=== PATIENT | male | born 1930 | race Caucasian/White ===

== ENCOUNTER 2018-08-28 09:17 | Inpatient (IN) | payer MEDICARE, OTHER ==
[~2018-08-28] VITALS: Ht 182.9 cm; Wt 90.7 kg
[~2018-08-28 09:17] MED LIST: HYDR-3164 PO
--- NOTE | 2018-08-28 09:40 | PHYS DOC ---
Past Medical History Past Medical History: CAD, Depression, Hypertension Past Surgical History: Other Additional Past Surgical Histo: CABG Alcohol Use: None Drug Use: None Adult General Chief Complaint Chief Complaint: MECHANICAL FALL HPI HPI Patient is a 87 year old male who presents with was found sitting on the toilet in his correction today with a bump on his left forehead and a 4 cm laceration. Patient has dementia and Alzheimer's and states that he doesn't remember falling or hurting himself and he denies any pain. [facility] states that he his status is normal for him. Review of Systems Review of Systems Constitutional: Denies fever or chills [] Eyes: Denies change in visual acuity, redness, or eye pain [] HENT: Denies nasal congestion or sore throat [] Respiratory: Denies cough or shortness of breath [] Cardiovascular: No additional information not addressed in HPI [] GI: Denies abdominal pain, nausea, vomiting, bloody stools or diarrhea [] : Denies dysuria or hematuria [] Musculoskeletal: Denies back pain or joint pain [] Integument: Left above brow 4 cm laceration. Left brow bruising and swelling. Denies rash or skin lesions [] Neurologic: Denies headache, focal weakness or sensory changes [] Endocrine: Denies polyuria or polydipsia [] All other systems were reviewed and found to be within normal limits, except as documented in this note. Current Medications Current Medications Current Medications Medications (Trade) Dose Ordered Sig/Lorri Start Time Stop Time Status Last Admin Dose Admin Diphtheria/ Tetanus/Acell Pertussis (Boostrix) 0.5 ml ONCE ONCE 08/28/18 09:45 08/28/18 09:46 DC 08/28/18 10:43 0.5 ML Lidocaine/Sodium Bicarbonate (Buffered Lidocaine 1%) 6 ml 1X ONCE 08/28/18 09:45 08/28/18 09:46 DC 08/28/18 10:41 6 ML Allergies Allergies Allergies Coded Allergies Type Severity Reaction Last Updated Verified Bmrpvux-Ehv-Xto Reductase Inhibitor Adverse Reaction Intermediate myalgias Yes Physical Exam Physical Exam Constitutional: Well developed, well nourished, no acute distress, non-toxic appearance. [] HENT: Normocephalic, atraumatic, bilateral external ears normal, oropharynx moist, no oral exudates, nose normal. [] Eyes: PERRLA, EOMI, conjunctiva normal, no discharge. [] Neck: Normal range of motion, no tenderness, supple, no stridor. [] Cardiovascular:Heart rate regular rhythm, no murmur [] Lungs & Thorax: Bilateral breath sounds clear to auscultation [] Abdomen: Bowel sounds normal, soft, no tenderness, no masses, no pulsatile masses. [] Skin: Left above the eyebrow 4 cm laceration. Bruising and swelling to left eyebrow. 1 cm Warm, dry, to under left eye. superficial scratch to under left eye. no erythema, no rash. [] Back: No tenderness, no CVA tenderness. [] Extremities: No tenderness, no cyanosis, no clubbing, ROM intact, no edema. [] Neurologic: Alert and oriented X 1, normal motor function, normal sensory function, no focal deficits noted. [] Psychologic: Affect normal, judgement normal, mood normal. [] Current Patient Data Vital Signs Vital Signs Date Time Temp Pulse Resp B/P (MAP) Pulse Ox O2 Delivery O2 Flow Rate FiO2 08/28/18 10:42 60 95 08/28/18 09:17 97.8 19 148/71 (96) Room Air 97.8 Lab Values Laboratory Tests Test 08/28/18 10:16 White Blood Count 4.9 x10^3/uL (4.0-11.0) Red Blood Count 3.82 x10^6/uL (4.30-5.70) L Hemoglobin 12.3 g/dL (13.0-17.5) L Hematocrit 35.5 % (39.0-53.0) L Mean Corpuscular Volume 93 fL (79-100) Mean Corpuscular Hemoglobin 32 pg (25-35) Mean Corpuscular Hemoglobin Concent 35 g/dL (31-37) Red Cell Distribution Width 14.6 % (11.5-14.5) H Platelet Count 127 x10^3/uL (140-400) L Neutrophils (%) (Auto) 65 % (31-73) Lymphocytes (%) (Auto) 21 % (24-48) L Monocytes (%) (Auto) 11 % (0-9) H Eosinophils (%) (Auto) 3 % (0-3) Basophils (%) (Auto) 0 % (0-3) Neutrophils # (Auto) 3.2 x10^3uL (1.8-7.7) Lymphocytes # (Auto) 1.0 x10^3/uL (1.0-4.8) Monocytes # (Auto) 0.6 x10^3/uL (0.0-1.1) Eosinophils # (Auto) 0.1 x10^3/uL (0.0-0.7) Basophils # (Auto) 0.0 x10^3/uL (0.0-0.2) Sodium Level 140 mmol/L (136-145) Potassium Level 4.2 mmol/L (3.5-5.1) Chloride Level 104 mmol/L (98-107) Carbon Dioxide Level 24 mmol/L (21-32) Anion Gap 12 (6-14) Blood Urea Nitrogen 24 mg/dL (8-26) Creatinine 1.3 mg/dL (0.7-1.3) Estimated GFR (Cockcroft-Gault) 52.1 Glucose Level 105 mg/dL (70-99) H Calcium Level 9.3 mg/dL (8.5-10.1) Creatine Kinase 177 U/L (39-308) Creatine Kinase MB (Mass) 2.7 ng/mL (0.0-3.6) Creatine Kinase MB Relative Index 1.5 % (0-4) Troponin I Quantitative 0.482 ng/mL (0.000-0.055) Laboratory Tests 08/28/18 10:16 Laboratory Tests 08/28/18 10:16 EKG EKG NO STEMI, SINUS RHYTHM Interpretation Time: [address] CALLOWAY Radiology/Procedures Radiology/Procedures CT HEAD, FACE, CERVICAL SPINE Impressions: [facility] [address] [place] [address] IMAGING REPORT Signed PATIENT: TAYLOR EVANS ACCOUNT: [id number] : 1930 LOCATION: ER AGE: 87 SEX: M EXAM STATUS: REG ER ORD. PHYSICIAN: DAE BEDOYA APRN REASON: fall, facial laceration, hit head PROCEDURE: CT CERVICAL SPINE WO CONTRAST PQRS Compliance Statement: One or more of the following individualized dose reduction techniques were utilized for this examination: 1. Automated exposure control 2. Adjustment of the mA and/or kV according to patient size 3. Use of iterative reconstruction technique CT HEAD, MAXILLOFACIAL, AND CERVICAL SPINE WITHOUT CONTRAST History: FALL, LACERATION TO FOREHEAD Comparison: None. Procedure: Axial images are obtained of the head from the skull base through the vertex without IV contrast. Noncontrast helical CT of the cervical spine was performed. Axial, sagittal, and coronal reconstructions were obtained. Helical CT imaging of the facial bones is performed without IV contrast. Findings: The ventricles and sulci are prominent, consistent with age-related cerebral atrophy. There is periventricular white matter hypoattenuation. This is a nonspecific finding but is commonly due to chronic small vessel ischemic disease in a patient of this age. No mass-effect, midline shift, hemorrhage or obvious acute infarction is identified. Basilar cisterns are patent. Bone windows demonstrate no significant calvarial abnormality. There is left frontal scalp hematoma and laceration. No acute facial bone fracture. Mucosal thickening inferiorly in the bilateral maxillary sinuses. No air-fluid level in paranasal sinuses.. Mastoid air cells are well aerated. Patient is edentulous. There is no evidence of acute fracture or acute malalignment of the cervical spine. Evaluation is limited due to motion artifact. Hypertrophic facet joints. Mild grade 1 anterolisthesis of C4 on C5. Severe disc space narrowing at C5/C6 and C6/C7. There are median sternotomy wires. Craniovertebral junction is normal. Visualized soft tissues of the neck demonstrate no significant abnormalities. The visualized lung apices are clear. IMPRESSION: 1. No acute intracranial abnormality. 2. No acute fracture of the cervical spine. 3. No acute facial bone fracture. 4. Left frontal scalp hematoma and laceration. Electronically signed by: Sergei Henao MD (08/28/2018 10:33 AM) [facility] DICTATED and SIGNED BY: SERGEI HENAO MD DATE: 08/28/18 [facility] Course & Med Decision Making Course & Med Decision Making Patient is a 87 year old male who presents with was found sitting on the toilet in his correction today with a bump on his left forehead and a 4 cm laceration. Patient has dementia and Alzheimer's and states that he doesn't remember falling or hurting himself and he denies any pain. [facility] states that he his status is normal for him. Patient has bruising to his left eyebrow and a dollar coin size bump with a Erin meter laceration above his left eyebrow. Patient has no bruising, deformities, tenderness with palpation to any part of his body. He denies any bony spinal pain or neck pain. Use all extremities and his neck with good range of motion. Patient is placed in a cervical spine collar. When correction was called the nurse that is taking care of him today could not give any information because she is not by a computer so it is unknown if he has had a tetanus shot. Patient receive a Boostrix in the ED. Alert and oriented to himself. Patient does have a small 1 cm scratch under his left eye that is closed and superficial. Bleeding is controlled. Laceration repair and Sutures placed by Dr Calloway. Sutures to be removed in 10 days. Patient troponin is elevated at 0.482 but EKG is negative for STEMI. Procedure note: Laceration over right forehead. 3-4 cm. Area is cleaned with NS and iodine. Wound is irrigated with NS. Local anesthesia is provided with 2 mls total buffered 1% lidocaine. A single running suture was placed with total of 8 throws using 5-0 nylon. following this, the wound edges were well- approximated but the wound continued to seep blood from the cephalad aspect. So a single vertical mattress suture was placed around the area of bleeding and hemostasis was immediately achieved. No complications during the procedure. Dragon Disclaimer Dragon Disclaimer This electronic medical record was generated, in whole or in part, using a voice recognition dictation system. Departure Departure Impression: Primary Impression: Laceration Additional Impressions: Contusion of head Elevated troponin Disposition: ADMITTED INPATIENT Admitting Physician: Other Condition: STABLE Referrals: RAISSA CHUNG MD (PCP) Problem Qualifiers Additional Impressions: Contusion of head Encounter type: initial encounter Contusion of head detail: other part of head Qualified Codes: S00.83XA - Contusion of other part of head, initial encounter DAE BEDOYA APRN Aug 28, 2018 09:40 LUCY CALLOWAY DO Aug 28, 2018 18:38
[2018-08-28] MEDS ORDERED: DIPHTH,PERTUSS(ACELL),TET TOX 0.5 ML DISP.SYRIN. VAX IM ONE (09:45)
[2018-08-28] MEDS ORDERED: LIDOCAINE WITH 8.4% SOD BICARB 3 ML DISP.SYRIN. INJ ONE (09:45)
--- NOTE | 2018-08-28 10:37 | RAD ---
PQRS Compliance Statement: One or more of the following individualized dose reduction techniques were utilized for this examination: 1. Automated exposure control 2. Adjustment of the mA and/or kV according to patient size 3. Use of iterative reconstruction technique CT HEAD, MAXILLOFACIAL, AND CERVICAL SPINE WITHOUT CONTRAST History: FALL, LACERATION TO FOREHEAD Comparison: None. Procedure: Axial images are obtained of the head from the skull base through the vertex without IV contrast. Noncontrast helical CT of the cervical spine was performed. Axial, sagittal, and coronal reconstructions were obtained. Helical CT imaging of the facial bones is performed without IV contrast. Findings: The ventricles and sulci are prominent, consistent with age-related cerebral atrophy. There is periventricular white matter hypoattenuation. This is a nonspecific finding but is commonly due to chronic small vessel ischemic disease in a patient of this age. No mass-effect, midline shift, hemorrhage or obvious acute infarction is identified. Basilar cisterns are patent. Bone windows demonstrate no significant calvarial abnormality. There is left frontal scalp hematoma and laceration. No acute facial bone fracture. Mucosal thickening inferiorly in the bilateral maxillary sinuses. No air-fluid level in paranasal sinuses.. Mastoid air cells are well aerated. Patient is edentulous. There is no evidence of acute fracture or acute malalignment of the cervical spine. Evaluation is limited due to motion artifact. Hypertrophic facet joints. Mild grade 1 anterolisthesis of C4 on C5. Severe disc space narrowing at C5/C6 and C6/C7. There are median sternotomy wires. Craniovertebral junction is normal. Visualized soft tissues of the neck demonstrate no significant abnormalities. The visualized lung apices are clear. IMPRESSION: 1. No acute intracranial abnormality. 2. No acute fracture of the cervical spine. 3. No acute facial bone fracture. 4. Left frontal scalp hematoma and laceration. Electronically signed by: Sergei Henao MD (08/28/2018 10:33 AM) [facility] [place]
[2018-08-28] MEDS ORDERED: ONDANSETRON PF 4 MG/2 ML VIAL. IV PRN (11:15)
[2018-08-28] MEDS ORDERED: fentaNYL PF VIAL 100 MCG/2 ML VIAL IV PRN (11:15)
[2018-08-28] MEDS ORDERED: ASPIRIN 325 MG TABLET PO ONE (11:15)
[2018-08-28] MEDS ORDERED: NITROGLYCERIN SUBLINGUAL 0.4 MG BOTTLE OF 25. SL PRN (11:15)
[2018-08-28] MEDS ORDERED: ACETAMINOPHEN 325 MG TABLET. PO PRN (11:15)
[2018-08-28 12:30] VITALS: BP 144/81
[2018-08-28 12:35] LABS: CALCIUM 9.3 mg/dL (8.5-10.1); CREATININE 1.3 mg/dL (0.7-1.3); GFR 52.1; POTASSIUM 4.2 mmol/L (3.5-5.1)
[2018-08-28 12:36] LABS: BASO % 0 % (0-3); EOS # 0.1 x10^3/uL (0.0-0.7); EOS % 3 % (0-3); HEMATOCRIT 35.5 % (39.0-53.0); HEMOGLOBIN 12.3 g/dL (13.0-17.5); LYMPH % 21 % (24-48); MEAN CORPUSCULAR HEMOGLOBIN 32 pg (25-35); MEAN CORPUSCULAR HGB CONC 35 g/dL (31-37); MEAN CORPUSCULAR VOLUME 93 fL (79-100); MONO # 0.6 x10^3/uL (0.0-1.1); MONO % 11 % (0-9); NEUT # 3.2 x10^3uL (1.8-7.7); NEUT % 65 % (31-73); PLATELET COUNT 127 x10^3/uL (140-400); RED BLOOD COUNT 3.82 x10^6/uL (4.30-5.70); RED CELL DISTRIBUTION WIDTH 14.6 % (11.5-14.5); WHITE BLOOD COUNT 4.9 x10^3/uL (4.0-11.0)
[2018-08-28] MEDS ORDERED: EZET10TA18 PO (15:23)
[2018-08-28] MEDS ORDERED: LOSA100T14 PO (15:23)
[2018-08-28] MEDS ORDERED: LEVO75TA5 PO (15:23)
[2018-08-28] MEDS ORDERED: ACET325T9 PO (15:23)
[2018-08-28] MEDS ORDERED: ASPI-612 PO (15:23)
[2018-08-28] MEDS ORDERED: COLE3.753 PO (15:23)
[2018-08-28] MEDS ORDERED: RISP0.5T3 PO (15:23)
[2018-08-28] MEDS ORDERED: FLUV50TA2 PO (15:23)
[2018-08-28] MEDS ORDERED: MELO7.5T29 PO (15:23)
[2018-08-28] MEDS ORDERED: RIVA1PAT23 TP (15:23)
[2018-08-28] MEDS ORDERED: MIRT30TA3 PO (15:23)
[2018-08-28] MEDS ORDERED: NIAC500T PO (15:23)
[2018-08-28] MEDS ORDERED: CHOL100013 PO (15:23)
[2018-08-28] MEDS ORDERED: TAMS0.4C2 PO (15:23)
[2018-08-28] MEDS ORDERED: CYAN10005 PO (15:23)
[2018-08-28] MEDS ORDERED: DIVA500T2 PO (15:23)
[2018-08-28] MEDS ORDERED: AMLO5TAB7 PO (15:23)
--- NOTE | 2018-08-28 15:27 | PDOC ---
Provider Note Provider Note CARDIOLOGY CONSULTATION Reason for consult: Elevated troponin HPI: 87 y.o male presenting with a fall. No chest pain. He has dementia. Unclear why troponin was checked. No dyspnea, orthopnea, PND or LE edema. He had a fall while going to the bathroom. Pmhx: 1. CAD s/p CABG 2. HTN 3. Dyslipidemia Socx: lives at [facility] at [facility]SH: Amlodipine, losartan, niacin and zetia. ALL: Statin Exam: VSS L forehead laceration Normal heart tones with 3/6 systolic aortic murmur, normal S1/s2 clear lungs no edema soft abd no focal neurologic deficits. Labs Trop minimally elevated unable to view EKG but per report no acute findings of heart block etc. Impression: 1. Fall with head laceration -etiology unclear. No clear cardiac issues noted. ( EKG, exam wnl) 2. Elevated troponin - ? stress mediated. Plan: 1. I had a long discussion with family about goals of care. 2. They wish conservative mgmt. Patient has no chest pain or symptoms. Will obtain echo, if EF normal, then supportive care. Otherwise, will reassess need for further evaluation. 3. Restart home meds. Supportive care. JODI HERNANDEZ MD Aug 28, 2018 15:27
[2018-08-28] MEDS ORDERED: HYDROcodone/APAP 5/325MG 1 TAB TABLET PO PRN (15:30)
[2018-08-28] MEDS: ACETAMINOPHEN 325 MG TABLET. PO SCH ×2 (16:00→20:36)
[2018-08-28] MEDS ORDERED: amLODIPine BESYLATE 5 MG TABLET PO SCH (16:00)
[2018-08-28] MEDS: DIVALPROEX DELAYED RELEASE 500 MG TABLET.DR. PO SCH (16:23)
--- NOTE | 2018-08-28 17:03 | EKG ---
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
[2018-08-28 19:29] VITALS: BP 155/74
[2018-08-28] MEDS ORDERED: MIRTAZAPINE 15 MG TABLET ONE (21:00)
[2018-08-28] MEDS ORDERED: NIACIN ER 500 MG TABLET.ER PO SCH (21:00)
[2018-08-28] MEDS ORDERED: MIRTAZAPINE 15 MG TABLET PO SCH (21:00)
[2018-08-28] MEDS ORDERED: risperiDONE 0.25 MG TABLET. PO SCH (21:00)
[2018-08-28 23:35] VITALS: BP 155/71
[2018-08-29] MEDS ORDERED: LEVOTHYROXINE 75 MCG TABLET PO SCH (07:30)
[2018-08-29 08:00] VITALS: BP 114/64
[2018-08-29] MEDS ORDERED: ASPIRIN ENTERIC COATED 81 MG TABLET.DR. PO SCH (08:00)
[2018-08-29] MEDS ORDERED: COLESEVELAM HCL 625 MG TABLET PO SCH (08:00)
--- NOTE | 2018-08-29 08:26 | RAD ---
EXAM: CHEST 1 VIEW History: Myocardial infarction COMPARISON: None available. TECHNIQUE: Single portable radiograph of the chest FINDINGS: The cardiac silhouette is unremarkable. The lungs are clear bilaterally. The costophrenic sulci are clear and well demarcated. IMPRESSION: No radiographic evidence of an acute cardiopulmonary process. Electronically signed by: Doc Kitchen MD (08/29/2018 8:22 AM) [facility]
[2018-08-29] MEDS ORDERED: MELOXICAM 7.5 MG TABLET PO SCH (09:00)
[2018-08-29] MEDS ORDERED: TAMSULOSIN 0.4 MG CAP.ER.24H. PO SCH (09:00)
[2018-08-29] MEDS ORDERED: amLODIPine BESYLATE 5 MG TABLET PO SCH (09:00)
[2018-08-29] MEDS ORDERED: EZETIMIBE 10 MG TABLET. PO SCH (09:00)
[2018-08-29] MEDS ORDERED: CYANOCOBALAMIN (VITAMIN B-12) 1,000 MCG TABLET. PO SCH (09:00)
[2018-08-29] MEDS ORDERED: RIVASTIGMINE 9.5MG PATCH. TD SCH (09:00)
[2018-08-29] MEDS ORDERED: LOSARTAN POTASSIUM 50 MG TABLET. PO SCH (09:00)
[2018-08-29] MEDS ORDERED: CHOLECALCIFEROL (VITAMIN D3) 1,000 UNIT TABLET PO SCH (09:00)
[2018-08-29] MEDS: ACETAMINOPHEN 325 MG TABLET. PO SCH (09:16)
[2018-08-29] MEDS: DIVALPROEX DELAYED RELEASE 500 MG TABLET.DR. PO SCH (09:17)
[2018-08-29 09:19] VITALS: BP 113/64
--- NOTE | 2018-08-29 11:00 | DISCH ---
DISCHARGE WITH HOME HEALTH DISCHARGE INFORMATION: Final Diagnosis: Problems Medical Problems: (1) Contusion of head Status: Acute (2) Elevated troponin Status: Acute (3) Laceration Status: Acute Condition on Discharge: Stable CODE STATUS: Code Status: Full HOME HEALTH: Face to Face: I certify this patient is under my care and that I, or a nurse practitioner or physician's college sports assistant working with me, had a face to face encounter that meets the physician face to face encounter requirements with this patient on []. Medical Complications: Dementia Physical Therapy For: Evalulation/Treatment Home Health Aide For: Self-care POST DISCHARGE ORDERS: Activity Instructions for Disc: Activity as tolerated Weight Bearing Status after Di: As tolerated Bathing Instructions: Shower-keep dressing dry DIET AFTER DISCHARGE: Regular Wound/Incision Care: No wound care needed Other wound/incision instructi: remove sutures in 7-10 days TREATMENT/EQUIPMENT ORDERS: Adaptive Equipment Issued: None CERTIFICATION STATEMENT: Certification Statement: Certification Statement: Based on the above finding, I certify that this patient is confined to the home and needs intermittent nursing home care, physical therapy and/or speech therapy, or continues to need occupational therapy.~ This patient is under my care, and I have initiated the establishment of the plan of care.~ This patient will be followed by myself or a community physician who will periodically review the plan of care. Home Meds Active Scripts Hydrocodone/Apap 5-325 (NORCO 5-325 TABLET) 1 Each Tablet, 1 TAB PO PRN Q6HRS PRN for PAIN, #10 TAB Prov:ANGEL FELTON MD 06/27/16 Reported Medications Ezetimibe (ZETIA) 10 Mg Tablet, 1 TAB PO DAILY for HYPERLIPIDEMIA, #30 TAB 5 Refills 08/28/18 Cholecalciferol (Vitamin D3) (VITAMIN D) 1,000 Unit Capsule, 2 CAP PO DAILY for VIT D INSUFFICIENCY, #30 CAP 3 Refills 08/28/18 Tamsulosin Hcl (TAMSULOSIN HCL) 0.4 Mg Cap.er.24h, 1 CAP PO DAILY for BPH, #30 CAP 5 Refills 08/28/18 Risperidone (RISPERIDONE) 0.5 Mg Tablet, 1.5 TAB PO QHS for AGITATION, #30 TAB 2 Refills 08/28/18 Niacin (NIASPAN) 500 Mg Tab.er.24h, 1 TAB PO QHS for HYPERLIPIDEMIA, #30 TAB 5 Refills 12/1/18 Mirtazapine (MIRTAZAPINE) 30 Mg Tablet, 1 TAB PO QHS for INSOMNIA, #30 TAB 1 Refill 08/28/18 Meloxicam (MELOXICAM) 7.5 Mg Tablet, 1 TAB PO DAILY for ARTHRITIS, #30 TAB 2 Refills 08/28/18 Losartan Potassium (LOSARTAN POTASSIUM) 100 Mg Tablet, 100 MG PO DAILY for HTN, TAB 08/28/18 Levothyroxine Sodium (LEVOTHYROXINE SODIUM) 75 Mcg Tablet, 75 MCG PO DAILYAC for THYROID SUPPLEMENT, #30 TAB 0 Refills 08/28/18 Fluvoxamine Maleate (FLUVOXAMINE MALEATE) 50 Mg Tablet, 1 TAB PO QHS for OCD, # 30 TAB 1 Refill 08/28/18 Rivastigmine (EXELON 9.5mg/24hr) 1 Each Patch.td24, 1 PATCH TP DAILY for DEMENTIA, #30 PATCH 2 Refills 08/28/18 Divalproex Sodium (DEPAKOTE) 500 Mg Tablet.dr, 1 TAB PO BID for DEMENTIA, #60 TAB 1 Refill 08/28/18 Cyanocobalamin (Vitamin B-12) (VITAMIN B-12) 1,000 Mcg Tablet, 1 TAB PO DAILY for LOW B12, #30 TAB 2 Refills 08/28/18 Colesevelam Hcl (WELCHOL) 3.75 Gm Powd.pack, 1 PACKET PO DAILY for HYPERLIPIDEMIA, #90 PACKET 1 Refill 08/28/18 Aspirin (ASPIRIN EC) 81 Mg Tablet., 81 MG PO DAILY08 for PPX, TAB.SR 08/28/18 Amlodipine Besylate (AMLODIPINE BESYLATE) 5 Mg Tablet, 5 MG PO DAILY for HTN, TAB 08/28/18 Acetaminophen (TYLENOL) 325 Mg Tablet, 1-2 TAB PO QID for PAIN/TEMP, #60 TAB 2 Refills 08/28/18 SONIA LÓPEZ III, DO Aug 29, 2018 11:00
--- NOTE | 2018-08-29 12:36 | CARD ---
MR#: [id number] Date of Study: 08/29/2018 Ordering Physician: JODI HERNANDEZ, Referring Physician: IRINA CHINCHILLA Tech: Roshni Herring RDCS APPROVED REPORT EXAM: LIMITED Two-dimensional echocardiogram. Other Information Quality : AverageHR: 56bpm Rhythm : Bradycardia INDICATION ELEVATED TROPONIN 2D DIMENSIONS IVSd1.0 (0.7-1.1cm)LVDd4.8 (3.9-5.9cm) PWd1.0 (0.7-1.1cm)LVDs3.5 (2.5-4.0cm) FS (%) 25.7 %SV53.5 ml LVEF(%)50.5 (>50%) Critical Notification Critical Value: No <Conclusion> Limited echo for LV function only EF 55% Septal motion suggestive of conduction defect, otherwise no significant disease. Valves not assessed on this limited study. Signed by : Jodi Hernandez, Electronically Approved : 08/29/2018 12:35:02
--- NOTE | 2018-08-29 13:37 | SSS ---
ADMIT DATE: 08/29/2018 CHIEF COMPLAINT: Fall and found down with a facial laceration. HISTORY OF PRESENT ILLNESS: The patient is a pleasant 87-year-old male who was found in his bathroom. He lives at a facility. He apparently had fallen or passed out. He had a laceration to the left forehead and a black eye. They called the ambulance and he was brought to the ER. The patient does have Alzheimer disease; he is not sure what happened. While in the ER, they sutured his left forehead and admitted him to the ICU. He is now being examined in room 104 where he is stable. We did consult Cardiology. They have signed off. We are probably going to get him home this afternoon. PAST MEDICAL HISTORY: Dementia, CAD, depression, hypertension, hyperlipidemia, CABG. ALLERGIES: STATINS. FAMILY HISTORY: Coronary artery disease. SOCIAL HISTORY: He lives at a facility. He does not drink, smoke or take drugs. 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 MEDICATIONS: He is on 18 of them including Exelon, Flomax, Zetia, Niaspan, amlodipine, losartan, aspirin, meloxicam, hydrocodone, Tylenol, Depakote, fluoxetine, mirtazapine, risperidone, Synthroid, vitamin B12, vitamin D. REVIEW OF SYSTEMS: GENERAL: No history of weight change, weakness or fevers. SKIN: He complains of pain around the laceration on his forehead. EYES: No blurred, double or loss of vision. NOSE AND THROAT: No history of nosebleeds, hoarseness or sore throat. HEART: No history of palpitations, chest pain or shortness of breath on exertion. LUNGS: Denies cough, hemoptysis, wheezing or shortness of breath. GASTROINTESTINAL: Denies changes in appetite, nausea, vomiting, diarrhea or constipation. GENITOURINARY: No history of frequency, urgency, hesitancy or nocturia. NEUROLOGIC: He complains of some weakness. PSYCHIATRIC: No history of panic, anxiety or depression. ENDOCRINE: No history of heat or cold intolerance, polyuria or polydipsia. EXTREMITIES: Denies muscle weakness, joint pain, pain on walking or stiffness. PHYSICAL EXAMINATION: VITAL SIGNS: Temperature is afebrile, pulse 98, respirations 18, blood pressure 144/90. GENERAL: He is alert, cooperative. His son is present. HEART: Distant S1, S2. LUNGS: Clear to auscultation. ABDOMEN: Soft, positive bowel sounds. EXTREMITIES: Trace edema. SKIN: No rashes. ENDOCRINE: No thyromegaly. LYMPHATICS: No cervical nodes. HEENT: He does have bruising around the left eye. There is also a large laceration on the left forehead. DIAGNOSTIC DATA: Chest x-ray is negative. CT of the head showed no acute fractures or intracranial abnormalities. He does have a left frontal scalp hematoma. ASSESSMENT AND PLAN: Fall with left facial trauma with status post suturing of the laceration and a black eye. Clinically, the patient seems to be back to his baseline. We will get him back on his home meds and discharge back to his facility. DISPOSITION: Home. ACTIVITY: As tolerated. DIET: Low sodium. MEDICATIONS: Please see the MRAD. TOTAL TIME: 31 minutes. ZAHRAL Brian LÓPEZ DO DR: STACIE/dioni JOB#: [id number] / [id number]
== END 2018-08-29 11:41 | disposition home or self-care (01) | DRG 605 ==
LOC: ER 09:17 → 1 WEST ICU 11:06
PROVIDERS: ADMIT Hospitalist; ATTEND Hospitalist
PROC: 0HQ1XZZ Repair Face Skin, External Approach (ICD-10-PCS; principal; 2018-08-28)
DX: S01.01XA Laceration without foreign body of scalp, initial encounter (principal); S01.81XA Laceration without foreign body of other part of head, initial encounter; S01.112A Laceration without foreign body of left eyelid and periocular area, initial encounter; E78.5 Hyperlipidemia, unspecified; F02.80 Dementia in other diseases classified elsewhere, unspecified severity, without behavioral disturbance, psychotic disturbance, mood disturbance, and anxiety; G30.9 Alzheimer's disease, unspecified; I10 Essential (primary) hypertension; I25.10 Atherosclerotic heart disease of native coronary artery without angina pectoris; Z82.49 Family history of ischemic heart disease and other diseases of the circulatory system; W18.39XA Other fall on same level, initial encounter; Z95.1 Presence of aortocoronary bypass graft; F32.9 Major depressive disorder, single episode, unspecified; Y93.89 Activity, other specified; Y92.89 Other specified places as the place of occurrence of the external cause; Y99.8 Other external cause status; Z79.899 Other long term (current) drug therapy; Z88.8 Allergy status to other drugs, medicaments and biological substances
CPT/HCPCS: 12013; 36415; 70450; 70486; 71045; 72125; 80048; 82553; 84484; 85025; 87641; 90471; 90715; 93005; 93308; 99285-25

== ENCOUNTER 2019-07-16 07:41 | Inpatient (IN) | payer MEDICARE, OTHER ==
[~2019-07-16] VITALS: Ht 175.3 cm; Wt 108.2 kg
[2019-07-16] VITALS (9 sets, daily range): BP systolic 84–157; BP diastolic 45–85
[~2019-07-16 07:41] MED LIST changes: +ACET325T9 PO; +AMLO5TAB10 PO; +AMOX1TAB11 PO; +ASPI-612 PO; +CHOL100013 PO; +COLE3.753 PO; +COLE625T12 PO; +CYAN-25 PO; +DIVA250T PO; +DIVA500T2 PO; +DIVA500T4 PO; +EZET10TA20 PO; +FLUV50TA2 PO; +LACT1CAP19 PO; +LEVO75TA5 PO; +LINE600T12 PO; +LOSA100T14 PO; +MAG355OR11 PO; +MAGN2400 PO; +MELO7.5T29 PO; +MIRT30TA3 PO; +NIAC500T PO; +NITR0.4T22 SL; +RISP0.5T3 PO; +RIVA1PAT22 TP; +RIVA1PAT23 TP; +TAMS0.4C2 PO; +VITA100020 PO
[2019-07-16] MEDS ORDERED: cefTRIAXone IV Push 2 GM VIAL. IVP ONE (08:00)
[2019-07-16] MEDS ORDERED: IPRATRPIUM/ALBUTEROL 0.5/2.5MG 3 ML NEBU. NEB ONE (08:00)
[2019-07-16] MEDS ORDERED: ACETAMINOPHEN 500 MG TABLET PO ONE (08:00)
[2019-07-16] MEDS ORDERED: DOXYCYCLINE HYCLATE 100 MG in IV DEXTROSE 5% 100ML 100 ML IV ONE (08:00)
--- NOTE | 2019-07-16 08:07 | PHYS DOC ---
Past Medical History Past Medical History: Anxiety, CAD, Dementia, Depression, High Cholesterol, Hypertension, Hypothyroid, UTI, Other Additional Past Medical Histor: ALZHEIMER'S Past Surgical History: Coronary Bypass Surgery Additional Past Surgical Histo: CABG Alcohol Use: None Drug Use: None Adult General Chief Complaint Chief Complaint: SHORTNESS OF BREATH HPI HPI Patient is a 88 year old male brought in by embolus from the local [facility] care assisted living after a fall found to have fever tachypnea hypoxia history limited by dementia no trauma identified Review of Systems Review of Systems Limited by dementia Current Medications Current Medications Current Medications Medications (Trade) Dose Ordered Sig/Lorri Start Time Stop Time Status Last Admin Dose Admin Acetaminophen (Tylenol) 1,000 mg 1X ONCE 07/16/19 08:00 07/16/19 08:01 DC 07/16/19 08:09 1,000 MG Albuterol Sulfate (Ventolin Neb Soln) 2.5 mg 1X ONCE 07/16/19 09:45 07/16/19 09:46 DC 07/16/19 09:56 2.5 MG Albuterol/ Ipratropium (Duoneb) 3 ml 1X ONCE 07/16/19 08:00 07/16/19 08:01 DC 07/16/19 08:04 3 ML Ceftriaxone Sodium (Rocephin) 2 gm 1X ONCE 07/16/19 08:00 07/16/19 08:01 DC 07/16/19 08:31 2 GM Doxycycline Hyclate 100 mg/ Dextrose 100 ml @ 50 mls/hr 1X ONCE 07/16/19 08:00 07/16/19 09:59 DC 07/16/19 08:32 50 MLS/HR Ketamine HCl (Ketamine) 20 mg 1X ONCE 07/16/19 09:45 07/16/19 09:46 DC 07/16/19 09:46 20 MG Lorazepam (Ativan Inj) 1 mg 1X ONCE 07/16/19 09:30 07/16/19 09:31 DC Oseltamivir Phosphate (Tamiflu) 75 mg 1X STAT 07/16/19 09:26 07/16/19 09:28 DC Sodium Chloride 1,000 ml @ 2,100 mls/hr Q29M 07/16/19 07:53 07/16/19 08:53 DC 07/16/19 08:21 2,100 MLS/HR Allergies Allergies Allergies Coded Allergies Type Severity Reaction Last Updated Verified bee venom protein (honey bee) Allergy Intermediate 07/16/19 Yes Penicillins Allergy Unknown 07/16/19 Yes Physical Exam Physical Exam Constitutional: Well developed, moderately ill-appearing HENT: Normocephalic, atraumatic, bilateral external ears normal, oropharynx moist, no oral exudates, nose normal. [] Eyes: PERRLA, EOMI, conjunctiva normal, no discharge. [] Neck: Normal range of motion, no tenderness, supple, no stridor. [] Cardiovascular: Tachycardia difficult to assess for murmurs Lungs & Thorax: Some wheezing noted rhonchi throughout decreased breath sounds Abdomen: Bowel sounds normal, soft, no tenderness, no masses, no pulsatile masses. [] Skin: Warm, dry, no erythema, no rash. [] Back: No tenderness, no CVA tenderness. [] Extremities: No tenderness, no cyanosis, no clubbing, ROM intact, 3 edema b/l Neurologic: Alert and oriented X 1 (baseline per report, normal motor function, normal sensory function, no focal deficits noted. [] Psychologic: Affect normal, judgement normal, mood normal. [] Current Patient Data Vital Signs Vital Signs Date Time Temp Pulse Resp B/P (MAP) Pulse Ox O2 Delivery O2 Flow Rate FiO2 07/16/19 09:58 95 BiPAP/CPAP 07/16/19 09:30 122 127/68 (87) 07/16/19 09:00 4.0 07/16/19 08:30 32 07/16/19 07:42 102.4 102.4 Lab Values Laboratory Tests Test 07/16/19 07:54 07/16/19 08:05 Influenza Type A Antigen Negative (NEGATIVE) Influenza Type B Antigen Positive (NEGATIVE) White Blood Count 4.6 x10^3/uL (4.0-11.0) Red Blood Count 3.56 x10^6/uL (4.30-5.70) L Hemoglobin 11.9 g/dL (13.0-17.5) L Hematocrit 35.1 % (39.0-53.0) L Mean Corpuscular Volume 99 fL (79-100) Mean Corpuscular Hemoglobin 33 pg (25-35) Mean Corpuscular Hemoglobin Concent 34 g/dL (31-37) Red Cell Distribution Width 14.1 % (11.5-14.5) Platelet Count 144 x10^3/uL (140-400) Neutrophils (%) (Auto) 84 % (31-73) H Lymphocytes (%) (Auto) 6 % (24-48) L Monocytes (%) (Auto) 10 % (0-9) H Eosinophils (%) (Auto) 0 % (0-3) Basophils (%) (Auto) 0 % (0-3) Neutrophils # (Auto) 3.9 x10^3/uL (1.8-7.7) Lymphocytes # (Auto) 0.3 x10^3/uL (1.0-4.8) L Monocytes # (Auto) 0.5 x10^3/uL (0.0-1.1) Eosinophils # (Auto) 0.0 x10^3/uL (0.0-0.7) Basophils # (Auto) 0.0 x10^3/uL (0.0-0.2) Segmented Neutrophils % 47 % (35-66) Band Neutrophils % 33 % (0-9) H Lymphocytes % 6 % (24-48) L Monocytes % 14 % (0-10) H Platelet Estimate Adequate (ADEQUATE) Prothrombin Time 13.9 SEC (11.7-14.0) Prothrombin Time INR 1.1 (0.8-1.1) Sodium Level 143 mmol/L (136-145) Potassium Level 4.3 mmol/L (3.5-5.1) Chloride Level 106 mmol/L (98-107) Carbon Dioxide Level 26 mmol/L (21-32) Anion Gap 11 (6-14) Blood Urea Nitrogen 49 mg/dL (8-26) H Creatinine 1.7 mg/dL (0.7-1.3) H Estimated GFR (Cockcroft-Gault) 38.1 BUN/Creatinine Ratio 29 (6-20) H Glucose Level 127 mg/dL (70-99) H Lactic Acid Level 2.3 mmol/L (0.4-2.0) H Calcium Level 9.5 mg/dL (8.5-10.1) Total Bilirubin 0.7 mg/dL (0.2-1.0) Aspartate Amino Transferase (AST) 25 U/L (15-37) Alanine Aminotransferase (ALT) 17 U/L (16-63) Alkaline Phosphatase 39 U/L (46-116) L Troponin I Quantitative 1.483 ng/mL (0.000-0.055) OZ-Poh-A-Type Natriuretic Peptide 4448 pg/mL (0-449) H Total Protein 8.3 g/dL (6.4-8.2) H Albumin 3.4 g/dL (3.4-5.0) Albumin/Globulin Ratio 0.7 (1.0-1.7) L Procalcitonin 0.18 ng/mL (0.00-0.10) H Laboratory Tests 07/16/19 08:05 Laboratory Tests 07/16/19 08:05 EKG EKG []No blood poor baseline probably sinus rhythm rate of 100 QTc 421 Radiology/Procedures Radiology/Procedures [] Impressions: Exam performed: One view chest HISTORY: Shortness of breath DATE OF SERVICE: 10/16/2018. COMPARISON: Single view chest from 10/29/2018. Single AP upright portable view chest findings: Heart size is enlarged. Pulmonary vascularity is mildly congested. There is a parenchymal opacity in the right lower lobe likely infiltrates. No gross pleural effusion or pneumothorax seen. Bones are normal. IMPRESSION: Parenchymal opacity right lower lobe likely infiltrates. Electronically signed by: Kylie Carmona MD (07/16/2019 9:46 AM) [facility] DICTATED and SIGNED BY: KYLIE CARMONA MD DATE: 07/16/19 0946 Course & Med Decision Making Course & Med Decision Making Critical care time was 35 minutes exclusive of procedures. 88-year-old male history of multiple medical problems advanced dementia presenting with fall at the longterm generalized weakness shortness of breath febrile to 102 requiring 5 L of nasal cannula all concerning for pneumonia. Critical care time related to assessment of oxygenation and respiratory evaluation patient had tenuous oxygenation in the emergency room. Patient is evidence of influenza Tamiflu was ordered also a right lower lobe pneumonia we give antibiotics for that patient has evidence of myocardial strain I suspect that is from sepsis and influenza no obvious acute changes on EKG but was a poor baseline overall the patient is critically ill. DID ORDER aspirin at time of icu transport Pertinent Labs and Imaging studies reviewed. (See chart for details) []9:30 AM patient had acute hypoxia we placed the patient on BiPAP we did give him Ativan and then some ketamine and that helped a lot I checked blood gas pH 7.38 PCO2 of 32 PO2 of 86% oN BiPAP settings. I spoke with the patient's daughter Yevgeniy over the telephone who told me that she does not think the patient should be put on a ventilator but she will check with her son. Son arrived to the emergency room right as we are transferring the patient to the ICU. Son was asking me how long the patient would be on a ventilator if he had needed it I said I wasn't sure he also told me that the dad told him he would not want to be on the ventilator for a prolonged period of time after watching what happened to his . Given the stable blood gas at this point, think he is okay for BiPAP and monitoring. Dr. HUBER come to see the patient and the emergency room as well. I talked about the case with Dr. Lucio Méndez Disclaimer Dev Disclaimer This electronic medical record was generated, in whole or in part, using a voice recognition dictation system. Departure Departure Impression: Primary Impression: Pneumonia Additional Impressions: Elevated troponin Influenza Disposition: ADMITTED INPATIENT Admitting Physician: BLAIRE Condition: GUARDED Referrals: ALFA PRADHAN MD (PCP) Problem Qualifiers ELVIS ALEJANDRA MD Jul 16, 2019 08:07
[2019-07-16] MEDS: IV NORMAL SALINE 1000ML BAG 1,000 ML IV SCH ×7 (08:09→19:00)
[2019-07-16 08:31] LABS: BASO % 0 % (0-3); EOS % 0 % (0-3); HEMATOCRIT 35.1 % (39.0-53.0); HEMOGLOBIN 11.9 g/dL (13.0-17.5); LYMPH # 0.3 x10^3/uL (1.0-4.8); LYMPH % 6 % (24-48); MEAN CORPUSCULAR HEMOGLOBIN 33 pg (25-35); MEAN CORPUSCULAR HGB CONC 34 g/dL (31-37); MEAN CORPUSCULAR VOLUME 99 fL (79-100); MONO # 0.5 x10^3/uL (0.0-1.1); MONO % 10 % (0-9); NEUT # 3.9 x10^3/uL (1.8-7.7); NEUT % 84 % (31-73); PLATELET COUNT 144 x10^3/uL (140-400); RED BLOOD COUNT 3.56 x10^6/uL (4.30-5.70); RED CELL DISTRIBUTION WIDTH 14.1 % (11.5-14.5); WHITE BLOOD COUNT 4.6 x10^3/uL (4.0-11.0)
[2019-07-16 08:38] LABS: PROTHROMBIN TIME PATIENT 13.9 SEC (11.7-14.0)
[2019-07-16 09:00] LABS: CALCIUM 9.5 mg/dL (8.5-10.1); CREATININE 1.7 mg/dL (0.7-1.3); GFR 38.1; POTASSIUM 4.3 mmol/L (3.5-5.1)
--- NOTE | 2019-07-16 09:05 | RAD ---
Exam performed portable view chest HISTORY: Chest pain DATE OF SERVICE: 07/16/2019. COMPARISON: One view chest from 10/29/2018. Single AP upright portable view chest findings: Mild cardiomegaly. Central vascular congestion and bilateral interstitial opacities are seen. There has been previous median sternotomy. Normal trace bilateral pleural effusions. IMPRESSION: Cardiomegaly with low-grade CHF Electronically signed by: Kylie Carmona MD (07/16/2019 9:03 AM) [facility]
[2019-07-16 09:14] LABS: ALBUMIN 3.4 g/dL (3.4-5.0); ALBUMIN/GLOBULIN RATIO 0.7 (1.0-1.7); TOTAL BILIRUBIN 0.7 mg/dL (0.2-1.0); TOTAL PROTEIN 8.3 g/dL (6.4-8.2)
[2019-07-16 09:20] LABS: INFLUENZA A PATIENT NEGATIVE (NEGATIVE)
[2019-07-16 09:23] LABS: INFLUENZA B PATIENT POSITIVE (NEGATIVE)
[2019-07-16] MEDS ORDERED: OSELTAMIVIR 75 MG CAPSULE PO STA (09:26)
[2019-07-16 09:28] LABS: % BANDS 33 % (0-9); % LYMPHS 6 % (24-48); % MONOS 14 % (0-10); % SEGS 47 % (35-66); PLT ESTIMATE ADEQUATE (ADEQUATE)
[2019-07-16] MEDS ORDERED: KETAMINE HCL IN NACL, ISO-OSM 50 MG/5 ML SYRINGE ONE (09:35)
[2019-07-16] MEDS ORDERED: ALBUTEROL SULFATE 2.5 MG/3 ML NEBU. NEB ONE (09:45)
[2019-07-16] MEDS ORDERED: KETAMINE HCL 500 MG/10 ML VIAL. IV ONE (09:45)
[2019-07-16] MEDS ORDERED: KETAMINE HCL IN NACL, ISO-OSM 50 MG/5 ML SYRINGE IV ONE ×3 (09:45→11:00)
--- NOTE | 2019-07-16 09:49 | RAD ---
Exam performed: One view chest HISTORY: Shortness of breath DATE OF SERVICE: 10/16/2018. COMPARISON: Single view chest from 10/29/2018. Single AP upright portable view chest findings: Heart size is enlarged. Pulmonary vascularity is mildly congested. There is a parenchymal opacity in the right lower lobe likely infiltrates. No gross pleural effusion or pneumothorax seen. Bones are normal. IMPRESSION: Parenchymal opacity right lower lobe likely infiltrates. Electronically signed by: Kylie Carmona MD (07/16/2019 9:46 AM) [facility]
[2019-07-16] MEDS ORDERED: MORPHINE SULFATE 2 MG/ML VIAL. IV PRN ×2 (10:15→18:30)
--- NOTE | 2019-07-16 10:29 | EKG ---
[facility] [address] [place] [address] Test Date: 2019-07-16 Test Time: 08:01:17 Pat Name: TAYLOR EVANS Department: Room: 112 1 Gender: M Trauma Counsellor: : 1930 Requested By: ELVIS ALEJANDRA Order Number: [id number] Reading MD: Jeff Auguste MD Measurements Intervals Haugen Rate: 100 P: -86 DC: 202 QRS: 2 QRSD: 84 T: 55 QT: 324 QTc: 420 Interpretive Statements SIGNIFICANT MOTION ARTIFACT PROBABLE SR WITH 1ST DEGREE AVB NON-SPECIFIC ST/T CHANGES Electronically Signed On 07-16-2019 14:24:21 CDT by Jeff Auguste MD
[2019-07-16 10:47] LABS: BASE EXCESS ABG -5 mmol/L (-3-3); HCO3 ABG 19 mmol/L (21-28); PCO2 ABG 33 mmHg (35-46); PO2 ABG 87 mmHg (65-108); SAT O2 ABG 95 % (92-99)
[2019-07-16 10:51] LABS: FIO2 ABG 50
--- NOTE | 2019-07-16 10:55 | PDOC ---
Provider Note Provider Note [id number] acute resp fail sepsis influenza, pneumonia see orders IBRAHIMA MALCOLM MD Jul 16, 2019 10:55
[2019-07-16] MEDS ORDERED: BUDESONIDE 0.5 MG/2 ML NEBU. NEB ONE (11:00)
--- NOTE | 2019-07-16 11:07 | PDOC1 ---
History and Physical Date of Admission Date of Admission DATE: 07/16/19 TIME: 11:01 Identification/Chief Complaint Chief Complaint seen in er , 88 year old male brought in by EMS from the local memory care// assisted living after a fall found to have fever tachypnea hypoxia history limited by dementia PLACED ON BIPAP anxious in er Past Medical History Past Medical History Past Medical History Past Medical History: Anxiety, CAD, Dementia, Depression, High Cholesterol, Hypertension, Hypothyroid, UTI, Other Additional Past Medical Histor: ALZHEIMER'S Past Surgical History: Coronary Bypass Surgery Additional Past Surgical Histo: CABG Alcohol Use: None Drug Use: None fhx HTN Cardiovascular: CAD, HTN, Hyperlipidemia Pulmonary: No pertinent hx CENTRAL NERVOUS SYSTEM: Dementia GI: No pertinent hx Heme/Onc: No pertinent hx Hepatobiliary: No pertinent hx Psych: Anxiety, Depression Musculoskeletal: Osteoarthritis Rheumatologic: No pertinent hx Infectious disease: No pertinent hx Renal/: UTI Endocrine: Hypothyroidism Past Surgical History Past Surgical History: CABG Family History Family History Past Medical History Cardiovascular: CAD, HTN Pulmonary: No pertinent hx CENTRAL NERVOUS SYSTEM: Dementia GI: No pertinent hx Heme/Onc: No pertinent hx Hepatobiliary: No pertinent hx Psych: Anxiety, Depression Rheumatologic: No pertinent hx Infectious disease: No pertinent hx ENT: No pertinent hx Renal/: UTI, Benign prostatic enlarg. Endocrine: Hypothyroidism Dermatology: No pertinent hx Past Surgical History Past Surgical History: CABG Family History Family History: Hypertension, Hypothyroidism Social History Smoke: No ALCOHOL: none Drugs: None Family History: Hypertension Social History Smoke: No ALCOHOL: none Drugs: None Current Medications Current Medications Current Medications Acetaminophen (Tylenol) 1,000 mg 1X ONCE PO Last administered on 07/16/19at 08:09; Start 07/16/19 at 08:00; Stop 07/16/19 at 08:01; Status DC Ceftriaxone Sodium (Rocephin) 2 gm 1X ONCE IVP Last administered on 07/16/19at 08:31; Start 07/16/19 at 08:00; Stop 07/16/19 at 08:01; Status DC Sodium Chloride 1,000 ml @ 2,100 mls/hr Q29M IV Last administered on 07/16/19at 08:21; Start 07/16/19 at 07:53; Stop 07/16/19 at 08:53; Status DC Doxycycline Hyclate 100 mg/ Dextrose 100 ml @ 50 mls/hr 1X ONCE IV Last administered on 07/16/19at 08:32; Start 07/16/19 at 08:00; Stop 07/16/19 at 09:59; Status DC Albuterol/ Ipratropium (Duoneb) 3 ml 1X ONCE NEB Last administered on 07/16/19at 08:04; Start 07/16/19 at 08:00; Stop 07/16/19 at 08:01; Status DC Lorazepam (Ativan Inj) 1 mg 1X ONCE IV Last administered on 07/16/19at 09:28; Start 07/16/19 at 09:30; Stop 07/16/19 at 09:31; Status DC Lorazepam (Ativan Inj) 1 mg 1X ONCE IVP ; Start 07/16/19 at 09:30; Stop 1 at 09:31; Status DC Oseltamivir Phosphate (Tamiflu) 75 mg 1X STAT PO ; Start 07/16/19 at 09:26; Stop 07/16/19 at 09:28; Status DC Ketamine HCl (Ketamine) 50 mg STK-MED ONCE .ROUTE ; Start 07/16/19 at 09:35; Stop 07/16/19 at 09:35; Status DC Ketamine HCl (Ketamine) 20 mg 1X ONCE IV ; Start 07/16/19 at 09:45; Stop 07/16/19 at 09:46; Status DC Ketamine HCl (Ketamine) 20 mg 1X ONCE IV Last administered on 07/16/19at 09:46; Start 07/16/19 at 09:45; Stop 07/16/19 at 09:46; Status DC Albuterol Sulfate (Ventolin Neb Soln) 2.5 mg 1X ONCE NEB Last administered on 07/16/19at 09:56; Start 07/16/19 at 09:45; Stop 07/16/19 at 09:46; Status DC Morphine Sulfate (Morphine Sulfate) 2 mg PRN Q2HR PRN IV PAIN; Start 07/16/19 at 10:15; Stop 07/17/19 at 10:14 Albuterol/ Ipratropium (Duoneb) 3 ml RTQID NEB ; Start 07/16/19 at 12:00; Stop 07/17/19 at 11:59 Ketamine HCl (Ketamine) 20 mg 1X ONCE IV Last administered on 07/16/19at 10:20; Start 07/16/19 at 10:15; Stop 07/16/19 at 10:16; Status DC Budesonide (Pulmicort) 0.5 mg RTBID NEB ; Start 07/16/19 at 20:00 Budesonide (Pulmicort) 0.5 mg 1X ONCE NEB ; Start 07/16/19 at 11:00; Stop 07/16/19 at 11:01 Ketamine HCl (Ketamine) 20 mg 1X ONCE IV ; Start 07/16/19 at 11:00; Stop 07/16/19 at 11:01; Status UNV Active Scripts Active Culturelle (Lactobacillus Rhamnosus Gg) 1 Each Cap.sprink 1 Cap PO BID 30 Days Zyvox (Linezolid) 600 Mg Tablet 600 Mg PO BID 10 Days Amox Tr-K Clv 875-125 Mg Tab (Amoxicillin/Potassium Clav) 1 Each Tablet 1 Tab PO BIDWMEALS 10 Days Reported Vitamin E (Vitamin E Mixed) 1,000 Unit Capsule 1,000 Unit PO DAILY NITROGLYCERIN SubLingual (Nitroglycerin) 0.4 Mg Tab.subl 0.4 Mg SL PRN Q5MIN PRN Milk Of Magnesia (Magnesium Hydroxide) 2,400 Mg/10 Ml Oral.susp 2,400 Mg PO DAILY PRN Maalox Advanced Suspension (Mag Hydrox/Aluminum Hyd/Simeth) 355 Ml Oral.susp 15 Ml PO PRN AFTMEALHC PRN EXELON 4.6mg/24hr (Rivastigmine) 1 Each Patch.td24 1 Patch TP DAILY Depakote Er (Divalproex Sodium) 500 Mg Tab.er.24h 1 Tab PO BID Depakote Er (Divalproex Sodium) 250 Mg Tab.er.24h 1 Tab PO QHS Welchol (Colesevelam Hcl) 625 Mg Tablet 2,500 Mg PO BID Zetia (Ezetimibe) 10 Mg Tablet 1 Tab PO HS Vitamin D (Cholecalciferol (Vitamin D3)) 1,000 Unit Capsule 50,000 Units PO QSA Tamsulosin Hcl 0.4 Mg Cap.er.24h 1 Cap PO DAILY Risperidone 0.5 Mg Tablet 1.5 Tab PO QHS Niaspan (Niacin) 500 Mg Tab.er.24h 1 Tab PO QHS Mirtazapine 30 Mg Tablet 1 Tab PO QHS Losartan Potassium 100 Mg Tablet 100 Mg PO DAILY Levothyroxine Sodium 75 Mcg Tablet 75 Mcg PO DAILYAC Fluvoxamine Maleate 50 Mg Tablet 1 Tab PO QHS Vitamin B-12 (Cyanocobalamin (Vitamin B-12)) 1,000 Mcg Tablet 1 Tab PO DAILY Aspirin Ec (Aspirin) 81 Mg Tablet.dr 81 Mg PO DAILY08 Amlodipine Besylate 5 Mg Tablet 5 Mg PO DAILY Tylenol (Acetaminophen) 325 Mg Tablet 1-2 Tab PO QID Allergies Allergies: Coded Allergies: bee venom protein (honey bee) (Verified Allergy, Intermediate, 07/16/19) WASP Penicillins (Verified Allergy, Unknown, 07/16/19) Oamzram-Jeg-Jmj Reductase Inhibitor (Verified Adverse Reaction, Intermediate, myalgias, 07/16/19) ROS Review of System UNABLE TO COOPERATE DUE TO MEDICAL CONDITION Neurological: Yes Behavorial Changes, Yes Confusion Physical Exam Physical Exam Constitutional: Well developed, moderately ill-appearing ON BIPAP HENT: Normocephalic, atraumatic, bilateral external ears normal, oropharynx moist, no oral exudates, nose normal. [] Eyes: PERRLA, EOMI, conjunctiva normal, no discharge. [] Neck: Normal range of motion, no tenderness, supple, no stridor. [] Cardiovascular: Tachycardia difficult to assess for murmurs Lungs & Thorax: Some wheezing noted rhonchi throughout decreased breath sounds Abdomen: Bowel sounds normal, soft, no tenderness, no masses, no pulsatile masses. [] Skin: Warm, dry, no erythema, no rash. [] Back: No tenderness, no CVA tenderness. [] Extremities: No tenderness, no cyanosis, no clubbing, ROM intact, 3 edema b/l General: moderate distress Heart: RRR Breasts: Not examined Abdomen: Soft, No tenderness Rectal Exam: not examined PELVIC: Examination not indicated Extremities: No cyanosis Vitals Vitals Vital Signs Date Time Temp Pulse Resp B/P (MAP) Pulse Ox O2 Delivery O2 Flow Rate FiO2 07/16/19 09:58 95 BiPAP/CPAP 07/16/19 09:30 122 127/68 (87) 07/16/19 09:00 4.0 07/16/19 08:30 32 07/16/19 07:42 102.4 102.4 Labs Labs Laboratory Tests Test 07/16/19 07:54 07/16/19 08:05 07/16/19 10:30 Influenza Type A Antigen Negative (NEGATIVE) Influenza Type B Antigen Positive (NEGATIVE) White Blood Count 4.6 x10^3/uL (4.0-11.0) Red Blood Count 3.56 x10^6/uL (4.30-5.70) Hemoglobin 11.9 g/dL (13.0-17.5) Hematocrit 35.1 % (39.0-53.0) Mean Corpuscular Volume 99 fL (79-100) Mean Corpuscular Hemoglobin 33 pg (25-35) Mean Corpuscular Hemoglobin Concent 34 g/dL (31-37) Red Cell Distribution Width 14.1 % (11.5-14.5) Platelet Count 144 x10^3/uL (140-400) Neutrophils (%) (Auto) 84 % (31-73) Lymphocytes (%) (Auto) 6 % (24-48) Monocytes (%) (Auto) 10 % (0-9) Eosinophils (%) (Auto) 0 % (0-3) Basophils (%) (Auto) 0 % (0-3) Neutrophils # (Auto) 3.9 x10^3/uL (1.8-7.7) Lymphocytes # (Auto) 0.3 x10^3/uL (1.0-4.8) Monocytes # (Auto) 0.5 x10^3/uL (0.0-1.1) Eosinophils # (Auto) 0.0 x10^3/uL (0.0-0.7) Basophils # (Auto) 0.0 x10^3/uL (0.0-0.2) Segmented Neutrophils % 47 % (35-66) Band Neutrophils % 33 % (0-9) Lymphocytes % 6 % (24-48) Monocytes % 14 % (0-10) Platelet Estimate Adequate (ADEQUATE) Prothrombin Time 13.9 SEC (11.7-14.0) Prothromb Time International Ratio 1.1 (0.8-1.1) Sodium Level 143 mmol/L (136-145) Potassium Level 4.3 mmol/L (3.5-5.1) Chloride Level 106 mmol/L (98-107) Carbon Dioxide Level 26 mmol/L (21-32) Anion Gap 11 (6-14) Blood Urea Nitrogen 49 mg/dL (8-26) Creatinine 1.7 mg/dL (0.7-1.3) Estimated GFR (Cockcroft-Gault) 38.1 BUN/Creatinine Ratio 29 (6-20) Glucose Level 127 mg/dL (70-99) Lactic Acid Level 2.3 mmol/L (0.4-2.0) Calcium Level 9.5 mg/dL (8.5-10.1) Total Bilirubin 0.7 mg/dL (0.2-1.0) Aspartate Amino Transf (AST/SGOT) 25 U/L (15-37) Alanine Aminotransferase (ALT/SGPT) 17 U/L (16-63) Alkaline Phosphatase 39 U/L (46-116) Troponin I Quantitative 1.483 ng/mL (0.000-0.055) DE-Ezo-F-Type Natriuretic Peptide 4448 pg/mL (0-449) Total Protein 8.3 g/dL (6.4-8.2) Albumin 3.4 g/dL (3.4-5.0) Albumin/Globulin Ratio 0.7 (1.0-1.7) Procalcitonin 0.18 ng/mL (0.00-0.10) O2 Saturation 95 % (92-99) Arterial Blood pH 7.38 (7.35-7.45) Arterial Blood pCO2 at Patient Temp 33 mmHg (35-46) Arterial Blood pO2 at Patient Temp 87 mmHg (65-108) Arterial Blood HCO3 19 mmol/L (21-28) Arterial Blood Base Excess -5 mmol/L (-3-3) FiO2 50 Laboratory Tests Test 07/16/19 07:54 07/16/19 08:05 07/16/19 10:30 Influenza Type A Antigen Negative (NEGATIVE) Influenza Type B Antigen Positive (NEGATIVE) White Blood Count 4.6 x10^3/uL (4.0-11.0) Red Blood Count 3.56 x10^6/uL (4.30-5.70) Hemoglobin 11.9 g/dL (13.0-17.5) Hematocrit 35.1 % (39.0-53.0) Mean Corpuscular Volume 99 fL (79-100) Mean Corpuscular Hemoglobin 33 pg (25-35) Mean Corpuscular Hemoglobin Concent 34 g/dL (31-37) Red Cell Distribution Width 14.1 % (11.5-14.5) Platelet Count 144 x10^3/uL (140-400) Neutrophils (%) (Auto) 84 % (31-73) Lymphocytes (%) (Auto) 6 % (24-48) Monocytes (%) (Auto) 10 % (0-9) Eosinophils (%) (Auto) 0 % (0-3) Basophils (%) (Auto) 0 % (0-3) Neutrophils # (Auto) 3.9 x10^3/uL (1.8-7.7) Lymphocytes # (Auto) 0.3 x10^3/uL (1.0-4.8) Monocytes # (Auto) 0.5 x10^3/uL (0.0-1.1) Eosinophils # (Auto) 0.0 x10^3/uL (0.0-0.7) Basophils # (Auto) 0.0 x10^3/uL (0.0-0.2) Segmented Neutrophils % 47 % (35-66) Band Neutrophils % 33 % (0-9) Lymphocytes % 6 % (24-48) Monocytes % 14 % (0-10) Platelet Estimate Adequate (ADEQUATE) Prothrombin Time 13.9 SEC (11.7-14.0) Prothromb Time International Ratio 1.1 (0.8-1.1) Sodium Level 143 mmol/L (136-145) Potassium Level 4.3 mmol/L (3.5-5.1) Chloride Level 106 mmol/L (98-107) Carbon Dioxide Level 26 mmol/L (21-32) Anion Gap 11 (6-14) Blood Urea Nitrogen 49 mg/dL (8-26) Creatinine 1.7 mg/dL (0.7-1.3) Estimated GFR (Cockcroft-Gault) 38.1 BUN/Creatinine Ratio 29 (6-20) Glucose Level 127 mg/dL (70-99) Lactic Acid Level 2.3 mmol/L (0.4-2.0) Calcium Level 9.5 mg/dL (8.5-10.1) Total Bilirubin 0.7 mg/dL (0.2-1.0) Aspartate Amino Transf (AST/SGOT) 25 U/L (15-37) Alanine Aminotransferase (ALT/SGPT) 17 U/L (16-63) Alkaline Phosphatase 39 U/L (46-116) Troponin I Quantitative 1.483 ng/mL (0.000-0.055) UE-Vcv-M-Type Natriuretic Peptide 4448 pg/mL (0-449) Total Protein 8.3 g/dL (6.4-8.2) Albumin 3.4 g/dL (3.4-5.0) Albumin/Globulin Ratio 0.7 (1.0-1.7) Procalcitonin 0.18 ng/mL (0.00-0.10) O2 Saturation 95 % (92-99) Arterial Blood pH 7.38 (7.35-7.45) Arterial Blood pCO2 at Patient Temp 33 mmHg (35-46) Arterial Blood pO2 at Patient Temp 87 mmHg (65-108) Arterial Blood HCO3 19 mmol/L (21-28) Arterial Blood Base Excess -5 mmol/L (-3-3) FiO2 50 Images Images APPROVED REPORT EXAM: LIMITED Two-dimensional echocardiogram. Other Information Quality : Average HR: 56bpm Rhythm : Bradycardia INDICATION ELEVATED TROPONIN 2D DIMENSIONS IVSd 1.0 (0.7-1.1cm) LVDd 4.8 (3.9-5.9cm) PWd 1.0 (0.7-1.1cm) LVDs 3.5 (2.5-4.0cm) FS (%) 25.7 % SV 53.5 ml LVEF(%) 50.5 (>50%) Critical Notification Critical Value: No <Conclusion> Limited echo for LV function only EF 55% Septal motion suggestive of conduction defect, otherwise no significant disease. Valves not assessed on this limited study. Signed by : Jodi Hernandez, Electronically Approved : 08/29/2018 12:35:02 DICTATED and SIGNED BY: JODI HERNANDEZ MD DATE: 08/29/18 1235 Exam performed: One view chest HISTORY: Shortness of breath DATE OF SERVICE: 10/16/2018. COMPARISON: Single view chest from 10/29/2018. Single AP upright portable view chest findings: Heart size is enlarged. Pulmonary vascularity is mildly congested. There is a parenchymal opacity in the right lower lobe likely infiltrates. No gross pleural effusion or pneumothorax seen. Bones are normal. IMPRESSION: Parenchymal opacity right lower lobe likely infiltrates. Electronically signed by: Kylie Carmona MD (07/16/2019 9:46 AM) [facility] VTE Prophylaxis Ordered VTE Prophylaxis Devices: No VTE Pharmacological Prophylaxi: No Assessment/Plan Assessment/Plan IMPRESSION: ACUTE hypoxic resp failure Parenchymal opacity right lower lobe likely infiltrates. Influenza B pneumonitis advanced dementia HTN - cont meds HLD - cont meds Hypothyroidism - cont levothyroxine Depression - with anxiety - ON mood stabilizers, depakote level CAD s/p CABG - ELEVATED TROPONIN I PLAN ADMIT ICU BIPAP SUPPORT PULM CONSULT TAMIFLU BID FULL CODE FOR NOW, family consulting others for guidance iv antibiotics DVT PROPHYLAXIS Cardiology consult ID consult [id number] MIN CC TIME LULY GUERIN MD Jul 16, 2019 11:07
--- NOTE | 2019-07-16 11:18 | CONS ---
DATE OF CONSULTATION: 07/16/2019 I was asked to see this 88-year-old gentleman for acute respiratory failure. HISTORY OF PRESENT ILLNESS: The patient is currently on BiPAP. He was given some ketamine due to agitation, so he is not able to give any information. He appears tachypneic. He was brought to Emergency Room via masks from [facility] after a fall. Also was found to have fever and tachypnea and hypoxemia. He was placed on BiPAP. He is currently on BiPAP. PAST MEDICAL HISTORY: Anxiety, coronary artery disease, dementia, hypercholesterolemia, hypertension, hypothyroidism, coronary artery disease, status post CABG. ALLERGIES: PENICILLIN, STATINS, BEE VENOM. SOCIAL HISTORY: Unable to obtain secondary to the patient being lethargic. FAMILY HISTORY: Unable to obtain secondary to the patient being lethargic and on BiPAP. REVIEW OF SYSTEMS: As mentioned as above. I have discussed the patient with ER physician. Other systems are otherwise negative. PHYSICAL EXAMINATION: GENERAL: This is an obese gentleman. VITAL SIGNS: His O2 saturation on BiPAP 95%, respiratory rate 33, blood pressure 127/68, heart rate 122, temperature 102.4. He appears tachypneic. HEENT: Normocephalic, atraumatic. Pupils equal, round, reactive to light. He has BiPAP mask on. NECK: There is no lymphadenopathy or thyromegaly. CARDIOVASCULAR: Tachycardic. CHEST: Inspection, he appears tachypneic. LUNGS: There are end-expiratory wheezing, bibasilar crackles, dullness at the bases. ABDOMEN: Soft and obese. Bowel sounds are good. There is no mass. EXTREMITIES: There is edema. LYMPHATICS: There is no lymphadenopathy. NEUROLOGIC: Lethargic. SKIN: Chronic changes. LABORATORY DATA: I reviewed the following lab data: Chest x-ray shows right lung infiltrate. WBC 4.6, hemoglobin 11.9, platelets 144, his nasal swab is positive for influenza B. Sodium 143, potassium 4.3, chloride 106, CO2 of 26, glucose 127, BUN 49, creatinine 1.7. BNP 44 48. Troponin 1.48. Procalcitonin 0.18. Lactic acid 2.3. IMPRESSION: 1. Acute respiratory failure secondary to influenza, pneumonia, acute exacerbation of congestive heart failure, acute bronchospasm versus others. 2. Abnormal chest x-ray. 3. Acute bronchospasm. 4. Pneumonia, influenza. 5. Acute kidney injury. 6. Elevated troponin. 7. Elevated procalcitonin. 8. Sepsis with lactate elevation. RECOMMENDATIONS: 1. Titrate FiO2 to keep O2 saturation 92%. 2. ABG. We will review and change BiPAP setting per ABG. 3. The patient is DNR. His daughter confirmed that but his son is coming to the hospital. 4. Bronchodilator. 5. Inhaled corticosteroid. 6. I do recommend ID consultation. 7. Agree with Tamiflu that is given to the patient. 8. The patient was given Rocephin and doxycycline in the Emergency Room. I do recommend ID consultation. 9. Monitor respiratory status very closely in ICU. 10. Continue BiPAP. 11. Lower extremity venous Doppler. 12. The findings and recommendations were discussed with ER physician. Thank you very much for allowing me to participate in care of this very nice gentleman. IBRAHIMA MALCOLM M.D. : JUDY/dioni JOB#: [id number] / [id number]
[2019-07-16] MEDS ORDERED: ASPIRIN RECTAL 300 MG SUPP. PR STA (11:27)
[2019-07-16] MEDS ORDERED: 0.9 % SODIUM CHLORIDE 10 ML DISP.SYRIN. IV PRN (11:30)
[2019-07-16] MEDS ORDERED: ONDANSETRON PF 4 MG/2 ML VIAL. IV PRN (11:30)
[2019-07-16] MEDS ORDERED: BISACODYL 10 MG SUPP.RECT. PR PRN (11:30)
[2019-07-16] MEDS: IPRATRPIUM/ALBUTEROL 0.5/2.5MG 3 ML NEBU. NEB SCH ×3 (12:20→19:55)
[2019-07-16] MEDS: MEROPENEM 500 MG in IV NORMAL SALINE 50ML 50 ML IV SCH ×2 (12:20→21:52)
--- NOTE | 2019-07-16 13:29 | NUR ---
Patient admitted to room 112 at 1130. Report received from Kelli URIOSTEGUI. Patient on BiPap 50% FiO2. Patient's son and [id number] at bedside. Son answered admission requirements. Skin intact, 2PIV's present upon arrival to ICU. Francois catheter inserted, 500 ml straw colored urine collected immediately. Call light at bedside, bed alarm on. Patient 1:1 status due to restlessness, anxiety. He is pulling on wires, BiPap. Mitts applied. Patient is DNR status.
[2019-07-16] MEDS ORDERED: NORMAL SALINE IV SCH (14:00)
[2019-07-16] MEDS ORDERED: MEROPENEM IV SCH (14:00)
--- NOTE | 2019-07-16 14:05 | PDOC2 ---
CONSULT Date of Consult Date of Consult DATE: 07/16/19 TIME: 13:49 History of Present Illness Reason for Visit: 88-year-old CM history of multiple medical problems advanced dementia presenting with fall at the assisted generalized weakness shortness of breath febrile to 102 requiring 5 L of nasal cannula all concerning for pneumonia. He had acute hypoxia and is on BiPAP Dx with influenza -Tamiflu was ordered also a right lower lobe pneumonia Suresh placed on arrival to ICU with UOP of 500 ml . Currently on Bipap , Unable to Obtain hx from the patient. Past Medical History Cardiovascular: CAD, HTN, Hyperlipidemia Pulmonary: No pertinent hx CENTRAL NERVOUS SYSTEM: Dementia GI: No pertinent hx Heme/Onc: No pertinent hx Hepatobiliary: No pertinent hx Psych: Anxiety, Depression Musculoskeletal: Osteoarthritis Rheumatologic: No pertinent hx Infectious disease: No pertinent hx Renal/: UTI Endocrine: Hypothyroidism Past Surgical History Past Surgical History: CABG Family History Family History: Hypertension Social History No ALCOHOL: none Drugs: None Lives: [facility] Current Problem List Problem List Problems Medical Problems: (1) Elevated troponin Status: Acute (2) Influenza Status: Acute Current Medications Current Medications Current Medications Acetaminophen (Tylenol) 1,000 mg 1X ONCE PO Last administered on 07/16/19at 08:09; Start 07/16/19 at 08:00; Stop 07/16/19 at 08:01; Status DC Ceftriaxone Sodium (Rocephin) 2 gm 1X ONCE IVP Last administered on 07/16/19at 08:31; Start 07/16/19 at 08:00; Stop 07/16/19 at 08:01; Status DC Sodium Chloride 1,000 ml @ 2,100 mls/hr Q29M IV Last administered on 07/16/19at 08:21; Start 07/16/19 at 07:53; Stop 07/16/19 at 08:53; Status DC Doxycycline Hyclate 100 mg/ Dextrose 100 ml @ 50 mls/hr 1X ONCE IV Last administered on 07/16/19at 08:32; Start 07/16/19 at 08:00; Stop 07/16/19 at 09:59; Status DC Albuterol/ Ipratropium (Duoneb) 3 ml 1X ONCE NEB Last administered on 07/16/19 at 08:04; Start 07/16/19 at 08:00; Stop 07/16/19 at 08:01; Status DC Lorazepam (Ativan Inj) 1 mg 1X ONCE IV Last administered on 07/16/19at 09:28; Start 07/16/19 at 09:30; Stop 07/16/19 at 09:31; Status DC Lorazepam (Ativan Inj) 1 mg 1X ONCE IVP ; Start 07/16/19 at 09:30; Stop 07/16/19 at 09:31; Status DC Oseltamivir Phosphate (Tamiflu) 75 mg 1X STAT PO ; Start 07/16/19 at 09:26; Stop 07/16/19 at 09:28; Status DC Ketamine HCl (Ketamine) 50 mg STK-MED ONCE .ROUTE ; Start 07/16/19 at 09:35; Stop 07/16/19 at 09:35; Status DC Ketamine HCl (Ketamine) 20 mg 1X ONCE IV ; Start 07/16/19 at 09:45; Stop 07/16/19 at 09:46; Status DC Ketamine HCl (Ketamine) 20 mg 1X ONCE IV Last administered on 07/16/19at 09:46; Start 07/16/19 at 09:45; Stop 07/16/19 at 09:46; Status DC Albuterol Sulfate (Ventolin Neb Soln) 2.5 mg 1X ONCE NEB Last administered on 07/16/19at 09:56; Start 07/16/19 at 09:45; Stop 07/16/19 at 09:46; Status DC Morphine Sulfate (Morphine Sulfate) 2 mg PRN Q2HR PRN IV PAIN; Start 07/16/19 at 10:15; Stop 07/17/19 at 10:14 Albuterol/ Ipratropium (Duoneb) 3 ml RTQID NEB Last administered on 07/16/19at 12:20; Start 07/16/19 at 12:00; Stop 07/17/19 at 11:59 Ketamine HCl (Ketamine) 20 mg 1X ONCE IV Last administered on 07/16/19at 10:20; Start 07/16/19 at 10:15; Stop 07/16/19 at 10:16; Status DC Budesonide (Pulmicort) 0.5 mg RTBID NEB ; Start 07/16/19 at 20:00 Budesonide (Pulmicort) 0.5 mg 1X ONCE NEB Last administered on 07/16/19at 12:19; Start 07/16/19 at 11:00; Stop 07/16/19 at 11:01; Status DC Ketamine HCl (Ketamine) 20 mg 1X ONCE IV ; Start 07/16/19 at 11:00; Stop 07/16/19 at 11:02; Status DC Lorazepam (Ativan Inj) 0.5 mg PRN Q6HRS PRN IV ANXIETY / AGITATION Last administered on 07/16/19at 13:42; Start 07/16/19 at 11:30 Ondansetron HCl (Zofran) 4 mg PRN Q6HRS PRN IV NAUSEA/VOMITING; Start 07/16/19 at 11:30 Famotidine (Pepcid Vial) 20 mg QHS IVP ; Start 07/16/19 at 21:00 Heparin Sodium (Porcine) (Heparin Sodium) 5,000 unit Q12HR SQ ; Start 07/16/19 at 21:00 Sodium Chloride (Normal Saline Flush) 3 ml QSHIFT PRN IV AFTER MEDS AND BLOOD DRAWS; Start 07/16/19 at 11:30 Bisacodyl (Dulcolax Supp) 10 mg PRN DAILY PRN [place] CONSTIPATION; Start 07/16/19 at 11:30 Sodium Chloride 1,000 ml @ 2,130 mls/hr Q29M IV ; Start 07/16/19 at 11:24; Stop 07/16/19 at 12:24; Status DC Meropenem 0.5 gm/ Sodium Chloride 100 ml @ 200 mls/hr Q8HRS IV ; Start 07/16/19 at 14:00; Status UNV Norepinephrine Bitartrate 250 ml @ 17.006 mls/ hr CONT PRN IV PER PROTOCOL; Start 07/16/19 at 11:30 Aspirin (Aspirin Rectal Supp) 300 mg 1X STAT [place] Last administered on 07/16/19at 12:20; Start 07/16/19 at 11:27; Stop 07/16/19 at 11:30; Status DC Meropenem 500 mg/ Sodium Chloride 50 ml @ 100 mls/hr Q8HRS IV Last administered on 07/16/19at 12:20; Start 07/16/19 at 12:00 Active Scripts Active Culturelle (Lactobacillus Rhamnosus Gg) 1 Each Cap.sprink 1 Cap PO BID 30 Days Zyvox (Linezolid) 600 Mg Tablet 600 Mg PO BID 10 Days Amox Tr-K Clv 875-125 Mg Tab (Amoxicillin/Potassium Clav) 1 Each Tablet 1 Tab PO BIDWMEALS 10 Days Reported Vitamin E (Vitamin E Mixed) 1,000 Unit Capsule 1,000 Unit PO DAILY NITROGLYCERIN SubLingual (Nitroglycerin) 0.4 Mg Tab.subl 0.4 Mg SL PRN Q5MIN PRN Milk Of Magnesia (Magnesium Hydroxide) 2,400 Mg/10 Ml Oral.susp 2,400 Mg PO DAILY PRN Maalox Advanced Suspension (Mag Hydrox/Aluminum Hyd/Simeth) 355 Ml Oral.susp 15 Ml PO PRN AFTMEALHC PRN EXELON 4.6mg/24hr (Rivastigmine) 1 Each Patch.td24 1 Patch TP DAILY Depakote Er (Divalproex Sodium) 500 Mg Tab.er.24h 1 Tab PO BID Depakote Er (Divalproex Sodium) 250 Mg Tab.er.24h 1 Tab PO QHS Welchol (Colesevelam Hcl) 625 Mg Tablet 2,500 Mg PO BID Zetia (Ezetimibe) 10 Mg Tablet 1 Tab PO HS Vitamin D (Cholecalciferol (Vitamin D3)) 1,000 Unit Capsule 50,000 Units PO QSA Tamsulosin Hcl 0.4 Mg Cap.er.24h 1 Cap PO DAILY Risperidone 0.5 Mg Tablet 1.5 Tab PO QHS Niaspan (Niacin) 500 Mg Tab.er.24h 1 Tab PO QHS Mirtazapine 30 Mg Tablet 1 Tab PO QHS Losartan Potassium 100 Mg Tablet 100 Mg PO DAILY Levothyroxine Sodium 75 Mcg Tablet 75 Mcg PO DAILYAC Fluvoxamine Maleate 50 Mg Tablet 1 Tab PO QHS Vitamin B-12 (Cyanocobalamin (Vitamin B-12)) 1,000 Mcg Tablet 1 Tab PO DAILY Aspirin Ec (Aspirin) 81 Mg Tablet.dr 81 Mg PO DAILY08 Amlodipine Besylate 5 Mg Tablet 5 Mg PO DAILY Tylenol (Acetaminophen) 325 Mg Tablet 1-2 Tab PO QID Allergies Allergies: Coded Allergies: bee venom protein (honey bee) (Verified Allergy, Intermediate, 07/16/19) WASP Penicillins (Verified Allergy, Unknown, 07/16/19) Irxafrs-Zde-Gvb Reductase Inhibitor (Verified Adverse Reaction, Intermediate, myalgias, 07/16/19) ROS Review of System Unable to Obtain Physical Exam Physical Exam GENERAL: Mils distress, On Bipap HEENT: He has BiPAP mask on. NECK: supple CARDIOVASCULAR: Tachycardic. LUNGS: end-expiratory wheezing, bibasilar crackles ABDOMEN: Soft and obese. EXTREMITIES edema + NEUROLOGIC: Lethargic, Hx of dementia SKIN: No rash Chronic changes Gu Suresh + . Vital Signs Vital Signs Date Time Temp Pulse Resp B/P (MAP) Pulse Ox O2 Delivery O2 Flow Rate FiO2 07/16/19 13:25 Bi-pap 07/16/19 12:20 95 07/16/19 09:30 122 127/68 (87) 07/16/19 09:00 4.0 07/16/19 08:30 32 07/16/19 07:42 102.4 102.4 Assessment & Plan ZAHRAA - Pre-renal /Urinary retention/Sepsis UOP of 500 ml when suresh placed E-Lytes and acid base stable Recd IVF per Sepsis protocol, supportive care, Hold IVF , Monitor Will get Renal US if no improvement in renal function or inadequate UOP Acute respiratory failure secondary to influenza, pneumonia, Acute exacerbation of congestive heart failure, influenza- Influenza B positive Pneumonia - On CxR Sepsis with lactate elevation. Irvin RN at bedside Labs Labs Laboratory Tests Test 07/16/19 07:54 07/16/19 08:05 07/16/19 10:30 07/16/19 11:34 Influenza Type A Antigen Negative (NEGATIVE) Influenza Type B Antigen Positive (NEGATIVE) White Blood Count 4.6 x10^3/uL (4.0-11.0) Red Blood Count 3.56 x10^6/uL (4.30-5.70) Hemoglobin 11.9 g/dL (13.0-17.5) Hematocrit 35.1 % (39.0-53.0) Mean Corpuscular Volume 99 fL (79-100) Mean Corpuscular Hemoglobin 33 pg (25-35) Mean Corpuscular Hemoglobin Concent 34 g/dL (31-37) Red Cell Distribution Width 14.1 % (11.5-14.5) Platelet Count 144 x10^3/uL (140-400) Neutrophils (%) (Auto) 84 % (31-73) Lymphocytes (%) (Auto) 6 % (24-48) Monocytes (%) (Auto) 10 % (0-9) Eosinophils (%) (Auto) 0 % (0-3) Basophils (%) (Auto) 0 % (0-3) Neutrophils # (Auto) 3.9 x10^3/uL (1.8-7.7) Lymphocytes # (Auto) 0.3 x10^3/uL (1.0-4.8) Monocytes # (Auto) 0.5 x10^3/uL (0.0-1.1) Eosinophils # (Auto) 0.0 x10^3/uL (0.0-0.7) Basophils # (Auto) 0.0 x10^3/uL (0.0-0.2) Segmented Neutrophils % 47 % (35-66) Band Neutrophils % 33 % (0-9) Lymphocytes % 6 % (24-48) Monocytes % 14 % (0-10) Platelet Estimate Adequate (ADEQUATE) Prothrombin Time 13.9 SEC (11.7-14.0) Prothromb Time International Ratio 1.1 (0.8-1.1) Sodium Level 143 mmol/L (136-145) Potassium Level 4.3 mmol/L (3.5-5.1) Chloride Level 106 mmol/L (98-107) Carbon Dioxide Level 26 mmol/L (21-32) Anion Gap 11 (6-14) Blood Urea Nitrogen 49 mg/dL (8-26) Creatinine 1.7 mg/dL (0.7-1.3) Estimated GFR (Cockcroft-Gault) 38.1 BUN/Creatinine Ratio 29 (6-20) Glucose Level 127 mg/dL (70-99) Lactic Acid Level 2.3 mmol/L (0.4-2.0) Calcium Level 9.5 mg/dL (8.5-10.1) Total Bilirubin 0.7 mg/dL (0.2-1.0) Aspartate Amino Transf (AST/SGOT) 25 U/L (15-37) Alanine Aminotransferase (ALT/SGPT) 17 U/L (16-63) Alkaline Phosphatase 39 U/L (46-116) Troponin I Quantitative 1.483 ng/mL (0.000-0.055) LL-Jyd-B-Type Natriuretic Peptide 4448 pg/mL (0-449) Total Protein 8.3 g/dL (6.4-8.2) Albumin 3.4 g/dL (3.4-5.0) Albumin/Globulin Ratio 0.7 (1.0-1.7) Procalcitonin 0.18 ng/mL (0.00-0.10) Thyroid Stimulating Hormone (TSH) 1.652 uIU/mL (0.358-3.74) O2 Saturation 95 % (92-99) Arterial Blood pH 7.38 (7.35-7.45) Arterial Blood pCO2 at Patient Temp 33 mmHg (35-46) Arterial Blood pO2 at Patient Temp 87 mmHg (65-108) Arterial Blood HCO3 19 mmol/L (21-28) Arterial Blood Base Excess -5 mmol/L (-3-3) FiO2 50 Fibrinogen 654 mg/dL (200-440) Test 07/16/19 12:10 Lactic Acid Level 2.5 mmol/L (0.4-2.0) Troponin I Quantitative 3.506 ng/mL (0.000-0.055) Laboratory Tests Test 07/16/19 07:54 07/16/19 08:05 07/16/19 10:30 07/16/19 11:34 Influenza Type A Antigen Negative (NEGATIVE) Influenza Type B Antigen Positive (NEGATIVE) White Blood Count 4.6 x10^3/uL (4.0-11.0) Red Blood Count 3.56 x10^6/uL (4.30-5.70) Hemoglobin 11.9 g/dL (13.0-17.5) Hematocrit 35.1 % (39.0-53.0) Mean Corpuscular Volume 99 fL (79-100) Mean Corpuscular Hemoglobin 33 pg (25-35) Mean Corpuscular Hemoglobin Concent 34 g/dL (31-37) Red Cell Distribution Width 14.1 % (11.5-14.5) Platelet Count 144 x10^3/uL (140-400) Neutrophils (%) (Auto) 84 % (31-73) Lymphocytes (%) (Auto) 6 % (24-48) Monocytes (%) (Auto) 10 % (0-9) Eosinophils (%) (Auto) 0 % (0-3) Basophils (%) (Auto) 0 % (0-3) Neutrophils # (Auto) 3.9 x10^3/uL (1.8-7.7) Lymphocytes # (Auto) 0.3 x10^3/uL (1.0-4.8) Monocytes # (Auto) 0.5 x10^3/uL (0.0-1.1) Eosinophils # (Auto) 0.0 x10^3/uL (0.0-0.7) Basophils # (Auto) 0.0 x10^3/uL (0.0-0.2) Segmented Neutrophils % 47 % (35-66) Band Neutrophils % 33 % (0-9) Lymphocytes % 6 % (24-48) Monocytes % 14 % (0-10) Platelet Estimate Adequate (ADEQUATE) Prothrombin Time 13.9 SEC (11.7-14.0) Prothromb Time International Ratio 1.1 (0.8-1.1) Sodium Level 143 mmol/L (136-145) Potassium Level 4.3 mmol/L (3.5-5.1) Chloride Level 106 mmol/L (98-107) Carbon Dioxide Level 26 mmol/L (21-32) Anion Gap 11 (6-14) Blood Urea Nitrogen 49 mg/dL (8-26) Creatinine 1.7 mg/dL (0.7-1.3) Estimated GFR (Cockcroft-Gault) 38.1 BUN/Creatinine Ratio 29 (6-20) Glucose Level 127 mg/dL (70-99) Lactic Acid Level 2.3 mmol/L (0.4-2.0) Calcium Level 9.5 mg/dL (8.5-10.1) Total Bilirubin 0.7 mg/dL (0.2-1.0) Aspartate Amino Transf (AST/SGOT) 25 U/L (15-37) Alanine Aminotransferase (ALT/SGPT) 17 U/L (16-63) Alkaline Phosphatase 39 U/L (46-116) Troponin I Quantitative 1.483 ng/mL (0.000-0.055) AI-Njt-N-Type Natriuretic Peptide 4448 pg/mL (0-449) Total Protein 8.3 g/dL (6.4-8.2) Albumin 3.4 g/dL (3.4-5.0) Albumin/Globulin Ratio 0.7 (1.0-1.7) Procalcitonin 0.18 ng/mL (0.00-0.10) Thyroid Stimulating Hormone (TSH) 1.652 uIU/mL (0.358-3.74) O2 Saturation 95 % (92-99) Arterial Blood pH 7.38 (7.35-7.45) Arterial Blood pCO2 at Patient Temp 33 mmHg (35-46) Arterial Blood pO2 at Patient Temp 87 mmHg (65-108) Arterial Blood HCO3 19 mmol/L (21-28) Arterial Blood Base Excess -5 mmol/L (-3-3) FiO2 50 Fibrinogen 654 mg/dL (200-440) Test 07/16/19 12:10 Lactic Acid Level 2.5 mmol/L (0.4-2.0) Troponin I Quantitative 3.506 ng/mL (0.000-0.055) Review All relevant outside records, renal labs, imaging studies, telemetry/EKG's were reviewed. Images Images Parenchymal opacity right lower lobe likely infiltrates. JARVIS MCCORMICK MD Jul 16, 2019 14:05
--- NOTE | 2019-07-16 16:20 | CONS ---
DATE OF CONSULTATION: 07/16/2019 REASON FOR CONSULTATION: Elevated troponin. HISTORY OF PRESENT ILLNESS: The patient is an 88-year-old man with past medical history including coronary artery disease, status post CABG, hypertension, and dyslipidemia, who presented to the hospital in the setting of acute respiratory failure and was found to have pneumonia with a positive flu scan. Cardiology has been asked to evaluate him for a positive troponin. He actually had an elevated troponin in 08/2018, at which time a long discussion with the family about goals of care were performed and ultimately, the family had elected to continue conservative management only. Currently, the patient is somnolent and in severe respiratory distress on a BiPAP as he is DNR/DNI. The patient is unable to communicate. Based on chart review, he is being treated for pneumonia and also was seen for acute kidney injury and treated with IV fluids. PAST MEDICAL HISTORY: As noted above. SOCIAL HISTORY: He lives at assisted living facility. CURRENT CARDIOVASCULAR MEDICATIONS: None. REVIEW OF SYSTEMS: Unable to be obtained. ALLERGIES: PENICILLINS, STATINS. PHYSICAL EXAMINATION: VITAL SIGNS: Febrile to 102.4, tachycardia to 130, blood pressure 157/80, 91% on 4 L on BiPAP therapy. GENERAL: He is agitated and difficult to arouse. HEAD AND NECK: Notable for accessory muscle use. LUNGS: Sounds are notable for significant rhonchi bilaterally. CARDIAC: Regular rhythm with tachycardia. ABDOMEN: Soft abdomen. EXTREMITIES: Trace lower extremity edema. DIAGNOSTIC STUDIES: Hemoglobin 11.9, platelets 144. Creatinine elevated at 1.7 from baseline of 1.3. BNP elevated at 4500. Cardiac biomarkers elevated at 3.5. Chest x-ray demonstrates a parenchymal opacity in the right lower lobe. Serology is positive for flu scan type B. EKG demonstrates sinus tachycardia without any significant ischemic changes. Echocardiogram from 09/16/2018 revealed normal LV function. IMPRESSION: 1. Acute respiratory failure secondary to the flu and pneumonia. 2. Non-ST elevation myocardial infarction, likely type 2. 3. Dementia and multiple other comorbidities. RECOMMENDATIONS: 1. At this present time, given the patient's significant respiratory distress and inability to take any oral drugs, we would continue favoring conservative management. 2. If he is able to take oral drugs, we will start aspirin and low dose beta harvey once his acute sepsis resolves. 3. We will discuss with the family again regarding further ischemic evaluation after routine echocardiogram was obtained to help determine prognosis and plans for any further evaluation. Thank you for this consultation. JODI HERNANDEZ MD DR: ROLY/dioni JOB#: [id number] / [id number]
[2019-07-16] MEDS ORDERED: PROPOFOL 100 ML IV ONE (17:02)
[2019-07-16] MEDS ORDERED: SUCCINYLCHOLINE 200 MG/10 ML VIAL. ONE (17:03)
--- NOTE | 2019-07-16 17:28 | PDOC ---
Provider Note Provider Note Pt being ventilated per mask/ambu by resp therapy on my arrival. Diprivan 40mg and sux 80mg ivp, 8.0 oett with direct view of cords, bbs & positive co2 . taped at 23 @ lip. Chest xray pending. o2 sat95% JEFF HUI CRNA Jul 16, 2019 17:28
[2019-07-16] MEDS: MIDAZOLAM 100mg/100ml NS BAG 100 ML IV PRN ×2 (17:56→18:06)
--- NOTE | 2019-07-16 18:11 | NUR ---
Patient intubated by Dr. Mcclain at 1715, 8.0 Tube, 24 at the lip. Settings: AC 16, 500, 5, 100%. Patient's son at the bedside, stated he wants patient to be Full Code at this time. Verified that he wants chest compressions and intubation if needed. He was at the bedside when the patient was intubated. Dr. Demarco notified, Dr. Valdes notified.
[2019-07-16] MEDS ORDERED: ACETAMINOPHEN 650 MG/20.3 ML SOLUTION. PEG PRN (18:15)
[2019-07-16 18:22] LABS: BASE EXCESS ABG -4 mmol/L (-3-3); HCO3 ABG 21 mmol/L (21-28); PCO2 ABG 37 mmHg (35-46); PO2 ABG 70 mmHg (65-108); SAT O2 ABG 92 % (92-99)
[2019-07-16 18:24] LABS: FIO2 ABG 100
[2019-07-16] MEDS ORDERED: MORPHINE SULFATE 4 MG/ML VIAL. IV PRN (18:30)
[2019-07-16] MEDS ORDERED: NALOXONE 0.4 MG/ML VIAL. IV PRN (18:30)
[2019-07-16] MEDS ORDERED: fentaNYL PF VIAL 100 MCG/2 ML VIAL IV PRN ×2 (18:30)
[2019-07-16] MEDS ORDERED: MIDAZOLAM 100mg/100ml NS BAG 100 ML IV PRN (18:30)
--- NOTE | 2019-07-16 18:47 | RAD ---
CHEST AP ONLY 07/16/2019 5:16 PM INDICATION: Intubation COMPARISON: 07/16/2019 TECHNIQUE: Portable frontal view of the chest is provided. FINDINGS: The cardiomediastinal silhouette is similar in appearance. Endotracheal tube is identified with the distal tip terminating 1.5 cm above the level of charbel. This may be retracted 1 to 2 cm. Increase in small bilateral pleural effusions, right greater than left. Adjacent compressive atelectasis versus infiltrates are noted. Increased pulmonary vascular congestion. No definite pneumothorax. Median sternotomy changes are present. IMPRESSION: Worsened aeration of the lungs compared to prior examination, as described in detail above. Endotracheal tube terminates 1.5 cm above the level of the charbel. This may be retracted 1 to 2 cm. FOR INTERNAL CODING PURPOSES Critical result: Findings discussed with Jennifer at 07/16/2019 6:44 PM. RESULT CODE: (C) Electronically signed by: Sara Santiago MD (07/16/2019 6:44 PM) [id number]
[2019-07-16] MEDS: BUDESONIDE 0.5 MG/2 ML NEBU. NEB SCH (20:00)
[2019-07-16] MEDS: NOREPINEPHRIN 8MG/250ML PREMIX 250 ML IV PRN (20:30)
--- NOTE | 2019-07-16 20:30 | RAD ---
Exam performed: X-ray abdomen KUB. Clinical Indication: Feeding tube placement Date of Service: 07/16/2019 Comparison: Chest x-ray from earlier today FINDINGS: Supine radiograph of the abdomen and pelvis reveals interval placement of a feeding tube, the tip terminates in the stomach. Mild gaseous prominence of the small bowel loops in the central abdomen. There is gaseous distention of the ascending colon. Definite pathologic calcification or organomegaly is not identified. The visualized osseous structures appear unremarkable. Impression: 1. Feeding tube terminates in the stomach. 2. Mild gaseous prominence of the small and large bowel loops likely ileus pattern or obstruction. Correlate clinically Electronically signed by: Kylie Carmona MD (07/16/2019 8:27 PM) [facility]
[2019-07-16] MEDS: CHLORHEXIDINE 0.12% 15 ML MOUTHWASH. MM SCH (20:52)
[2019-07-16] MEDS: HEPARIN for SUB-Q USE 5,000 UNIT/ML VIAL. SQ SCH (20:53)
[2019-07-16] MEDS: FAMOTIDINE 20 MG/2 ML VIAL IVP SCH (20:53)
[2019-07-17] VITALS (27 sets, daily range): BP systolic 91–123; BP diastolic 51–75
--- NOTE | 2019-07-17 01:58 | RAD ---
Ultrasound venous Doppler INDICATION:Bilateral lower extremity edema. TECHNIQUE: Grayscale, color Doppler and spectral waveform ultrasound images of the bilateral lower extremities deep veins obtained. COMPARISON: None FINDINGS: The interrogated deep veins are compressible and demonstrate evidence of blood flow with normal respiratory variation and response to augmentation. IMPRESSION: No sonographic evidence of acute DVT of the bilateral lower extremity deep veins. Electronically signed by: Ede Moore DO (07/17/2019 1:55 AM) [id number]
[2019-07-17 04:44] LABS: BASO % 0 % (0-3); EOS % 0 % (0-3); HEMATOCRIT 32.8 % (39.0-53.0); LYMPH # 0.7 x10^3/uL (1.0-4.8); LYMPH % 9 % (24-48); MEAN CORPUSCULAR HEMOGLOBIN 33 pg (25-35); MEAN CORPUSCULAR HGB CONC 33 g/dL (31-37); MEAN CORPUSCULAR VOLUME 99 fL (79-100); MONO # 0.8 x10^3/uL (0.0-1.1); MONO % 10 % (0-9); NEUT # 6.4 x10^3/uL (1.8-7.7); NEUT % 81 % (31-73); PLATELET COUNT 176 x10^3/uL (140-400); RED BLOOD COUNT 3.31 x10^6/uL (4.30-5.70); RED CELL DISTRIBUTION WIDTH 14.1 % (11.5-14.5); WHITE BLOOD COUNT 7.9 x10^3/uL (4.0-11.0)
[2019-07-17 05:02] LABS: ALBUMIN 2.6 g/dL (3.4-5.0); ALBUMIN/GLOBULIN RATIO 0.6 (1.0-1.7); CALCIUM 8.4 mg/dL (8.5-10.1); CREATININE 1.6 mg/dL (0.7-1.3); GFR 40.9; POTASSIUM 4.2 mmol/L (3.5-5.1); TOTAL BILIRUBIN 0.5 mg/dL (0.2-1.0); TOTAL PROTEIN 7.1 g/dL (6.4-8.2)
[2019-07-17] MEDS: MEROPENEM 500 MG in IV NORMAL SALINE 50ML 50 ML IV SCH ×3 (06:05→21:37)
--- NOTE | 2019-07-17 06:11 | PDOC ---
PULMONARY PROGRESS NOTES Subjective intubated 07/16 per son request, on vent, fio2 100%, sat 100%, on fentanyl, versed, large ett secretion Vitals Vital Signs Date Time Temp Pulse Resp B/P (MAP) Pulse Ox O2 Delivery O2 Flow Rate FiO2 07/17/19 05:00 65 18 106/51 (69) 100 Ventilator 07/17/19 04:00 4.0 07/17/19 04:00 100.1 100.1 Comments ros as mentioned as above discussed w rn other sys otherwise neg sedated on vent HEENT: Other (nc at perrl nose clear orally intubated neck no lad no thyromegaly) Lungs: Crackles Cardiovascular: S1, S2 Abdomen: Soft, Non-tender, Other (no mass) Extremities: Other (+edems) Skin: Warm Labs Laboratory Tests Test 07/16/19 07:54 07/16/19 08:05 07/16/19 10:30 07/16/19 11:34 Influenza Type A Antigen Negative (NEGATIVE) Influenza Type B Antigen Positive (NEGATIVE) White Blood Count 4.6 x10^3/uL (4.0-11.0) Red Blood Count 3.56 x10^6/uL (4.30-5.70) Hemoglobin 11.9 g/dL (13.0-17.5) Hematocrit 35.1 % (39.0-53.0) Mean Corpuscular Volume 99 fL (79-100) Mean Corpuscular Hemoglobin 33 pg (25-35) Mean Corpuscular Hemoglobin Concent 34 g/dL (31-37) Red Cell Distribution Width 14.1 % (11.5-14.5) Platelet Count 144 x10^3/uL (140-400) Neutrophils (%) (Auto) 84 % (31-73) Lymphocytes (%) (Auto) 6 % (24-48) Monocytes (%) (Auto) 10 % (0-9) Eosinophils (%) (Auto) 0 % (0-3) Basophils (%) (Auto) 0 % (0-3) Neutrophils # (Auto) 3.9 x10^3/uL (1.8-7.7) Lymphocytes # (Auto) 0.3 x10^3/uL (1.0-4.8) Monocytes # (Auto) 0.5 x10^3/uL (0.0-1.1) Eosinophils # (Auto) 0.0 x10^3/uL (0.0-0.7) Basophils # (Auto) 0.0 x10^3/uL (0.0-0.2) Segmented Neutrophils % 47 % (35-66) Band Neutrophils % 33 % (0-9) Lymphocytes % 6 % (24-48) Monocytes % 14 % (0-10) Platelet Estimate Adequate (ADEQUATE) Prothrombin Time 13.9 SEC (11.7-14.0) Prothromb Time International Ratio 1.1 (0.8-1.1) Sodium Level 143 mmol/L (136-145) Potassium Level 4.3 mmol/L (3.5-5.1) Chloride Level 106 mmol/L (98-107) Carbon Dioxide Level 26 mmol/L (21-32) Anion Gap 11 (6-14) Blood Urea Nitrogen 49 mg/dL (8-26) Creatinine 1.7 mg/dL (0.7-1.3) Estimated GFR (Cockcroft-Gault) 38.1 BUN/Creatinine Ratio 29 (6-20) Glucose Level 127 mg/dL (70-99) Lactic Acid Level 2.3 mmol/L (0.4-2.0) Calcium Level 9.5 mg/dL (8.5-10.1) Total Bilirubin 0.7 mg/dL (0.2-1.0) Aspartate Amino Transf (AST/SGOT) 25 U/L (15-37) Alanine Aminotransferase (ALT/SGPT) 17 U/L (16-63) Alkaline Phosphatase 39 U/L (46-116) Troponin I Quantitative 1.483 ng/mL (0.000-0.055) PM-Lzt-P-Type Natriuretic Peptide 4448 pg/mL (0-449) Total Protein 8.3 g/dL (6.4-8.2) Albumin 3.4 g/dL (3.4-5.0) Albumin/Globulin Ratio 0.7 (1.0-1.7) Procalcitonin 0.18 ng/mL (0.00-0.10) Thyroid Stimulating Hormone (TSH) 1.652 uIU/mL (0.358-3.74) O2 Saturation 95 % (92-99) Arterial Blood pH 7.38 (7.35-7.45) Arterial Blood pCO2 at Patient Temp 33 mmHg (35-46) Arterial Blood pO2 at Patient Temp 87 mmHg (65-108) Arterial Blood HCO3 19 mmol/L (21-28) Arterial Blood Base Excess -5 mmol/L (-3-3) FiO2 50 Fibrinogen 654 mg/dL (200-440) Test 07/16/19 12:10 07/16/19 18:10 07/17/19 04:00 Lactic Acid Level 2.5 mmol/L (0.4-2.0) Troponin I Quantitative 3.506 ng/mL (0.000-0.055) O2 Saturation 92 % (92-99) Arterial Blood pH 7.37 (7.35-7.45) Arterial Blood pCO2 at Patient Temp 37 mmHg (35-46) Arterial Blood pO2 at Patient Temp 70 mmHg (65-108) Arterial Blood HCO3 21 mmol/L (21-28) Arterial Blood Base Excess -4 mmol/L (-3-3) FiO2 100 White Blood Count 7.9 x10^3/uL (4.0-11.0) Red Blood Count 3.31 x10^6/uL (4.30-5.70) Hemoglobin 11.0 g/dL (13.0-17.5) Hematocrit 32.8 % (39.0-53.0) Mean Corpuscular Volume 99 fL (79-100) Mean Corpuscular Hemoglobin 33 pg (25-35) Mean Corpuscular Hemoglobin Concent 33 g/dL (31-37) Red Cell Distribution Width 14.1 % (11.5-14.5) Platelet Count 176 x10^3/uL (140-400) Neutrophils (%) (Auto) 81 % (31-73) Lymphocytes (%) (Auto) 9 % (24-48) Monocytes (%) (Auto) 10 % (0-9) Eosinophils (%) (Auto) 0 % (0-3) Basophils (%) (Auto) 0 % (0-3) Neutrophils # (Auto) 6.4 x10^3/uL (1.8-7.7) Lymphocytes # (Auto) 0.7 x10^3/uL (1.0-4.8) Monocytes # (Auto) 0.8 x10^3/uL (0.0-1.1) Eosinophils # (Auto) 0.0 x10^3/uL (0.0-0.7) Basophils # (Auto) 0.0 x10^3/uL (0.0-0.2) Sodium Level 142 mmol/L (136-145) Potassium Level 4.2 mmol/L (3.5-5.1) Chloride Level 109 mmol/L (98-107) Carbon Dioxide Level 25 mmol/L (21-32) Anion Gap 8 (6-14) Blood Urea Nitrogen 49 mg/dL (8-26) Creatinine 1.6 mg/dL (0.7-1.3) Estimated GFR (Cockcroft-Gault) 40.9 BUN/Creatinine Ratio 31 (6-20) Glucose Level 150 mg/dL (70-99) Calcium Level 8.4 mg/dL (8.5-10.1) Total Bilirubin 0.5 mg/dL (0.2-1.0) Aspartate Amino Transf (AST/SGOT) 53 U/L (15-37) Alanine Aminotransferase (ALT/SGPT) 24 U/L (16-63) Alkaline Phosphatase 34 U/L (46-116) Total Protein 7.1 g/dL (6.4-8.2) Albumin 2.6 g/dL (3.4-5.0) Albumin/Globulin Ratio 0.6 (1.0-1.7) Laboratory Tests Test 07/16/19 07:54 07/16/19 08:05 07/16/19 10:30 07/16/19 11:34 Influenza Type A Antigen Negative (NEGATIVE) Influenza Type B Antigen Positive (NEGATIVE) White Blood Count 4.6 x10^3/uL (4.0-11.0) Red Blood Count 3.56 x10^6/uL (4.30-5.70) Hemoglobin 11.9 g/dL (13.0-17.5) Hematocrit 35.1 % (39.0-53.0) Mean Corpuscular Volume 99 fL (79-100) Mean Corpuscular Hemoglobin 33 pg (25-35) Mean Corpuscular Hemoglobin Concent 34 g/dL (31-37) Red Cell Distribution Width 14.1 % (11.5-14.5) Platelet Count 144 x10^3/uL (140-400) Neutrophils (%) (Auto) 84 % (31-73) Lymphocytes (%) (Auto) 6 % (24-48) Monocytes (%) (Auto) 10 % (0-9) Eosinophils (%) (Auto) 0 % (0-3) Basophils (%) (Auto) 0 % (0-3) Neutrophils # (Auto) 3.9 x10^3/uL (1.8-7.7) Lymphocytes # (Auto) 0.3 x10^3/uL (1.0-4.8) Monocytes # (Auto) 0.5 x10^3/uL (0.0-1.1) Eosinophils # (Auto) 0.0 x10^3/uL (0.0-0.7) Basophils # (Auto) 0.0 x10^3/uL (0.0-0.2) Segmented Neutrophils % 47 % (35-66) Band Neutrophils % 33 % (0-9) Lymphocytes % 6 % (24-48) Monocytes % 14 % (0-10) Platelet Estimate Adequate (ADEQUATE) Prothrombin Time 13.9 SEC (11.7-14.0) Prothromb Time International Ratio 1.1 (0.8-1.1) Sodium Level 143 mmol/L (136-145) Potassium Level 4.3 mmol/L (3.5-5.1) Chloride Level 106 mmol/L (98-107) Carbon Dioxide Level 26 mmol/L (21-32) Anion Gap 11 (6-14) Blood Urea Nitrogen 49 mg/dL (8-26) Creatinine 1.7 mg/dL (0.7-1.3) Estimated GFR (Cockcroft-Gault) 38.1 BUN/Creatinine Ratio 29 (6-20) Glucose Level 127 mg/dL (70-99) Lactic Acid Level 2.3 mmol/L (0.4-2.0) Calcium Level 9.5 mg/dL (8.5-10.1) Total Bilirubin 0.7 mg/dL (0.2-1.0) Aspartate Amino Transf (AST/SGOT) 25 U/L (15-37) Alanine Aminotransferase (ALT/SGPT) 17 U/L (16-63) Alkaline Phosphatase 39 U/L (46-116) Troponin I Quantitative 1.483 ng/mL (0.000-0.055) FU-Mhl-Z-Type Natriuretic Peptide 4448 pg/mL (0-449) Total Protein 8.3 g/dL (6.4-8.2) Albumin 3.4 g/dL (3.4-5.0) Albumin/Globulin Ratio 0.7 (1.0-1.7) Procalcitonin 0.18 ng/mL (0.00-0.10) Thyroid Stimulating Hormone (TSH) 1.652 uIU/mL (0.358-3.74) O2 Saturation 95 % (92-99) Arterial Blood pH 7.38 (7.35-7.45) Arterial Blood pCO2 at Patient Temp 33 mmHg (35-46) Arterial Blood pO2 at Patient Temp 87 mmHg (65-108) Arterial Blood HCO3 19 mmol/L (21-28) Arterial Blood Base Excess -5 mmol/L (-3-3) FiO2 50 Fibrinogen 654 mg/dL (200-440) Test 07/16/19 12:10 07/16/19 18:10 07/17/19 04:00 Lactic Acid Level 2.5 mmol/L (0.4-2.0) Troponin I Quantitative 3.506 ng/mL (0.000-0.055) O2 Saturation 92 % (92-99) Arterial Blood pH 7.37 (7.35-7.45) Arterial Blood pCO2 at Patient Temp 37 mmHg (35-46) Arterial Blood pO2 at Patient Temp 70 mmHg (65-108) Arterial Blood HCO3 21 mmol/L (21-28) Arterial Blood Base Excess -4 mmol/L (-3-3) FiO2 100 White Blood Count 7.9 x10^3/uL (4.0-11.0) Red Blood Count 3.31 x10^6/uL (4.30-5.70) Hemoglobin 11.0 g/dL (13.0-17.5) Hematocrit 32.8 % (39.0-53.0) Mean Corpuscular Volume 99 fL (79-100) Mean Corpuscular Hemoglobin 33 pg (25-35) Mean Corpuscular Hemoglobin Concent 33 g/dL (31-37) Red Cell Distribution Width 14.1 % (11.5-14.5) Platelet Count 176 x10^3/uL (140-400) Neutrophils (%) (Auto) 81 % (31-73) Lymphocytes (%) (Auto) 9 % (24-48) Monocytes (%) (Auto) 10 % (0-9) Eosinophils (%) (Auto) 0 % (0-3) Basophils (%) (Auto) 0 % (0-3) Neutrophils # (Auto) 6.4 x10^3/uL (1.8-7.7) Lymphocytes # (Auto) 0.7 x10^3/uL (1.0-4.8) Monocytes # (Auto) 0.8 x10^3/uL (0.0-1.1) Eosinophils # (Auto) 0.0 x10^3/uL (0.0-0.7) Basophils # (Auto) 0.0 x10^3/uL (0.0-0.2) Sodium Level 142 mmol/L (136-145) Potassium Level 4.2 mmol/L (3.5-5.1) Chloride Level 109 mmol/L (98-107) Carbon Dioxide Level 25 mmol/L (21-32) Anion Gap 8 (6-14) Blood Urea Nitrogen 49 mg/dL (8-26) Creatinine 1.6 mg/dL (0.7-1.3) Estimated GFR (Cockcroft-Gault) 40.9 BUN/Creatinine Ratio 31 (6-20) Glucose Level 150 mg/dL (70-99) Calcium Level 8.4 mg/dL (8.5-10.1) Total Bilirubin 0.5 mg/dL (0.2-1.0) Aspartate Amino Transf (AST/SGOT) 53 U/L (15-37) Alanine Aminotransferase (ALT/SGPT) 24 U/L (16-63) Alkaline Phosphatase 34 U/L (46-116) Total Protein 7.1 g/dL (6.4-8.2) Albumin 2.6 g/dL (3.4-5.0) Albumin/Globulin Ratio 0.6 (1.0-1.7) Medications Active Scripts Medications Dose Route/Sig Max Daily Dose Days Date Category Culturelle (Lactobacillus Rhamnosus Gg) 1 Each Cap.sprink 1 Cap PO BID 30 10/29/18 Rx Zyvox (Linezolid) 600 Mg Tablet 600 Mg PO BID 10 10/29/18 Rx Amox Tr-K Clv 875-125 Mg Tab (Amoxicillin/Potassium Clav) 1 Each Tablet 1 Tab PO BIDWMEALS 10 10/29/18 Rx Vitamin E (Vitamin E Mixed) 1,000 Unit Capsule 1,000 Unit PO DAILY 10/26/18 Reported NITROGLYCERIN SubLingual (Nitroglycerin) 0.4 Mg Tab.subl 0.4 Mg SL PRN Q5MIN PRN 10/26/18 Reported Milk Of Magnesia (Magnesium Hydroxide) 2,400 Mg/10 Ml Oral.susp 2,400 Mg PO DAILY PRN 10/26/18 Reported Maalox Advanced Suspension (Mag Hydrox/Aluminum Hyd/Simeth) 355 Ml Oral.susp 15 Ml PO PRN AFTMEALHC PRN 10/26/18 Reported EXELON 4.6mg/24hr (Rivastigmine) 1 Each Patch.td24 1 Patch TP DAILY 10/26/18 Reported Depakote Er (Divalproex Sodium) 500 Mg Tab.er.24h 1 Tab PO BID 10/26/18 Reported Depakote Er (Divalproex Sodium) 250 Mg Tab.er.24h 1 Tab PO QHS 10/26/18 Reported Welchol (Colesevelam Hcl) 625 Mg Tablet 2,500 Mg PO BID 10/26/18 Reported Zetia (Ezetimibe) 10 Mg Tablet 1 Tab PO HS 08/28/18 Reported Vitamin D (Cholecalciferol (Vitamin D3)) 1,000 Unit Capsule 50,000 Units PO QSA 08/28/18 Reported Tamsulosin Hcl 0.4 Mg Cap.er.24h 1 Cap PO DAILY 08/28/18 Reported Risperidone 0.5 Mg Tablet 1.5 Tab PO QHS 08/28/18 Reported Niaspan (Niacin) 500 Mg Tab.er.24h 1 Tab PO QHS 08/28/18 Reported Mirtazapine 30 Mg Tablet 1 Tab PO QHS 08/28/18 Reported Losartan Potassium 100 Mg Tablet 100 Mg PO DAILY 08/28/18 Reported Levothyroxine Sodium 75 Mcg Tablet 75 Mcg PO DAILYAC 08/28/18 Reported Fluvoxamine Maleate 50 Mg Tablet 1 Tab PO QHS 08/28/18 Reported Vitamin B-12 (Cyanocobalamin (Vitamin B-12)) 1,000 Mcg Tablet 1 Tab PO DAILY 08/28/18 Reported Aspirin Ec (Aspirin) 81 Mg Tablet.dr 81 Mg PO DAILY08 08/28/18 Reported Amlodipine Besylate 5 Mg Tablet 5 Mg PO DAILY 08/28/18 Reported Tylenol (Acetaminophen) 325 Mg Tablet 1-2 Tab PO QID 08/28/18 Reported Comments cxr reviewed, r mid lung infilt small effusion ett ok Impression . IMPRESSION: 1. Acute respiratory failure secondary to influenza, pneumonia, acute diastolic congestive heart failure, acute bronchospasm. 2. Abnormal chest x-ray. 3. Acute bronchospasm. 4. Pneumonia, influenza. 5. Acute kidney injury. 6. Elevated troponin, NSTEMI, type 2. 7. Elevated procalcitonin. 8. Sepsis with lactate elevation. 9. ZAHRAA Plan . RECOMMENDATIONS: 1. cont vent support, setting reviewed,Titrate FiO2 to keep O2 saturation 94%. 2. ABG. will increase peep to 7. 3. cont levo to keep map>65 4. Bronchodilator. 5. Inhaled corticosteroid. 6. fu cxs 7. Agree with Tamiflu that is given to the patient. 8. The patient was given Rocephin and doxycycline in the Emergency Room. I do recommend ID consultation. 9. echo per cardiology 10. Lower extremity venous Doppler. neg discussed w IBRAHIMA Boston MD Jul 17, 2019 06:11
--- NOTE | 2019-07-17 06:21 | RAD ---
Indication:Intubated. TECHNIQUE:Portable AP chest X-ray COMPARISON: 07/16/2019 FINDINGS: stable position of ET tube. Interval placement of NG tube with its tip in the stomach. Heart is moderately enlarged in size. CABG changes noted. Patchy opacity in the right midlung zone. Blunting of the left costophrenic angle. Interstitial opacities bilaterally. No pneumothorax. Visualized bony thorax within normal limits. IMPRESSION: Right midlung zone pneumonia or atelectasis. Small left pleural effusion. Interstitial pulmonary edema. Electronically signed by: Ede Moore DO (07/17/2019 6:18 AM) [id number]
--- NOTE | 2019-07-17 08:54 | PDOC ---
Provider Note Provider Note Pt seen and examined ID consult dictated [id number] Thank you YI HERNANDEZ MD Jul 17, 2019 08:54
[2019-07-17] MEDS: OSELTAMIVIR 30 MG CAPSULE PO SCH ×2 (08:58→21:37)
[2019-07-17] MEDS: CHLORHEXIDINE 0.12% 15 ML MOUTHWASH. MM SCH ×2 (08:58→21:36)
[2019-07-17] MEDS: HEPARIN for SUB-Q USE 5,000 UNIT/ML VIAL. SQ SCH ×2 (09:01→21:41)
--- NOTE | 2019-07-17 09:16 | PDOC ---
CARDIOLOGY PROGRESS NOTE SUBJECTIVE: Overnight he was intubated at request of family Spoke to family extensively this morning about pros/cons of aggressive interventions for the heart. Son unruly still wants conservative mgmt. OBJECTIVE: Vital Signs/I&O: Vital Signs Date Time Temp Pulse Resp B/P (MAP) Pulse Ox O2 Delivery O2 Flow Rate FiO2 07/17/19 06:00 65 16 104/55 (71) 100 Ventilator 07/17/19 04:00 4.0 07/17/19 04:00 100.1 100.1 I & O 07/16/19 07/16/19 07/17/19 15:02 23:02 07:02 Intake Total 330 ml 2050 ml 599 ml Output Total 600 ml 410 ml 505 ml Balance -270 ml 1640 ml 94 ml Objective: sedated Bilateral rhonchi Normal heart tones. Trace edema soft abdomen CURRENT MEDICATIONS: Meds reviewed. DIAGNOSTIC TESTING: Labs reviewed ASSESSMENT: 1. Resp failure due to flu/pna 2. Acute on chronic mild diastolic HF 3. CAD s/p CABG - stable 4. NSTEMI - likely type 2 PLAN: 1. Repeat troponin/ekg 2. Continue asa 81mg daily No need for b-harvey at this time. Supportive care. JODI HERNANDEZ MD Jul 17, 2019 09:16
[2019-07-17] MEDS: IPRATRPIUM/ALBUTEROL 0.5/2.5MG 3 ML NEBU. NEB SCH (09:18)
[2019-07-17] MEDS: BUDESONIDE 0.5 MG/2 ML NEBU. NEB SCH ×2 (09:18→20:00)
--- NOTE | 2019-07-17 09:29 | CONS ---
DATE OF CONSULTATION: 07/17/2019 REFERRING PHYSICIAN: Leonardo Valdes M.D. REASON FOR CONSULTATION: Antibiotic management for pneumonia and flu. HISTORY OF PRESENT ILLNESS: An 88-year-old male, currently intubated in ICU. History obtained from the chart and medical staff. The patient was brought in from local [facility] care unit assisted living after a fall, fever, tachypnea, and hypoxia. The patient was on BiPAP. The patient was started on meropenem and doxycycline. White count was 4.6, hemoglobin of 11.9. Influenza B-type antigen positive. Chest x-ray showed cardiomegaly with low-grade CHF. Troponin was elevated. The patient had ZAHRAA. He required BiPAP and transferred to ICU. His fever was high at 102. Suddenly, his respiratory status worsened, so he was emergently intubated. He was given a dose of Tamiflu and was started on Zosyn. ID consult has been requested for antibiotic management this morning. He is still having low-grade fever, ventilated. He is sedated on fentanyl, Versed, and continues to have ETT secretions. PAST MEDICAL HISTORY: Anxiety, coronary artery disease, dementia, depression, hyperlipidemia, hypertension, hypothyroidism, and Alzheimer's. PAST SURGICAL HISTORY: Coronary artery bypass graft. SOCIAL HISTORY: No alcohol use, currently at assisted care living. CURRENT MEDICATION: IV Zosyn, status post one dose of Tamiflu. PHYSICAL EXAMINATION: VITAL SIGNS: Temperature 100.1, T-max 102.4, pulse 65, respirations 16, blood pressure 104/55, and oxygen saturation 100% on room air. GENERAL: Intubated, sedated. HEENT: Normocephalic, atraumatic. ETT in place, OG tube in place. NECK: Supple. LUNGS: Decreased breath sounds with some rhonchi. ABDOMEN: Soft and obese. Bowel sounds present. EXTREMITIES: Trace edema. LABORATORY DATA: WBC 7.9, hemoglobin 11.0, hematocrit 32.8, platelets 176,000. Sodium 142, potassium 4.2, chloride 109, bicarbonate 25, BUN 49, creatinine 1.6, glucose 150, lactate 2.5. Troponin 3.5, albumin 2.6. Influenza screen: Influenza B positive. IMAGING: Chest x-ray, right mid lung zone pneumonia or atelectasis. Small left pleural effusion, interstitial pulmonary infiltrate. KUB: Feeding tube terminates in the stomach, mild gaseous prominence of the small and large bowel loops, likely ileus or obstruction. Lower extremity ultrasound negative for DVT. IMPRESSION: 1. Acute respiratory failure secondary to flu and pneumonia. 2. Fever. 3. Influenza B screen positive. 4. Non-ST elevation myocardial infarction. 5. Acute kidney injury. 6. Lactic acidosis. 7. Dementia. 8. History of anxiety and depression. RECOMMENDATIONS: 1. Continue meropenem. 2. Restart Tamiflu renal dosing, pharmacy to assist. 3. Follow up labs and cultures. 4. Continue supportive care. 5. We will add empiric Zyvox. 6. Continue supportive care. 7. Discussed with RN. Thank you for consulting Infectious Disease to participate in this patient's care. If you have any questions, do not hesitate to contact us. YI HERNANDEZ MD DR: RIZWAN/nts JOB#: [id number] / [id number]
[2019-07-17 09:34] LABS: BASE EXCESS ABG -1 mmol/L (-3-3); HCO3 ABG 24 mmol/L (21-28); PCO2 ABG 43 mmHg (35-46); PO2 ABG 67 mmHg (65-108); SAT O2 ABG 91 % (92-99)
[2019-07-17] MEDS ORDERED: CLOPIDOGREL BISULFATE 75 MG TABLET PO ONE (09:45)
--- NOTE | 2019-07-17 11:47 | PDOC ---
SUBJECTIVE ROS Overnight intubated OBJECTIVE Vital Signs Vital Signs Date Time Temp Pulse Resp B/P (MAP) Pulse Ox O2 Delivery O2 Flow Rate FiO2 07/17/19 09:15 100 Ventilator 07/17/19 06:00 65 16 104/55 (71) 07/17/19 04:00 4.0 07/17/19 04:00 100.1 100.1 I & 0 Intake and Output 07/17/19 07:00 Intake Total 2979 ml Output Total 1515 ml Balance 1464 ml Intake IV Total 2799 ml Other 180 ml Output Urine Total 1315 ml Gastric Drainage Total 200 ml PHYSICAL EXAM Physical Exam GENERAL: Intubated HEENT: Intubated NECK: supple CARDIOVASCULAR: rrr LUNGS: CTA ABDOMEN: Soft and obese. EXTREMITIES edema + NEUROLOGIC: Lethargic, Hx of dementia SKIN: No rash Chronic changes Gu Suresh + . DIAGNOSIS/ASSESSMENT Assessment & Plan ZAHRAA - Pre-renal /Urinary retention/Sepsis UOP of 500 ml when suresh placed , Good UOP Renal function stable, E-Lytes and acid base stable supportive care, HMonitor Acute respiratory failure secondary to influenza, pneumonia, Acute exacerbation of congestive heart failure, influenza- Influenza B positive Pneumonia - On CxR Sepsis with lactate elevation. NSTEMI -Troponin elevated, cardiology following Irvin RN at bedside COMMENT/RELEVANT DATA Meds Current Medications Medications (Trade) Dose Ordered Sig/Lorri Start Time Stop Time Status Last Admin Dose Admin Acetaminophen (Tylenol) 650 mg PRN Q4HRS PRN 07/16/19 18:15 07/16/19 20:52 650 MG Albuterol Sulfate (Ventolin Neb Soln) 2.5 mg 1X ONCE 07/16/19 09:45 07/16/19 09:46 DC 07/16/19 09:56 2.5 MG Albuterol/ Ipratropium (Duoneb) 3 ml RTQID 07/16/19 12:00 07/17/19 11:59 07/17/19 09:18 3 ML Aspirin (Aspirin Rectal Supp) 300 mg 1X STAT 07/16/19 11:27 07/16/19 11:30 DC 07/16/19 12:20 300 MG Atorvastatin Calcium (Lipitor) 20 mg QHS 07/17/19 21:00 Bisacodyl (Dulcolax Supp) 10 mg PRN DAILY PRN 07/16/19 11:30 Budesonide (Pulmicort) 0.5 mg 1X ONCE 07/16/19 11:00 07/16/19 11:01 DC 07/16/19 12:19 0.5 MG Ceftriaxone Sodium (Rocephin) 2 gm 1X ONCE 07/16/19 08:00 07/16/19 08:01 DC 07/16/19 08:31 2 GM Chlorhexidine Gluconate (Peridex) 15 ml BID 07/16/19 21:00 07/16/19 20:52 15 ML Clopidogrel Bisulfate (Plavix) 75 mg [id number] 07/18/19 08:00 Doxycycline Hyclate 100 mg/ Dextrose 100 ml @ 50 mls/hr 1X ONCE 07/16/19 08:00 07/16/19 09:59 DC 07/16/19 08:32 50 MLS/HR Famotidine (Pepcid Vial) 20 mg QHS 07/16/19 21:00 07/16/19 20:53 20 MG Fentanyl Citrate 30 ml @ 0 mls/hr CONT PRN PRN 07/16/19 18:30 07/16/19 18:23 DC Fentanyl Citrate (Fentanyl 2ml Vial) 50 mcg PRN Q1HR PRN 07/16/19 18:30 Heparin Sodium (Porcine) (Heparin Sodium) 5,000 unit Q12HR 07/16/19 21:00 07/17/19 09:01 5,000 UNIT Ketamine HCl (Ketamine) 20 mg 1X ONCE 07/16/19 11:00 07/16/19 11:02 DC Linezolid/Dextrose 300 ml @ 300 mls/hr Q12HR 07/17/19 09:30 07/17/19 09:17 300 MLS/HR Lorazepam (Ativan Inj) 0.25 mg PRN Q3HRS PRN 07/16/19 16:15 Meropenem 0.5 gm/ Sodium Chloride 100 ml @ 200 mls/hr Q8HRS 07/16/19 14:00 UNV Meropenem 500 mg/ Sodium Chloride 50 ml @ 100 mls/hr Q8HRS 07/16/19 12:00 07/17/19 06:05 100 MLS/HR Midazolam HCl 100 ml @ 5 mls/hr CONT PRN 07/16/19 18:30 07/16/19 18:23 DC Morphine Sulfate (Morphine Sulfate) 4 mg PRN Q1HR PRN 07/16/19 18:30 Naloxone HCl (Narcan) 0.4 mg PRN Q2MIN PRN 07/16/19 18:30 Norepinephrine Bitartrate 250 ml @ 17.006 mls/ hr CONT PRN 07/16/19 11:30 07/16/19 20:30 7.5 MLS/HR Ondansetron HCl (Zofran) 4 mg PRN Q6HRS PRN 07/16/19 11:30 Oseltamivir Phosphate (Tamiflu) 30 mg BID 07/17/19 09:30 07/22/19 09:29 07/17/19 08:58 30 MG Propofol 100 ml @ As Directed STK-MED ONCE 07/16/19 17:02 07/16/19 17:03 DC Sodium Chloride 1,000 ml @ 25 mls/hr Q24H 07/16/19 18:18 07/16/19 19:00 25 MLS/HR Sodium Chloride (Normal Saline Flush) 3 ml QSHIFT PRN 07/16/19 11:30 Succinylcholine Chloride (Anectine) 200 mg STK-MED ONCE 07/16/19 17:03 07/16/19 17:03 DC Lab Laboratory Tests Test 07/16/19 12:10 07/16/19 18:10 07/17/19 04:00 Lactic Acid Level 2.5 mmol/L (0.4-2.0) Troponin I Quantitative 3.506 ng/mL (0.000-0.055) 9.809 ng/mL (0.000-0.055) O2 Saturation 92 % (92-99) Arterial Blood pH 7.37 (7.35-7.45) Arterial Blood pCO2 at Patient Temp 37 mmHg (35-46) Arterial Blood pO2 at Patient Temp 70 mmHg (65-108) Arterial Blood HCO3 21 mmol/L (21-28) Arterial Blood Base Excess -4 mmol/L (-3-3) FiO2 100 White Blood Count 7.9 x10^3/uL (4.0-11.0) Red Blood Count 3.31 x10^6/uL (4.30-5.70) Hemoglobin 11.0 g/dL (13.0-17.5) Hematocrit 32.8 % (39.0-53.0) Mean Corpuscular Volume 99 fL (79-100) Mean Corpuscular Hemoglobin 33 pg (25-35) Mean Corpuscular Hemoglobin Concent 33 g/dL (31-37) Red Cell Distribution Width 14.1 % (11.5-14.5) Platelet Count 176 x10^3/uL (140-400) Neutrophils (%) (Auto) 81 % (31-73) Lymphocytes (%) (Auto) 9 % (24-48) Monocytes (%) (Auto) 10 % (0-9) Eosinophils (%) (Auto) 0 % (0-3) Basophils (%) (Auto) 0 % (0-3) Neutrophils # (Auto) 6.4 x10^3/uL (1.8-7.7) Lymphocytes # (Auto) 0.7 x10^3/uL (1.0-4.8) Monocytes # (Auto) 0.8 x10^3/uL (0.0-1.1) Eosinophils # (Auto) 0.0 x10^3/uL (0.0-0.7) Basophils # (Auto) 0.0 x10^3/uL (0.0-0.2) Sodium Level 142 mmol/L (136-145) Potassium Level 4.2 mmol/L (3.5-5.1) Chloride Level 109 mmol/L (98-107) Carbon Dioxide Level 25 mmol/L (21-32) Anion Gap 8 (6-14) Blood Urea Nitrogen 49 mg/dL (8-26) Creatinine 1.6 mg/dL (0.7-1.3) Estimated GFR (Cockcroft-Gault) 40.9 BUN/Creatinine Ratio 31 (6-20) Glucose Level 150 mg/dL (70-99) Calcium Level 8.4 mg/dL (8.5-10.1) Total Bilirubin 0.5 mg/dL (0.2-1.0) Aspartate Amino Transf (AST/SGOT) 53 U/L (15-37) Alanine Aminotransferase (ALT/SGPT) 24 U/L (16-63) Alkaline Phosphatase 34 U/L (46-116) Total Protein 7.1 g/dL (6.4-8.2) Albumin 2.6 g/dL (3.4-5.0) Albumin/Globulin Ratio 0.6 (1.0-1.7) Results All relevant outside records, renal labs, imaging studies, telemetry/EKG's were reviewed. JARVIS MCCORMICK MD Jul 17, 2019 11:47
[2019-07-17 12:05] LABS: FIO2 ABG 70
--- NOTE | 2019-07-17 12:31 | PDOC ---
PROGRESS NOTES Chief Complaint Chief Complaint severe sepsis acute hypoxic resp failure, on vent, had been DNR, family revoked yesterday, pneumonia, Influenza B pneumonitis advanced dementia NSTEMI, med management, HTN - cont meds HLD - cont meds Hypothyroidism Depression - with anxiety - ON mood stabilizers, History of Present Illness History of Present Illness admitted, changed to full code yesterday, may need to back off over time cont full support for now, on vent, CV and pulm and ID following, iv antibiotics DVT PROPHYLAXIS Vitals Vitals Vital Signs Date Time Temp Pulse Resp B/P (MAP) Pulse Ox O2 Delivery O2 Flow Rate FiO2 07/17/19 09:15 100 Ventilator 07/17/19 06:00 65 16 104/55 (71) 07/17/19 04:00 4.0 07/17/19 04:00 100.1 100.1 Physical Exam Physical Exam vent and sedated, reflexed in tact, General: No acute distress, mild distress Lungs: Crackles Abdomen: Soft, No tenderness Extremities: No cyanosis, Other (2+ Pedal edema) Skin: No breakdown Labs LABS Laboratory Tests Test 07/16/19 18:10 07/17/19 04:00 07/17/19 09:15 O2 Saturation 92 % (92-99) 91 % (92-99) Arterial Blood pH 7.37 (7.35-7.45) 7.37 (7.35-7.45) Arterial Blood pCO2 at Patient Temp 37 mmHg (35-46) 43 mmHg (35-46) Arterial Blood pO2 at Patient Temp 70 mmHg (65-108) 67 mmHg (65-108) Arterial Blood HCO3 21 mmol/L (21-28) 24 mmol/L (21-28) Arterial Blood Base Excess -4 mmol/L (-3-3) -1 mmol/L (-3-3) FiO2 100 70 White Blood Count 7.9 x10^3/uL (4.0-11.0) Red Blood Count 3.31 x10^6/uL (4.30-5.70) Hemoglobin 11.0 g/dL (13.0-17.5) Hematocrit 32.8 % (39.0-53.0) Mean Corpuscular Volume 99 fL (79-100) Mean Corpuscular Hemoglobin 33 pg (25-35) Mean Corpuscular Hemoglobin Concent 33 g/dL (31-37) Red Cell Distribution Width 14.1 % (11.5-14.5) Platelet Count 176 x10^3/uL (140-400) Neutrophils (%) (Auto) 81 % (31-73) Lymphocytes (%) (Auto) 9 % (24-48) Monocytes (%) (Auto) 10 % (0-9) Eosinophils (%) (Auto) 0 % (0-3) Basophils (%) (Auto) 0 % (0-3) Neutrophils # (Auto) 6.4 x10^3/uL (1.8-7.7) Lymphocytes # (Auto) 0.7 x10^3/uL (1.0-4.8) Monocytes # (Auto) 0.8 x10^3/uL (0.0-1.1) Eosinophils # (Auto) 0.0 x10^3/uL (0.0-0.7) Basophils # (Auto) 0.0 x10^3/uL (0.0-0.2) Sodium Level 142 mmol/L (136-145) Potassium Level 4.2 mmol/L (3.5-5.1) Chloride Level 109 mmol/L (98-107) Carbon Dioxide Level 25 mmol/L (21-32) Anion Gap 8 (6-14) Blood Urea Nitrogen 49 mg/dL (8-26) Creatinine 1.6 mg/dL (0.7-1.3) Estimated GFR (Cockcroft-Gault) 40.9 BUN/Creatinine Ratio 31 (6-20) Glucose Level 150 mg/dL (70-99) Calcium Level 8.4 mg/dL (8.5-10.1) Total Bilirubin 0.5 mg/dL (0.2-1.0) Aspartate Amino Transf (AST/SGOT) 53 U/L (15-37) Alanine Aminotransferase (ALT/SGPT) 24 U/L (16-63) Alkaline Phosphatase 34 U/L (46-116) Troponin I Quantitative 9.809 ng/mL (0.000-0.055) Total Protein 7.1 g/dL (6.4-8.2) Albumin 2.6 g/dL (3.4-5.0) Albumin/Globulin Ratio 0.6 (1.0-1.7) Review of Systems Review of Systems unabel Assessment and Plan Assessmemt and Plan Problems Medical Problems: (1) Elevated troponin Status: Acute (2) Influenza Status: Acute Comment Review of Relevant I have reviewed the following items en (where applicable) has been applied. Labs Laboratory Tests Test 07/16/19 07:54 07/16/19 08:05 07/16/19 10:30 07/16/19 11:34 Influenza Type A Antigen Negative (NEGATIVE) Influenza Type B Antigen Positive (NEGATIVE) White Blood Count 4.6 x10^3/uL (4.0-11.0) Red Blood Count 3.56 x10^6/uL (4.30-5.70) Hemoglobin 11.9 g/dL (13.0-17.5) Hematocrit 35.1 % (39.0-53.0) Mean Corpuscular Volume 99 fL (79-100) Mean Corpuscular Hemoglobin 33 pg (25-35) Mean Corpuscular Hemoglobin Concent 34 g/dL (31-37) Red Cell Distribution Width 14.1 % (11.5-14.5) Platelet Count 144 x10^3/uL (140-400) Neutrophils (%) (Auto) 84 % (31-73) Lymphocytes (%) (Auto) 6 % (24-48) Monocytes (%) (Auto) 10 % (0-9) Eosinophils (%) (Auto) 0 % (0-3) Basophils (%) (Auto) 0 % (0-3) Neutrophils # (Auto) 3.9 x10^3/uL (1.8-7.7) Lymphocytes # (Auto) 0.3 x10^3/uL (1.0-4.8) Monocytes # (Auto) 0.5 x10^3/uL (0.0-1.1) Eosinophils # (Auto) 0.0 x10^3/uL (0.0-0.7) Basophils # (Auto) 0.0 x10^3/uL (0.0-0.2) Segmented Neutrophils % 47 % (35-66) Band Neutrophils % 33 % (0-9) Lymphocytes % 6 % (24-48) Monocytes % 14 % (0-10) Platelet Estimate Adequate (ADEQUATE) Prothrombin Time 13.9 SEC (11.7-14.0) Prothromb Time International Ratio 1.1 (0.8-1.1) Sodium Level 143 mmol/L (136-145) Potassium Level 4.3 mmol/L (3.5-5.1) Chloride Level 106 mmol/L (98-107) Carbon Dioxide Level 26 mmol/L (21-32) Anion Gap 11 (6-14) Blood Urea Nitrogen 49 mg/dL (8-26) Creatinine 1.7 mg/dL (0.7-1.3) Estimated GFR (Cockcroft-Gault) 38.1 BUN/Creatinine Ratio 29 (6-20) Glucose Level 127 mg/dL (70-99) Lactic Acid Level 2.3 mmol/L (0.4-2.0) Calcium Level 9.5 mg/dL (8.5-10.1) Total Bilirubin 0.7 mg/dL (0.2-1.0) Aspartate Amino Transf (AST/SGOT) 25 U/L (15-37) Alanine Aminotransferase (ALT/SGPT) 17 U/L (16-63) Alkaline Phosphatase 39 U/L (46-116) Troponin I Quantitative 1.483 ng/mL (0.000-0.055) YR-Dua-F-Type Natriuretic Peptide 4448 pg/mL (0-449) Total Protein 8.3 g/dL (6.4-8.2) Albumin 3.4 g/dL (3.4-5.0) Albumin/Globulin Ratio 0.7 (1.0-1.7) Procalcitonin 0.18 ng/mL (0.00-0.10) Thyroid Stimulating Hormone (TSH) 1.652 uIU/mL (0.358-3.74) O2 Saturation 95 % (92-99) Arterial Blood pH 7.38 (7.35-7.45) Arterial Blood pCO2 at Patient Temp 33 mmHg (35-46) Arterial Blood pO2 at Patient Temp 87 mmHg (65-108) Arterial Blood HCO3 19 mmol/L (21-28) Arterial Blood Base Excess -5 mmol/L (-3-3) FiO2 50 Fibrinogen 654 mg/dL (200-440) Test 07/16/19 12:10 07/16/19 18:10 07/17/19 04:00 07/17/19 09:15 Lactic Acid Level 2.5 mmol/L (0.4-2.0) Troponin I Quantitative 3.506 ng/mL (0.000-0.055) 9.809 ng/mL (0.000-0.055) O2 Saturation 92 % (92-99) 91 % (92-99) Arterial Blood pH 7.37 (7.35-7.45) 7.37 (7.35-7.45) Arterial Blood pCO2 at Patient Temp 37 mmHg (35-46) 43 mmHg (35-46) Arterial Blood pO2 at Patient Temp 70 mmHg (65-108) 67 mmHg (65-108) Arterial Blood HCO3 21 mmol/L (21-28) 24 mmol/L (21-28) Arterial Blood Base Excess -4 mmol/L (-3-3) -1 mmol/L (-3-3) FiO2 100 70 White Blood Count 7.9 x10^3/uL (4.0-11.0) Red Blood Count 3.31 x10^6/uL (4.30-5.70) Hemoglobin 11.0 g/dL (13.0-17.5) Hematocrit 32.8 % (39.0-53.0) Mean Corpuscular Volume 99 fL (79-100) Mean Corpuscular Hemoglobin 33 pg (25-35) Mean Corpuscular Hemoglobin Concent 33 g/dL (31-37) Red Cell Distribution Width 14.1 % (11.5-14.5) Platelet Count 176 x10^3/uL (140-400) Neutrophils (%) (Auto) 81 % (31-73) Lymphocytes (%) (Auto) 9 % (24-48) Monocytes (%) (Auto) 10 % (0-9) Eosinophils (%) (Auto) 0 % (0-3) Basophils (%) (Auto) 0 % (0-3) Neutrophils # (Auto) 6.4 x10^3/uL (1.8-7.7) Lymphocytes # (Auto) 0.7 x10^3/uL (1.0-4.8) Monocytes # (Auto) 0.8 x10^3/uL (0.0-1.1) Eosinophils # (Auto) 0.0 x10^3/uL (0.0-0.7) Basophils # (Auto) 0.0 x10^3/uL (0.0-0.2) Sodium Level 142 mmol/L (136-145) Potassium Level 4.2 mmol/L (3.5-5.1) Chloride Level 109 mmol/L (98-107) Carbon Dioxide Level 25 mmol/L (21-32) Anion Gap 8 (6-14) Blood Urea Nitrogen 49 mg/dL (8-26) Creatinine 1.6 mg/dL (0.7-1.3) Estimated GFR (Cockcroft-Gault) 40.9 BUN/Creatinine Ratio 31 (6-20) Glucose Level 150 mg/dL (70-99) Calcium Level 8.4 mg/dL (8.5-10.1) Total Bilirubin 0.5 mg/dL (0.2-1.0) Aspartate Amino Transf (AST/SGOT) 53 U/L (15-37) Alanine Aminotransferase (ALT/SGPT) 24 U/L (16-63) Alkaline Phosphatase 34 U/L (46-116) Total Protein 7.1 g/dL (6.4-8.2) Albumin 2.6 g/dL (3.4-5.0) Albumin/Globulin Ratio 0.6 (1.0-1.7) Laboratory Tests Test 07/16/19 18:10 07/17/19 04:00 07/17/19 09:15 O2 Saturation 92 % (92-99) 91 % (92-99) Arterial Blood pH 7.37 (7.35-7.45) 7.37 (7.35-7.45) Arterial Blood pCO2 at Patient Temp 37 mmHg (35-46) 43 mmHg (35-46) Arterial Blood pO2 at Patient Temp 70 mmHg (65-108) 67 mmHg (65-108) Arterial Blood HCO3 21 mmol/L (21-28) 24 mmol/L (21-28) Arterial Blood Base Excess -4 mmol/L (-3-3) -1 mmol/L (-3-3) FiO2 100 70 White Blood Count 7.9 x10^3/uL (4.0-11.0) Red Blood Count 3.31 x10^6/uL (4.30-5.70) Hemoglobin 11.0 g/dL (13.0-17.5) Hematocrit 32.8 % (39.0-53.0) Mean Corpuscular Volume 99 fL (79-100) Mean Corpuscular Hemoglobin 33 pg (25-35) Mean Corpuscular Hemoglobin Concent 33 g/dL (31-37) Red Cell Distribution Width 14.1 % (11.5-14.5) Platelet Count 176 x10^3/uL (140-400) Neutrophils (%) (Auto) 81 % (31-73) Lymphocytes (%) (Auto) 9 % (24-48) Monocytes (%) (Auto) 10 % (0-9) Eosinophils (%) (Auto) 0 % (0-3) Basophils (%) (Auto) 0 % (0-3) Neutrophils # (Auto) 6.4 x10^3/uL (1.8-7.7) Lymphocytes # (Auto) 0.7 x10^3/uL (1.0-4.8) Monocytes # (Auto) 0.8 x10^3/uL (0.0-1.1) Eosinophils # (Auto) 0.0 x10^3/uL (0.0-0.7) Basophils # (Auto) 0.0 x10^3/uL (0.0-0.2) Sodium Level 142 mmol/L (136-145) Potassium Level 4.2 mmol/L (3.5-5.1) Chloride Level 109 mmol/L (98-107) Carbon Dioxide Level 25 mmol/L (21-32) Anion Gap 8 (6-14) Blood Urea Nitrogen 49 mg/dL (8-26) Creatinine 1.6 mg/dL (0.7-1.3) Estimated GFR (Cockcroft-Gault) 40.9 BUN/Creatinine Ratio 31 (6-20) Glucose Level 150 mg/dL (70-99) Calcium Level 8.4 mg/dL (8.5-10.1) Total Bilirubin 0.5 mg/dL (0.2-1.0) Aspartate Amino Transf (AST/SGOT) 53 U/L (15-37) Alanine Aminotransferase (ALT/SGPT) 24 U/L (16-63) Alkaline Phosphatase 34 U/L (46-116) Troponin I Quantitative 9.809 ng/mL (0.000-0.055) Total Protein 7.1 g/dL (6.4-8.2) Albumin 2.6 g/dL (3.4-5.0) Albumin/Globulin Ratio 0.6 (1.0-1.7) Microbiology 07/16/19 Blood Culture - Preliminary, Resulted NO GROWTH AFTER 1 DAY Medications Current Medications Acetaminophen (Tylenol) 1,000 mg 1X ONCE PO Last administered on 07/16/19at 08:09; Start 07/16/19 at 08:00; Stop 07/16/19 at 08:01; Status DC Ceftriaxone Sodium (Rocephin) 2 gm 1X ONCE IVP Last administered on 07/16/19at 08:31; Start 07/16/19 at 08:00; Stop 07/16/19 at 08:01; Status DC Sodium Chloride 1,000 ml @ 2,100 mls/hr Q29M IV Last administered on 07/16/19at 08:21; Start 07/16/19 at 07:53; Stop 07/16/19 at 08:53; Status DC Doxycycline Hyclate 100 mg/ Dextrose 100 ml @ 50 mls/hr 1X ONCE IV Last administered on 07/16/19at 08:32; Start 07/16/19 at 08:00; Stop 07/16/19 at 09:59; Status DC Albuterol/ Ipratropium (Duoneb) 3 ml 1X ONCE NEB Last administered on 07/16/19at 08:04; Start 07/16/19 at 08:00; Stop 07/16/19 at 08:01; Status DC Lorazepam (Ativan Inj) 1 mg 1X ONCE IV Last administered on 07/16/19at 09:28; Start 07/16/19 at 09:30; Stop 07/16/19 at 09:31; Status DC Lorazepam (Ativan Inj) 1 mg 1X ONCE IVP ; Start 07/16/19 at 09:30; Stop 07/16/19 at 09:31; Status DC Oseltamivir Phosphate (Tamiflu) 75 mg 1X STAT PO ; Start 07/16/19 at 09:26; Stop 07/16/19 at 09:28; Status DC Ketamine HCl (Ketamine) 50 mg STK-MED ONCE .ROUTE ; Start 07/16/19 at 09:35; Stop 07/16/19 at 09:35; Status DC Ketamine HCl (Ketamine) 20 mg 1X ONCE IV ; Start 07/16/19 at 09:45; Stop 07/16/19 at 09:46; Status DC Ketamine HCl (Ketamine) 20 mg 1X ONCE IV Last administered on 07/16/19at 09:46; Start 07/16/19 at 09:45; Stop 07/16/19 at 09:46; Status DC Albuterol Sulfate (Ventolin Neb Soln) 2.5 mg 1X ONCE NEB Last administered on 07/16/19at 09:56; Start 07/16/19 at 09:45; Stop 07/16/19 at 09:46; Status DC Morphine Sulfate (Morphine Sulfate) 2 mg PRN Q2HR PRN IV PAIN; Start 07/16/19 at 10:15; Stop 07/17/19 at 10:14; Status DC Albuterol/ Ipratropium (Duoneb) 3 ml RTQID NEB Last administered on 07/17/19at 09:18; Start 07/16/19 at 12:00; Stop 07/17/19 at 11:59; Status DC Ketamine HCl (Ketamine) 20 mg 1X ONCE IV Last administered on 07/16/19at 1 0:20; Start 07/16/19 at 10:15; Stop 07/16/19 at 10:16; Status DC Budesonide (Pulmicort) 0.5 mg RTBID NEB Last administered on 07/17/19at 09:18; Start 07/16/19 at 20:00 Budesonide (Pulmicort) 0.5 mg 1X ONCE NEB Last administered on 07/16/19at 12:19; Start 07/16/19 at 11:00; Stop 07/16/19 at 11:01; Status DC Ketamine HCl (Ketamine) 20 mg 1X ONCE IV ; Start 07/16/19 at 11:00; Stop 07/16/19 at 11:02; Status DC Lorazepam (Ativan Inj) 0.5 mg PRN Q6HRS PRN IV ANXIETY / AGITATION Last administered on 07/16/19at 13:42; Start 07/16/19 at 11:30; Stop 07/16/19 at 16:12; Status DC Ondansetron HCl (Zofran) 4 mg PRN Q6HRS PRN IV NAUSEA/VOMITING; Start 07/16/19 at 11:30 Famotidine (Pepcid Vial) 20 mg QHS IVP Last administered on 07/16/19at 20:53; Start 07/16/19 at 21:00 Heparin Sodium (Porcine) (Heparin Sodium) 5,000 unit Q12HR SQ Last administered on 07/17/19at 09:01; Start 07/16/19 at 21:00 Sodium Chloride (Normal Saline Flush) 3 ml QSHIFT PRN IV AFTER MEDS AND BLOOD DRAWS; Start 07/16/19 at 11:30 Bisacodyl (Dulcolax Supp) 10 mg PRN DAILY PRN SD CONSTIPATION; Start 07/16/19 at 11:30 Sodium Chloride 1,000 ml @ 2,130 mls/hr Q29M IV ; Start 07/16/19 at 11:24; Stop 07/16/19 at 12:24; Status DC Meropenem 0.5 gm/ Sodium Chloride 100 ml @ 200 mls/hr Q8HRS IV ; Start 07/16/19 at 14:00; Status UNV Norepinephrine Bitartrate 250 ml @ 17.006 mls/ hr CONT PRN IV PER PROTOCOL Last administered on 07/16/19at 20:30; Start 07/16/19 at 11:30 Aspirin (Aspirin Rectal Supp) 300 mg 1X STAT SD Last administered on 07/16/19at 12:20; Start 07/16/19 at 11:27; Stop 07/16/19 at 11:30; Status DC Meropenem 500 mg/ Sodium Chloride 50 ml @ 100 mls/hr Q8HRS IV Last administered on 07/17/19at 06:05; Start 07/16/19 at 12:00 Lorazepam (Ativan Inj) 0.25 mg PRN 1X PRN IVP ANXIETY / AGITATION Last administered on 07/16/19at 16:32; Start 07/16/19 at 16:15; Stop 07/17/19 at 11:28; Status DC Lorazepam (Ativan Inj) 0.25 mg PRN Q3HRS PRN IVP ANXIETY / AGITATION; Start 07/16/19 at 16:15 Propofol 100 ml @ As Directed STK-MED ONCE IV ; Start 07/16/19 at 17:02; Stop 07/16/19 at 17:03; Status DC Succinylcholine Chloride (Anectine) 200 mg STK-MED ONCE .ROUTE ; Start 07/16/19 at 17:03; Stop 07/16/19 at 17:03; Status DC Fentanyl Citrate 30 ml @ 0 mls/hr CONT PRN IV SEE PROTOCOL Last administered on 07/17/19at 04:11; Start 07/16/19 at 17:45 Midazolam HCl 100 ml @ 0 mls/hr CONT PRN IV SEE PROTOCOL Last administered on 07/16/19at 18:06; Start 07/16/19 at 17:45 Acetaminophen (Tylenol) 650 mg PRN Q4HRS PRN PEG MILD PAIN / TEMP Last administered on 07/16/19at 20:52; Start 07/16/19 at 18:15 Fentanyl Citrate (Fentanyl 2ml Vial) 25 mcg PRN Q1HR PRN IV SEE COMMENTS; Start 07/16/19 at 18:30 Fentanyl Citrate (Fentanyl 2ml Vial) 50 mcg PRN Q1HR PRN IV SEE COMMENTS; Start 07/16/19 at 18:30 Chlorhexidine Gluconate (Peridex) 15 ml BID MM Last administered on 07/16/19at 20:52; Start 07/16/19 at 21:00 Morphine Sulfate (Morphine Sulfate) 2 mg PRN Q1HR PRN IV SEE COMMENTS.; Start 07/16/19 at 18:30 Morphine Sulfate (Morphine Sulfate) 4 mg PRN Q1HR PRN IV SEE COMMENTS.; Start 07/16/19 at 18:30 Midazolam HCl 100 ml @ 5 mls/hr CONT PRN IV SEE I/O RECORD; Start 07/16/19 at 18:30; Stop 07/16/19 at 18:23; Status DC Fentanyl Citrate 30 ml @ 0 mls/hr CONT PRN PRN IV PER PROTOCOL; Start 07/16/19 at 18:30; Stop 07/16/19 at 18:23; Status DC Naloxone HCl (Narcan) 0.4 mg PRN Q2MIN PRN IV SEE INSTRUCTIONS; Start 07/16/19 at 18:30 Sodium Chloride 1,000 ml @ 25 mls/hr Q24H IV Last administered on 07/16/19at 19:00; Start 07/16/19 at 18:18 Oseltamivir Phosphate (Tamiflu) 30 mg BID PO Last administered on 07/17/19at 08:58; Start 07/17/19 at 09:30; Stop 07/22/19 at 09:29 Linezolid/Dextrose 300 ml @ 300 mls/hr Q12HR IV Last administered on 07/17/19at 09:17; Start 07/17/19 at 09:30 Atorvastatin Calcium (Lipitor) 20 mg QHS PO ; Start 07/17/19 at 21:00 Clopidogrel Bisulfate (Plavix) 300 mg 1X ONCE PO Last administered on 07/17/19at 11:12; Start 07/17/19 at 09:45; Stop 07/17/19 at 09:48; Status DC Clopidogrel Bisulfate (Plavix) 75 mg DAILYWBKFT PO ; Start 07/18/19 at 08:00 Active Scripts Active Culturelle (Lactobacillus Rhamnosus Gg) 1 Each Cap.sprink 1 Cap PO BID 30 Days Zyvox (Linezolid) 600 Mg Tablet 600 Mg PO BID 10 Days Amox Tr-K Clv 875-125 Mg Tab (Amoxicillin/Potassium Clav) 1 Each Tablet 1 Tab PO BIDWMEALS 10 Days Reported Vitamin E (Vitamin E Mixed) 1,000 Unit Capsule 1,000 Unit PO DAILY NITROGLYCERIN SubLingual (Nitroglycerin) 0.4 Mg Tab.subl 0.4 Mg SL PRN Q5MIN PRN Milk Of Magnesia (Magnesium Hydroxide) 2,400 Mg/10 Ml Oral.susp 2,400 Mg PO DAILY PRN Maalox Advanced Suspension (Mag Hydrox/Aluminum Hyd/Simeth) 355 Ml Oral.susp 15 Ml PO PRN AFTMEALHC PRN EXELON 4.6mg/24hr (Rivastigmine) 1 Each Patch.td24 1 Patch TP DAILY Depakote Er (Divalproex Sodium) 500 Mg Tab.er.24h 1 Tab PO BID Depakote Er (Divalproex Sodium) 250 Mg Tab.er.24h 1 Tab PO QHS Welchol (Colesevelam Hcl) 625 Mg Tablet 2,500 Mg PO BID Zetia (Ezetimibe) 10 Mg Tablet 1 Tab PO HS Vitamin D (Cholecalciferol (Vitamin D3)) 1,000 Unit Capsule 50,000 Units PO QSA Tamsulosin Hcl 0.4 Mg Cap.er.24h 1 Cap PO DAILY Risperidone 0.5 Mg Tablet 1.5 Tab PO QHS Niaspan (Niacin) 500 Mg Tab.er.24h 1 Tab PO QHS Mirtazapine 30 Mg Tablet 1 Tab PO QHS Losartan Potassium 100 Mg Tablet 100 Mg PO DAILY Levothyroxine Sodium 75 Mcg Tablet 75 Mcg PO DAILYAC Fluvoxamine Maleate 50 Mg Tablet 1 Tab PO QHS Vitamin B-12 (Cyanocobalamin (Vitamin B-12)) 1,000 Mcg Tablet 1 Tab PO DAILY Aspirin Ec (Aspirin) 81 Mg Tablet.dr 81 Mg PO DAILY08 Amlodipine Besylate 5 Mg Tablet 5 Mg PO DAILY Tylenol (Acetaminophen) 325 Mg Tablet 1-2 Tab PO QID Vitals/I & O Vital Sign - Last 24 Hours 07/16/19 07/16/19 07/16/19 07/16/19 13:25 13:36 14:36 15:36 Pulse 125 130 126 B/P (MAP) 131/76 (94) 157/80 (105) 138/85 (102) Pulse Ox 94 91 89 O2 Delivery Bi-pap BiPAP/CPAP O2 Flow Rate 4.0 4.0 07/16/19 07/16/19 07/16/19 07/16/19 15:50 16:00 16:28 17:00 Pulse 88 B/P (MAP) 91/52 (65) Pulse Ox 90 88 O2 Delivery BiPAP/CPAP Bi-pap Ventilator O2 Flow Rate 4.0 07/16/19 07/16/19 07/16/19 07/16/19 17:28 17:58 18:00 18:28 Pulse 87 Resp 32 Pulse Ox 95 97 97 O2 Delivery Ventilator Ventilator Ventilator Ventilator O2 Flow Rate 4.0 07/16/19 07/16/19 07/16/19 07/16/19 19:00 19:57 20:00 20:00 Temp 101.2 101.2 Pulse 86 78 Resp 16 16 B/P (MAP) 85/45 (58) 84/52 (63) Pulse Ox 96 95 99 O2 Delivery Ventilator Ventilator Ventilator Mechanical Ventilator 07/16/19 07/16/19 07/16/19 07/16/19 21:00 21:45 22:00 23:00 Pulse 80 79 78 Resp 16 16 16 B/P (MAP) 91/58 (69) 90/52 (65) 92/55 (67) Pulse Ox 99 95 100 100 O2 Delivery Ventilator Ventilator Ventilator Ventilator 07/17/19 07/17/19 07/17/19 07/17/19 00:00 00:00 00:07 01:00 Temp 100.2 100.2 Pulse 77 78 Resp 16 16 B/P (MAP) 99/54 (69) 95/54 (68) Pulse Ox 100 95 100 O2 Delivery Mechanical Ventilator Ventilator Ventilator O2 Flow Rate 4.0 07/17/19 07/17/19 07/17/19 07/17/19 02:00 02:17 03:00 04:00 Temp 100.1 100.1 Pulse 76 73 67 Resp 16 16 18 B/P (MAP) 91/56 (68) 95/55 (68) 113/54 (73) Pulse Ox 100 100 100 100 O2 Delivery Ventilator Ventilator Ventilator Ventilator 07/17/19 07/17/19 07/17/19 07/17/19 04:00 04:11 04:23 04:41 Resp 18 18 Pulse Ox 100 O2 Delivery Mechanical Ventilator Ventilator O2 Flow Rate 4.0 07/17/19 07/17/19 07/17/19 05:00 06:00 09:15 Pulse 65 65 Resp 18 16 B/P (MAP) 106/51 (69) 104/55 (71) Pulse Ox 100 100 100 O2 Delivery Ventilator Ventilator Ventilator Intake and Output 07/16/19 07/16/19 07/17/19 15:00 23:00 07:00 Intake Total 330 ml 2050 ml 599 ml Output Total 600 ml 410 ml 505 ml Balance -270 ml 1640 ml 94 ml ANGELES HICKMAN MD Jul 17, 2019 12:31
[2019-07-17] MEDS: MIDAZOLAM 100mg/100ml NS BAG 100 ML IV PRN (13:13)
[2019-07-17] MEDS: NOREPINEPHRIN 8MG/250ML PREMIX 250 ML IV PRN (13:14)
--- NOTE | 2019-07-17 13:36 | EKG ---
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
[2019-07-17] MEDS: ATORVASTATIN CALCIUM 20 MG TABLET PO SCH (21:37)
[2019-07-17] MEDS: IV NORMAL SALINE 1000ML BAG 1,000 ML IV SCH (21:38)
[2019-07-17] MEDS: FAMOTIDINE 20 MG/2 ML VIAL IVP SCH (21:38)
[2019-07-18] VITALS (25 sets, daily range): BP systolic 83–118; BP diastolic 52–75
[2019-07-18] MEDS: MEROPENEM 500 MG in IV NORMAL SALINE 50ML 50 ML IV SCH ×3 (05:04→22:11)
--- NOTE | 2019-07-18 07:40 | RAD ---
PORTABLE CHEST 1V History: Intubated. Comparison: July 17, 2019 Findings: Diffuse right lung opacities, similar compared to prior allowing for differences in technique. Left basilar consolidation, unchanged. Bilateral layering pleural effusions, unchanged. Unchanged heart size. Unchanged endotracheal tube and enteric tube. Left midlung calcified granuloma, likely related to prior granulomatous disease. Prior median sternotomy. Impression: 1. Bilateral pulmonary opacities, similar compared to prior allowing for differences in technique. 2. Small bilateral layering pleural effusions, unchanged. Electronically signed by: Soren Matias DO (07/18/2019 7:38 AM) [id number]
--- NOTE | 2019-07-18 08:18 | PDOC ---
Infectious Disease Note Subjective: Subjective intubated,not responding fio2 70% low grade fever Vital Signs: Vital Signs Vital Signs Date Time Temp Pulse Resp B/P (MAP) Pulse Ox O2 Delivery O2 Flow Rate FiO2 07/18/19 06:00 66 19 90/56 (67) 95 Ventilator 07/18/19 04:00 99.9 99.9 Physical Exam: PHYSICAL EXAM GENERAL: Intubated, sedated. HEENT: Normocephalic, atraumatic. ETT in place, OG tube in place. NECK: Supple. LUNGS: Decreased breath sounds with some rhonchi. ABDOMEN: Soft and obese. Bowel sounds present. EXTREMITIES: Trace edema. Medications: Inpatient Meds: Current Medications Medications (Trade) Dose Ordered Sig/Lorri Start Time Stop Time Status Last Admin Dose Admin Acetaminophen (Tylenol) 650 mg PRN Q4HRS PRN 07/16/19 18:15 07/16/19 20:52 650 MG Albuterol Sulfate (Ventolin Neb Soln) 2.5 mg 1X ONCE 07/16/19 09:45 07/16/19 09:46 DC 07/16/19 09:56 2.5 MG Albuterol/ Ipratropium (Duoneb) 3 ml RTQID 07/16/19 12:00 07/17/19 11:59 DC 07/17/19 09:18 3 ML Aspirin (Aspirin Rectal Supp) 300 mg 1X STAT 07/16/19 11:27 07/16/19 11:30 DC 07/16/19 12:20 300 MG Atorvastatin Calcium (Lipitor) 20 mg QHS 07/17/19 21:00 07/17/19 21:37 20 MG Bisacodyl (Dulcolax Supp) 10 mg PRN DAILY PRN 07/16/19 11:30 Budesonide (Pulmicort) 0.5 mg 1X ONCE 07/16/19 11:00 07/16/19 11:01 DC 07/16/19 12:19 0.5 MG Ceftriaxone Sodium (Rocephin) 2 gm 1X ONCE 07/16/19 08:00 07/16/19 08:01 DC 07/16/19 08:31 2 GM Chlorhexidine Gluconate (Peridex) 15 ml BID 07/16/19 21:00 07/17/19 21:36 15 ML Clopidogrel Bisulfate (Plavix) 75 mg DAILYWBKFT 07/18/19 08:00 Doxycycline Hyclate 100 mg/ Dextrose 100 ml @ 50 mls/hr 1X ONCE 07/16/19 08:00 07/16/19 09:59 DC 07/16/19 08:32 50 MLS/HR Famotidine (Pepcid Vial) 20 mg QHS 07/16/19 21:00 07/17/19 21:38 20 MG Fentanyl Citrate 30 ml @ 0 mls/hr CONT PRN PRN 07/16/19 18:30 07/16/19 18:23 DC Fentanyl Citrate (Fentanyl 2ml Vial) 50 mcg PRN Q1HR PRN 07/16/19 18:30 Heparin Sodium (Porcine) (Heparin Sodium) 5,000 unit Q12HR 07/16/19 21:00 07/17/19 21:41 5,000 UNIT Ketamine HCl (Ketamine) 20 mg 1X ONCE 07/16/19 11:00 07/16/19 11:02 DC Linezolid/Dextrose 300 ml @ 300 mls/hr Q12HR 07/17/19 09:30 07/17/19 21:37 300 MLS/HR Lorazepam (Ativan Inj) 0.25 mg PRN Q3HRS PRN 07/16/19 16:15 Meropenem 0.5 gm/ Sodium Chloride 100 ml @ 200 mls/hr Q8HRS 07/16/19 14:00 UNV Meropenem 500 mg/ Sodium Chloride 50 ml @ 100 mls/hr Q8HRS 07/16/19 12:00 07/18/19 05:04 100 MLS/HR Midazolam HCl 100 ml @ 5 mls/hr CONT PRN 07/16/19 18:30 07/16/19 18:23 DC Morphine Sulfate (Morphine Sulfate) 4 mg PRN Q1HR PRN 07/16/19 18:30 Naloxone HCl (Narcan) 0.4 mg PRN Q2MIN PRN 07/16/19 18:30 Norepinephrine Bitartrate 250 ml @ 17.006 mls/ hr CONT PRN 07/16/19 11:30 07/17/19 13:14 17.006 MLS/HR Ondansetron HCl (Zofran) 4 mg PRN Q6HRS PRN 07/16/19 11:30 Oseltamivir Phosphate (Tamiflu) 30 mg BID 10/20/19 09:30 07/22/19 09:29 07/17/19 21:37 30 MG Propofol 100 ml @ As Directed STK-MED ONCE 07/16/19 17:02 07/16/19 17:03 DC Sodium Chloride 1,000 ml @ 25 mls/hr Q24H 07/16/19 18:18 07/17/19 21:38 25 MLS/HR Sodium Chloride (Normal Saline Flush) 3 ml QSHIFT PRN 07/16/19 11:30 Succinylcholine Chloride (Anectine) 200 mg STK-MED ONCE 07/16/19 17:03 07/16/19 17:03 DC Labs: Lab Laboratory Tests Test 07/17/19 09:15 O2 Saturation 91 % (92-99) Arterial Blood pH 7.37 (7.35-7.45) Arterial Blood pCO2 at Patient Temp 43 mmHg (35-46) Arterial Blood pO2 at Patient Temp 67 mmHg (65-108) Arterial Blood HCO3 24 mmol/L (21-28) Arterial Blood Base Excess -1 mmol/L (-3-3) FiO2 70 Objective: Assessment: 1. Acute respiratory failure secondary to flu and pneumonia. 2. Fever.pattern improving 3. Influenza B screen positive. 4. Non-ST elevation myocardial infarction. 5. Acute kidney injury. 6. Lactic acidosis. 7. Dementia. 8. History of anxiety and depression. Plan: Plan of Care Continue meropenem.zyvox Tamiflu renal dosing, follow up labs and cultures. Continue supportive care. Discussed with RN. YI HERNANDEZ MD Jul 18, 2019 08:18
[2019-07-18] MEDS: CHLORHEXIDINE 0.12% 15 ML MOUTHWASH. MM SCH ×2 (08:37→20:29)
[2019-07-18] MEDS: CLOPIDOGREL BISULFATE 75 MG TABLET PO SCH (08:37)
[2019-07-18] MEDS: HEPARIN for SUB-Q USE 5,000 UNIT/ML VIAL. SQ SCH ×2 (08:38→20:41)
[2019-07-18] MEDS: BUDESONIDE 0.5 MG/2 ML NEBU. NEB SCH ×2 (08:58→19:07)
[2019-07-18 09:09] LABS: BASE EXCESS ABG 0 mmol/L (-3-3); HCO3 ABG 24 mmol/L (21-28); PCO2 ABG 34 mmHg (35-46); PO2 ABG 56 mmHg (65-108); SAT O2 ABG 88 % (92-99)
[2019-07-18 09:10] LABS: FIO2 ABG 50
--- NOTE | 2019-07-18 09:14 | PDOC ---
PULMONARY PROGRESS NOTES Subjective intubated 07/16 SEDATED ON VENT Vitals Vital Signs Date Time Temp Pulse Resp B/P (MAP) Pulse Ox O2 Delivery O2 Flow Rate FiO2 07/18/19 08:45 93 Ventilator 07/18/19 06:00 66 19 90/56 (67) 07/18/19 04:00 99.9 99.9 Lungs: Crackles Cardiovascular: S1, S2 Abdomen: Soft, Non-tender, Other (no mass) Neuro Exam: Alert Extremities: Other (+edems) Skin: Warm Labs Laboratory Tests Test 07/16/19 10:30 07/16/19 11:34 07/16/19 12:10 07/16/19 18:10 O2 Saturation 95 % (92-99) 92 % (92-99) Arterial Blood pH 7.38 (7.35-7.45) 7.37 (7.35-7.45) Arterial Blood pCO2 at Patient Temp 33 mmHg (35-46) 37 mmHg (35-46) Arterial Blood pO2 at Patient Temp 87 mmHg (65-108) 70 mmHg (65-108) Arterial Blood HCO3 19 mmol/L (21-28) 21 mmol/L (21-28) Arterial Blood Base Excess -5 mmol/L (-3-3) -4 mmol/L (-3-3) FiO2 50 100 Fibrinogen 654 mg/dL (200-440) Lactic Acid Level 2.5 mmol/L (0.4-2.0) Troponin I Quantitative 3.506 ng/mL (0.000-0.055) Test 07/17/19 04:00 07/17/19 09:15 07/18/19 08:45 White Blood Count 7.9 x10^3/uL (4.0-11.0) Red Blood Count 3.31 x10^6/uL (4.30-5.70) Hemoglobin 11.0 g/dL (13.0-17.5) Hematocrit 32.8 % (39.0-53.0) Mean Corpuscular Volume 99 fL (79-100) Mean Corpuscular Hemoglobin 33 pg (25-35) Mean Corpuscular Hemoglobin Concent 33 g/dL (31-37) Red Cell Distribution Width 14.1 % (11.5-14.5) Platelet Count 176 x10^3/uL (140-400) Neutrophils (%) (Auto) 81 % (31-73) Lymphocytes (%) (Auto) 9 % (24-48) Monocytes (%) (Auto) 10 % (0-9) Eosinophils (%) (Auto) 0 % (0-3) Basophils (%) (Auto) 0 % (0-3) Neutrophils # (Auto) 6.4 x10^3/uL (1.8-7.7) Lymphocytes # (Auto) 0.7 x10^3/uL (1.0-4.8) Monocytes # (Auto) 0.8 x10^3/uL (0.0-1.1) Eosinophils # (Auto) 0.0 x10^3/uL (0.0-0.7) Basophils # (Auto) 0.0 x10^3/uL (0.0-0.2) Sodium Level 142 mmol/L (136-145) Potassium Level 4.2 mmol/L (3.5-5.1) Chloride Level 109 mmol/L (98-107) Carbon Dioxide Level 25 mmol/L (21-32) Anion Gap 8 (6-14) Blood Urea Nitrogen 49 mg/dL (8-26) Creatinine 1.6 mg/dL (0.7-1.3) Estimated GFR (Cockcroft-Gault) 40.9 BUN/Creatinine Ratio 31 (6-20) Glucose Level 150 mg/dL (70-99) Calcium Level 8.4 mg/dL (8.5-10.1) Total Bilirubin 0.5 mg/dL (0.2-1.0) Aspartate Amino Transf (AST/SGOT) 53 U/L (15-37) Alanine Aminotransferase (ALT/SGPT) 24 U/L (16-63) Alkaline Phosphatase 34 U/L (46-116) Troponin I Quantitative 9.809 ng/mL (0.000-0.055) Total Protein 7.1 g/dL (6.4-8.2) Albumin 2.6 g/dL (3.4-5.0) Albumin/Globulin Ratio 0.6 (1.0-1.7) O2 Saturation 91 % (92-99) 88 % (92-99) Arterial Blood pH 7.37 (7.35-7.45) 7.46 (7.35-7.45) [facility] (35-46) 34 mmHg (35-46) Arterial Blood pO2 at Patient Temp 67 mmHg (65-108) 56 mmHg (65-108) Arterial Blood HCO3 24 mmol/L (21-28) 24 mmol/L (21-28) Arterial Blood Base Excess -1 mmol/L (-3-3) 0 mmol/L (-3-3) FiO2 70 50 Laboratory Tests Test 07/17/19 09:15 07/18/19 08:45 O2 Saturation 91 % (92-99) 88 % (92-99) Arterial Blood pH 7.37 (7.35-7.45) 7.46 (7.35-7.45) Arterial Blood pCO2 at Patient Temp 43 mmHg (35-46) 34 mmHg (35-46) Arterial Blood pO2 at Patient Temp 67 mmHg (65-108) 56 mmHg (65-108) Arterial Blood HCO3 24 mmol/L (21-28) 24 mmol/L (21-28) Arterial Blood Base Excess -1 mmol/L (-3-3) 0 mmol/L (-3-3) FiO2 70 50 Medications Active Scripts Medications Dose Route/Sig Max Daily Dose Days Date Category Culturelle (Lactobacillus Rhamnosus Gg) 1 Each Cap.sprink 1 Cap PO BID 30 10/29/18 Rx Zyvox (Linezolid) 600 Mg Tablet 600 Mg PO BID 10 10/29/18 Rx Amox Tr-K Clv 875-125 Mg Tab (Amoxicillin/Potassium Clav) 1 Each Tablet 1 Tab PO BIDWMEALS 10 10/29/18 Rx Vitamin E (Vitamin E Mixed) 1,000 Unit Capsule 1,000 Unit PO DAILY 10/26/18 Reported NITROGLYCERIN SubLingual (Nitroglycerin) 0.4 Mg Tab.subl 0.4 Mg SL PRN Q5MIN PRN 10/26/18 Reported Milk Of Magnesia (Magnesium Hydroxide) 2,400 Mg/10 Ml Oral.susp 2,400 Mg PO DAILY PRN 10/26/18 Reported Maalox Advanced Suspension (Mag Hydrox/Aluminum Hyd/Simeth) 355 Ml Oral.susp 15 Ml PO PRN AFTMEALHC PRN 10/26/18 Reported EXELON 4.6mg/24hr (Rivastigmine) 1 Each Patch.td24 1 Patch TP DAILY 10/26/18 Reported Depakote Er (Divalproex Sodium) 500 Mg Tab.er.24h 1 Tab PO BID 10/26/18 Reported Depakote Er (Divalproex Sodium) 250 Mg Tab.er.24h 1 Tab PO QHS 10/26/18 Reported Welchol (Colesevelam Hcl) 625 Mg Tablet 2,500 Mg PO BID 10/26/18 Reported Zetia (Ezetimibe) 10 Mg Tablet 1 Tab PO HS 08/28/18 Reported Vitamin D (Cholecalciferol (Vitamin D3)) 1,000 Unit Capsule 50,000 Units PO QSA 08/28/18 Reported Tamsulosin Hcl 0.4 Mg Cap.er.24h 1 Cap PO DAILY 08/28/18 Reported Risperidone 0.5 Mg Tablet 1.5 Tab PO QHS 08/28/18 Reported Niaspan (Niacin) 500 Mg Tab.er.24h 1 Tab PO QHS 08/28/18 Reported Mirtazapine 30 Mg Tablet 1 Tab PO QHS 08/28/18 Reported Losartan Potassium 100 Mg Tablet 100 Mg PO DAILY 08/28/18 Reported Levothyroxine Sodium 75 Mcg Tablet 75 Mcg PO DAILYAC 08/28/18 Reported Fluvoxamine Maleate 50 Mg Tablet 1 Tab PO QHS 08/28/18 Reported Vitamin B-12 (Cyanocobalamin (Vitamin B-12)) 1,000 Mcg Tablet 1 Tab PO DAILY 08/28/18 Reported Aspirin Ec (Aspirin) 81 Mg Tablet.dr 81 Mg PO DAILY08 08/28/18 Reported Amlodipine Besylate 5 Mg Tablet 5 Mg PO DAILY 08/28/18 Reported Tylenol (Acetaminophen) 325 Mg Tablet 1-2 Tab PO QID 08/28/18 Reported Comments cxr reviewed, r mid lung infilt small effusion ett ok Impression . IMPRESSION: 1. Acute respiratory failure secondary to influenza, pneumonia, acute diastolic congestive heart failure, acute bronchospasm. 2. Abnormal chest x-ray. 3. Acute bronchospasm. 4. Pneumonia, influenza. 5. Acute kidney injury. 6. Elevated troponin, NSTEMI, type 2. 7. Elevated procalcitonin. 8. Sepsis with lactate elevation. 9. ZAHRAA mpression: 1. Bilateral pulmonary opacities, similar compared to prior allowing for differences in technique. 2. Small bilateral layering pleural effusions, unchanged. Plan . VENT SUPPORT ANTIBX PER ID FOLLOW ABG AND CXR DVT PROPHAL NUTRITIONAL SUPPORT TMILFLU STEROIDS discussed w KARLENE Garcia MD Jul 18, 2019 09:14
[2019-07-18] MEDS: OSELTAMIVIR 30 MG CAPSULE PO SCH ×2 (09:49→20:33)
[2019-07-18] MEDS ORDERED: DAPTOmycin (GENERIC) IVPB 500 MG in IV NORMAL SALINE 50ML 50 ML IV ONE (10:00)
--- NOTE | 2019-07-18 10:42 | PDOC ---
SUBJECTIVE ROS intubated OBJECTIVE Vital Signs Vital Signs Date Time Temp Pulse Resp B/P (MAP) Pulse Ox O2 Delivery O2 Flow Rate FiO2 07/18/19 10:04 93 Ventilator 07/18/19 10:00 68 19 105/65 (78) 07/18/19 08:00 99.9 99.9 I & 0 Intake and Output 07/18/19 07:00 Intake Total 1635 ml Output Total 995 ml Balance 640 ml Intake Oral 60 ml IV Total 1575 ml Output Urine Total 895 ml Gastric Drainage Total 100 ml PHYSICAL EXAM Physical Exam GENERAL: Intubated HEENT: Intubated NECK: supple CARDIOVASCULAR: rrr LUNGS: CTA ABDOMEN: Soft and obese. EXTREMITIES edema + NEUROLOGIC: Lethargic, Hx of dementia SKIN: No rash Chronic changes Gu Suresh + . DIAGNOSIS/ASSESSMENT Assessment & Plan ZAHRAA - Pre-renal /Urinary retention/Sepsis UOP of 500 ml when sruesh placed , Good UOP Renal function stable, E-Lytes and acid base stable, No labs ordered this am Will get BMP, supportive care, Monitor Acute respiratory failure secondary to influenza, pneumonia, Acute exacerbation of congestive heart failure, influenza- Influenza B positive Pneumonia - On CxR Sepsis with lactate elevation. NSTEMI -Troponin elevated, cardiology following Irvin RN at bedside COMMENT/RELEVANT DATA Meds Current Medications Medications (Trade) Dose Ordered Sig/Lorri Start Time Stop Time Status Last Admin Dose Admin Acetaminophen (Tylenol) 650 mg PRN Q4HRS PRN 07/16/19 18:15 07/16/19 20:52 650 MG Albuterol Sulfate (Ventolin Neb Soln) 2.5 mg 1X ONCE 07/16/19 09:45 07/16/19 09:46 DC 07/16/19 09:56 2.5 MG Albuterol/ Ipratropium (Duoneb) 3 ml RTQID 07/16/19 12:00 07/17/19 11:59 DC 07/17/19 09:18 3 ML Aspirin (Aspirin Rectal Supp) 300 mg 1X STAT 07/16/19 11:27 07/16/19 11:30 DC 07/16/19 12:20 300 MG Atorvastatin Calcium (Lipitor) 20 mg QHS 07/17/19 21:00 07/17/19 21:37 20 MG Bisacodyl (Dulcolax Supp) 10 mg PRN DAILY PRN 07/16/19 11:30 Budesonide (Pulmicort) 0.5 mg 1X ONCE 07/16/19 11:00 07/16/19 11:01 DC 07/16/19 12:19 0.5 MG Ceftriaxone Sodium (Rocephin) 2 gm 1X ONCE 07/16/19 08:00 07/16/19 08:01 DC 07/16/19 08:31 2 GM Chlorhexidine Gluconate (Peridex) 15 ml BID 07/16/19 21:00 07/18/19 08:37 15 ML Clopidogrel Bisulfate (Plavix) 75 mg DAILYWBKFT 07/18/19 08:00 07/18/19 08:37 75 MG Daptomycin 500 mg/ Sodium Chloride 50 ml @ 100 mls/hr Q24H ONCE 07/18/19 10:00 07/18/19 10:29 DC Doxycycline Hyclate 100 mg/ Dextrose 100 ml @ 50 mls/hr 1X ONCE 07/16/19 08:00 07/16/19 09:59 DC 07/16/19 08:32 50 MLS/HR Famotidine (Pepcid Vial) 20 mg QHS 07/16/19 21:00 07/17/19 21:38 20 MG Fentanyl Citrate 30 ml @ 0 mls/hr CONT PRN PRN 07/16/19 18:30 07/16/19 18:23 DC Fentanyl Citrate (Fentanyl 2ml Vial) 50 mcg PRN Q1HR PRN 07/16/19 18:30 Heparin Sodium (Porcine) (Heparin Sodium) 5,000 unit Q12HR 07/16/19 21:00 07/18/19 08:38 5,000 UNIT Ketamine HCl (Ketamine) 20 mg 1X ONCE 07/16/19 11:00 07/16/19 11:02 DC Linezolid/Dextrose 300 ml @ 300 mls/hr Q12HR 07/17/19 09:30 07/18/19 08:37 300 MLS/HR Lorazepam (Ativan Inj) 0.25 mg PRN Q3HRS PRN 07/16/19 16:15 Meropenem 0.5 gm/ Sodium Chloride 100 ml @ 200 mls/hr Q8HRS 07/16/19 14:00 UNV Meropenem 500 mg/ Sodium Chloride 50 ml @ 100 mls/hr Q8HRS 07/16/19 12:00 07/18/19 05:04 100 MLS/HR Midazolam HCl 100 ml @ 5 mls/hr CONT PRN 07/16/19 18:30 07/16/19 18:23 DC Morphine Sulfate (Morphine Sulfate) 4 mg PRN Q1HR PRN 07/16/19 18:30 Naloxone HCl (Narcan) 0.4 mg PRN Q2MIN PRN 07/16/19 18:30 Norepinephrine Bitartrate 250 ml @ 17.006 mls/ hr CONT PRN 07/16/19 11:30 07/17/19 13:14 17.006 MLS/HR Ondansetron HCl (Zofran) 4 mg PRN Q6HRS PRN 07/16/19 11:30 Oseltamivir Phosphate (Tamiflu) 30 mg BID 07/17/19 09:30 07/22/19 09:29 07/18/19 09:49 30 MG Propofol 100 ml @ As Directed STK-MED ONCE 07/16/19 17:02 07/16/19 17:03 DC Sodium Chloride 1,000 ml @ 25 mls/hr Q24H 07/16/19 18:18 07/17/19 21:38 25 MLS/HR Sodium Chloride (Normal Saline Flush) 3 ml QSHIFT PRN 07/16/19 11:30 Succinylcholine Chloride (Anectine) 200 mg STK-MED ONCE 07/16/19 17:03 07/16/19 17:03 DC Lab Laboratory Tests Test 07/18/19 08:45 O2 Saturation 88 % (92-99) Arterial Blood pH 7.46 (7.35-7.45) Arterial Blood pCO2 at Patient Temp 34 mmHg (35-46) Arterial Blood pO2 at Patient Temp 56 mmHg (65-108) Arterial Blood HCO3 24 mmol/L (21-28) Arterial Blood Base Excess 0 mmol/L (-3-3) FiO2 50 Results All relevant outside records, renal labs, imaging studies, telemetry/EKG's were reviewed. Other 1. Bilateral pulmonary opacities, similar compared to prior allowing for differences in technique. 2. Small bilateral layering pleural effusions, unchanged. JARIVS MCCORMICK MD Jul 18, 2019 10:42
--- NOTE | 2019-07-18 11:23 | PDOC ---
SHIRA CH RAG CUTTING MACHINE FEEDER 07/18/19 1123: CARDIO Progress Notes Date and Time Date of Service 07/18/19 Time of Evaluation 1115 Subjective Subjective: Other (intubated) Vitals Vitals Vital Signs Date Time Temp Pulse Resp B/P (MAP) Pulse Ox O2 Delivery O2 Flow Rate FiO2 07/18/19 11:00 71 19 107/69 (82) 96 Ventilator 07/18/19 08:00 99.9 99.9 Weight Weight [ ] Input and Output Intake and Output Intake and Output 07/18/19 07:00 Intake Total 1635 ml Output Total 995 ml Balance 640 ml Intake Oral 60 ml IV Total 1575 ml Output Urine Total 895 ml Gastric Drainage Total 100 ml Laboratory Labs Laboratory Tests Test 07/18/19 08:45 O2 Saturation 88 % (92-99) Arterial Blood pH 7.46 (7.35-7.45) Arterial Blood pCO2 at Patient Temp 34 mmHg (35-46) Arterial Blood pO2 at Patient Temp 56 mmHg (65-108) Arterial Blood HCO3 24 mmol/L (21-28) Arterial Blood Base Excess 0 mmol/L (-3-3) FiO2 50 Microbiology Micro Microbiology 07/16/19 Blood Culture - Preliminary, Resulted NO GROWTH AFTER 2 DAYS Physical Exam HEENT: Neck Supple W Full Motion Chest: Symmetric LUNGS: Other (mechanical ventilation) Heart: RRR (SR ) Abdomen: Other (soft ) Extremities: Other (1+ bilateral LE edema ) Neurology: other (sedated) Assessment Assessment 1. Acute respiratory failure; multifactorial given PNA, influenza, and a/c HF. s/p intubation 2. Acute on chronic diastolic HF; LVEF preserved per echo . Repeat echo pending. 3. CAD s/p prior CABG 4. NSTEMI; peak 9.8. probably type II, demand ischemia with multiple culprits noted. 5. Fevers, influenza B; BC + gram cocci 1/4 bottle. ? contaminant 6. Lactic acidosis, sepsis. Off pressor support 7. ZAHRAA 8. Hyperlipidemia; statin 9. Hypertension; marginal BP 10. Dementia Recommendations Secondary prevention. Continue ASA, Plavix for now Blood pressure will likely not tolerate BB, ACEi Ongoing antibiotic therapy, Tamiflu Supportive care JODI HRENANDEZ MD 07/18/19 2153: CARDIO Progress Notes Plan Plan Pt. seen and examined. Agree with above ONCOLOGY RADIATION PHYSICIAN note. Supportive care for now. Moderate per echo. No further CV intervention planned at this time. SHIRA CH APRN Jul 18, 2019 11:23 JODI HERNANDEZ MD Jul 18, 2019 21:53
--- NOTE | 2019-07-18 11:32 | NUR ---
IP: patient +flu, requires droplet precautions until 5 days of treatment and no fever for 24 hours whichever is longer.
[2019-07-18 12:05] LABS: CALCIUM 8.5 mg/dL (8.5-10.1); CREATININE 1.3 mg/dL (0.7-1.3); POTASSIUM 4.2 mmol/L (3.5-5.1)
--- NOTE | 2019-07-18 14:11 | NUR ---
Spoke with Dr. Samaniego with questions about possible ileus/obstruction seen on previous KUB-- Dr. Samaniego wants repeat KUB and can possibly start tube feeds depending on results.
[2019-07-18] MEDS ORDERED: LORA10CA PO (14:39)
[2019-07-18] MEDS ORDERED: MULT-289 PO (14:39)
[2019-07-18] MEDS ORDERED: MELO7.5T29 PO (14:39)
[2019-07-18] MEDS ORDERED: QUET25TA5 PO (14:39)
[2019-07-18] MEDS ORDERED: MEMA28CA PO (14:39)
[2019-07-18] MEDS ORDERED: GUAI600T47 PO (14:39)
[2019-07-18] MEDS ORDERED: MIRT15TA PO (14:39)
[2019-07-18] MEDS ORDERED: NITROGLYCERIN SUBLINGUAL 0.4 MG BOTTLE OF 25. SL PRN (14:45)
--- NOTE | 2019-07-18 15:09 | NUR ---
SS following for discharge planning. SS reviewed pt chart. Pt is from the [facility], ; fax [phone], and is currently on the vent. SS will continue to follow for discharge planning.
--- NOTE | 2019-07-18 15:27 | PDOC ---
PROGRESS NOTES Chief Complaint Chief Complaint severe sepsis acute hypoxic resp failure, on vent, had been DNR, family revoked yesterday, pneumonia, Influenza B pneumonitis advanced dementia NSTEMI, med management, HTN - cont meds HLD - cont meds Hypothyroidism Depression - with anxiety - ON mood stabilizers, History of Present Illness History of Present Illness still on vent cont aggresive care CV and pulm and ID following, iv antibiotics DVT PROPHYLAXIS Vitals Vitals Vital Signs Date Time Temp Pulse Resp B/P (MAP) Pulse Ox O2 Delivery O2 Flow Rate FiO2 07/18/19 15:00 80 19 104/66 (79) 94 Ventilator 07/18/19 12:00 99.8 99.8 Physical Exam Physical Exam GENERAL: Intubated, sedated. HEENT: Normocephalic, atraumatic. ETT in place, OG tube in place. NECK: Supple. LUNGS: Decreased breath sounds with some rhonchi. ABDOMEN: Soft and obese. Bowel sounds present. EXTREMITIES: Trace edema. General: No acute distress, mild distress Lungs: Crackles Abdomen: Soft, No tenderness Extremities: No cyanosis, Other (2+ Pedal edema) Skin: No breakdown Labs LABS Laboratory Tests Test 07/18/19 08:45 07/18/19 11:08 O2 Saturation 88 % (92-99) Arterial Blood pH 7.46 (7.35-7.45) Arterial Blood pCO2 at Patient Temp 34 mmHg (35-46) Arterial Blood pO2 at Patient Temp 56 mmHg (65-108) Arterial Blood HCO3 24 mmol/L (21-28) Arterial Blood Base Excess 0 mmol/L (-3-3) FiO2 50 Sodium Level 144 mmol/L (136-145) Potassium Level 4.2 mmol/L (3.5-5.1) Chloride Level 108 mmol/L (98-107) Carbon Dioxide Level 28 mmol/L (21-32) Anion Gap 8 (6-14) Blood Urea Nitrogen 38 mg/dL (8-26) Creatinine 1.3 mg/dL (0.7-1.3) Estimated GFR (Cockcroft-Gault) 52.0 Glucose Level 118 mg/dL (70-99) Calcium Level 8.5 mg/dL (8.5-10.1) Troponin I Quantitative 4.523 ng/mL (0.000-0.055) Assessment and Plan Assessmemt and Plan Problems Medical Problems: (1) Elevated troponin Status: Acute (2) Influenza Status: Acute Comment Review of Relevant I have reviewed the following items en (where applicable) has been applied. Labs Laboratory Tests Test 07/16/19 18:10 07/17/19 04:00 07/17/19 09:15 07/18/19 08:45 O2 Saturation 92 % (92-99) 91 % (92-99) 88 % (92-99) Arterial Blood pH 7.37 (7.35-7.45) 7.37 (7.35-7.45) 7.46 (7.35-7.45) Arterial Blood pCO2 at Patient Temp 37 mmHg (35-46) 43 mmHg (35-46) 34 mmHg (35-46) Arterial Blood pO2 at Patient Temp 70 mmHg (65-108) 67 mmHg (65-108) 56 mmHg (65-108) Arterial Blood HCO3 21 mmol/L (21-28) 24 mmol/L (21-28) 24 mmol/L (21-28) Arterial Blood Base Excess -4 mmol/L (-3-3) -1 mmol/L (-3-3) 0 mmol/L (-3-3) FiO2 100 70 50 White Blood Count 7.9 x10^3/uL (4.0-11.0) Red Blood Count 3.31 x10^6/uL (4.30-5.70) Hemoglobin 11.0 g/dL (13.0-17.5) Hematocrit 32.8 % (39.0-53.0) Mean Corpuscular Volume 99 fL (79-100) Mean Corpuscular Hemoglobin 33 pg (25-35) Mean Corpuscular Hemoglobin Concent 33 g/dL (31-37) Red Cell Distribution Width 14.1 % (11.5-14.5) Platelet Count 176 x10^3/uL (140-400) Neutrophils (%) (Auto) 81 % (31-73) Lymphocytes (%) (Auto) 9 % (24-48) Monocytes (%) (Auto) 10 % (0-9) Eosinophils (%) (Auto) 0 % (0-3) Basophils (%) (Auto) 0 % (0-3) Neutrophils # (Auto) 6.4 x10^3/uL (1.8-7.7) Lymphocytes # (Auto) 0.7 x10^3/uL (1.0-4.8) Monocytes # (Auto) 0.8 x10^3/uL (0.0-1.1) Eosinophils # (Auto) 0.0 x10^3/uL (0.0-0.7) Basophils # (Auto) 0.0 x10^3/uL (0.0-0.2) Sodium Level 142 mmol/L (136-145) Potassium Level 4.2 mmol/L (3.5-5.1) Chloride Level 109 mmol/L (98-107) Carbon Dioxide Level 25 mmol/L (21-32) Anion Gap 8 (6-14) Blood Urea Nitrogen 49 mg/dL (8-26) Creatinine 1.6 mg/dL (0.7-1.3) Estimated GFR (Cockcroft-Gault) 40.9 BUN/Creatinine Ratio 31 (6-20) Glucose Level 150 mg/dL (70-99) Calcium Level 8.4 mg/dL (8.5-10.1) Total Bilirubin 0.5 mg/dL (0.2-1.0) Aspartate Amino Transf (AST/SGOT) 53 U/L (15-37) Alanine Aminotransferase (ALT/SGPT) 24 U/L (16-63) Alkaline Phosphatase 34 U/L (46-116) Troponin I Quantitative 9.809 ng/mL (0.000-0.055) Total Protein 7.1 g/dL (6.4-8.2) Albumin 2.6 g/dL (3.4-5.0) Albumin/Globulin Ratio 0.6 (1.0-1.7) Test 07/18/19 11:08 Sodium Level 144 mmol/L (136-145) Potassium Level 4.2 mmol/L (3.5-5.1) Chloride Level 108 mmol/L (98-107) Carbon Dioxide Level 28 mmol/L (21-32) Anion Gap 8 (6-14) Blood Urea Nitrogen 38 mg/dL (8-26) Creatinine 1.3 mg/dL (0.7-1.3) Estimated GFR (Cockcroft-Gault) 52.0 Glucose Level 118 mg/dL (70-99) Calcium Level 8.5 mg/dL (8.5-10.1) Troponin I Quantitative 4.523 ng/mL (0.000-0.055) Laboratory Tests Test 07/18/19 08:45 07/18/19 11:08 O2 Saturation 88 % (92-99) Arterial Blood pH 7.46 (7.35-7.45) Arterial Blood pCO2 at Patient Temp 34 mmHg (35-46) Arterial Blood pO2 at Patient Temp 56 mmHg (65-108) Arterial Blood HCO3 24 mmol/L (21-28) Arterial Blood Base Excess 0 mmol/L (-3-3) FiO2 50 Sodium Level 144 mmol/L (136-145) Potassium Level 4.2 mmol/L (3.5-5.1) Chloride Level 108 mmol/L (98-107) Carbon Dioxide Level 28 mmol/L (21-32) Anion Gap 8 (6-14) Blood Urea Nitrogen 38 mg/dL (8-26) Creatinine 1.3 mg/dL (0.7-1.3) Estimated GFR (Cockcroft-Gault) 52.0 Glucose Level 118 mg/dL (70-99) Calcium Level 8.5 mg/dL (8.5-10.1) Troponin I Quantitative 4.523 ng/mL (0.000-0.055) Microbiology 07/16/19 Blood Culture - Preliminary, Resulted NO GROWTH AFTER 2 DAYS Medications Current Medications Acetaminophen (Tylenol) 1,000 mg 1X ONCE PO Last administered on 07/16/19 08:09; Start 07/16/19 at 08:00; Stop 07/16/19 at 08:01; Status DC Ceftriaxone Sodium (Rocephin) 2 gm 1X ONCE IVP Last administered on 07/16/19at 08:31; Start 07/16/19 at 08:00; Stop 07/16/19 at 08:01; Status DC Sodium Chloride 1,000 ml @ 2,100 mls/hr Q29M IV Last administered on 07/16/19 08:21; Start 07/16/19 at 07:53; Stop 07/16/19 at 08:53; Status DC Doxycycline Hyclate 100 mg/ Dextrose 100 ml @ 50 mls/hr 1X ONCE IV Last administered on 07/16/19at 08:32; Start 07/16/19 at 08:00; Stop 07/16/19 at 09:59; Status DC Albuterol/ Ipratropium (Duoneb) 3 ml 1X ONCE NEB Last administered on 07/16/19at 08:04; Start 07/16/19 at 08:00; Stop 07/16/19 at 08:01; Status DC Lorazepam (Ativan Inj) 1 mg 1X ONCE IV Last administered on 07/16/19at 09:28; Start 07/16/19 at 09:30; Stop 07/16/19 at 09:31; Status DC Lorazepam (Ativan Inj) 1 mg 1X ONCE IVP ; Start 07/16/19 at 09:30; Stop 07/16/19 at 09:31; Status DC Oseltamivir Phosphate (Tamiflu) 75 mg 1X STAT PO ; Start 07/16/19 at 09:26; Stop 07/16/19 at 09:28; Status DC Ketamine HCl (Ketamine) 50 mg STK-MED ONCE .ROUTE ; Start 07/16/19 at 09:35; Stop 07/16/19 at 09:35; Status DC Ketamine HCl (Ketamine) 20 mg 1X ONCE IV ; Start 07/16/19 at 09:45; Stop 07/16/19 at 09:46; Status DC Ketamine HCl (Ketamine) 20 mg 1X ONCE IV Last administered on 07/16/19at 09:46; Start 07/16/19 at 09:45; Stop 07/16/19 at 09:46; Status DC Albuterol Sulfate (Ventolin Neb Soln) 2.5 mg 1X ONCE NEB Last administered on 07/16/19at 09:56; Start 07/16/19 at 09:45; Stop 07/16/19 at 09:46; Status DC Morphine Sulfate (Morphine Sulfate) 2 mg PRN Q2HR PRN IV PAIN; Start 07/16/19 at 10:15; Stop 07/17/19 at 10:14; Status DC Albuterol/ Ipratropium (Duoneb) 3 ml RTQID NEB Last administered on 07/17/19at 09:18; Start 07/16/19 at 12:00; Stop 07/17/19 at 11:59; Status DC Ketamine HCl (Ketamine) 20 mg 1X ONCE IV Last administered on 07/16/19at 1 0:20; Start 07/16/19 at 10:15; Stop 07/16/19 at 10:16; Status DC Budesonide (Pulmicort) 0.5 mg RTBID NEB Last administered on 07/18/19at 08:58; Start 07/16/19 at 20:00 Budesonide (Pulmicort) 0.5 mg 1X ONCE NEB Last administered on 07/16/19at 12:19; Start 07/16/19 at 11:00; Stop 07/16/19 at 11:01; Status DC Ketamine HCl (Ketamine) 20 mg 1X ONCE IV ; Start 07/16/19 at 11:00; Stop 07/16/19 at 11:02; Status DC Lorazepam (Ativan Inj) 0.5 mg PRN Q6HRS PRN IV ANXIETY / AGITATION Last administered on 07/16/19at 13:42; Start 07/16/19 at 11:30; Stop 07/16/19 at 16:12; Status DC Ondansetron HCl (Zofran) 4 mg PRN Q6HRS PRN IV NAUSEA/VOMITING; Start 07/16/19 at 11:30 Famotidine (Pepcid Vial) 20 mg QHS IVP Last administered on 07/17/19 21:38; Start 07/16/19 at 21:00 Heparin Sodium (Porcine) (Heparin Sodium) 5,000 unit Q12HR SQ Last administered on 07/18/19at 08:38; Start 07/16/19 at 21:00 Sodium Chloride (Normal Saline Flush) 3 ml QSHIFT PRN IV AFTER MEDS AND BLOOD DRAWS; Start 07/16/19 at 11:30 Bisacodyl (Dulcolax Supp) 10 mg PRN DAILY PRN [place] CONSTIPATION; Start 07/16/19 at 11:30 Sodium Chloride 1,000 ml @ 2,130 mls/hr Q29M IV ; Start 07/16/19 at 11:24; Stop 07/16/19 at 12:24; Status DC Meropenem 0.5 gm/ Sodium Chloride 100 ml @ 200 mls/hr Q8HRS IV ; Start 07/16/19 at 14:00; Status UNV Norepinephrine Bitartrate 250 ml @ 17.006 mls/ hr CONT PRN IV PER PROTOCOL Last administered on 07/17/19at 13:14; Start 07/16/19 at 11:30 Aspirin (Aspirin Rectal Supp) 300 mg 1X STAT [place] Last administered on 07/16/19at 12:20; Start 07/16/19 at 11:27; Stop 07/16/19 at 11:30; Status DC Meropenem 500 mg/ Sodium Chloride 50 ml @ 100 mls/hr Q8HRS IV Last administered on 07/18/19at 13:55; Start 07/16/19 at 12:00 Lorazepam (Ativan Inj) 0.25 mg PRN 1X PRN IVP ANXIETY / AGITATION Last administered on 07/16/19at 16:32; Start 07/16/19 at 16:15; Stop 07/17/19 at 11:28; Status DC Lorazepam (Ativan Inj) 0.25 mg PRN Q3HRS PRN IVP ANXIETY / AGITATION; Start 07/16/19 at 16:15 Propofol 100 ml @ As Directed STK-MED ONCE IV ; Start 07/16/19 at 17:02; Stop 07/16/19 at 17:03; Status DC Succinylcholine Chloride (Anectine) 200 mg STK-MED ONCE .ROUTE ; Start 07/16/19 at 17:03; Stop 07/16/19 at 17:03; Status DC Fentanyl Citrate 30 ml @ 0 mls/hr CONT PRN IV SEE PROTOCOL Last administered on 07/17/19at 21:42; Start 07/16/19 at 17:45 Midazolam HCl 100 ml @ 0 mls/hr CONT PRN IV SEE PROTOCOL Last administered on 07/17/19at 13:13; Start 07/16/19 at 17:45 Acetaminophen (Tylenol) 650 mg PRN Q4HRS PRN PEG MILD PAIN / TEMP Last administered on 07/16/19at 20:52; Start 07/16/19 at 18:15 Fentanyl Citrate (Fentanyl 2ml Vial) 25 mcg PRN Q1HR PRN IV SEE COMMENTS; Start 07/16/19 at 18:30 Fentanyl Citrate (Fentanyl 2ml Vial) 50 mcg PRN Q1HR PRN IV SEE COMMENTS; Start 07/16/19 at 18:30 Chlorhexidine Gluconate (Peridex) 15 ml BID MM Last administered on 07/18/19at 08:37; Start 07/16/19 at 21:00 Morphine Sulfate (Morphine Sulfate) 2 mg PRN Q1HR PRN IV SEE COMMENTS.; Start 07/16/19 at 18:30 Morphine Sulfate (Morphine Sulfate) 4 mg PRN Q1HR PRN IV SEE COMMENTS.; Start 07/16/19 at 18:30 Midazolam HCl 100 ml @ 5 mls/hr CONT PRN IV SEE I/O RECORD; Start 07/16/19 at 18:30; Stop 07/16/19 at 18:23; Status DC Fentanyl Citrate 30 ml @ 0 mls/hr CONT PRN PRN IV PER PROTOCOL; Start 07/16/19 at 18:30; Stop 07/16/19 at 18:23; Status DC Naloxone HCl (Narcan) 0.4 mg PRN Q2MIN PRN IV SEE INSTRUCTIONS; Start 07/16/19 at 18:30 Sodium Chloride 1,000 ml @ 25 mls/hr Q24H IV Last administered on 07/17/19at 21:38; Start 07/16/19 at 18:18 Oseltamivir Phosphate (Tamiflu) 30 mg BID PO Last administered on 07/18/19at 09:49; Start 07/17/19 at 09:30; Stop 07/22/19 at 09:29 Linezolid/Dextrose 300 ml @ 300 mls/hr Q12HR IV Last administered on 07/18/19at 08:37; Start 07/17/19 at 09:30 Atorvastatin Calcium (Lipitor) 20 mg QHS PO Last administered on 07/17/19at 21:37; Start 07/17/19 at 21:00 Clopidogrel Bisulfate (Plavix) 300 mg 1X ONCE PO Last administered on 07/17/19at 11:12; Start 07/17/19 at 09:45; Stop 07/17/19 at 09:48; Status DC Clopidogrel Bisulfate (Plavix) 75 mg DAILYWBKFT PO Last administered on 07/18/19at 08:37; Start 07/18/19 at 08:00 Daptomycin 500 mg/ Sodium Chloride 50 ml @ 100 mls/hr Q24H ONCE IV Last administered on 07/18/19at 11:16; Start 07/18/19 at 10:00; Stop 07/18/19 at 10:29; Status DC Aspirin (Children'S Aspirin) 81 mg DAILYWBKFT PO ; Start 07/19/19 at 08:00 Amlodipine Besylate (Norvasc) 5 mg DAILY PO ; Start 07/19/19 at 09:00 Aspirin (Ecotrin) 81 mg DAILY08 PO ; Start 07/19/19 at 08:00 Divalproex Sodium (Depakote Er) 250 mg QHS PO ; Start 07/18/19 at 21:00; Status UNV Divalproex Sodium (Depakote Er) 500 mg HS PO ; Start 07/18/19 at 21:00; Status UNV EZETIMIBE (Zetia) 10 mg HS PO ; Start 07/18/19 at 21:00 Guaifenesin (Mucinex) 600 mg BID PO ; Start 07/18/19 at 21:00 Lactobacillus Rhamnosus (Culturelle) 1 cap BID PO ; Start 07/18/19 at 21:00 Levothyroxine Sodium (Synthroid) 100 mcg DAILY06 PO ; Start 07/19/19 at 07:30 Mirtazapine (Remeron) 15 mg QHS PO ; Start 07/18/19 at 21:00 Nitroglycerin (Nitrostat) 0.4 mg PRN Q5MIN PRN SL CHEST PAIN; Start 07/18/19 at 14:45 Quetiapine Fumarate (SEROquel) 37.5 mg HS PO ; Start 07/18/19 at 21:00 Tamsulosin HCl (Flomax) 0.4 mg DAILY PO ; Start 07/19/19 at 09:00 Fluvoxamine Maleate (Luvox) 50 mg QHS PO ; Start 07/18/19 at 21:00 Losartan Potassium (Cozaar) 100 mg DAILY PO ; Start 07/19/19 at 09:00 Al Hydroxide/Mg Hydroxide (Mylanta Plus Xs) 15 ml PRN AFTMEALHC PRN PO DYSPEPSIA; Start 07/18/19 at 15:30 Magnesium Hydroxide (Milk Of Magnesia) 2,400 mg PRN DAILY PRN PO CONSTIPATION; Start 07/18/19 at 15:30 Risperidone (RisperDAL) 0.75 mg QHS PO ; Start 07/18/19 at 21:00 Active Scripts Active Culturelle (Lactobacillus Rhamnosus Gg) 1 Each Cap.sprink 1 Cap PO BID 30 Days Zyvox (Linezolid) 600 Mg Tablet 600 Mg PO BID 10 Days Amox Tr-K Clv 875-125 Mg Tab (Amoxicillin/Potassium Clav) 1 Each Tablet 1 Tab PO BIDWMEALS 10 Days Reported Seroquel (Quetiapine Fumarate) 25 Mg Tablet 37.5 Mg PO HS Namenda Xr (Memantine Hcl) 28 Mg Cap.spr.24 28 Mg PO DAILY Men's One Daily (Multivitamin With Minerals) 1 Each Tablet 1 Each PO DAILY Mucinex (Guaifenesin) 600 Mg Tablet.er 1 Tab PO BID 10 Days Meloxicam 7.5 Mg Tablet 1 Tab PO DAILY 30 Days Claritin (Loratadine) 10 Mg Capsule 1 Cap PO DAILY 30 Days Remeron (Mirtazapine) 15 Mg Tablet 1 Tab PO QHS Vitamin E (Vitamin E Mixed) 1,000 Unit Capsule 1,000 Unit PO DAILY NITROGLYCERIN SubLingual (Nitroglycerin) 0.4 Mg Tab.subl 0.4 Mg SL PRN Q5MIN PRN Milk Of Magnesia (Magnesium Hydroxide) 2,400 Mg/10 Ml Oral.susp 2,400 Mg PO DAILY PRN Maalox Advanced Suspension (Mag Hydrox/Aluminum Hyd/Simeth) 355 Ml Oral.susp 15 Ml PO PRN AFTMEALHC PRN EXELON 4.6mg/24hr (Rivastigmine) 1 Each Patch.td24 1 Patch TP DAILY Depakote Er (Divalproex Sodium) 500 Mg Tab.er.24h 1 Tab PO HS Depakote Er (Divalproex Sodium) 250 Mg Tab.er.24h 1 Tab PO QHS Welchol (Colesevelam Hcl) 625 Mg Tablet 2,500 Mg PO BID Zetia (Ezetimibe) 10 Mg Tablet 1 Tab PO HS Vitamin D (Cholecalciferol (Vitamin D3)) 1,000 Unit Capsule 50,000 Units PO QSA Tamsulosin Hcl 0.4 Mg Cap.er.24h 1 Cap PO DAILY Risperidone 0.5 Mg Tablet 1.5 Tab PO QHS Niaspan (Niacin) 500 Mg Tab.er.24h 1 Tab PO QHS Losartan Potassium 100 Mg Tablet 100 Mg PO DAILY Levothyroxine Sodium 75 Mcg Tablet 100 Mcg PO DAILYAC Fluvoxamine Maleate 50 Mg Tablet 1 Tab PO QHS Vitamin B-12 (Cyanocobalamin (Vitamin B-12)) 1,000 Mcg Tablet 1 Tab PO DAILY Aspirin Ec (Aspirin) 81 Mg Tablet.dr 81 Mg PO DAILY08 Amlodipine Besylate 5 Mg Tablet 5 Mg PO DAILY Tylenol (Acetaminophen) 325 Mg Tablet 1-2 Tab PO QID Vitals/I & O Vital Sign - Last 24 Hours 07/17/19 07/17/19 07/17/19 07/17/19 16:00 16:00 16:52 17:00 Temp 98.7 98.7 Pulse 76 80 Resp 16 19 B/P (MAP) 107/59 (75) 112/65 (81) Pulse Ox 96 98 94 O2 Delivery Mechanical Ventilator Ventilator Ventilator Ventilator 07/17/19 07/17/19 07/17/19 07/17/19 18:00 19:00 20:00 20:00 Temp 99.6 99.6 Pulse 82 82 82 Resp 22 22 21 B/P (MAP) 115/58 (77) 122/73 (89) 119/67 (84) Pulse Ox 93 93 95 O2 Delivery Ventilator Ventilator Mechanical Ventilator Ventilator 07/17/19 07/17/19 07/17/19 07/17/19 20:00 20:15 20:37 21:00 Temp 99.6 99.6 Pulse 82 85 79 Resp 22 18 20 B/P (MAP) 122/73 (89) 115/67 (83) 110/60 (77) Pulse Ox 93 95 98 96 O2 Delivery Ventilator Ventilator Ventilator Ventilator 07/17/19 07/17/19 07/17/19 07/17/19 21:42 22:00 22:15 22:15 Pulse 85 83 Resp 20 16 22 16 B/P (MAP) 114/70 (85) 105/56 (72) Pulse Ox 96 93 94 93 O2 Delivery Ventilator Ventilator Ventilator Room Air 07/17/19 07/17/19 07/18/19 07/18/19 23:00 23:45 00:00 00:00 Temp 97.7 97.7 Pulse 76 77 75 Resp 18 18 18 B/P (MAP) 104/57 (73) 104/60 (75) 108/56 (73) Pulse Ox 97 97 96 O2 Delivery Ventilator Ventilator Ventilator Mechanical Ventilator 07/18/19 07/18/19 07/18/19 07/18/19 00:33 01:00 01:15 02:00 Pulse 76 74 72 Resp 18 20 22 B/P (MAP) 111/64 (80) 115/66 (82) 110/64 (79) Pulse Ox 98 95 97 97 O2 Delivery Ventilator Ventilator Ventilator Ventilator 07/18/19 07/18/19 07/18/19 07/18/19 02:30 03:00 04:00 04:00 Temp 99.9 99.9 Pulse 70 69 Resp 18 17 B/P (MAP) 88/56 (67) 91/54 (66) Pulse Ox 98 95 94 O2 Delivery Ventilator Ventilator Ventilator Mechanical Ventilator 07/18/19 07/18/19 07/18/19 07/18/19 04:58 05:00 06:00 07:00 Pulse 65 66 66 Resp 19 B/P (MAP) 88/58 (68) 90/56 (67) 83/53 (63) Pulse Ox 92 94 95 94 O2 Delivery Ventilator Ventilator Ventilator Ventilator 07/18/19 07/18/19 07/18/19 07/18/19 08:00 08:00 08:45 09:00 Temp 99.9 99.9 Pulse 68 70 Resp 19 B/P (MAP) 85/57 (66) 95/56 (69) Pulse Ox 93 93 93 O2 Delivery Ventilator Mechanical Ventilator Ventilator Ventilator 07/18/19 07/18/19 07/18/19 07/18/19 10:00 10:04 11:00 12:00 Pulse 68 71 Resp 19 B/P (MAP) 105/65 (78) 107/69 (82) Pulse Ox 100 93 96 O2 Delivery Ventilator Ventilator Ventilator Mechanical Ventilator 07/18/19 07/18/19 07/18/19 07/18/19 12:00 12:00 13:00 14:00 Temp 99.8 99.8 Pulse 74 63 74 Resp 19 B/P (MAP) 100/64 (76) 93/54 (67) 92/54 (67) Pulse Ox 98 97 98 93 O2 Delivery Ventilator Ventilator Ventilator Ventilator 07/18/19 15:00 Pulse 80 Resp 19 B/P (MAP) 104/66 (79) Pulse Ox 94 O2 Delivery Ventilator Intake and Output 07/17/19 07/17/19 07/18/19 15:00 23:00 07:00 Intake Total 350 ml 472 ml 813 ml Output Total 300 ml 395 ml 300 ml Balance 50 ml 77 ml 513 ml ANGELES HICKMAN MD Jul 18, 2019 15:27
[2019-07-18] MEDS ORDERED: MAG HYDROX/ALUMINUM HYD/SIMETH 30 ML ORAL.SUSP PO PRN (15:30)
[2019-07-18] MEDS ORDERED: MAGNESIUM HYDROXIDE 2,400 MG/30 ML ORAL.SUSP. PO PRN (15:30)
--- NOTE | 2019-07-18 15:40 | RAD ---
2 views of the abdomen 07/18/2019 INDICATION: Ileus/obstruction COMPARISON STUDY: KUB July 16, 2019 Discussion: The bowel gas pattern is nonspecific and nonobstructive. An enteric tube projects over the upper abdomen, likely with tip in the proximal stomach. The entirety of the upper abdomen is not included on this exam. No acute osseous changes are seen. IMPRESSION: 1. Nonspecific nonobstructive bowel gas pattern. 2. Enteric tube in place, most likely in the proximal stomach, but somewhat poorly visualized Electronically signed by: Maury Roman MD (07/18/2019 3:37 PM) [id number]
[2019-07-18] MEDS: IV NORMAL SALINE 1000ML BAG 1,000 ML IV SCH (18:18)
[2019-07-18] MEDS: IPRATRPIUM/ALBUTEROL 0.5/2.5MG 3 ML NEBU. NEB SCH (19:07)
[2019-07-18] MEDS: FAMOTIDINE 20 MG/2 ML VIAL IVP SCH (20:29)
[2019-07-18] MEDS: LACTOBACILLUS RHAMNOSUS GG 1 CAPSULE. PO SCH (20:32)
[2019-07-18] MEDS: EZETIMIBE 10 MG TABLET. PO SCH (20:34)
[2019-07-18] MEDS: QUEtiapine 25 MG TABLET. PO SCH (20:36)
[2019-07-18] MEDS: ATORVASTATIN CALCIUM 20 MG TABLET PO SCH (20:37)
[2019-07-18] MEDS ORDERED: DIVALPROEX EXTENDED RELEASE 250 MG TAB.ER.24H. PO SCH (21:00)
[2019-07-18] MEDS ORDERED: MIRTAZAPINE 15 MG TABLET PO SCH (21:00)
[2019-07-18] MEDS ORDERED: risperiDONE 0.25 MG TABLET. PO SCH (21:00)
[2019-07-18] MEDS ORDERED: DIVALPROEX EXTENDED RELEASE 500 MG TAB.ER.24H. PO SCH (21:00)
[2019-07-19] VITALS (24 sets, daily range): BP systolic 87–113; BP diastolic 50–67
[2019-07-19] MEDS: MIDAZOLAM 100mg/100ml NS BAG 100 ML IV PRN (00:23)
[2019-07-19 05:01] LABS: CALCIUM 8.1 mg/dL (8.5-10.1); CREATININE 1.2 mg/dL (0.7-1.3)
[2019-07-19] MEDS: MEROPENEM 500 MG in IV NORMAL SALINE 50ML 50 ML IV SCH ×3 (05:36→22:20)
--- NOTE | 2019-07-19 07:32 | PDOC ---
Infectious Disease Note Subjective: Subjective Intubated,not responding fio2 70% low grade fever ROS: ROS d/w rn Vital Signs: Vital Signs Vital Signs Date Time Temp Pulse Resp B/P (MAP) Pulse Ox O2 Delivery O2 Flow Rate FiO2 07/19/19 06:00 59 20 87/56 (66) 95 Ventilator 07/19/19 04:00 98.4 98.4 Physical Exam: PHYSICAL EXAM GENERAL: Intubated, sedated.does not respond to verbal commands HEENT: Normocephalic, atraumatic. ETT in place, OG tube in place. NECK: Supple. LUNGS: Decreased breath sounds with some rhonchi. ABDOMEN: Soft and obese. Bowel sounds present. EXTREMITIES: Trace edema. 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 Medications: Inpatient Meds: Current Medications Medications (Trade) Dose Ordered Sig/Lorri Start Time Stop Time Status Last Admin Dose Admin Acetaminophen (Tylenol) 650 mg PRN Q4HRS PRN 07/16/19 18:15 07/16/19 20:52 650 MG Al Hydroxide/Mg Hydroxide (Mylanta Plus Xs) 15 ml PRN AFTMEALHC PRN 07/18/19 15:30 Albuterol Sulfate (Ventolin Neb Soln) 2.5 mg 1X ONCE 07/16/19 09:45 07/16/19 09:46 DC 07/16/19 09:56 2.5 MG Albuterol/ Ipratropium (Duoneb) 3 ml RTQID 07/18/19 17:00 07/18/19 19:07 3 ML Amlodipine Besylate (Norvasc) 5 mg DAILY 07/19/19 09:00 Aspirin (Aspirin Rectal Supp) 300 mg 1X STAT 07/16/19 11:27 07/16/19 11:30 DC 07/16/19 12:20 300 MG Aspirin (Children'S Aspirin) 81 mg DAILYWBKFT 07/19/19 08:00 Cancel Aspirin (Ecotrin) 81 mg DAILY08 07/19/19 08:00 Atorvastatin Calcium (Lipitor) 20 mg QHS 07/17/19 21:00 07/18/19 20:37 20 MG Bisacodyl (Dulcolax Supp) 10 mg PRN DAILY PRN 07/16/19 11:30 Budesonide (Pulmicort) 0.5 mg 1X ONCE 07/16/19 11:00 10/19/19 11:01 DC 07/16/19 12:19 0.5 MG Ceftriaxone Sodium (Rocephin) 2 gm 1X ONCE 07/16/19 08:00 07/16/19 08:01 DC 07/16/19 08:31 2 GM Chlorhexidine Gluconate (Peridex) 15 ml BID 07/16/19 21:00 07/18/19 20:29 15 ML Clopidogrel Bisulfate (Plavix) 75 mg DAILYWBKFT 07/18/19 08:00 07/18/19 08:37 75 MG Daptomycin 500 mg/ Sodium Chloride 50 ml @ 100 mls/hr Q24H ONCE 07/18/19 10:00 07/18/19 10:29 DC 07/18/19 11:16 100 MLS/HR Divalproex Sodium (Depakote Er) 500 mg HS 07/18/19 21:00 UNV Doxycycline Hyclate 100 mg/ Dextrose 100 ml @ 50 mls/hr 1X ONCE 07/16/19 08:00 07/16/19 09:59 DC 07/16/19 08:32 50 MLS/HR EZETIMIBE (Zetia) 10 mg HS 07/18/19 21:00 07/18/19 20:34 10 MG Famotidine (Pepcid Vial) 20 mg QHS 07/16/19 21:00 07/18/19 20:29 20 MG Fentanyl Citrate 30 ml @ 0 mls/hr CONT PRN PRN 07/16/19 18:30 07/16/19 18:23 DC Fentanyl Citrate (Fentanyl 2ml Vial) 50 mcg PRN Q1HR PRN 07/16/19 18:30 Fluvoxamine Maleate (Luvox) 50 mg QHS 07/18/19 21:00 07/18/19 20:34 50 MG Guaifenesin (Mucinex) 600 mg BID 07/18/19 21:00 Heparin Sodium (Porcine) (Heparin Sodium) 5,000 unit Q12HR 07/16/19 21:00 07/18/19 20:41 5,000 UNIT Ketamine HCl (Ketamine) 20 mg 1X ONCE 07/16/19 11:00 07/16/19 11:02 DC Lactobacillus Rhamnosus (Culturelle) 1 cap BID 07/18/19 21:00 07/18/19 20:32 1 CAP Levothyroxine Sodium (Synthroid) 100 mcg DAILY06 07/19/19 07:30 Linezolid/Dextrose 300 ml @ 300 mls/hr Q12HR 07/17/19 09:30 07/18/19 20:30 300 MLS/HR Lorazepam (Ativan Inj) 0.25 mg PRN Q3HRS PRN 07/16/19 16:15 Losartan Potassium (Cozaar) 100 mg DAILY 07/19/19 09:00 Magnesium Hydroxide (Milk Of Magnesia) 2,400 mg PRN DAILY PRN 07/18/19 15:30 Meropenem 0.5 gm/ Sodium Chloride 100 ml @ 200 mls/hr Q8HRS 07/16/19 14:00 UNV Meropenem 500 mg/ Sodium Chloride 50 ml @ 100 mls/hr Q8HRS 07/16/19 12:00 07/19/19 05:36 100 MLS/HR Midazolam HCl 100 ml @ 5 mls/hr CONT PRN 07/16/19 18:30 07/16/19 18:23 DC Mirtazapine (Remeron) 15 mg QHS 07/18/19 21:00 07/18/19 20:33 15 MG Morphine Sulfate (Morphine Sulfate) 4 mg PRN Q1HR PRN 07/16/19 18:30 Naloxone HCl (Narcan) 0.4 mg PRN Q2MIN PRN 07/16/19 18:30 Nitroglycerin (Nitrostat) 0.4 mg PRN Q5MIN PRN 07/18/19 14:45 Norepinephrine Bitartrate 250 ml @ 17.006 mls/ hr CONT PRN 07/16/19 11:30 07/17/19 13:14 17.006 MLS/HR Ondansetron HCl (Zofran) 4 mg PRN Q6HRS PRN 07/16/19 11:30 Oseltamivir Phosphate (Tamiflu) 30 mg BID 07/17/19 09:30 07/22/19 09:29 07/18/19 20:33 30 MG Propofol 100 ml @ As Directed STK-MED ONCE 07/16/19 17:02 07/16/19 17:03 DC Quetiapine Fumarate (SEROquel) 37.5 mg HS 07/18/19 21:00 07/18/19 20:36 37.5 MG Risperidone (RisperDAL) 0.75 mg QHS 07/18/19 21:00 07/18/19 20:35 0.75 MG Sodium Chloride 1,000 ml @ 25 mls/hr Q24H 07/16/19 18:18 07/18/19 18:18 25 MLS/HR Sodium Chloride (Normal Saline Flush) 3 ml QSHIFT PRN 07/16/19 11:30 Succinylcholine Chloride (Anectine) 200 mg STK-MED ONCE 07/16/19 17:03 07/16/19 17:03 DC Tamsulosin HCl (Flomax) 0.4 mg DAILY 07/19/19 09:00 Labs: Lab Laboratory Tests Test 07/18/19 08:45 07/18/19 11:08 07/19/19 04:25 O2 Saturation 88 % (92-99) Arterial Blood pH 7.46 (7.35-7.45) Arterial Blood pCO2 at Patient Temp 34 mmHg (35-46) Arterial Blood pO2 at Patient Temp 56 mmHg (65-108) Arterial Blood HCO3 24 mmol/L (21-28) Arterial Blood Base Excess 0 mmol/L (-3-3) FiO2 50 Sodium Level 144 mmol/L (136-145) 144 mmol/L (136-145) Potassium Level 4.2 mmol/L (3.5-5.1) 4.0 mmol/L (3.5-5.1) Chloride Level 108 mmol/L (98-107) 108 mmol/L (98-107) Carbon Dioxide Level 28 mmol/L (21-32) 26 mmol/L (21-32) Anion Gap 8 (6-14) 10 (6-14) Blood Urea Nitrogen 38 mg/dL (8-26) 37 mg/dL (8-26) Creatinine 1.3 mg/dL (0.7-1.3) 1.2 mg/dL (0.7-1.3) Estimated GFR (Cockcroft-Gault) 52.0 57.0 Glucose Level 118 mg/dL (70-99) 125 mg/dL (70-99) Calcium Level 8.5 mg/dL (8.5-10.1) 8.1 mg/dL (8.5-10.1) Troponin I Quantitative 4.523 ng/mL (0.000-0.055) Objective: Assessment: 1. Acute respiratory failure secondary to flu and pneumonia. 2. Fever POA,.pattern improving, 3. Influenza B screen positive. 4. Non-ST elevation myocardial infarction. 5. Acute kidney injury. 6. Lactic acidosis. 7. Dementia. 8. History of anxiety and depression. 9. GPC / BC could be contaminant Plan: Plan of Care Continue meropenem.zyvox Tamiflu renal dosing, daptomycin pending gpc in bc follow up labs and cultures. Continue supportive care. Discussed with RN. YI HERNANDEZ MD Jul 19, 2019 07:32
[2019-07-19] MEDS ORDERED: ASPIRIN CHEWABLE 81 MG TABLET. PO SCH (08:00)
[2019-07-19] MEDS: IPRATRPIUM/ALBUTEROL 0.5/2.5MG 3 ML NEBU. NEB SCH ×4 (08:54→19:33)
[2019-07-19] MEDS: BUDESONIDE 0.5 MG/2 ML NEBU. NEB SCH ×2 (08:55→19:33)
[2019-07-19] MEDS: TAMSULOSIN 0.4 MG CAP.ER.24H. PO SCH (09:02)
[2019-07-19] MEDS: OSELTAMIVIR 30 MG CAPSULE PO SCH ×2 (09:02→21:15)
[2019-07-19] MEDS: LACTOBACILLUS RHAMNOSUS GG 1 CAPSULE. PO SCH ×2 (09:02→21:16)
[2019-07-19] MEDS: CHLORHEXIDINE 0.12% 15 ML MOUTHWASH. MM SCH ×2 (09:02→21:15)
[2019-07-19] MEDS: amLODIPine BESYLATE 5 MG TABLET PO SCH (09:03)
[2019-07-19] MEDS: ASPIRIN ENTERIC COATED 81 MG TABLET.DR. PO SCH (09:03)
[2019-07-19] MEDS: LOSARTAN POTASSIUM 50 MG TABLET. PO SCH (09:03)
[2019-07-19] MEDS: CLOPIDOGREL BISULFATE 75 MG TABLET PO SCH (09:03)
[2019-07-19] MEDS: DAPTOmycin (GENERIC) IVPB 520 MG in IV NORMAL SALINE 50ML 50 ML IV SCH (09:04)
[2019-07-19] MEDS: LEVOTHYROXINE 75 MCG TABLET PO SCH (09:04)
[2019-07-19] MEDS: HEPARIN for SUB-Q USE 5,000 UNIT/ML VIAL. SQ SCH ×2 (09:06→21:18)
[2019-07-19 09:15] LABS: BASE EXCESS ABG 0 mmol/L (-3-3); HCO3 ABG 24 mmol/L (21-28); PCO2 ABG 34 mmHg (35-46); PO2 ABG 65 mmHg (65-108); SAT O2 ABG 91 % (92-99)
[2019-07-19 09:18] LABS: FIO2 ABG 50
--- NOTE | 2019-07-19 09:20 | CARD ---
MR#: [id number] Date of Study: 07/17/2019 Ordering Physician: JEFF AUGUSTE, Referring Physician: JEFF AUGUSTE, Tech: Avelina Cormier APPROVED REPORT EXAM: Two-dimensional and M-mode echocardiogram with Doppler and color Doppler. Other Information Quality : Technically LimitedAverageHR: 57bpm Rhythm : Bradycardia INDICATION Cardiac Disease: CAD Non STEMI Surgery/Intervention CABG: RISK FACTORS Hypertension Hyperlipidemia 2D DIMENSIONS RVDd5.0 (2.9-3.5cm)Left Atrium(2D)4.4 (1.6-4.0cm) IVSd1.2 (0.7-1.1cm)Aortic Root(2D)2.7 (2.0-3.7cm) LVDd4.7 (3.9-5.9cm)LVOT Diameter2.1 (1.8-2.4cm) PWd1.2 (0.7-1.1cm)LVDs3.3 (2.5-4.0cm) FS (%) 30.9 %SV61.0 ml LVEF(%)58.6 (>50%) Aortic Valve AoV Peak Jfef.386.2cm/sAoV VTI99.5cm AO Peak GR.59.6mmHgLVOT VTI 20.01cm AO Mean GR.44mmHgAVA (VTI)0.70cm2 LEFT VENTRICLE The left ventricle is normal size. There is mild concentric left ventricular hypertrophy. The left ve ntricular systolic function is low normal. EF 50% There is normal LV segmental wall motion. Diastolog y not performed. RIGHT VENTRICLE The right ventricle is mildly dilated. There is normal right ventricular wall thickness. The right ve ntricular systolic function is normal. ATRIA The left atrium is mildly dilated. The right atrium size is normal. The interatrial septum is intact with no evidence for an atrial septal defect or patent foramen ovale as noted on 2-D or Doppler imagi ng. AORTIC VALVE The aortic valve is calcified and displays decreased opening. Doppler and Color Flow revealed trace a ortic regurgitation. Calculated aortic valve area is .72 cm2 with maximum pressure gradient of 58 mmH g and mean pressure gradient of 38 mmHg. Doppler and color-flow analysis revealed severe aortic steno sis. MITRAL VALVE The mitral valve is normal in structure and function. There is no evidence of mitral valve prolapse. There is no mitral valve stenosis. Doppler and Color-flow revealed trace mitral regurgitation. TRICUSPID VALVE The tricuspid valve is not well visualized. Doppler and color-flow analysis was not performed. PULMONIC VALVE The pulmonic valve is not well visualized. Doppler and color-flow analysis was not performed. GREAT VESSELS The aortic root is normal in size. The ascending aorta is Mildly dilated. PERICARDIAL EFFUSION There is no pleural effusion. There is no evidence of significant pericardial effusion. Critical Notification Critical Value: No <Conclusion> The left ventricular systolic function is low normal. EF 50% Calculated aortic valve area is .72 cm2 with maximum pressure gradient of 58 mmHg and mean pressure g radient of 38 mmHg. Doppler and color-flow analysis revealed severe aortic stenosis. Limited study only Technically limited. Signed by : Jeff Auguste, Electronically Approved : 07/19/2019 09:19:56
--- NOTE | 2019-07-19 09:34 | PDOC ---
PULMONARY PROGRESS NOTES Subjective intubated 07/16 SEDATED ON VENT ON 7 PEEP Vitals Vital Signs Date Time Temp Pulse Resp B/P (MAP) Pulse Ox O2 Delivery O2 Flow Rate FiO2 07/19/19 09:29 97 Ventilator 07/19/19 09:03 70 113/67 07/19/19 09:00 20 07/19/19 08:00 99.3 99.3 Lungs: Crackles Cardiovascular: S1, S2 Abdomen: Soft, Non-tender, Other Neuro Exam: Alert Extremities: Other (+edems) Skin: Warm Labs Laboratory Tests Test 07/18/19 08:45 07/18/19 11:08 07/19/19 04:25 07/19/19 09:00 O2 Saturation 88 % (92-99) 91 % (92-99) Arterial Blood pH 7.46 (7.35-7.45) 7.46 (7.35-7.45) Arterial Blood pCO2 at Patient Temp 34 mmHg (35-46) 34 mmHg (35-46) Arterial Blood pO2 at Patient Temp 56 mmHg (65-108) 65 mmHg (65-108) Arterial Blood HCO3 24 mmol/L (21-28) 24 mmol/L (21-28) Arterial Blood Base Excess 0 mmol/L (-3-3) 0 mmol/L (-3-3) FiO2 50 50 Sodium Level 144 mmol/L (136-145) 144 mmol/L (136-145) Potassium Level 4.2 mmol/L (3.5-5.1) 4.0 mmol/L (3.5-5.1) Chloride Level 108 mmol/L (98-107) 108 mmol/L (98-107) Carbon Dioxide Level 28 mmol/L (21-32) 26 mmol/L (21-32) Anion Gap 8 (6-14) 10 (6-14) Blood Urea Nitrogen 38 mg/dL (8-26) 37 mg/dL (8-26) Creatinine 1.3 mg/dL (0.7-1.3) 1.2 mg/dL (0.7-1.3) Estimated GFR (Cockcroft-Gault) 52.0 57.0 Glucose Level 118 mg/dL (70-99) 125 mg/dL (70-99) Calcium Level 8.5 mg/dL (8.5-10.1) 8.1 mg/dL (8.5-10.1) Troponin I Quantitative 4.523 ng/mL (0.000-0.055) Laboratory Tests Test 07/18/19 11:08 07/19/19 04:25 07/19/19 09:00 Sodium Level 144 mmol/L (136-145) 144 mmol/L (136-145) Potassium Level 4.2 mmol/L (3.5-5.1) 4.0 mmol/L (3.5-5.1) Chloride Level 108 mmol/L (98-107) 108 mmol/L (98-107) Carbon Dioxide Level 28 mmol/L (21-32) 26 mmol/L (21-32) Anion Gap 8 (6-14) 10 (6-14) Blood Urea Nitrogen 38 mg/dL (8-26) 37 mg/dL (8-26) Creatinine 1.3 mg/dL (0.7-1.3) 1.2 mg/dL (0.7-1.3) Estimated GFR (Cockcroft-Gault) 52.0 57.0 Glucose Level 118 mg/dL (70-99) 125 mg/dL (70-99) Calcium Level 8.5 mg/dL (8.5-10.1) 8.1 mg/dL (8.5-10.1) Troponin I Quantitative 4.523 ng/mL (0.000-0.055) O2 Saturation 91 % (92-99) Arterial Blood pH 7.46 (7.35-7.45) Arterial Blood pCO2 at Patient Temp 34 mmHg (35-46) Arterial Blood pO2 at Patient Temp 65 mmHg (65-108) Arterial Blood HCO3 24 mmol/L (21-28) Arterial Blood Base Excess 0 mmol/L (-3-3) FiO2 50 Medications Active Scripts Medications Dose Route/Sig Max Daily Dose Days Date Category Culturelle (Lactobacillus Rhamnosus Gg) 1 Each Cap.sprink 1 Cap PO BID 30 10/29/18 Rx Zyvox (Linezolid) 600 Mg Tablet 600 Mg PO BID 10 10/29/18 Rx Amox Tr-K Clv 875-125 Mg Tab (Amoxicillin/Potassium Clav) 1 Each Tablet 1 Tab PO BIDWMEALS 10 10/29/18 Rx Vitamin E (Vitamin E Mixed) 1,000 Unit Capsule 1,000 Unit PO DAILY 10/26/18 Reported NITROGLYCERIN SubLingual (Nitroglycerin) 0.4 Mg Tab.subl 0.4 Mg SL PRN Q5MIN PRN 10/26/18 Reported Milk Of Magnesia (Magnesium Hydroxide) 2,400 Mg/10 Ml Oral.susp 2,400 Mg PO DAILY PRN 10/26/18 Reported Maalox Advanced Suspension (Mag Hydrox/Aluminum Hyd/Simeth) 355 Ml Oral.susp 15 Ml PO PRN AFTMEALHC PRN 10/26/18 Reported EXELON 4.6mg/24hr (Rivastigmine) 1 Each Patch.td24 1 Patch TP DAILY 10/26/18 Reported Depakote Er (Divalproex Sodium) 500 Mg Tab.er.24h 1 Tab PO BID 10/26/18 Reported Depakote Er (Divalproex Sodium) 250 Mg Tab.er.24h 1 Tab PO QHS 10/26/18 Reported Welchol (Colesevelam Hcl) 625 Mg Tablet 2,500 Mg PO BID 10/26/18 Reported Zetia (Ezetimibe) 10 Mg Tablet 1 Tab PO HS 08/28/18 Reported Vitamin D (Cholecalciferol (Vitamin D3)) 1,000 Unit Capsule 50,000 Units PO QSA 08/28/18 Reported Tamsulosin Hcl 0.4 Mg Cap.er.24h 1 Cap PO DAILY 08/28/18 Reported Risperidone 0.5 Mg Tablet 1.5 Tab PO QHS 08/28/18 Reported Niaspan (Niacin) 500 Mg Tab.er.24h 1 Tab PO QHS 08/28/18 Reported Mirtazapine 30 Mg Tablet 1 Tab PO QHS 08/28/18 Reported Losartan Potassium 100 Mg Tablet 100 Mg PO DAILY 08/28/18 Reported Levothyroxine Sodium 75 Mcg Tablet 75 Mcg PO DAILYAC 08/28/18 Reported Fluvoxamine Maleate 50 Mg Tablet 1 Tab PO QHS 08/28/18 Reported Vitamin B-12 (Cyanocobalamin (Vitamin B-12)) 1,000 Mcg Tablet 1 Tab PO DAILY 08/28/18 Reported Aspirin Ec (Aspirin) 81 Mg Tablet.dr 81 Mg PO DAILY08 08/28/18 Reported Amlodipine Besylate 5 Mg Tablet 5 Mg PO DAILY 08/28/18 Reported Tylenol (Acetaminophen) 325 Mg Tablet 1-2 Tab PO QID 08/28/18 Reported Impression . IMPRESSION: 1. Acute respiratory failure secondary to influenza, pneumonia, acute diastolic congestive heart failure, acute bronchospasm. 2. Abnormal chest x-ray. 3. Acute bronchospasm. 4. Pneumonia, influenza. 5. Acute kidney injury. 6. Elevated troponin, NSTEMI, type 2. 7. Elevated procalcitonin. 8. Sepsis with lactate elevation. 9. ZAHRAA mpression: 1. Bilateral pulmonary opacities, similar compared to prior allowing for differences in technique. 2. Small bilateral layering pleural effusions, unchanged. Plan . REPEAT CXR FOLLOW BC RESULTS VENT SUPPORT WILL DECREASE PEEP WHEN PAO2 IS CLOSER TO 90 ANTIBX PER ID FOLLOW ABG AND CXR DVT PROPHAL NUTRITIONAL SUPPORT TMILFLU STEROIDS CCT 30 MINUTES REVIEWING DATA/LABS AND FORMULATING A PLAN KARLENE SANTIAGO MD Jul 19, 2019 09:34
--- NOTE | 2019-07-19 11:53 | PDOC ---
SUBJECTIVE ROS intubated OBJECTIVE Vital Signs Vital Signs Date Time Temp Pulse Resp B/P (MAP) Pulse Ox O2 Delivery O2 Flow Rate FiO2 07/19/19 11:28 93 Ventilator 07/19/19 10:00 76 20 95/50 (65) 07/19/19 08:00 99.3 99.3 I & 0 Intake and Output 07/19/19 07:00 Intake Total 2426 ml Output Total 790 ml Balance 1636 ml IV Total 1410 ml Tube Feeding 766 ml Other 250 ml Output Urine Total 790 ml Gastric Drainage Total 0 ml PHYSICAL EXAM Physical Exam GENERAL: Intubated HEENT: Intubated NECK: supple CARDIOVASCULAR: rrr LUNGS: CTA ABDOMEN: Soft and obese. EXTREMITIES edema + NEUROLOGIC: Lethargic, Hx of dementia SKIN: No rash Chronic changes Gu Francois + . DIAGNOSIS/ASSESSMENT Assessment & Plan ZAHRAA - Pre-renal /Urinary retention/Sepsis Renal function improving E-Lytes and acid base stable, supportive care, Monitor Acute respiratory failure secondary to influenza, pneumonia, influenza- Influenza B positive On Tamiflu- renal dosing Sepsis with lactate elevation. NSTEMI -Troponin elevated, cardiology following COMMENT/RELEVANT DATA Meds Current Medications Medications (Trade) Dose Ordered Sig/Lorri Start Time Stop Time Status Last Admin Dose Admin Acetaminophen (Tylenol) 650 mg PRN Q4HRS PRN 07/16/19 18:15 07/16/19 20:52 650 MG Al Hydroxide/Mg Hydroxide (Mylanta Plus Xs) 15 ml PRN AFTMEALHC PRN 07/18/19 15:30 Albuterol Sulfate (Ventolin Neb Soln) 2.5 mg 1X ONCE 07/16/19 09:45 07/16/19 09:46 DC 07/16/19 09:56 2.5 MG Albuterol/ Ipratropium (Duoneb) 3 ml RTQID 07/18/19 17:00 07/19/19 11:27 3 ML Amlodipine Besylate (Norvasc) 5 mg DAILY 07/19/19 09:00 07/19/19 09:03 5 MG Aspirin (Aspirin Rectal Supp) 300 mg 1X STAT 07/16/19 11:27 07/16/19 11:30 DC 07/16/19 12:20 300 MG Aspirin (Children'S Aspirin) 81 mg DAILYWBKFT 07/19/19 08:00 Cancel Aspirin (Ecotrin) 81 mg DAILY08 07/19/19 08:00 07/19/19 09:03 81 MG Atorvastatin Calcium (Lipitor) 20 mg QHS 07/17/19 21:00 07/18/19 20:37 20 MG Bisacodyl (Dulcolax Supp) 10 mg PRN DAILY PRN 07/16/19 11:30 Budesonide (Pulmicort) 0.5 mg 1X ONCE 07/16/19 11:00 07/16/19 11:01 DC 07/16/19 12:19 0.5 MG Ceftriaxone Sodium (Rocephin) 2 gm 1X ONCE 07/16/19 08:00 07/16/19 08:01 DC 07/16/19 08:31 2 GM Chlorhexidine Gluconate (Peridex) 15 ml BID 07/16/19 21:00 07/19/19 09:02 15 ML Clopidogrel Bisulfate (Plavix) 75 mg DAILYWBKFT 07/18/19 08:00 07/19/19 09:03 75 MG Daptomycin 500 mg/ Sodium Chloride 50 ml @ 100 mls/hr Q24H ONCE 07/18/19 10:00 07/18/19 10:29 DC 07/18/19 11:16 100 MLS/HR Daptomycin 520 mg/ Sodium Chloride 50 ml @ 100 mls/hr Q24H 07/19/19 08:00 07/19/19 09:04 100 MLS/HR Divalproex Sodium (Depakote Er) 500 mg HS 07/18/19 21:00 UNV Doxycycline Hyclate 100 mg/ Dextrose 100 ml @ 50 mls/hr 1X ONCE 07/16/19 08:00 07/16/19 09:59 DC 07/16/19 08:32 50 MLS/HR EZETIMIBE (Zetia) 10 mg HS 07/18/19 21:00 07/18/19 20:34 10 MG Famotidine (Pepcid Vial) 20 mg QHS 07/16/19 21:00 07/18/19 20:29 20 MG Fentanyl Citrate 30 ml @ 0 mls/hr CONT PRN PRN 07/16/19 18:30 07/16/19 18:23 DC Fentanyl Citrate (Fentanyl 2ml Vial) 50 mcg PRN Q1HR PRN 07/16/19 18:30 Fluvoxamine Maleate (Luvox) 50 mg QHS 07/18/19 21:00 07/18/19 20:34 50 MG Guaifenesin (Mucinex) 600 mg BID 07/18/19 21:00 07/19/19 09:02 600 MG Heparin Sodium (Porcine) (Heparin Sodium) 5,000 unit Q12HR 07/16/19 21:00 07/19/19 09:06 5,000 UNIT Ketamine HCl (Ketamine) 20 mg 1X ONCE 07/16/19 11:00 07/16/19 11:02 DC Lactobacillus Rhamnosus (Culturelle) 1 cap BID 07/18/19 21:00 07/19/19 09:02 1 CAP Levothyroxine Sodium (Synthroid) 100 mcg DAILY06 07/19/19 07:30 07/19/19 09:04 100 MCG Linezolid/Dextrose 300 ml @ 300 mls/hr Q12HR 07/17/19 09:30 07/19/19 09:04 300 MLS/HR Lorazepam (Ativan Inj) 0.25 mg PRN Q3HRS PRN 07/16/19 16:15 Losartan Potassium (Cozaar) 100 mg DAILY 07/19/19 09:00 07/19/19 09:03 100 MG Magnesium Hydroxide (Milk Of Magnesia) 2,400 mg PRN DAILY PRN 07/18/19 15:30 Meropenem 0.5 gm/ Sodium Chloride 100 ml @ 200 mls/hr Q8HRS 07/16/19 14:00 UNV Meropenem 500 mg/ Sodium Chloride 50 ml @ 100 mls/hr Q8HRS 07/16/19 12:00 07/19/19 05:36 100 MLS/HR Midazolam HCl 100 ml @ 5 mls/hr CONT PRN 07/16/19 18:30 07/16/19 18:23 DC Mirtazapine (Remeron) 15 mg QHS 07/18/19 21:00 07/18/19 20:33 15 MG Morphine Sulfate (Morphine Sulfate) 4 mg PRN Q1HR PRN 07/16/19 18:30 Naloxone HCl (Narcan) 0.4 mg PRN Q2MIN PRN 07/16/19 18:30 Nitroglycerin (Nitrostat) 0.4 mg PRN Q5MIN PRN 07/18/19 14:45 Norepinephrine Bitartrate 250 ml @ 17.006 mls/ hr CONT PRN 07/16/19 11:30 07/17/19 13:14 17.006 MLS/HR Ondansetron HCl (Zofran) 4 mg PRN Q6HRS PRN 07/16/19 11:30 Oseltamivir Phosphate (Tamiflu) 30 mg BID 07/17/19 09:30 07/22/19 09:29 07/19/19 09:02 30 MG Propofol 100 ml @ As Directed STK-MED ONCE 07/16/19 17:02 07/16/19 17:03 DC Quetiapine Fumarate (SEROquel) 37.5 mg HS 07/18/19 21:00 07/18/19 20:36 37.5 MG Risperidone (RisperDAL) 0.75 mg QHS 07/18/19 21:00 07/18/19 20:35 0.75 MG Sodium Chloride 1,000 ml @ 25 mls/hr Q24H 07/16/19 18:18 07/18/19 18:18 25 MLS/HR Sodium Chloride (Normal Saline Flush) 3 ml QSHIFT PRN 07/16/19 11:30 Succinylcholine Chloride (Anectine) 200 mg STK-MED ONCE 07/16/19 17:03 07/16/19 17:03 DC Tamsulosin HCl (Flomax) 0.4 mg DAILY 07/19/19 09:00 07/19/19 09:02 0.4 MG Lab Laboratory Tests Test 07/19/19 04:25 07/19/19 09:00 Sodium Level 144 mmol/L (136-145) Potassium Level 4.0 mmol/L (3.5-5.1) Chloride Level 108 mmol/L (98-107) Carbon Dioxide Level 26 mmol/L (21-32) Anion Gap 10 (6-14) Blood Urea Nitrogen 37 mg/dL (8-26) Creatinine 1.2 mg/dL (0.7-1.3) Estimated GFR (Cockcroft-Gault) 57.0 Glucose Level 125 mg/dL (70-99) Calcium Level 8.1 mg/dL (8.5-10.1) O2 Saturation 91 % (92-99) Arterial Blood pH 7.46 (7.35-7.45) Arterial Blood pCO2 at Patient Temp 34 mmHg (35-46) Arterial Blood pO2 at Patient Temp 65 mmHg (65-108) Arterial Blood HCO3 24 mmol/L (21-28) Arterial Blood Base Excess 0 mmol/L (-3-3) FiO2 50 Results All relevant outside records, renal labs, imaging studies, telemetry/EKG's were reviewed. JARVIS MCCORMICK MD Jul 19, 2019 11:53
--- NOTE | 2019-07-19 12:00 | NUR ---
Pt was placed on sedation vacation this AM around 0800. Pt over breathing ventilator but has not opened eyes or had any purposeful movements. Dr. Auguste talked on the phone extensively this AM with son Matty. Matty wants his father to remain a full code and on the ventilator until he can make it to the hospital from out of town. There was a discussion about meeting later this week to discuss plan of care and code status/extubation. Pt will remain full code at this time. Dr. Samaniego notified and aware.
--- NOTE | 2019-07-19 12:12 | PDOC ---
PROGRESS NOTES Chief Complaint Chief Complaint severe sepsis acute hypoxic resp failure, on vent, had been DNR, family revoked on admit, still ongoing discussion, consider DNR again when able to extubate when family here. pneumonia, Influenza B pneumonitis advanced dementia NSTEMI, med management, HTN - cont meds HLD - cont meds Hypothyroidism Depression - with anxiety - ON mood stabilizers, mult psych meds, unsure of history as to why, will taper to try to allow him to wake up History of Present Illness History of Present Illness still on vent cont aggresive care CV and pulm and ID following, iv antibiotics DVT PROPHYLAXIS Vitals Vitals Vital Signs Date Time Temp Pulse Resp B/P (MAP) Pulse Ox O2 Delivery O2 Flow Rate FiO2 07/19/19 11:28 93 Ventilator 07/19/19 10:00 76 20 95/50 (65) 07/19/19 08:00 99.3 99.3 Physical Exam Physical Exam GENERAL: Intubated, sedated.does not respond to verbal commands HEENT: Normocephalic, atraumatic. ETT in place, OG tube in place. NECK: Supple. LUNGS: Decreased breath sounds with some rhonchi. ABDOMEN: Soft and obese. Bowel sounds present. EXTREMITIES: Trace edema. 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, not responding General: No acute distress, mild distress Lungs: Crackles Abdomen: Soft, No tenderness Extremities: No cyanosis, Other (2+ Pedal edema) Skin: No breakdown Labs LABS Laboratory Tests Test 07/19/19 04:25 07/19/19 09:00 Sodium Level 144 mmol/L (136-145) Potassium Level 4.0 mmol/L (3.5-5.1) Chloride Level 108 mmol/L (98-107) Carbon Dioxide Level 26 mmol/L (21-32) Anion Gap 10 (6-14) Blood Urea Nitrogen 37 mg/dL (8-26) Creatinine 1.2 mg/dL (0.7-1.3) Estimated GFR (Cockcroft-Gault) 57.0 Glucose Level 125 mg/dL (70-99) Calcium Level 8.1 mg/dL (8.5-10.1) O2 Saturation 91 % (92-99) Arterial Blood pH 7.46 (7.35-7.45) Arterial Blood pCO2 at Patient Temp 34 mmHg (35-46) Arterial Blood pO2 at Patient Temp 65 mmHg (65-108) Arterial Blood HCO3 24 mmol/L (21-28) Arterial Blood Base Excess 0 mmol/L (-3-3) FiO2 50 Review of Systems Review of Systems sedate, lethargic Assessment and Plan Assessmemt and Plan Problems Medical Problems: (1) Elevated troponin Status: Acute (2) Influenza Status: Acute Comment Review of Relevant I have reviewed the following items en (where applicable) has been applied. Labs Laboratory Tests Test 07/18/19 08:45 07/18/19 11:08 07/19/19 04:25 07/19/19 09:00 O2 Saturation 88 % (92-99) 91 % (92-99) Arterial Blood pH 7.46 (7.35-7.45) 7.46 (7.35-7.45) Arterial Blood pCO2 at Patient Temp 34 mmHg (35-46) 34 mmHg (35-46) Arterial Blood pO2 at Patient Temp 56 mmHg (65-108) 65 mmHg (65-108) Arterial Blood HCO3 24 mmol/L (21-28) 24 mmol/L (21-28) Arterial Blood Base Excess 0 mmol/L (-3-3) 0 mmol/L (-3-3) FiO2 50 50 Sodium Level 144 mmol/L (136-145) 144 mmol/L (136-145) Potassium Level 4.2 mmol/L (3.5-5.1) 4.0 mmol/L (3.5-5.1) Chloride Level 108 mmol/L (98-107) 108 mmol/L (98-107) Carbon Dioxide Level 28 mmol/L (21-32) 26 mmol/L (21-32) Anion Gap 8 (6-14) 10 (6-14) Blood Urea Nitrogen 38 mg/dL (8-26) 37 mg/dL (8-26) Creatinine 1.3 mg/dL (0.7-1.3) 1.2 mg/dL (0.7-1.3) Estimated GFR (Cockcroft-Gault) 52.0 57.0 Glucose Level 118 mg/dL (70-99) 125 mg/dL (70-99) Calcium Level 8.5 mg/dL (8.5-10.1) 8.1 mg/dL (8.5-10.1) Troponin I Quantitative 4.523 ng/mL (0.000-0.055) Laboratory Tests Test 07/19/19 04:25 07/19/19 09:00 Sodium Level 144 mmol/L (136-145) Potassium Level 4.0 mmol/L (3.5-5.1) Chloride Level 108 mmol/L (98-107) Carbon Dioxide Level 26 mmol/L (21-32) Anion Gap 10 (6-14) Blood Urea Nitrogen 37 mg/dL (8-26) Creatinine 1.2 mg/dL (0.7-1.3) Estimated GFR (Cockcroft-Gault) 57.0 Glucose Level 125 mg/dL (70-99) Calcium Level 8.1 mg/dL (8.5-10.1) O2 Saturation 91 % (92-99) Arterial Blood pH 7.46 (7.35-7.45) Arterial Blood pCO2 at Patient Temp 34 mmHg (35-46) Arterial Blood pO2 at Patient Temp 65 mmHg (65-108) Arterial Blood HCO3 24 mmol/L (21-28) Arterial Blood Base Excess 0 mmol/L (-3-3) FiO2 50 Microbiology 07/18/19 Blood Culture - Preliminary, Resulted NO GROWTH AFTER 1 DAY Medications Current Medications Acetaminophen (Tylenol) 1,000 mg 1X ONCE PO Last administered on 07/16/19 08:09; Start 07/16/19 at 08:00; Stop 07/16/19 at 08:01; Status DC Ceftriaxone Sodium (Rocephin) 2 gm 1X ONCE IVP Last administered on 07/16/19 08:31; Start 07/16/19 at 08:00; Stop 07/16/19 at 08:01; Status DC Sodium Chloride 1,000 ml @ 2,100 mls/hr Q29M IV Last administered on 07/16/19 08:21; Start 07/16/19 at 07:53; Stop 07/16/19 at 08:53; Status DC Doxycycline Hyclate 100 mg/ Dextrose 100 ml @ 50 mls/hr 1X ONCE IV Last administered on 07/16/19 08:32; Start 07/16/19 at 08:00; Stop 07/16/19 at 09:59; Status DC Albuterol/ Ipratropium (Duoneb) 3 ml 1X ONCE NEB Last administered on 10/19/19at 08:04; Start 07/16/19 at 08:00; Stop 07/16/19 at 08:01; Status DC Lorazepam (Ativan Inj) 1 mg 1X ONCE IV Last administered on 07/16/19at 09:28; Start 07/16/19 at 09:30; Stop 07/16/19 at 09:31; Status DC Lorazepam (Ativan Inj) 1 mg 1X ONCE IVP ; Start 07/16/19 at 09:30; Stop 07/16/19 at 09:31; Status DC Oseltamivir Phosphate (Tamiflu) 75 mg 1X STAT PO ; Start 07/16/19 at 09:26; Stop 07/16/19 at 09:28; Status DC Ketamine HCl (Ketamine) 50 mg STK-MED ONCE .ROUTE ; Start 07/16/19 at 09:35; Stop 07/16/19 at 09:35; Status DC Ketamine HCl (Ketamine) 20 mg 1X ONCE IV ; Start 07/16/19 at 09:45; Stop 07/16/19 at 09:46; Status DC Ketamine HCl (Ketamine) 20 mg 1X ONCE IV Last administered on 07/16/19at 09:46; Start 07/16/19 at 09:45; Stop 07/16/19 at 09:46; Status DC Albuterol Sulfate (Ventolin Neb Soln) 2.5 mg 1X ONCE NEB Last administered on 07/16/19at 09:56; Start 07/16/19 at 09:45; Stop 07/16/19 at 09:46; Status DC Morphine Sulfate (Morphine Sulfate) 2 mg PRN Q2HR PRN IV PAIN; Start 07/16/19 at 10:15; Stop 07/17/19 at 10:14; Status DC Albuterol/ Ipratropium (Duoneb) 3 ml RTQID NEB Last administered on 07/17/19at 09:18; Start 07/16/19 at 12:00; Stop 07/17/19 at 11:59; Status DC Ketamine HCl (Ketamine) 20 mg 1X ONCE IV Last administered on 07/16/19at 10:20; Start 07/16/19 at 10:15; Stop 07/16/19 at 10:16; Status DC Budesonide (Pulmicort) 0.5 mg RTBID NEB Last administered on 07/19/19at 08:55; Start 07/16/19 at 20:00 Budesonide (Pulmicort) 0.5 mg 1X ONCE NEB Last administered on 07/16/19at 12:19; Start 07/16/19 at 11:00; Stop 07/16/19 at 11:01; Status DC Ketamine HCl (Ketamine) 20 mg 1X ONCE IV ; Start 07/16/19 at 11:00; Stop 07/16/19 at 11:02; Status DC Lorazepam (Ativan Inj) 0.5 mg PRN Q6HRS PRN IV ANXIETY / AGITATION Last administered on 07/16/19at 13:42; Start 07/16/19 at 11:30; Stop 07/16/19 at 16:12; Status DC Ondansetron HCl (Zofran) 4 mg PRN Q6HRS PRN IV NAUSEA/VOMITING; Start 07/16/19 at 11:30 Famotidine (Pepcid Vial) 20 mg QHS IVP Last administered on 07/18/19at 20:29; Start 07/16/19 at 21:00 Heparin Sodium (Porcine) (Heparin Sodium) 5,000 unit Q12HR SQ Last administered on 07/19/19at 09:06; Start 07/16/19 at 21:00 Sodium Chloride (Normal Saline Flush) 3 ml QSHIFT PRN IV AFTER MEDS AND BLOOD DRAWS; Start 07/16/19 at 11:30 Bisacodyl (Dulcolax Supp) 10 mg PRN DAILY PRN [place] CONSTIPATION; Start 07/16/19 at 11:30 Sodium Chloride 1,000 ml @ 2,130 mls/hr Q29M IV ; Start 07/16/19 at 11:24; Stop 07/16/19 at 12:24; Status DC Meropenem 0.5 gm/ Sodium Chloride 100 ml @ 200 mls/hr Q8HRS IV ; Start 07/16/19 at 14:00; Status UNV Norepinephrine Bitartrate 250 ml @ 17.006 mls/ hr CONT PRN IV PER PROTOCOL Last administered on 07/17/19at 13:14; Start 07/16/19 at 11:30 Aspirin (Aspirin Rectal Supp) 300 mg 1X STAT [place] Last administered on 07/16/19at 12:20; Start 07/16/19 at 11:27; Stop 07/16/19 at 11:30; Status DC Meropenem 500 mg/ Sodium Chloride 50 ml @ 100 mls/hr Q8HRS IV Last administered on 07/19/19at 05:36; Start 07/16/19 at 12:00 Lorazepam (Ativan Inj) 0.25 mg PRN 1X PRN IVP ANXIETY / AGITATION Last administered on 07/16/19at 16:32; Start 07/16/19 at 16:15; Stop 07/17/19 at 11:28; Status DC Lorazepam (Ativan Inj) 0.25 mg PRN Q3HRS PRN IVP ANXIETY / AGITATION; Start 07/16/19 at 16:15 Propofol 100 ml @ As Directed STK-MED ONCE IV ; Start 07/16/19 at 17:02; Stop 07/16/19 at 17:03; Status DC Succinylcholine Chloride (Anectine) 200 mg STK-MED ONCE .ROUTE ; Start 07/16/19 at 17:03; Stop 07/16/19 at 17:03; Status DC Fentanyl Citrate 30 ml @ 0 mls/hr CONT PRN IV SEE PROTOCOL Last administered on 07/18/19at 19:26; Start 07/16/19 at 17:45 Midazolam HCl 100 ml @ 0 mls/hr CONT PRN IV SEE PROTOCOL Last administered on 07/19/19at 00:23; Start 07/16/19 at 17:45 Acetaminophen (Tylenol) 650 mg PRN Q4HRS PRN PEG MILD PAIN / TEMP Last administered on 07/16/19at 20:52; Start 07/16/19 at 18:15 Fentanyl Citrate (Fentanyl 2ml Vial) 25 mcg PRN Q1HR PRN IV SEE COMMENTS; Start 07/16/19 at 18:30 Fentanyl Citrate (Fentanyl 2ml Vial) 50 mcg PRN Q1HR PRN IV SEE COMMENTS; Start 07/16/19 at 18:30 Chlorhexidine Gluconate (Peridex) 15 ml BID MM Last administered on 07/19/19at 09:02; Start 07/16/19 at 21:00 Morphine Sulfate (Morphine Sulfate) 2 mg PRN Q1HR PRN IV SEE COMMENTS.; Start 07/16/19 at 18:30 Morphine Sulfate (Morphine Sulfate) 4 mg PRN Q1HR PRN IV SEE COMMENTS.; Start 07/16/19 at 18:30 Midazolam HCl 100 ml @ 5 mls/hr CONT PRN IV SEE I/O RECORD; Start 07/16/19 at 18:30; Stop 07/16/19 at 18:23; Status DC Fentanyl Citrate 30 ml @ 0 mls/hr CONT PRN PRN IV PER PROTOCOL; Start 07/16/19 at 18:30; Stop 07/16/19 at 18:23; Status DC Naloxone HCl (Narcan) 0.4 mg PRN Q2MIN PRN IV SEE INSTRUCTIONS; Start 07/16/19 at 18:30 Sodium Chloride 1,000 ml @ 25 mls/hr Q24H IV Last administered on 07/18/19at 18:18; Start 07/16/19 at 18:18 Oseltamivir Phosphate (Tamiflu) 30 mg BID PO Last administered on 07/19/19at 09:02; Start 07/17/19 at 09:30; Stop 07/22/19 at 09:29 Linezolid/Dextrose 300 ml @ 300 mls/hr Q12HR IV Last administered on 07/19/19at 09:04; Start 07/17/19 at 09:30 Atorvastatin Calcium (Lipitor) 20 mg QHS PO Last administered on 07/18/19at 20:37; Start 07/17/19 at 21:00 Clopidogrel Bisulfate (Plavix) 300 mg 1X ONCE PO Last administered on 07/17/19at 11:12; Start 07/17/19 at 09:45; Stop 07/17/19 at 09:48; Status DC Clopidogrel Bisulfate (Plavix) 75 mg DAILYWBKFT PO Last administered on 07/19/19at 09:03; Start 07/18/19 at 08:00 Daptomycin 500 mg/ Sodium Chloride 50 ml @ 100 mls/hr Q24H ONCE IV Last administered on 07/18/19at 11:16; Start 07/18/19 at 10:00; Stop 07/18/19 at 10:29; Status DC Aspirin (Children'S Aspirin) 81 mg DAILYWBKFT PO ; Start 07/19/19 at 08:00; Status Cancel Amlodipine Besylate (Norvasc) 5 mg DAILY PO Last administered on 07/19/19at 09:03; Start 07/19/19 at 09:00 Aspirin (Ecotrin) 81 mg DAILY08 PO Last administered on 07/19/19 09:03; Start 07/19/19 at 08:00 Divalproex Sodium (Depakote Er) 750 mg QHS PO ; Start 07/18/19 at 21:00 Divalproex Sodium (Depakote Er) 500 mg HS PO ; Start 07/18/19 at 21:00; Status UNV EZETIMIBE (Zetia) 10 mg HS PO Last administered on 07/18/19 20:34; Start 07/18/19 at 21:00 Guaifenesin (Mucinex) 600 mg BID PO Last administered on 07/19/19 09:02; Start 07/18/19 at 21:00 Lactobacillus Rhamnosus (Culturelle) 1 cap BID PO Last administered on 07/19/19 09:02; Start 07/18/19 at 21:00 Levothyroxine Sodium (Synthroid) 100 mcg DAILY06 PO Last administered on 07/19/19 09:04; Start 07/19/19 at 07:30 Mirtazapine (Remeron) 15 mg QHS PO Last administered on 07/18/19 20:33; Start 07/18/19 at 21:00 Nitroglycerin (Nitrostat) 0.4 mg PRN Q5MIN PRN SL CHEST PAIN; Start 07/18/19 at 14:45 Quetiapine Fumarate (SEROquel) 37.5 mg HS PO Last administered on 07/18/19at 20:36; Start 07/18/19 at 21:00 Tamsulosin HCl (Flomax) 0.4 mg DAILY PO Last administered on 07/19/19 09:02; Start 07/19/19 at 09:00 Fluvoxamine Maleate (Luvox) 50 mg QHS PO Last administered on 07/18/19 20:34; Start 07/18/19 at 21:00 Losartan Potassium (Cozaar) 100 mg DAILY PO Last administered on 07/19/19 09:03; Start 07/19/19 at 09:00 Al Hydroxide/Mg Hydroxide (Mylanta Plus Xs) 15 ml PRN AFTMEALHC PRN PO DYSPEPSIA; Start 07/18/19 at 15:30 Magnesium Hydroxide (Milk Of Magnesia) 2,400 mg PRN DAILY PRN PO CONSTIPATION; Start 07/18/19 at 15:30 Risperidone (RisperDAL) 0.75 mg QHS PO Last administered on 07/18/19at 20:35; Start 07/18/19 at 21:00 Albuterol/ Ipratropium (Duoneb) 3 ml RTQID NEB Last administered on 07/19/19at 11:27; Start 07/18/19 at 17:00 Daptomycin 520 mg/ Sodium Chloride 50 ml @ 100 mls/hr Q24H IV Last administered on 07/19/19at 09:04; Start 07/19/19 at 08:00 Active Scripts Active Culturelle (Lactobacillus Rhamnosus Gg) 1 Each Cap.sprink 1 Cap PO BID 30 Days Zyvox (Linezolid) 600 Mg Tablet 600 Mg PO BID 10 Days Amox Tr-K Clv 875-125 Mg Tab (Amoxicillin/Potassium Clav) 1 Each Tablet 1 Tab PO BIDWMEALS 10 Days Reported Seroquel (Quetiapine Fumarate) 25 Mg Tablet 37.5 Mg PO HS Namenda Xr (Memantine Hcl) 28 Mg Cap.spr.24 28 Mg PO DAILY Men's One Daily (Multivitamin With Minerals) 1 Each Tablet 1 Each PO DAILY Mucinex (Guaifenesin) 600 Mg Tablet.er 1 Tab PO BID 10 Days Meloxicam 7.5 Mg Tablet 1 Tab PO DAILY 30 Days Claritin (Loratadine) 10 Mg Capsule 1 Cap PO DAILY 30 Days Remeron (Mirtazapine) 15 Mg Tablet 1 Tab PO QHS Vitamin E (Vitamin E Mixed) 1,000 Unit Capsule 1,000 Unit PO DAILY NITROGLYCERIN SubLingual (Nitroglycerin) 0.4 Mg Tab.subl 0.4 Mg SL PRN Q5MIN PRN Milk Of Magnesia (Magnesium Hydroxide) 2,400 Mg/10 Ml Oral.susp 2,400 Mg PO DAILY PRN Maalox Advanced Suspension (Mag Hydrox/Aluminum Hyd/Simeth) 355 Ml Oral.susp 15 Ml PO PRN AFTMEALHC PRN EXELON 4.6mg/24hr (Rivastigmine) 1 Each Patch.td24 1 Patch TP DAILY Depakote Er (Divalproex Sodium) 500 Mg Tab.er.24h 1 Tab PO HS Depakote Er (Divalproex Sodium) 250 Mg Tab.er.24h 1 Tab PO QHS Welchol (Colesevelam Hcl) 625 Mg Tablet 2,500 Mg PO BID Zetia (Ezetimibe) 10 Mg Tablet 1 Tab PO HS Vitamin D (Cholecalciferol (Vitamin D3)) 1,000 Unit Capsule 50,000 Units PO QSA Tamsulosin Hcl 0.4 Mg Cap.er.24h 1 Cap PO DAILY Risperidone 0.5 Mg Tablet 1.5 Tab PO QHS Niaspan (Niacin) 500 Mg Tab.er.24h 1 Tab PO QHS Losartan Potassium 100 Mg Tablet 100 Mg PO DAILY Levothyroxine Sodium 75 Mcg Tablet 100 Mcg PO DAILYAC Fluvoxamine Maleate 50 Mg Tablet 1 Tab PO QHS Vitamin B-12 (Cyanocobalamin (Vitamin B-12)) 1,000 Mcg Tablet 1 Tab PO DAILY Aspirin Ec (Aspirin) 81 Mg Tablet.dr 81 Mg PO DAILY08 Amlodipine Besylate 5 Mg Tablet 5 Mg PO DAILY Tylenol (Acetaminophen) 325 Mg Tablet 1-2 Tab PO QID Vitals/I & O Vital Sign - Last 24 Hours 07/18/19 07/18/19 07/18/19 07/18/19 13:00 14:00 14:20 15:00 Pulse 63 74 80 Resp 19 19 19 B/P (MAP) 93/54 (67) 92/54 (67) 104/66 (79) Pulse Ox 98 93 98 94 O2 Delivery Ventilator Ventilator Ventilator Ventilator 07/18/19 07/18/19 07/18/19 07/18/19 16:00 16:00 16:15 17:00 Temp 99.5 99.5 Pulse 66 67 Resp 19 19 B/P (MAP) 118/75 (89) 101/58 (72) Pulse Ox 96 96 97 O2 Delivery Mechanical Ventilator Ventilator Ventilator Ventilator 07/18/19 07/18/19 07/18/19 07/18/19 18:00 18:21 19:00 19:08 Pulse 64 66 Resp 19 20 B/P (MAP) 95/52 (66) 97/63 (74) Pulse Ox 97 96 100 96 O2 Delivery Ventilator Ventilator Ventilator Ventilator 07/18/19 07/18/19 07/18/19 07/18/19 19:26 20:00 20:00 20:00 Temp 99.1 99.1 Pulse 69 Resp 17 20 20 B/P (MAP) 104/64 (77) Pulse Ox 100 98 96 O2 Delivery Ventilator Mechanical Ventilator Ventilator Ventilator 07/18/19 07/18/19 07/18/19 07/18/19 21:00 22:00 22:20 23:00 Pulse 65 71 66 Resp 20 20 16 B/P (MAP) 102/62 (75) 99/60 (73) 88/58 (68) Pulse Ox 96 98 96 96 O2 Delivery Ventilator Ventilator Ventilator Ventilator 07/19/19 07/19/19 07/19/19 07/19/19 00:00 00:00 01:00 01:20 Temp 98.8 98.8 Pulse 71 67 Resp 25 20 B/P (MAP) 104/57 (73) 104/57 (73) Pulse Ox 95 96 96 O2 Delivery Ventilator Mechanical Ventilator Ventilator Ventilator 07/19/19 07/19/19 07/19/19 07/19/19 02:00 03:00 03:28 03:59 Pulse 61 57 Resp 20 20 B/P (MAP) 100/53 (69) 102/57 (72) Pulse Ox 95 96 96 O2 Delivery Ventilator Ventilator Ventilator Mechanical Ventilator 07/19/19 07/19/19 07/19/19 07/19/19 04:00 05:00 05:45 06:00 Temp 98.4 98.4 Pulse 59 58 59 Resp 17 23 20 B/P (MAP) 104/62 (76) 104/57 (73) 87/56 (66) Pulse Ox 96 96 97 95 O2 Delivery Ventilator Ventilator Ventilator Ventilator 07/19/19 07/19/19 07/19/19 07/19/19 07:00 08:00 08:00 08:55 Temp 99.3 99.3 Pulse 58 58 Resp 20 20 B/P (MAP) 98/60 (73) 100/54 (69) Pulse Ox 97 97 96 O2 Delivery Ventilator Mechanical Ventilator Ventilator Ventilator 07/19/19 07/19/19 07/19/19 07/19/19 09:00 09:03 09:03 09:29 Pulse 64 70 70 Resp 20 B/P (MAP) 113/67 (82) 113/67 113/67 Pulse Ox 97 97 O2 Delivery Ventilator Ventilator 07/19/19 07/19/19 10:00 11:28 Pulse 76 Resp 20 B/P (MAP) 95/50 (65) Pulse Ox 96 93 O2 Delivery Ventilator Ventilator Intake and Output 07/18/19 07/18/19 07/19/19 15:00 23:00 07:00 Intake Total 350 ml 676 ml 1400 ml Output Total 285 ml 325 ml 180 ml Balance 65 ml 351 ml 1220 ml ANGELES HICKMAN MD Jul 19, 2019 12:12
--- NOTE | 2019-07-19 16:31 | PDOC ---
CARDIOLOGY PROGRESS NOTE SUBJECTIVE: No acute events overnight. Patient continues to remain unresponsive. Difficulty with extubation persists. OBJECTIVE: Vital Signs/I&O: Vital Signs Date Time Temp Pulse Resp B/P (MAP) Pulse Ox O2 Delivery O2 Flow Rate FiO2 07/19/19 15:30 99 Ventilator 07/19/19 15:00 55 20 95/55 (68) 07/19/19 12:00 99.2 99.2 I & O 07/18/19 07/18/19 07/19/19 15:00 23:00 07:00 Intake Total 350 ml 676 ml 1400 ml Output Total 285 ml 325 ml 180 ml Balance 65 ml 351 ml 1220 ml Objective: Sedated and nonresponsive Bilateral rhonchi persistent Normal heart tones Soft abdomen Trace edema CURRENT MEDICATIONS: Current Medications Medications (Trade) Dose Ordered Sig/Lorri Route PRN Reason Start Time Stop Time Status Last Admin Dose Admin Amlodipine Besylate (Norvasc) 5 mg DAILY PO 07/19/19 09:00 07/19/19 09:03 Aspirin (Ecotrin) 81 mg DAILY08 PO 07/19/19 08:00 07/19/19 09:03 EZETIMIBE (Zetia) 10 mg HS PO 07/18/19 21:00 07/18/19 20:34 Guaifenesin (Mucinex) 600 mg BID PO 07/18/19 21:00 07/19/19 09:02 Lactobacillus Rhamnosus (Culturelle) 1 cap BID PO 07/18/19 21:00 07/19/19 09:02 Levothyroxine Sodium (Synthroid) 100 mcg DAILY06 PO 07/19/19 07:30 07/19/19 09:04 Mirtazapine (Remeron) 15 mg QHS PO 07/18/19 21:00 07/19/19 12:18 DC 07/18/19 20:33 Quetiapine Fumarate (SEROquel) 37.5 mg HS PO 07/18/19 21:00 07/18/19 20:36 Tamsulosin HCl (Flomax) 0.4 mg DAILY PO 07/19/19 09:00 07/19/19 09:02 Fluvoxamine Maleate (Luvox) 50 mg QHS PO 07/18/19 21:00 07/18/19 20:34 Losartan Potassium (Cozaar) 100 mg DAILY PO 07/19/19 09:00 07/19/19 09:03 Risperidone (RisperDAL) 0.75 mg QHS PO 07/18/19 21:00 07/19/19 12:10 DC 07/18/19 20:35 Albuterol/ Ipratropium (Duoneb) 3 ml RTQID NEB 07/18/19 17:00 07/19/19 15:30 Daptomycin 520 mg/ Sodium Chloride 50 ml @ 100 mls/hr Q24H IV 07/19/19 08:00 07/19/19 09:04 DIAGNOSTIC TESTING: Labs reviewed. ASSESSMENT: 1. Acute on chronic hypoxic respiratory failure likely due to multifactorial issues including flu/pneumonia 2. Moderate to severe aortic stenosis with acute on chronic diastolic heart failure PLAN: 1. I had a very long discussion on the phone with the patient's son Matty. I think check is having a very difficult time grasping the overall poor prognosis of the patient. I explained to Matty that the patient will likely be at high risk for reintubation even after extubation. We discussed possibility of DNR DNI after extubation. The son will talk to his sister and we will plan for continued aggressive measures until the family has had a chance to talk and determine timing of DNR/DNI in the event he is extubated. According to the son the patient's wishes apparently were to be not intubated. Await palliative care meting until further plans are made I confirmed with the patient's son again regarding conservative management for his cardiac issues including severe aortic stenosis and non-ST elevation MT. Supportive care for now. JODI HERNANDEZ MD Jul 19, 2019 16:31
[2019-07-19] MEDS ORDERED: DIVALPROEX EXTENDED RELEASE 500 MG TAB.ER.24H. PO SCH (21:00)
[2019-07-19] MEDS: IV NORMAL SALINE 1000ML BAG 1,000 ML IV SCH (21:15)
[2019-07-19] MEDS: FAMOTIDINE 20 MG/2 ML VIAL IVP SCH (21:15)
[2019-07-19] MEDS: ATORVASTATIN CALCIUM 20 MG TABLET PO SCH (21:15)
[2019-07-19] MEDS: EZETIMIBE 10 MG TABLET. PO SCH (21:16)
[2019-07-19] MEDS: QUEtiapine 25 MG TABLET. PO SCH (21:17)
--- NOTE | 2019-07-19 23:47 | NUR ---
Pt had been scheduled to take Depakote ER at 2100 this shift. Pt is currently intubated and getting PO medications by OG tube. This medication cannot be crushed. Call placed to Dr. Samaniego. Received call back from on-call MD, Dr. Lincoln. Gave order to change from Depakote ER to Depakote crystals. Order entered into system. Depakote now scheduled to take Depakote crystals 250 mg PO BID. No further concerns to report at this time. Pt sedated and resting with eyes closed. No signs of pt discomfort at this time. Will continue to monitor.
[2019-07-20] VITALS (23 sets, daily range): BP systolic 90–146; BP diastolic 44–75
[2019-07-20] MEDS: MIDAZOLAM 100mg/100ml NS BAG 100 ML IV PRN (00:23)
[2019-07-20] MEDS: LEVOTHYROXINE 75 MCG TABLET PO SCH (06:14)
[2019-07-20] MEDS: MEROPENEM 500 MG in IV NORMAL SALINE 50ML 50 ML IV SCH ×3 (06:14→21:32)
[2019-07-20] MEDS: IPRATRPIUM/ALBUTEROL 0.5/2.5MG 3 ML NEBU. NEB SCH ×4 (07:53→19:34)
--- NOTE | 2019-07-20 08:02 | PDOC ---
Infectious Disease Note Subjective: Subjective Intubated,not responding to verbal or painful stimuli fio2 50%,PEEP 7 D/W RN ROS: ROS unable to obtain Vital Signs: Vital Signs Vital Signs Date Time Temp Pulse Resp B/P (MAP) Pulse Ox O2 Delivery O2 Flow Rate FiO2 07/20/19 07:53 95 Ventilator 07/20/19 06:00 55 19 96/53 (67) 07/20/19 04:00 97.9 97.9 Physical Exam: PHYSICAL EXAM GENERAL: Intubated, sedated.does not respond to verbal commands HEENT: Normocephalic, atraumatic. ETT in place, OG tube in place. NECK: Supple. LUNGS: Decreased breath sounds HEART S1 S2 no murmurs ABDOMEN: Soft and obese. Bowel sounds present. EXTREMITIES: Trace edema. [employer]IVE intubated, not responding Medications: Inpatient Meds: Current Medications Medications (Trade) Dose Ordered Sig/Lorri Start Time Stop Time Status Last Admin Dose Admin Acetaminophen (Tylenol) 650 mg PRN Q4HRS PRN 07/16/19 18:15 07/16/19 20:52 650 MG Al Hydroxide/Mg Hydroxide (Mylanta Plus Xs) 15 ml PRN AFTMEALHC PRN 07/18/19 15:30 Albuterol Sulfate (Ventolin Neb Soln) 2.5 mg 1X ONCE 07/16/19 09:45 07/16/19 09:46 DC 07/16/19 09:56 2.5 MG Albuterol/ Ipratropium (Duoneb) 3 ml RTQID 07/18/19 17:00 07/20/19 07:53 3 ML Amlodipine Besylate (Norvasc) 5 mg DAILY 07/19/19 09:00 07/19/19 09:03 5 MG Aspirin (Aspirin Rectal Supp) 300 mg 1X STAT 07/16/19 11:27 07/16/19 11:30 DC 07/16/19 12:20 300 MG Aspirin (Children'S Aspirin) 81 mg DAILYWBKFT 07/19/19 08:00 Cancel Aspirin (Ecotrin) 81 mg DAILY08 07/19/19 08:00 07/19/19 09:03 81 MG Atorvastatin Calcium (Lipitor) 20 mg QHS 07/17/19 21:00 07/19/19 21:15 20 MG Bisacodyl (Dulcolax Supp) 10 mg PRN DAILY PRN 07/16/19 11:30 Budesonide (Pulmicort) 0.5 mg 1X ONCE 07/16/19 11:00 07/16/19 11:01 DC 07/16/19 12:19 0.5 MG Ceftriaxone Sodium (Rocephin) 2 gm 1X ONCE 07/16/19 08:00 07/16/19 08:01 DC 07/16/19 08:31 2 GM Chlorhexidine Gluconate (Peridex) 15 ml BID 07/16/19 21:00 07/19/19 21:15 15 ML Clopidogrel Bisulfate (Plavix) 75 mg DAILYWBKFT 07/18/19 08:00 07/19/19 09:03 75 MG Daptomycin 500 mg/ Sodium Chloride 50 ml @ 100 mls/hr Q24H ONCE 07/18/19 10:00 07/18/19 10:29 DC 07/18/19 11:16 100 MLS/HR Daptomycin 520 mg/ Sodium Chloride 50 ml @ 100 mls/hr Q24H 07/19/19 08:00 07/19/19 09:04 100 MLS/HR Divalproex Sodium (Depakote Sprinkles) 250 mg BID 07/20/19 09:00 Divalproex Sodium (Depakote Er) 500 mg QHS 07/19/19 21:00 Cancel Doxycycline Hyclate 100 mg/ Dextrose 100 ml @ 50 mls/hr 1X ONCE 07/16/19 08:00 07/16/19 09:59 DC 07/16/19 08:32 50 MLS/HR EZETIMIBE (Zetia) 10 mg HS 07/18/19 21:00 07/19/19 21:16 10 MG Famotidine (Pepcid Vial) 20 mg QHS 07/16/19 21:00 07/19/19 21:15 20 MG Fentanyl Citrate 30 ml @ 0 mls/hr CONT PRN PRN 07/16/19 18:30 07/16/19 18:23 DC Fentanyl Citrate (Fentanyl 2ml Vial) 50 mcg PRN Q1HR PRN 07/16/19 18:30 Fluvoxamine Maleate (Luvox) 50 mg QHS 07/18/19 21:00 07/19/19 21:16 50 MG Guaifenesin (Mucinex) 600 mg BID 07/18/19 21:00 07/19/19 09:02 600 MG Heparin Sodium (Porcine) (Heparin Sodium) 5,000 unit Q12HR 07/16/19 21:00 07/19/19 21:18 5,000 UNIT Ketamine HCl (Ketamine) 20 mg 1X ONCE 07/16/19 11:00 07/16/19 11:02 DC Lactobacillus Rhamnosus (Culturelle) 1 cap BID 07/18/19 21:00 07/19/19 21:16 1 CAP Levothyroxine Sodium (Synthroid) 100 mcg DAILY06 07/19/19 07:30 07/20/19 06:14 100 MCG Linezolid/Dextrose 300 ml @ 300 mls/hr Q12HR 07/17/19 09:30 07/19/19 21:15 300 MLS/HR Lorazepam (Ativan Inj) 0.25 mg PRN Q3HRS PRN 07/16/19 16:15 Losartan Potassium (Cozaar) 100 mg DAILY 07/19/19 09:00 07/19/19 09:03 100 MG Magnesium Hydroxide (Milk Of Magnesia) 2,400 mg PRN DAILY PRN 07/18/19 15:30 Meropenem 0.5 gm/ Sodium Chloride 100 ml @ 200 mls/hr Q8HRS 07/16/19 14:00 UNV Meropenem 500 mg/ Sodium Chloride 50 ml @ 100 mls/hr Q8HRS 07/16/19 12:00 07/20/19 06:14 100 MLS/HR Midazolam HCl 100 ml @ 5 mls/hr CONT PRN 07/16/19 18:30 07/16/19 18:23 DC Mirtazapine (Remeron) 15 mg QHS 07/18/19 21:00 07/19/19 12:18 DC 07/18/19 20:33 15 MG Morphine Sulfate (Morphine Sulfate) 4 mg PRN Q1HR PRN 07/16/19 18:30 Naloxone HCl (Narcan) 0.4 mg PRN Q2MIN PRN 07/16/19 18:30 Nitroglycerin (Nitrostat) 0.4 mg PRN Q5MIN PRN 07/18/19 14:45 Norepinephrine Bitartrate 250 ml @ 17.006 mls/ hr CONT PRN 07/16/19 11:30 07/17/19 13:14 17.006 MLS/HR Ondansetron HCl (Zofran) 4 mg PRN Q6HRS PRN 07/16/19 11:30 Oseltamivir Phosphate (Tamiflu) 30 mg BID 07/17/19 09:30 07/22/19 09:29 07/19/19 21:15 30 MG Propofol 100 ml @ As Directed STK-MED ONCE 07/16/19 17:02 07/16/19 17:03 DC Quetiapine Fumarate (SEROquel) 37.5 mg HS 07/18/19 21:00 07/19/19 21:17 37.5 MG Risperidone (RisperDAL) 0.75 mg QHS 07/18/19 21:00 07/19/19 12:10 DC 07/18/19 20:35 0.75 MG Sodium Chloride 1,000 ml @ 25 mls/hr Q24H 07/16/19 18:18 07/19/19 21:15 25 MLS/HR Sodium Chloride (Normal Saline Flush) 3 ml QSHIFT PRN 07/16/19 11:30 Succinylcholine Chloride (Anectine) 200 mg STK-MED ONCE 07/16/19 17:03 07/16/19 17:03 DC Tamsulosin HCl (Flomax) 0.4 mg DAILY 07/19/19 09:00 07/19/19 09:02 0.4 MG Labs: Lab Laboratory Tests Test 07/19/19 09:00 07/19/19 23:55 07/20/19 06:17 O2 Saturation 91 % (92-99) Arterial Blood pH 7.46 (7.35-7.45) Arterial Blood pCO2 at Patient Temp 34 mmHg (35-46) Arterial Blood pO2 at Patient Temp 65 mmHg (65-108) Arterial Blood HCO3 24 mmol/L (21-28) Arterial Blood Base Excess 0 mmol/L (-3-3) FiO2 50 Glucose (Fingerstick) 113 mg/dL (70-99) 129 mg/dL (70-99) Objective: Assessment: 1. Acute respiratory failure secondary to flu and pneumonia. 2. Fever POA,.pattern improving, 3. Influenza B screen positive. 4. Non-ST elevation myocardial infarction. 5. Acute kidney injury. 6. Lactic acidosis. 7. Dementia. 8. History of anxiety and depression. 9. GPC 10/01 BC could be contaminant Plan: Plan of Care Continue meropenem.zyvox Tamiflu renal dosing, daptomycin pending gpc in bc, d/w micro today follow up labs and cultures. Continue supportive care. Discussed with RN. YI HERNANDEZ MD Jul 20, 2019 08:02
[2019-07-20] MEDS: CHLORHEXIDINE 0.12% 15 ML MOUTHWASH. MM SCH ×2 (08:13→20:49)
[2019-07-20] MEDS: HEPARIN for SUB-Q USE 5,000 UNIT/ML VIAL. SQ SCH ×2 (08:13→20:51)
[2019-07-20] MEDS: LACTOBACILLUS RHAMNOSUS GG 1 CAPSULE. PO SCH ×2 (08:13→20:48)
[2019-07-20] MEDS: CLOPIDOGREL BISULFATE 75 MG TABLET PO SCH (08:13)
[2019-07-20] MEDS: ASPIRIN ENTERIC COATED 81 MG TABLET.DR. PO SCH (08:13)
[2019-07-20] MEDS: OSELTAMIVIR 30 MG CAPSULE PO SCH ×2 (08:13→20:48)
[2019-07-20] MEDS: DIVALPROEX SPRINKLES 125 MG CAPSULE. PO SCH ×2 (08:13→20:48)
[2019-07-20] MEDS: TAMSULOSIN 0.4 MG CAP.ER.24H. PO SCH (08:14)
[2019-07-20] MEDS: LOSARTAN POTASSIUM 50 MG TABLET. PO SCH (08:14)
[2019-07-20] MEDS: amLODIPine BESYLATE 5 MG TABLET PO SCH (08:15)
[2019-07-20] MEDS: DAPTOmycin (GENERIC) IVPB 520 MG in IV NORMAL SALINE 50ML 50 ML IV SCH (08:17)
[2019-07-20 08:20] LABS: BASE EXCESS ABG 0 mmol/L (-3-3); HCO3 ABG 24 mmol/L (21-28); PCO2 ABG 35 mmHg (35-46); PO2 ABG 61 mmHg (65-108); SAT O2 ABG 90 % (92-99)
[2019-07-20 08:23] LABS: FIO2 ABG 50
--- NOTE | 2019-07-20 09:16 | RAD ---
CHEST AP ONLY INDICATION: Pneumonia, respiratory failure. COMPARISON STUDY: 07/18/2019. FINDINGS: Rotation to the right. Life Support Devices: Stable life support devices. Lungs: Low lung volume. Stable bilateral basilar predominant opacities. Indistinct pulmonary vasculature. Pleura: Stable small bilateral layering pleural effusions. Heart and Mediastinum: Stable cardiomediastinal silhouette and great vessels. IMPRESSION: 1. Stable expiratory devices. 2. Stable bilateral basilar predominant opacities. 3. Stable small bilateral effusions. Electronically signed by: Paul Ambriz MD (07/20/2019 9:14 AM) [id number]
--- NOTE | 2019-07-20 09:24 | PDOC ---
SUBJECTIVE ROS intubated, not responsive OBJECTIVE Vital Signs Vital Signs Date Time Temp Pulse Resp B/P (MAP) Pulse Ox O2 Delivery O2 Flow Rate FiO2 07/20/19 07:53 95 Ventilator 07/20/19 06:00 55 19 96/53 (67) 07/20/19 04:00 97.9 97.9 I & 0 Intake and Output 07/20/19 07:00 Intake Total 3624.70 ml Output Total 810 ml Balance 2814.70 ml IV Total 1462.70 ml Tube Feeding 1662 ml Other 500 ml Output Urine Total 810 ml Gastric Drainage Total 0 ml PHYSICAL EXAM Physical Exam GENERAL: Intubated HEENT: Intubated NECK: supple CARDIOVASCULAR: rrr LUNGS: CTA ABDOMEN: Soft and obese. EXTREMITIES edema + NEUROLOGIC: Lethargic, Hx of dementia SKIN: No rash Chronic changes Gu Francois + . DIAGNOSIS/ASSESSMENT Assessment & Plan ZAHRAA - Pre-renal /Urinary retention/Sepsis Renal function improved and stable E-Lytes and acid base stable- labs from 07/19 reviewed supportive care, Monitor Acute respiratory failure secondary to influenza, pneumonia, influenza- Influenza B positive On Tamiflu- renal dosing Sepsis with lactate elevation. NSTEMI -Troponin elevated, cardiology following COMMENT/RELEVANT DATA Meds Current Medications Medications (Trade) Dose Ordered Sig/Lorri Start Time Stop Time Status Last Admin Dose Admin Acetaminophen (Tylenol) 650 mg PRN Q4HRS PRN 07/16/19 18:15 07/16/19 20:52 650 MG Al Hydroxide/Mg Hydroxide (Mylanta Plus Xs) 15 ml PRN AFTMEALHC PRN 07/18/19 15:30 Albuterol Sulfate (Ventolin Neb Soln) 2.5 mg 1X ONCE 07/16/19 09:45 07/16/19 09:46 DC 07/16/19 09:56 2.5 MG Albuterol/ Ipratropium (Duoneb) 3 ml RTQID 07/18/19 17:00 07/20/19 07:53 3 ML Amlodipine Besylate (Norvasc) 5 mg DAILY 07/19/19 09:00 07/19/19 09:03 5 MG Aspirin (Aspirin Rectal Supp) 300 mg 1X STAT 07/16/19 11:27 07/16/19 11:30 DC 07/16/19 12:20 300 MG Aspirin (Children'S Aspirin) 81 mg DAILYWBKFT 07/19/19 08:00 Cancel Aspirin (Ecotrin) 81 mg DAILY08 07/19/19 08:00 07/20/19 08:13 81 MG Atorvastatin Calcium (Lipitor) 20 mg QHS 07/17/19 21:00 07/19/19 21:15 20 MG Bisacodyl (Dulcolax Supp) 10 mg PRN DAILY PRN 07/16/19 11:30 Budesonide (Pulmicort) 0.5 mg 1X ONCE 07/16/19 11:00 07/16/19 11:01 DC 07/16/19 12:19 0.5 MG Ceftriaxone Sodium (Rocephin) 2 gm 1X ONCE 07/16/19 08:00 07/16/19 08:01 DC 07/16/19 08:31 2 GM Chlorhexidine Gluconate (Peridex) 15 ml BID 07/16/19 21:00 07/20/19 08:13 15 ML Clopidogrel Bisulfate (Plavix) 75 mg DAILYWBKFT 07/18/19 08:00 07/20/19 08:13 75 MG Daptomycin 500 mg/ Sodium Chloride 50 ml @ 100 mls/hr Q24H ONCE 07/18/19 10:00 07/18/19 10:29 DC 07/18/19 11:16 100 MLS/HR Daptomycin 520 mg/ Sodium Chloride 50 ml @ 100 mls/hr Q24H 07/19/19 08:00 07/20/19 08:17 100 MLS/HR Divalproex Sodium (Depakote Sprinkles) 250 mg BID 07/20/19 09:00 07/20/19 08:13 250 MG Divalproex Sodium (Depakote Er) 500 mg QHS 07/19/19 21:00 Cancel Doxycycline Hyclate 100 mg/ Dextrose 100 ml @ 50 mls/hr 1X ONCE 07/16/19 08:00 07/16/19 09:59 DC 07/16/19 08:32 50 MLS/HR EZETIMIBE (Zetia) 10 mg HS 07/18/19 21:00 07/19/19 21:16 10 MG Famotidine (Pepcid Vial) 20 mg QHS 07/16/19 21:00 07/19/19 21:15 20 MG Fentanyl Citrate 30 ml @ 0 mls/hr CONT PRN PRN 07/16/19 18:30 07/16/19 18:23 DC Fentanyl Citrate (Fentanyl 2ml Vial) 50 mcg PRN Q1HR PRN 07/16/19 18:30 Fluvoxamine Maleate (Luvox) 50 mg QHS 07/18/19 21:00 07/19/19 21:16 50 MG Guaifenesin (Mucinex) 600 mg BID 07/18/19 21:00 07/20/19 08:15 600 MG Heparin Sodium (Porcine) (Heparin Sodium) 5,000 unit Q12HR 07/16/19 21:00 07/20/19 08:13 5,000 UNIT Ketamine HCl (Ketamine) 20 mg 1X ONCE 07/16/19 11:00 07/16/19 11:02 DC Lactobacillus Rhamnosus (Culturelle) 1 cap BID 07/18/19 21:00 07/20/19 08:13 1 CAP Levothyroxine Sodium (Synthroid) 100 mcg DAILY06 07/19/19 07:30 07/20/19 06:14 100 MCG Linezolid/Dextrose 300 ml @ 300 mls/hr Q12HR 07/17/19 09:30 07/20/19 08:17 300 MLS/HR Lorazepam (Ativan Inj) 0.25 mg PRN Q3HRS PRN 07/16/19 16:15 Losartan Potassium (Cozaar) 100 mg DAILY 07/19/19 09:00 07/19/19 09:03 100 MG Magnesium Hydroxide (Milk Of Magnesia) 2,400 mg PRN DAILY PRN 07/18/19 15:30 Meropenem 0.5 gm/ Sodium Chloride 100 ml @ 200 mls/hr Q8HRS 07/16/19 14:00 UNV Meropenem 500 mg/ Sodium Chloride 50 ml @ 100 mls/hr Q8HRS 07/16/19 12:00 07/20/19 06:14 100 MLS/HR Midazolam HCl 100 ml @ 5 mls/hr CONT PRN 07/16/19 18:30 07/16/19 18:23 DC Mirtazapine (Remeron) 15 mg QHS 07/18/19 21:00 07/19/19 12:18 DC 07/18/19 20:33 15 MG Morphine Sulfate (Morphine Sulfate) 4 mg PRN Q1HR PRN 07/16/19 18:30 Naloxone HCl (Narcan) 0.4 mg PRN Q2MIN PRN 07/16/19 18:30 Nitroglycerin (Nitrostat) 0.4 mg PRN Q5MIN PRN 07/18/19 14:45 Norepinephrine Bitartrate 250 ml @ 17.006 mls/ hr CONT PRN 07/16/19 11:30 07/17/19 13:14 17.006 MLS/HR Ondansetron HCl (Zofran) 4 mg PRN Q6HRS PRN 07/16/19 11:30 Oseltamivir Phosphate (Tamiflu) 30 mg BID 07/17/19 09:30 07/22/19 09:29 07/20/19 08:13 30 MG Propofol 100 ml @ As Directed STK-MED ONCE 07/16/19 17:02 07/16/19 17:03 DC Quetiapine Fumarate (SEROquel) 37.5 mg HS 07/18/19 21:00 07/19/19 21:17 37.5 MG Risperidone (RisperDAL) 0.75 mg QHS 07/18/19 21:00 07/19/19 12:10 DC 07/18/19 20:35 0.75 MG Sodium Chloride 1,000 ml @ 25 mls/hr Q24H 07/16/19 18:18 07/19/19 21:15 25 MLS/HR Sodium Chloride (Normal Saline Flush) 3 ml QSHIFT PRN 07/16/19 11:30 Succinylcholine Chloride (Anectine) 200 mg STK-MED ONCE 07/16/19 17:03 07/16/19 17:03 DC Tamsulosin HCl (Flomax) 0.4 mg DAILY 07/19/19 09:00 07/19/19 09:02 0.4 MG Lab Laboratory Tests Test 07/19/19 23:55 07/20/19 06:17 07/20/19 08:15 Glucose (Fingerstick) 113 mg/dL (70-99) 129 mg/dL (70-99) O2 Saturation 90 % (92-99) Arterial Blood pH 7.45 (7.35-7.45) Arterial Blood pCO2 at Patient Temp 35 mmHg (35-46) Arterial Blood pO2 at Patient Temp 61 mmHg (65-108) Arterial Blood HCO3 24 mmol/L (21-28) Arterial Blood Base Excess 0 mmol/L (-3-3) FiO2 50 Results All relevant outside records, renal labs, imaging studies, telemetry/EKG's were reviewed. JARVIS MCCORMICK MD Jul 20, 2019 09:24
--- NOTE | 2019-07-20 09:44 | PDOC ---
PROGRESS NOTES Chief Complaint Chief Complaint impression severe sepsis on echo , The left ventricular systolic function is low normal. EF 50% Calculated aortic valve area is .72 cm2 with maximum pressure gradient of 58 mmHg and mean pressure gradient of 38 mmHg. Doppler and color-flow analysis revealed severe aortic stenosis. fio2 50%,PEEP 7 acute hypoxic resp failure, on vent, had been DNR, family revoked on admit, still ongoing discussion, consider DNR again when able to extubate when family available pneumonia, Stable bilateral basilar predominant opacities. 07-20 cxr Stable small bilateral effusions. Influenza B pneumonitis advanced dementia morbid obesity NSTEMI, med management, HTN - cont meds HLD - cont meds Hypothyroidism Depression - with anxiety - ON mood stabilizers, mult psych meds, History of Present Illness History of Present Illness continue vent cont aggressive care palliative care consult CV and pulm and ID following, iv antibiotics DVT PROPHYLAXIS cc time 34 min Vitals Vitals Vital Signs Date Time Temp Pulse Resp B/P (MAP) Pulse Ox O2 Delivery O2 Flow Rate FiO2 07/20/19 07:53 95 Ventilator 07/20/19 06:00 55 19 96/53 (67) 07/20/19 04:00 97.9 97.9 Physical Exam Physical Exam GENERAL: Intubated, sedated.does not respond to verbal commands HEENT: Normocephalic, atraumatic. ETT in place, OG tube in place. NECK: Supple. LUNGS: Decreased breath sounds HEART S1 S2 no murmurs ABDOMEN: Soft and obese. Bowel sounds present. EXTREMITIES: Trace edema. [employer] intubated, not responding General: No acute distress, mild distress Heart: Other (gr 3/6 ambreen) Lungs: Crackles Abdomen: Soft, No tenderness Extremities: No cyanosis, Other (2+ Pedal edema) Skin: No breakdown Labs LABS LEFT VENTRICLE The left ventricle is normal size. There is mild concentric left ventricular hypertrophy. The left ventricular systolic function is low normal. EF 50% There is normal LV segmental wall motion. Diastology not performed. RIGHT VENTRICLE The right ventricle is mildly dilated. There is normal right ventricular wall thickness. The right ventricular systolic function is normal. ATRIA The left atrium is mildly dilated. The right atrium size is normal. The interatrial septum is intact with no evidence for an atrial septal defect or patent foramen ovale as noted on 2-D or Doppler imaging. AORTIC VALVE The aortic valve is calcified and displays decreased opening. Doppler and Color Flow revealed trace aortic regurgitation. Calculated aortic valve area is .72 cm2 with maximum pressure gradient of 58 mmHg and mean pressure gradient of 38 mmHg. Doppler and color-flow analysis revealed severe aortic stenosis. MITRAL VALVE The mitral valve is normal in structure and function. There is no evidence of mitral valve prolapse. There is no mitral valve stenosis. Doppler and Color-flow revealed trace mitral regurgitation. TRICUSPID VALVE The tricuspid valve is not well visualized. Doppler and color-flow analysis was not performed. PULMONIC VALVE The pulmonic valve is not well visualized. Doppler and color-flow analysis was not performed. GREAT VESSELS The aortic root is normal in size. The ascending aorta is Mildly dilated. PERICARDIAL EFFUSION There is no pleural effusion. There is no evidence of significant pericardial effusion. Critical Notification Critical Value: No <Conclusion> The left ventricular systolic function is low normal. EF 50% Calculated aortic valve area is .72 cm2 with maximum pressure gradient of 58 mmHg and mean pressure gradient of 38 mmHg. Doppler and color-flow analysis revealed severe aortic stenosis. Limited study only Technically limited. Signed by : Jeff Auguste, Electronically Approved : 07/19/2019 09:19:56 CHEST AP ONLY INDICATION: Pneumonia, respiratory failure. COMPARISON STUDY: 07/18/2019. FINDINGS: Rotation to the right. Life Support Devices: Stable life support devices. Lungs: Low lung volume. Stable bilateral basilar predominant opacities. Indistinct pulmonary vasculature. Pleura: Stable small bilateral layering pleural effusions. Heart and Mediastinum: Stable cardiomediastinal silhouette and great vessels. IMPRESSION: 1. Stable expiratory devices. 2. Stable bilateral basilar predominant opacities. 3. Stable small bilateral effusions. Electronically signed by: Ruth Newby MD (07/20/2019 9:14 AM) [id number] DICTATED and SIGNED BY: RUTH NEWBY MD DATE: 07/20/19 0914 PATIENT: TAYLOR EVANS ACCT: [id number] LOC: 1 [place] ICU U: [id number] AGE/SX: 88/M ROOM: 112 RE07/16/[address]: LULY GUERIN MD : [id number] BED: 1 DIS: STATUS: ADM IN TLOC: SPEC #: [id number] BERNARDO: 07/16/19 STATUS: COMP REQ #: [id number] RECD: 07/16/19 [facility] DR: ELVIS ALEJANDRA MD SOURCE: BLOOD ENTR: 07/16/[address] [facility] [address]: ALFA PRADHAN [facility]: BC[facility] Procedure Result BLOOD CULTURE Final GRAM POSITIVE COCCI IN CLUSTERS IN 1 OF 4 BOTTLES(ANAEROBIC);REPRESENTING 2 SETS DRAWN. THE RESULT WAS CALLED TO [facility](ICU)ON 07/18/19 AT 0909 BY P CHAMBERS. THE BLOOD CULTURE HAS BEEN SENT TO [facility] FOR FURTHER WORKUP. Laboratory Tests Test 07/19/19 23:55 07/20/19 06:17 07/20/19 08:15 Glucose (Fingerstick) 113 mg/dL (70-99) 129 mg/dL (70-99) O2 Saturation 90 % (92-99) Arterial Blood pH 7.45 (7.35-7.45) Arterial Blood pCO2 at Patient Temp 35 mmHg (35-46) Arterial Blood pO2 at Patient Temp 61 mmHg (65-108) Arterial Blood HCO3 24 mmol/L (21-28) Arterial Blood Base Excess 0 mmol/L (-3-3) FiO2 50 Assessment and Plan Assessmemt and Plan Problems Medical Problems: (1) Elevated troponin Status: Acute (2) Influenza Status: Acute Past Medical History Past Medical History Past Medical History Past Medical History: Anxiety, CAD, Dementia, Depression, High Cholesterol, Hypertension, Hypothyroid, UTI, Other Additional Past Medical Histor: ALZHEIMER'S Past Surgical History: Coronary Bypass Surgery Additional Past Surgical Histo: CABG Alcohol Use: None Drug Use: None fhx HTN Cardiovascular: CAD, HTN, Hyperlipidemia Pulmonary: No pertinent hx CENTRAL NERVOUS SYSTEM: Dementia GI: No pertinent hx Heme/Onc: No pertinent hx Hepatobiliary: No pertinent hx Psych: Anxiety, Depression Musculoskeletal: Osteoarthritis Rheumatologic: No pertinent hx Infectious disease: No pertinent hx Renal/: UTI Endocrine: Hypothyroidism Past Surgical History Past Surgical History: CABG Family History Family History Past Medical History Cardiovascular: CAD, HTN Pulmonary: No pertinent hx CENTRAL NERVOUS SYSTEM: Dementia GI: No pertinent hx Heme/Onc: No pertinent hx Hepatobiliary: No pertinent hx Psych: Anxiety, Depression Rheumatologic: No pertinent hx Infectious disease: No pertinent hx ENT: No pertinent hx Renal/: UTI, Benign prostatic enlarg. Endocrine: Hypothyroidism Dermatology: No pertinent hx Past Surgical History Past Surgical History: CABG Family History Family History: Hypertension, Hypothyroidism Social History Smoke: No ALCOHOL: none Drugs: None Family History: Hypertension Social History Smoke: No ALCOHOL: none Drugs: None Comment Review of Relevant I have reviewed the following items en (where applicable) has been applied. Labs Laboratory Tests Test 07/18/19 11:08 07/19/19 04:25 07/19/19 09:00 07/19/19 23:55 Sodium Level 144 mmol/L (136-145) 144 mmol/L (136-145) Potassium Level 4.2 mmol/L (3.5-5.1) 4.0 mmol/L (3.5-5.1) Chloride Level 108 mmol/L (98-107) 108 mmol/L (98-107) Carbon Dioxide Level 28 mmol/L (21-32) 26 mmol/L (21-32) Anion Gap 8 (6-14) 10 (6-14) Blood Urea Nitrogen 38 mg/dL (8-26) 37 mg/dL (8-26) Creatinine 1.3 mg/dL (0.7-1.3) 1.2 mg/dL (0.7-1.3) Estimated GFR (Cockcroft-Gault) 52.0 57.0 Glucose Level 118 mg/dL (70-99) 125 mg/dL (70-99) Calcium Level 8.5 mg/dL (8.5-10.1) 8.1 mg/dL (8.5-10.1) Troponin I Quantitative 4.523 ng/mL (0.000-0.055) O2 Saturation 91 % (92-99) Arterial Blood pH 7.46 (7.35-7.45) Arterial Blood pCO2 at Patient Temp 34 mmHg (35-46) Arterial Blood pO2 at Patient Temp 65 mmHg (65-108) Arterial Blood HCO3 24 mmol/L (21-28) Arterial Blood Base Excess 0 mmol/L (-3-3) FiO2 50 Glucose (Fingerstick) 113 mg/dL (70-99) Test 07/20/19 06:17 07/20/19 08:15 Glucose (Fingerstick) 129 mg/dL (70-99) O2 Saturation 90 % (92-99) Arterial Blood pH 7.45 (7.35-7.45) Arterial Blood pCO2 at Patient Temp 35 mmHg (35-46) Arterial Blood pO2 at Patient Temp 61 mmHg (65-108) Arterial Blood HCO3 24 mmol/L (21-28) Arterial Blood Base Excess 0 mmol/L (-3-3) FiO2 50 Laboratory Tests Test 07/19/19 23:55 07/20/19 06:17 07/20/19 08:15 Glucose (Fingerstick) 113 mg/dL (70-99) 129 mg/dL (70-99) O2 Saturation 90 % (92-99) Arterial Blood pH 7.45 (7.35-7.45) Arterial Blood pCO2 at Patient Temp 35 mmHg (35-46) Arterial Blood pO2 at Patient Temp 61 mmHg (65-108) Arterial Blood HCO3 24 mmol/L (21-28) Arterial Blood Base Excess 0 mmol/L (-3-3) FiO2 50 Microbiology 07/18/19 Blood Culture - Preliminary, Resulted NO GROWTH AFTER 1 DAY Medications Current Medications Acetaminophen (Tylenol) 1,000 mg 1X ONCE PO Last administered on 07/16/19 08:09; Start 07/16/19 at 08:00; Stop 07/16/19 at 08:01; Status DC Ceftriaxone Sodium (Rocephin) 2 gm 1X ONCE IVP Last administered on 07/16/19 08:31; Start 07/16/19 at 08:00; Stop 07/16/19 at 08:01; Status DC Sodium Chloride 1,000 ml @ 2,100 mls/hr Q29M IV Last administered on 07/16/19 08:21; Start 07/16/19 at 07:53; Stop 07/16/19 at 08:53; Status DC Doxycycline Hyclate 100 mg/ Dextrose 100 ml @ 50 mls/hr 1X ONCE IV Last administered on 07/16/19 08:32; Start 07/16/19 at 08:00; Stop 07/16/19 at 09:59; Status DC Albuterol/ Ipratropium (Duoneb) 3 ml 1X ONCE NEB Last administered on 07/16/19 08:04; Start 07/16/19 at 08:00; Stop 07/16/19 at 08:01; Status DC Lorazepam (Ativan Inj) 1 mg 1X ONCE IV Last administered on 07/16/19 09:28; Start 07/16/19 at 09:30; Stop 07/16/19 at 09:31; Status DC Lorazepam (Ativan Inj) 1 mg 1X ONCE IVP ; Start 07/16/19 at 09:30; Stop 07/16/19 at 09:31; Status DC Oseltamivir Phosphate (Tamiflu) 75 mg 1X STAT PO ; Start 07/16/19 at 09:26; Stop 07/16/19 at 09:28; Status DC Ketamine HCl (Ketamine) 50 mg STK-MED ONCE .ROUTE ; Start 07/16/19 at 09:35; Stop 07/16/19 at 09:35; Status DC Ketamine HCl (Ketamine) 20 mg 1X ONCE IV ; Start 07/16/19 at 09:45; Stop 07/16/19 at 09:46; Status DC Ketamine HCl (Ketamine) 20 mg 1X ONCE IV Last administered on 07/16/19at 09:4 6; Start 07/16/19 at 09:45; Stop 07/16/19 at 09:46; Status DC Albuterol Sulfate (Ventolin Neb Soln) 2.5 mg 1X ONCE NEB Last administered on 07/16/19at 09:56; Start 07/16/19 at 09:45; Stop 07/16/19 at 09:46; Status DC Morphine Sulfate (Morphine Sulfate) 2 mg PRN Q2HR PRN IV PAIN; Start 07/16/19 at 10:15; Stop 07/17/19 at 10:14; Status DC Albuterol/ Ipratropium (Duoneb) 3 ml RTQID NEB Last administered on 07/17/19at 09:18; Start 07/16/19 at 12:00; Stop 07/17/19 at 11:59; Status DC Ketamine HCl (Ketamine) 20 mg 1X ONCE IV Last administered on 07/16/19at 10:20; Start 07/16/19 at 10:15; Stop 07/16/19 at 10:16; Status DC Budesonide (Pulmicort) 0.5 mg RTBID NEB Last administered on 07/19/19at 19:33; Start 07/16/19 at 20:00 Budesonide (Pulmicort) 0.5 mg 1X ONCE NEB Last administered on 07/16/19at 12:19; Start 07/16/19 at 11:00; Stop 07/16/19 at 11:01; Status DC Ketamine HCl (Ketamine) 20 mg 1X ONCE IV ; Start 07/16/19 at 11:00; Stop 07/16/19 at 11:02; Status DC Lorazepam (Ativan Inj) 0.5 mg PRN Q6HRS PRN IV ANXIETY / AGITATION Last administered on 07/16/19at 13:42; Start 07/16/19 at 11:30; Stop 07/16/19 at 1 6:12; Status DC Ondansetron HCl (Zofran) 4 mg PRN Q6HRS PRN IV NAUSEA/VOMITING; Start 07/16/19 at 11:30 Famotidine (Pepcid Vial) 20 mg QHS IVP Last administered on 07/19/19at 21:15; Start 07/16/19 at 21:00 Heparin Sodium (Porcine) (Heparin Sodium) 5,000 unit Q12HR SQ Last administered on 07/20/19at 08:13; Start 07/16/19 at 21:00 Sodium Chloride (Normal Saline Flush) 3 ml QSHIFT PRN IV AFTER MEDS AND BLOOD DRAWS; Start 07/16/19 at 11:30 Bisacodyl (Dulcolax Supp) [address] CONSTIPATION; Start 07/16/19 at 11:30 Sodium Chloride 1,000 ml @ 2,130 mls/hr Q29M IV ; Start 07/16/19 at 11:24; Stop 07/16/19 at 12:24; Status DC Meropenem 0.5 gm/ Sodium Chloride 100 ml @ 200 mls/hr Q8HRS IV ; Start 07/16/19 at 14:00; Status UNV Norepinephrine Bitartrate 250 ml @ 17.006 mls/ hr CONT PRN IV PER PROTOCOL Last administered on 07/17/19at 13:14; Start 07/16/19 at 11:30 Aspirin (Aspirin Rectal Supp) [address] Last administered on 07/16/19at 12:20; Start 07/16/19 at 11:27; Stop 07/16/19 at 11:30; Status DC Meropenem 500 mg/ Sodium Chloride 50 ml @ 100 mls/hr Q8HRS IV Last administered on 07/20/19at 06:14; Start 07/16/19 at 12:00 Lorazepam (Ativan Inj) 0.25 mg PRN 1X PRN IVP ANXIETY / AGITATION Last administered on 07/16/19at 16:32; Start 07/16/19 at 16:15; Stop 07/17/19 at 11:28; Status DC Lorazepam (Ativan Inj) 0.25 mg PRN Q3HRS PRN IVP ANXIETY / AGITATION; Start 07/16/19 at 16:15 Propofol 100 ml @ As Directed STK-MED ONCE IV ; Start 07/16/19 at 17:02; Stop 07/16/19 at 17:03; Status DC Succinylcholine Chloride (Anectine) 200 mg STK-MED ONCE .ROUTE ; Start 07/16/19 at 17:03; Stop 07/16/19 at 17:03; Status DC Fentanyl Citrate 30 ml @ 0 mls/hr CONT PRN IV SEE PROTOCOL Last administered on 07/19/19at 19:04; Start 07/16/19 at 17:45 Midazolam HCl 100 ml @ 0 mls/hr CONT PRN IV SEE PROTOCOL Last administered on 07/20/19at 00:23; Start 07/16/19 at 17:45 Acetaminophen (Tylenol) 650 mg PRN Q4HRS PRN PEG MILD PAIN / TEMP Last administered on 07/16/19at 20:52; Start 07/16/19 at 18:15 Fentanyl Citrate (Fentanyl 2ml Vial) 25 mcg PRN Q1HR PRN IV SEE COMMENTS; Start 07/16/19 at 18:30 Fentanyl Citrate (Fentanyl 2ml Vial) 50 mcg PRN Q1HR PRN IV SEE COMMENTS; Start 07/16/19 at 18:30 Chlorhexidine Gluconate (Peridex) 15 ml BID MM Last administered on 07/20/19at 08:13; Start 07/16/19 at 21:00 Morphine Sulfate (Morphine Sulfate) 2 mg PRN Q1HR PRN IV SEE COMMENTS.; Start 07/16/19 at 18:30 Morphine Sulfate (Morphine Sulfate) 4 mg PRN Q1HR PRN IV SEE COMMENTS.; Start 07/16/19 at 18:30 Midazolam HCl 100 ml @ 5 mls/hr CONT PRN IV SEE I/O RECORD; Start 07/16/19 at 18:30; Stop 07/16/19 at 18:23; Status DC Fentanyl Citrate 30 ml @ 0 mls/hr CONT PRN PRN IV PER PROTOCOL; Start 07/16/19 at 18:30; Stop 07/16/19 at 18:23; Status DC Naloxone HCl (Narcan) 0.4 mg PRN Q2MIN PRN IV SEE INSTRUCTIONS; Start 07/16/19 at 18:30 Sodium Chloride 1,000 ml @ 25 mls/hr Q24H IV Last administered on 07/19/19at 21:15; Start 07/16/19 at 18:18 Oseltamivir Phosphate (Tamiflu) 30 mg BID PO Last administered on 07/20/19 08:13; Start 07/17/19 at 09:30; Stop 07/22/19 at 09:29 Linezolid/Dextrose 300 ml @ 300 mls/hr Q12HR IV Last administered on 07/20/19 08:17; Start 07/17/19 at 09:30 Atorvastatin Calcium (Lipitor) 20 mg QHS PO Last administered on 07/19/19 21:15; Start 07/17/19 at 21:00 Clopidogrel Bisulfate (Plavix) 300 mg 1X ONCE PO Last administered on 07/17/19at 11:12; Start 07/17/19 at 09:45; Stop 07/17/19 at 09:48; Status DC Clopidogrel Bisulfate (Plavix) 75 mg DAILYWBKFT PO Last administered on 07/20/19 08:13; Start 07/18/19 at 08:00 Daptomycin 500 mg/ Sodium Chloride 50 ml @ 100 mls/hr Q24H ONCE IV Last administered on 07/18/19at 11:16; Start 07/18/19 at 10:00; Stop 07/18/19 at 10:29; Status DC Aspirin (Children'S Aspirin) 81 mg DAILYWBKFT PO ; Start 07/19/19 at 08:00; Status Cancel Amlodipine Besylate (Norvasc) 5 mg DAILY PO Last administered on 07/19/19at 09:03; Start 07/19/19 at 09:00 Aspirin (Ecotrin) 81 mg DAILY08 PO Last administered on 07/20/19 08:13; Start 07/19/19 at 08:00 Divalproex Sodium (Depakote Er) 750 mg QHS PO ; Start 07/18/19 at 21:00; Stop 07/19/19 at 12:08; Status DC Divalproex Sodium (Depakote Er) 500 mg HS PO ; Start 07/18/19 at 21:00; Status UNV EZETIMIBE (Zetia) 10 mg HS PO Last administered on 07/19/19at 21:16; Start 07/18/19 at 21:00 Guaifenesin (Mucinex) 600 mg BID PO Last administered on 07/20/19at 08:15; St art 07/18/19 at 21:00 Lactobacillus Rhamnosus (Culturelle) 1 cap BID PO Last administered on 07/20/19 08:13; Start 07/18/19 at 21:00 Levothyroxine Sodium (Synthroid) 100 mcg DAILY06 PO Last administered on 07/20/19 06:14; Start 07/19/19 at 07:30 Mirtazapine (Remeron) 15 mg QHS PO Last administered on 07/18/19at 20:33; Start 07/18/19 at 21:00; Stop 07/19/19 at 12:18; Status DC Nitroglycerin (Nitrostat) 0.4 mg PRN Q5MIN PRN SL CHEST PAIN; Start 07/18/19 at 14:45 Quetiapine Fumarate (SEROquel) 37.5 mg HS PO Last administered on 07/19/19 21:17; Start 07/18/19 at 21:00 Tamsulosin HCl (Flomax) 0.4 mg DAILY PO Last administered on 07/19/19at 09:02; Start 07/19/19 at 09:00 Fluvoxamine Maleate (Luvox) 50 mg QHS PO Last administered on 07/19/19at 21:16; Start 07/18/19 at 21:00 Losartan Potassium (Cozaar) 100 mg DAILY PO Last administered on 07/19/19at 09:03; Start 07/19/19 at 09:00 Al Hydroxide/Mg Hydroxide (Mylanta Plus Xs) 15 ml PRN AFTMEALHC PRN PO DYSPEPSIA; Start 07/18/19 at 15:30 Magnesium Hydroxide (Milk Of Magnesia) 2,400 mg PRN DAILY PRN PO CONSTIPATION; Start 07/18/19 at 15:30 Risperidone (RisperDAL) 0.75 mg QHS PO Last administered on 07/18/19at 20:35; Start 07/18/19 at 21:00; Stop 07/19/19 at 12:10; Status DC Albuterol/ Ipratropium (Duoneb) 3 ml RTQID NEB Last administered on 07/20/19at 07:53; Start 07/18/19 at 17:00 Daptomycin 520 mg/ Sodium Chloride 50 ml @ 100 mls/hr Q24H IV Last administered on 07/20/19at 08:17; Start 07/19/19 at 08:00 Divalproex Sodium (Depakote Er) 500 mg QHS PO ; Start 07/19/19 at 21:00; Status Cancel Divalproex Sodium (Depakote Sprinkles) 250 mg BID PO Last administered on 07/20/19at 08:13; Start 07/20/19 at 09:00 Active Scripts Active Culturelle (Lactobacillus Rhamnosus Gg) 1 Each Cap.sprink 1 Cap PO BID 30 Days Zyvox (Linezolid) 600 Mg Tablet 600 Mg PO BID 10 Days Amox Tr-K Clv 875-125 Mg Tab (Amoxicillin/Potassium Clav) 1 Each Tablet 1 Tab PO BIDWMEALS 10 Days Reported Seroquel (Quetiapine Fumarate) 25 Mg Tablet 37.5 Mg PO HS Namenda Xr (Memantine Hcl) 28 Mg Cap.spr.24 28 Mg PO DAILY Men's One Daily (Multivitamin With Minerals) 1 Each Tablet 1 Each PO DAILY Mucinex (Guaifenesin) 600 Mg Tablet.er 1 Tab PO BID 10 Days Meloxicam 7.5 Mg Tablet 1 Tab PO DAILY 30 Days Claritin (Loratadine) 10 Mg Capsule 1 Cap PO DAILY 30 Days Remeron (Mirtazapine) 15 Mg Tablet 1 Tab PO QHS Vitamin E (Vitamin E Mixed) 1,000 Unit Capsule 1,000 Unit PO DAILY NITROGLYCERIN SubLingual (Nitroglycerin) 0.4 Mg Tab.subl 0.4 Mg SL PRN Q5MIN PRN Milk Of Magnesia (Magnesium Hydroxide) 2,400 Mg/10 Ml Oral.susp 2,400 Mg PO DAILY PRN Maalox Advanced Suspension (Mag Hydrox/Aluminum Hyd/Simeth) 355 Ml Oral.susp 15 Ml PO PRN AFTMEALHC PRN EXELON 4.6mg/24hr (Rivastigmine) 1 Each Patch.td24 1 Patch TP DAILY Depakote Er (Divalproex Sodium) 500 Mg Tab.er.24h 1 Tab PO HS Depakote Er (Divalproex Sodium) 250 Mg Tab.er.24h 1 Tab PO QHS Welchol (Colesevelam Hcl) 625 Mg Tablet 2,500 Mg PO BID Zetia (Ezetimibe) 10 Mg Tablet 1 Tab PO HS Vitamin D (Cholecalciferol (Vitamin D3)) 1,000 Unit Capsule 50,000 Units PO QSA Tamsulosin Hcl 0.4 Mg Cap.er.24h 1 Cap PO DAILY Risperidone 0.5 Mg Tablet 1.5 Tab PO QHS Niaspan (Niacin) 500 Mg Tab.er.24h 1 Tab PO QHS Losartan Potassium 100 Mg Tablet 100 Mg PO DAILY Levothyroxine Sodium 75 Mcg Tablet 100 Mcg PO DAILYAC Fluvoxamine Maleate 50 Mg Tablet 1 Tab PO QHS Vitamin B-12 (Cyanocobalamin (Vitamin B-12)) 1,000 Mcg Tablet 1 Tab PO DAILY Aspirin Ec (Aspirin) 81 Mg Tablet.dr 81 Mg PO DAILY08 Amlodipine Besylate 5 Mg Tablet 5 Mg PO DAILY Tylenol (Acetaminophen) 325 Mg Tablet 1-2 Tab PO QID Vitals/I & O Vital Sign - Last 24 Hours 07/19/19 07/19/19 07/19/19 07/19/19 10:00 11:00 11:28 12:00 Pulse 76 72 Resp 20 20 B/P (MAP) 95/50 (65) 92/55 (67) Pulse Ox 96 94 93 O2 Delivery Ventilator Ventilator Ventilator Mechanical Ventilator 07/19/19 07/19/19 07/19/19 07/19/19 12:00 13:00 13:13 14:00 Temp 99.2 99.2 Pulse 64 60 54 Resp 20 20 20 B/P (MAP) 90/52 (65) 99/57 (71) 98/55 (69) Pulse Ox 96 97 97 99 O2 Delivery Ventilator Ventilator Ventilator Ventilator 07/19/19 07/19/19 07/19/19 07/19/19 15:00 15:30 16:00 16:00 Temp 100.2 100.2 Pulse 55 64 Resp 20 18 B/P (MAP) 95/55 (68) 102/57 (72) Pulse Ox 99 99 100 O2 Delivery Ventilator Ventilator Mechanical Ventilator Ventilator 07/19/19 07/19/19 07/19/1922/19 17:00 17:38 18:00 19:00 Pulse 68 64 73 Resp 18 18 18 B/P (MAP) 98/52 (67) 101/54 (70) 98/51 (67) Pulse Ox 96 96 98 98 O2 Delivery Ventilator Ventilator Ventilator Ventilator 07/19/19 07/19/19 07/19/19 07/19/19 19:33 19:34 20:00 20:00 Temp 99.3 99.3 Pulse 64 Resp 18 20 B/P (MAP) 109/62 (78) Pulse Ox 98 97 O2 Delivery Ventilator Ventilator Mechanical Ventilator Ventilator 07/19/19 07/19/19 07/19/19 07/19/19 21:00 21:30 22:00 23:00 Pulse 63 62 54 Resp 16 18 16 B/P (MAP) 96/51 (66) 97/57 (70) 96/56 (69) Pulse Ox 97 96 97 97 O2 Delivery Ventilator Ventilator Ventilator Ventilator 07/19/19 07/19/19 07/20/19 07/20/19 23:45 23:59 00:01 01:00 Temp 99.4 99.4 Pulse 54 66 Resp 18 20 B/P (MAP) 102/67 (79) 97/58 (71) Pulse Ox 97 96 95 O2 Delivery Ventilator Mechanical Ventilator Ventilator Ventilator 07/20/19 07/20/19 07/20/19 07/20/19 01:55 02:00 03:00 03:50 Pulse 59 62 Resp 18 18 B/P (MAP) 99/55 (70) 90/49 (63) Pulse Ox 97 96 96 97 O2 Delivery Ventilator Ventilator Ventilator Ventilator 07/20/19 07/20/19 07/20/19 07/20/19 04:00 04:00 05:00 06:00 Temp 97.9 97.9 Pulse 53 58 55 Resp 19 18 19 B/P (MAP) 96/59 (71) 90/44 (59) 96/53 (67) Pulse Ox 96 96 98 O2 Delivery Mechanical Ventilator Ventilator Ventilator Ventilator 07/20/19 07/20/19 06:06 07:53 Pulse Ox 97 95 O2 Delivery Ventilator Ventilator Intake and Output 07/19/19 07/19/19 07/20/19 15:00 23:00 07:00 Intake Total 650 ml 1082 ml 1892.70 ml Output Total 240 ml 300 ml 270 ml Balance 410 ml 782 ml 1622.70 ml LULY GUERIN MD Jul 20, 2019 09:44
[2019-07-20] MEDS: BUDESONIDE 0.5 MG/2 ML NEBU. NEB SCH ×2 (10:55→19:34)
--- NOTE | 2019-07-20 10:55 | PDOC ---
PULMONARY PROGRESS NOTES Subjective intubated 07/16 SEDATED ON VENT ON 7 PEEP Vitals Vital Signs Date Time Temp Pulse Resp B/P (MAP) Pulse Ox O2 Delivery O2 Flow Rate FiO2 07/20/19 09:00 58 16 109/57 (74) 96 Ventilator 07/20/19 08:00 99.2 99.2 Lungs: Crackles Cardiovascular: S1, S2 Abdomen: Soft, Non-tender, Other Neuro Exam: Alert Extremities: Other (+edems) Skin: Warm Labs Laboratory Tests Test 07/18/19 11:08 07/19/19 04:25 07/19/19 09:00 07/19/19 23:55 Sodium Level 144 mmol/L (136-145) 144 mmol/L (136-145) Potassium Level 4.2 mmol/L (3.5-5.1) 4.0 mmol/L (3.5-5.1) Chloride Level 108 mmol/L (98-107) 108 mmol/L (98-107) Carbon Dioxide Level 28 mmol/L (21-32) 26 mmol/L (21-32) Anion Gap 8 (6-14) 10 (6-14) Blood Urea Nitrogen 38 mg/dL (8-26) 37 mg/dL (8-26) Creatinine 1.3 mg/dL (0.7-1.3) 1.2 mg/dL (0.7-1.3) Estimated GFR (Cockcroft-Gault) 52.0 57.0 Glucose Level 118 mg/dL (70-99) 125 mg/dL (70-99) Calcium Level 8.5 mg/dL (8.5-10.1) 8.1 mg/dL (8.5-10.1) Troponin I Quantitative 4.523 ng/mL (0.000-0.055) O2 Saturation 91 % (92-99) Arterial Blood pH 7.46 (7.35-7.45) Arterial Blood pCO2 at Patient Temp 34 mmHg (35-46) Arterial Blood pO2 at Patient Temp 65 mmHg (65-108) Arterial Blood HCO3 24 mmol/L (21-28) Arterial Blood Base Excess 0 mmol/L (-3-3) FiO2 50 Glucose (Fingerstick) 113 mg/dL (70-99) Test 07/20/19 06:17 07/20/19 08:15 Glucose (Fingerstick) 129 mg/dL (70-99) O2 Saturation 90 % (92-99) Arterial Blood pH 7.45 (7.35-7.45) Arterial Blood pCO2 at Patient Temp 35 mmHg (35-46) Arterial Blood pO2 at Patient Temp 61 mmHg (65-108) Arterial Blood HCO3 24 mmol/L (21-28) Arterial Blood Base Excess 0 mmol/L (-3-3) FiO2 50 Laboratory Tests Test 07/19/19 23:55 07/20/19 06:17 07/20/19 08:15 Glucose (Fingerstick) 113 mg/dL (70-99) 129 mg/dL (70-99) O2 Saturation 90 % (92-99) Arterial Blood pH 7.45 (7.35-7.45) Arterial Blood pCO2 at Patient Temp 35 mmHg (35-46) Arterial Blood pO2 at Patient Temp 61 mmHg (65-108) Arterial Blood HCO3 24 mmol/L (21-28) Arterial Blood Base Excess 0 mmol/L (-3-3) FiO2 50 Medications Active Scripts Medications Dose Route/Sig Max Daily Dose Days Date Category Culturelle (Lactobacillus Rhamnosus Gg) 1 Each Cap.sprink 1 Cap PO BID 30 10/29/18 Rx Zyvox (Linezolid) 600 Mg Tablet 600 Mg PO BID 10 10/29/18 Rx Amox Tr-K Clv 875-125 Mg Tab (Amoxicillin/Potassium Clav) 1 Each Tablet 1 Tab PO BIDWMEALS 10 10/29/18 Rx Vitamin E (Vitamin E Mixed) 1,000 Unit Capsule 1,000 Unit PO DAILY 10/26/18 Reported NITROGLYCERIN SubLingual (Nitroglycerin) 0.4 Mg Tab.subl 0.4 Mg SL PRN Q5MIN PRN 10/26/18 Reported Milk Of Magnesia (Magnesium Hydroxide) 2,400 Mg/10 Ml Oral.susp 2,400 Mg PO DAILY PRN 10/26/18 Reported Maalox Advanced Suspension (Mag Hydrox/Aluminum Hyd/Simeth) 355 Ml Oral.susp 15 Ml PO PRN AFTMEALHC PRN 10/26/18 Reported EXELON 4.6mg/24hr (Rivastigmine) 1 Each Patch.td24 1 Patch TP DAILY 10/26/18 Reported Depakote Er (Divalproex Sodium) 500 Mg Tab.er.24h 1 Tab PO BID 10/26/18 Reported Depakote Er (Divalproex Sodium) 250 Mg Tab.er.24h 1 Tab PO QHS 10/26/18 Reported Welchol (Colesevelam Hcl) 625 Mg Tablet 2,500 Mg PO BID 10/26/18 Reported Zetia (Ezetimibe) 10 Mg Tablet 1 Tab PO HS 08/28/18 Reported Vitamin D (Cholecalciferol (Vitamin D3)) 1,000 Unit Capsule 50,000 Units PO QSA 08/28/18 Reported Tamsulosin Hcl 0.4 Mg Cap.er.24h 1 Cap PO DAILY 08/28/18 Reported Risperidone 0.5 Mg Tablet 1.5 Tab PO QHS 08/28/18 Reported Niaspan (Niacin) 500 Mg Tab.er.24h 1 Tab PO QHS 08/28/18 Reported Mirtazapine 30 Mg Tablet 1 Tab PO QHS 08/28/18 Reported Losartan Potassium 100 Mg Tablet 100 Mg PO DAILY 08/28/18 Reported Levothyroxine Sodium 75 Mcg Tablet 75 Mcg PO DAILYAC 08/28/18 Reported Fluvoxamine Maleate 50 Mg Tablet 1 Tab PO QHS 08/28/18 Reported Vitamin B-12 (Cyanocobalamin (Vitamin B-12)) 1,000 Mcg Tablet 1 Tab PO DAILY 08/28/18 Reported Aspirin Ec (Aspirin) 81 Mg Tablet.dr 81 Mg PO DAILY08 08/28/18 Reported Amlodipine Besylate 5 Mg Tablet 5 Mg PO DAILY 08/28/18 Reported Tylenol (Acetaminophen) 325 Mg Tablet 1-2 Tab PO QID 08/28/18 Reported Impression . IMPRESSION: 1. Acute respiratory failure secondary to influenza, pneumonia, acute diastolic congestive heart failure, acute bronchospasm. 2. Abnormal chest x-ray. 3. Acute bronchospasm. 4. Pneumonia, influenza. 5. Acute kidney injury. 6. Elevated troponin, NSTEMI, type 2. 7. Elevated procalcitonin. 8. Sepsis with lactate elevation. 9. ZAHRAA 10. ACUTE DIASTOLIC CHF IMPRESSION: 1. Stable expiratory devices. 2. Stable bilateral basilar predominant opacities. 3. Stable small bilateral effusions. Plan . ADD STEROIDS FOR ARDS LASIX CXR APPEARS WET D/W PAT FROM PALLIATIVE CARE MEETING TOMORROW WITH SON FOLLOW BC RESULTS VENT SUPPORT WILL DECREASE PEEP WHEN PAO2 IS CLOSER TO 90 ANTIBX PER ID FOLLOW ABG AND CXR DVT PROPHAL NUTRITIONAL SUPPORT TMILFLU STEROIDS CCT 30 MINUTES REVIEWING DATA/LABS AND FORMULATING A PLAN KARLENE SANTIAGO MD Jul 20, 2019 10:55
--- NOTE | 2019-07-20 11:20 | NUR ---
SS following up with discharge planning. Palliative Care consulted. SS phoned and faxed referrals to [facility], ; fax [phone], and [facility], ; fax [phone]. SS will continue to follow for discharge planning.
--- NOTE | 2019-07-20 11:41 | NUR ---
Spoke with son, Matty Babcock, who states he wants his father to be DNR status at this time and moving forward. Violetta Bertrand RN had spoken with him and he stated the same to her.
--- NOTE | 2019-07-20 12:24 | PDOC2 ---
PALLIATIVE CARE Palliative Care Note Palliative Care Consult requested by Dr. Valdes to address goals of care. Medical Assessment per medical record; severe sepsis on echo , The left ventricular systolic function is low normal. EF 50% Calculated aortic valve area is .72 cm2 with maximum pressure gradient of 58 mmHg and mean pressure gradient of 38 mmHg. Doppler and color-flow analysis revealed severe aortic stenosis. fio2 50%,PEEP 7 acute hypoxic resp failure, on vent, had been DNR, family revoked on admit, still ongoing discussion, consider DNR again when able to extubate when family available pneumonia, Stable bilateral basilar predominant opacities. 10- cxr Stable small bilateral effusions. Influenza B pneumonitis advanced dementia morbid obesity NSTEMI, med management, HTN - cont meds HLD - cont meds Hypothyroidism Depression - with anxiety - ON mood stabilizers, mult psych meds, Patient intubated /Vent 50%; sedated. Spoke with son/DONNIE Mcneilck. Reviewed medical condition as above. Discussed patient's previous wishes about DNR, Matty's understanding medical condition, risks and benefits of CPR. Matty requests no chest compressions, shocks or medications if patient heart stops or goes into a rhythm that could cause patient to . Will continue current treatment plan; Vent. Carrie RN confirmed Matty's request. Order received from Dr. Valdes Plan: Family meeting tomorrow at 1300 to discuss plan of care and options. GISSELLE QUINTERO Jul 20, 2019 12:24
[2019-07-20] MEDS: FUROSEMIDE 40 MG/4 ML VIAL. IVP SCH (13:06)
[2019-07-20] MEDS: methylPREDNISolone SOD SUCC PF 125 MG/2 ML VIAL. IV SCH ×2 (13:06→21:32)
[2019-07-20] MEDS: IV NORMAL SALINE 1000ML BAG 1,000 ML IV SCH (15:44)
[2019-07-20] MEDS: QUEtiapine 25 MG TABLET. PO SCH (20:48)
[2019-07-20] MEDS: ATORVASTATIN CALCIUM 20 MG TABLET PO SCH (20:48)
[2019-07-20] MEDS: EZETIMIBE 10 MG TABLET. PO SCH (20:48)
[2019-07-20] MEDS: FAMOTIDINE 20 MG/2 ML VIAL IVP SCH (20:49)
[2019-07-21] VITALS (18 sets, daily range): BP systolic 83–138; BP diastolic 43–78
[2019-07-21] MEDS: LEVOTHYROXINE 75 MCG TABLET PO SCH (05:44)
[2019-07-21] MEDS: methylPREDNISolone SOD SUCC PF 125 MG/2 ML VIAL. IV SCH ×2 (05:44→12:51)
[2019-07-21] MEDS: MIDAZOLAM 100mg/100ml NS BAG 100 ML IV PRN (05:44)
[2019-07-21] MEDS: MEROPENEM 500 MG in IV NORMAL SALINE 50ML 50 ML IV SCH ×2 (05:44→12:04)
--- NOTE | 2019-07-21 06:14 | NUR ---
Critical Potassium of 2.6 called by lab at 0550. Dr. Palacios paged at [phone], page returned at [phone]. Updated on patient condition and critical lab value. Orders received to give 40 mEQ Potassium PO now, give another 40 mEQ Potassium in 2 hours, and recheck Potassium level at 1000.
[2019-07-21] MEDS ORDERED: POTASSIUM CHLORIDE 20 MEQ TABLET.ER. PO ONE ×2 (06:15→08:15)
[2019-07-21] MEDS: POTASSIUM BICARB 20 MEQ EFFERVESCENT TABLET. PO SCH ×2 (06:28→08:30)
[2019-07-21 06:37] LABS: BASO % 0 % (0-3); EOS % 0 % (0-3); HEMOGLOBIN 10.3 g/dL (13.0-17.5); LYMPH # 0.4 x10^3/uL (1.0-4.8); LYMPH % 7 % (24-48); MEAN CORPUSCULAR HEMOGLOBIN 33 pg (25-35); MEAN CORPUSCULAR HGB CONC 34 g/dL (31-37); MEAN CORPUSCULAR VOLUME 97 fL (79-100); MONO # 0.2 x10^3/uL (0.0-1.1); MONO % 3 % (0-9); NEUT # 5.9 x10^3/uL (1.8-7.7); NEUT % 90 % (31-73); PLATELET COUNT 191 x10^3/uL (140-400); RED CELL DISTRIBUTION WIDTH 13.8 % (11.5-14.5); WHITE BLOOD COUNT 6.5 x10^3/uL (4.0-11.0)
--- NOTE | 2019-07-21 07:18 | PDOC ---
PROGRESS NOTES Chief Complaint Chief Complaint impression severe sepsis on echo , The left ventricular systolic function is low normal. EF 50% Calculated aortic valve area is .72 cm2 with maximum pressure gradient of 58 mmHg and mean pressure gradient of 38 mmHg. Doppler and color-flow analysis revealed severe aortic stenosis. fio2 50%,PEEP 7 acute hypoxic resp failure, on vent, had been DNR, family revoked on admit, still ongoing discussion, consider DNR again when able to extubate when family available pneumonia, Stable bilateral basilar predominant opacities. 07-20 cxr Stable small bilateral effusions. Influenza B pneumonitis, ARDS advanced dementia morbid obesity NSTEMI, med management, HTN - cont meds HLD - cont meds Hypothyroidism Depression - with anxiety - ON mood stabilizers, mult psych meds, History of Present Illness History of Present Illness continue vent cont aggressive care palliative care consult CV and pulm and ID following, iv antibiotics DVT PROPHYLAXIS 7 PEEP PALLIATIVE CARE MEETING TODAY cc time 33 min Vitals Vitals Vital Signs Date Time Temp Pulse Resp B/P (MAP) Pulse Ox O2 Delivery O2 Flow Rate FiO2 07/21/19 06:00 46 22 119/62 (81) 95 Ventilator 07/21/19 04:00 97.8 97.8 Physical Exam Physical Exam GENERAL: Intubated, sedated.does not respond to verbal commands HEENT: Normocephalic, atraumatic. ETT in place, OG tube in place. NECK: Supple. LUNGS: Decreased breath sounds HEART S1 S2 no murmurs ABDOMEN: Soft and obese. Bowel sounds present. EXTREMITIES: Trace edema. 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 General: No acute distress, mild distress Heart: Other (gr 3/6 ambreen) Lungs: Crackles Abdomen: Soft, No tenderness Extremities: No cyanosis, Other (2+ Pedal edema) Skin: No breakdown Labs LABS Laboratory Tests Test 07/20/19 08:15 07/20/19 23:45 07/21/19 06:07 07/21/19 06:25 O2 Saturation 90 % (92-99) Arterial Blood pH 7.45 (7.35-7.45) Arterial Blood pCO2 at Patient Temp 35 mmHg (35-46) Arterial Blood pO2 at Patient Temp 61 mmHg (65-108) Arterial Blood HCO3 24 mmol/L (21-28) Arterial Blood Base Excess 0 mmol/L (-3-3) FiO2 50 Glucose (Fingerstick) 240 mg/dL (70-99) 216 mg/dL (70-99) White Blood Count 6.5 x10^3/uL (4.0-11.0) Red Blood Count 3.10 x10^6/uL (4.30-5.70) Hemoglobin 10.3 g/dL (13.0-17.5) Hematocrit 30.0 % (39.0-53.0) Mean Corpuscular Volume 97 fL (79-100) Mean Corpuscular Hemoglobin 33 pg (25-35) Mean Corpuscular Hemoglobin Concent 34 g/dL (31-37) Red Cell Distribution Width 13.8 % (11.5-14.5) Platelet Count 191 x10^3/uL (140-400) Neutrophils (%) (Auto) 90 % (31-73) Lymphocytes (%) (Auto) 7 % (24-48) Monocytes (%) (Auto) 3 % (0-9) Eosinophils (%) (Auto) 0 % (0-3) Basophils (%) (Auto) 0 % (0-3) Neutrophils # (Auto) 5.9 x10^3/uL (1.8-7.7) Lymphocytes # (Auto) 0.4 x10^3/uL (1.0-4.8) Monocytes # (Auto) 0.2 x10^3/uL (0.0-1.1) Eosinophils # (Auto) 0.0 x10^3/uL (0.0-0.7) Basophils # (Auto) 0.0 x10^3/uL (0.0-0.2) Assessment and Plan Assessmemt and Plan Problems Medical Problems: (1) Elevated troponin Status: Acute (2) Influenza Status: Acute Comment Review of Relevant I have reviewed the following items en (where applicable) has been applied. Labs Laboratory Tests Test 07/19/19 09:00 07/19/19 23:55 07/20/19 06:17 07/20/19 08:15 O2 Saturation 91 % (92-99) 90 % (92-99) Arterial Blood pH 7.46 (7.35-7.45) 7.45 (7.35-7.45) Arterial Blood pCO2 at Patient Temp 34 mmHg (35-46) 35 mmHg (35-46) Arterial Blood pO2 at Patient Temp 65 mmHg (65-108) 61 mmHg (65-108) Arterial Blood HCO3 24 mmol/L (21-28) 24 mmol/L (21-28) Arterial Blood Base Excess 0 mmol/L (-3-3) 0 mmol/L (-3-3) FiO2 50 50 Glucose (Fingerstick) 113 mg/dL (70-99) 129 mg/dL (70-99) Test 07/20/19 23:45 07/21/19 06:07 07/21/19 06:25 Glucose (Fingerstick) 240 mg/dL (70-99) 216 mg/dL (70-99) White Blood Count 6.5 x10^3/uL (4.0-11.0) Red Blood Count 3.10 x10^6/uL (4.30-5.70) Hemoglobin 10.3 g/dL (13.0-17.5) Hematocrit 30.0 % (39.0-53.0) Mean Corpuscular Volume 97 fL (79-100) Mean Corpuscular Hemoglobin 33 pg (25-35) Mean Corpuscular Hemoglobin Concent 34 g/dL (31-37) Red Cell Distribution Width 13.8 % (11.5-14.5) Platelet Count 191 x10^3/uL (140-400) Neutrophils (%) (Auto) 90 % (31-73) Lymphocytes (%) (Auto) 7 % (24-48) Monocytes (%) (Auto) 3 % (0-9) Eosinophils (%) (Auto) 0 % (0-3) Basophils (%) (Auto) 0 % (0-3) Neutrophils # (Auto) 5.9 x10^3/uL (1.8-7.7) Lymphocytes # (Auto) 0.4 x10^3/uL (1.0-4.8) Monocytes # (Auto) 0.2 x10^3/uL (0.0-1.1) Eosinophils # (Auto) 0.0 x10^3/uL (0.0-0.7) Basophils # (Auto) 0.0 x10^3/uL (0.0-0.2) Laboratory Tests Test 07/20/19 08:15 07/20/19 23:45 07/21/19 06:07 07/21/19 06:25 O2 Saturation 90 % (92-99) Arterial Blood pH 7.45 (7.35-7.45) Arterial Blood pCO2 at Patient Temp 35 mmHg (35-46) Arterial Blood pO2 at Patient Temp 61 mmHg (65-108) Arterial Blood HCO3 24 mmol/L (21-28) Arterial Blood Base Excess 0 mmol/L (-3-3) FiO2 50 Glucose (Fingerstick) 240 mg/dL (70-99) 216 mg/dL (70-99) White Blood Count 6.5 x10^3/uL (4.0-11.0) Red Blood Count 3.10 x10^6/uL (4.30-5.70) Hemoglobin 10.3 g/dL (13.0-17.5) Hematocrit 30.0 % (39.0-53.0) Mean Corpuscular Volume 97 fL (79-100) Mean Corpuscular Hemoglobin 33 pg (25-35) Mean Corpuscular Hemoglobin Concent 34 g/dL (31-37) Red Cell Distribution Width 13.8 % (11.5-14.5) Platelet Count 191 x10^3/uL (140-400) Neutrophils (%) (Auto) 90 % (31-73) Lymphocytes (%) (Auto) 7 % (24-48) Monocytes (%) (Auto) 3 % (0-9) Eosinophils (%) (Auto) 0 % (0-3) Basophils (%) (Auto) 0 % (0-3) Neutrophils # (Auto) 5.9 x10^3/uL (1.8-7.7) Lymphocytes # (Auto) 0.4 x10^3/uL (1.0-4.8) Monocytes # (Auto) 0.2 x10^3/uL (0.0-1.1) Eosinophils # (Auto) 0.0 x10^3/uL (0.0-0.7) Basophils # (Auto) 0.0 x10^3/uL (0.0-0.2) Microbiology 07/18/19 Blood Culture - Preliminary, Resulted NO GROWTH AFTER 2 DAYS Medications Current Medications Acetaminophen (Tylenol) 1,000 mg 1X ONCE PO Last administered on 07/16/19at 08:09; Start 07/16/19 at 08:00; Stop 07/16/19 at 08:01; Status DC Ceftriaxone Sodium (Rocephin) 2 gm 1X ONCE IVP Last administered on 07/16/19at 08:31; Start 07/16/19 at 08:00; Stop 07/16/19 at 08:01; Status DC Sodium Chloride 1,000 ml @ 2,100 mls/hr Q29M IV Last administered on 07/16/19at 08:21; Start 07/16/19 at 07:53; Stop 07/16/19 at 08:53; Status DC Doxycycline Hyclate 100 mg/ Dextrose 100 ml @ 50 mls/hr 1X ONCE IV Last administered on 07/16/19at 08:32; Start 07/16/19 at 08:00; Stop 07/16/19 at 09:59; Status DC Albuterol/ Ipratropium (Duoneb) 3 ml 1X ONCE NEB Last administered on 07/16/19 08:04; Start 07/16/19 at 08:00; Stop 07/16/19 at 08:01; Status DC Lorazepam (Ativan Inj) 1 mg 1X ONCE IV Last administered on 07/16/19at 09:28; Start 07/16/19 at 09:30; Stop 07/16/19 at 09:31; Status DC Lorazepam (Ativan Inj) 1 mg 1X ONCE IVP ; Start 07/16/19 at 09:30; Stop 07/16/19 at 09:31; Status DC Oseltamivir Phosphate (Tamiflu) 75 mg 1X STAT PO ; Start 07/16/19 at 09:26; Stop 07/16/19 at 09:28; Status DC Ketamine HCl (Ketamine) 50 mg STK-MED ONCE .ROUTE ; Start 07/16/19 at 09:35; Stop 07/16/19 at 09:35; Status DC Ketamine HCl (Ketamine) 20 mg 1X ONCE IV ; Start 07/16/19 at 09:45; Stop 07/16/19 at 09:46; Status DC Ketamine HCl (Ketamine) 20 mg 1X ONCE IV Last administered on 07/16/19at 09:46; Start 07/16/19 at 09:45; Stop 07/16/19 at 09:46; Status DC Albuterol Sulfate (Ventolin Neb Soln) 2.5 mg 1X ONCE NEB Last administered on 07/16/19at 09:56; Start 07/16/19 at 09:45; Stop 07/16/19 at 09:46; Status DC Morphine Sulfate (Morphine Sulfate) 2 mg PRN Q2HR PRN IV PAIN; Start 07/16/19 at 10:15; Stop 07/17/19 at 10:14; Status DC Albuterol/ Ipratropium (Duoneb) 3 ml RTQID NEB Last administered on 07/17/19at 09:18; Start 07/16/19 at 12:00; Stop 07/17/19 at 11:59; Status DC Ketamine HCl (Ketamine) 20 mg 1X ONCE IV Last administered on 07/16/19at 10:20; Start 07/16/19 at 10:15; Stop 07/16/19 at 10:16; Status DC Budesonide (Pulmicort) 0.5 mg RTBID NEB Last administered on 07/20/19 19:34; Start 07/16/19 at 20:00 Budesonide (Pulmicort) 0.5 mg 1X ONCE NEB Last administered on 07/16/19at 12:19; Start 07/16/19 at 11:00; Stop 07/16/19 at 11:01; Status DC Ketamine HCl (Ketamine) 20 mg 1X ONCE IV ; Start 07/16/19 at 11:00; Stop 07/16/19 at 11:02; Status DC Lorazepam (Ativan Inj) 0.5 mg PRN Q6HRS PRN IV ANXIETY / AGITATION Last administered on 07/16/19at 13:42; Start 07/16/19 at 11:30; Stop 07/16/19 at 16:12; Status DC Ondansetron HCl (Zofran) 4 mg PRN Q6HRS PRN IV NAUSEA/VOMITING; Start 07/16/19 at 11:30 Famotidine (Pepcid Vial) 20 mg QHS IVP Last administered on 07/20/19 20:49; Start 07/16/19 at 21:00 Heparin Sodium (Porcine) (Heparin Sodium) 5,000 unit Q12HR SQ Last administered on 07/20/19 20:51; Start 07/16/19 at 21:00 Sodium Chloride (Normal Saline Flush) 3 ml QSHIFT PRN IV AFTER MEDS AND BLOOD DRAWS; Start 07/16/19 at 11:30 Bisacodyl (Dulcolax Supp) 10 mg PRN DAILY PRN [place] CONSTIPATION; Start 07/16/19 at 11:30 Sodium Chloride 1,000 ml @ 2,130 mls/hr Q29M IV ; Start 07/16/19 at 11:24; S top 07/16/19 at 12:24; Status DC Meropenem 0.5 gm/ Sodium Chloride 100 ml @ 200 mls/hr Q8HRS IV ; Start 07/16/19 at 14:00; Status UNV Norepinephrine Bitartrate 250 ml @ 17.006 mls/ hr CONT PRN IV PER PROTOCOL Last administered on 07/17/19at 13:14; Start 07/16/19 at 11:30 Aspirin (Aspirin Rectal Supp) 300 mg 1X STAT [place] Last administered on 07/16/19at 12:20; Start 07/16/19 at 11:27; Stop 07/16/19 at 11:30; Status DC Meropenem 500 mg/ Sodium Chloride 50 ml @ 100 mls/hr Q8HRS IV Last administered on 07/21/19at 05:44; Start 07/16/19 at 12:00 Lorazepam (Ativan Inj) 0.25 mg PRN 1X PRN IVP ANXIETY / AGITATION Last administered on 07/16/19at 16:32; Start 07/16/19 at 16:15; Stop 07/17/19 at 11:28; Status DC Lorazepam (Ativan Inj) 0.25 mg PRN Q3HRS PRN IVP ANXIETY / AGITATION; Start 07/16/19 at 16:15 Propofol 100 ml @ As Directed STK-MED ONCE IV ; Start 07/16/19 at 17:02; Stop 07/16/19 at 17:03; Status DC Succinylcholine Chloride (Anectine) 200 mg STK-MED ONCE .ROUTE ; Start 07/16/19 at 17:03; Stop 07/16/19 at 17:03; Status DC Fentanyl Citrate 30 ml @ 0 mls/hr CONT PRN IV SEE PROTOCOL Last administered on 07/20/19at 14:27; Start 07/16/19 at 17:45 Midazolam HCl 100 ml @ 0 mls/hr CONT PRN IV SEE PROTOCOL Last administered on 07/21/19 05:44; Start 07/16/19 at 17:45 Acetaminophen (Tylenol) 650 mg PRN Q4HRS PRN PEG MILD PAIN / TEMP Last administered on 07/16/19 20:52; Start 07/16/19 at 18:15 Fentanyl Citrate (Fentanyl 2ml Vial) 25 mcg PRN Q1HR PRN IV SEE COMMENTS; Start 07/16/19 at 18:30 Fentanyl Citrate (Fentanyl 2ml Vial) 50 mcg PRN Q1HR PRN IV SEE COMMENTS; Start 07/16/19 at 18:30 Chlorhexidine Gluconate (Peridex) 15 ml BID MM Last administered on 07/20/19 20:49; Start 07/16/19 at 21:00 Morphine Sulfate (Morphine Sulfate) 2 mg PRN Q1HR PRN IV SEE COMMENTS.; Start 07/16/19 at 18:30 Morphine Sulfate (Morphine Sulfate) 4 mg PRN Q1HR PRN IV SEE COMMENTS.; Start 07/16/19 at 18:30 Midazolam HCl 100 ml @ 5 mls/hr CONT PRN IV SEE I/O RECORD; Start 07/16/19 at 18:30; Stop 07/16/19 at 18:23; Status DC Fentanyl Citrate 30 ml @ 0 mls/hr CONT PRN PRN IV PER PROTOCOL; Start 07/16/19 at 18:30; Stop 07/16/19 at 18:23; Status DC Naloxone HCl (Narcan) 0.4 mg PRN Q2MIN PRN IV SEE INSTRUCTIONS; Start 07/16/19 at 18:30 Sodium Chloride 1,000 ml @ 25 mls/hr Q24H IV Last administered on 07/19/19at 21:15; Start 07/16/19 at 18:18 Oseltamivir Phosphate (Tamiflu) 30 mg BID PO Last administered on 07/20/19 20:48; Start 07/17/19 at 09:30; Stop 07/22/19 at 09:29 Linezolid/Dextrose 300 ml @ 300 mls/hr Q12HR IV Last administered on 07/20/19 20:49; Start 07/17/19 at 09:30 Atorvastatin Calcium (Lipitor) 20 mg QHS PO Last administered on 07/20/19 20:48; Start 07/17/19 at 21:00 Clopidogrel Bisulfate (Plavix) 300 mg 1X ONCE PO Last administered on 07/17/19at 11:12; Start 07/17/19 at 09:45; Stop 07/17/19 at 09:48; Status DC Clopidogrel Bisulfate (Plavix) 75 mg DAILYWBKFT PO Last administered on 07/20/19at 08:13; Start 07/18/19 at 08:00 Daptomycin 500 mg/ Sodium Chloride 50 ml @ 100 mls/hr Q24H ONCE IV Last administered on 07/18/19at 11:16; Start 07/18/19 at 10:00; Stop 07/18/19 at 10:29; Status DC Aspirin (Children'S Aspirin) 81 mg DAILYWBKFT PO ; Start 07/19/19 at 08:00; Status Cancel Amlodipine Besylate (Norvasc) 5 mg DAILY PO Last administered on 07/19/19at 09:03; Start 07/19/19 at 09:00 Aspirin (Ecotrin) 81 mg DAILY08 PO Last administered on 07/20/19at 08:13; Start 07/19/19 at 08:00 Divalproex Sodium (Depakote Er) 750 mg QHS PO ; Start 07/18/19 at 21:00; Stop 07/19/19 at 12:08; Status DC Divalproex Sodium (Depakote Er) 500 mg HS PO ; Start 07/18/19 at 21:00; Status UNV EZETIMIBE (Zetia) 10 mg HS PO Last administered on 07/20/19at 20:48; Start 07/18/19 at 21:00 Guaifenesin (Mucinex) 600 mg BID PO Last administered on 07/20/19at 08:15; Start 07/18/19 at 21:00 Lactobacillus Rhamnosus (Culturelle) 1 cap BID PO Last administered on 07/20/19at 20:48; Start 07/18/19 at 21:00 Levothyroxine Sodium (Synthroid) 100 mcg DAILY06 PO Last administered on 07/21/19at 05:44; Start 07/19/19 at 07:30 Mirtazapine (Remeron) 15 mg QHS PO Last administered on 07/18/19at 20:33; Start 07/18/19 at 21:00; Stop 07/19/19 at 12:18; Status DC Nitroglycerin (Nitrostat) 0.4 mg PRN Q5MIN PRN SL CHEST PAIN; Start 07/18/19 at 14:45 Quetiapine Fumarate (SEROquel) 37.5 mg HS PO Last administered on 07/20/19at 20:48; Start 07/18/19 at 21:00 Tamsulosin HCl (Flomax) 0.4 mg DAILY PO Last administered on 07/19/19 09:02; Start 07/19/19 at 09:00 Fluvoxamine Maleate (Luvox) 50 mg QHS PO Last administered on 07/20/19 20:49; Start 07/18/19 at 21:00 Losartan Potassium (Cozaar) 100 mg DAILY PO Last administered on 07/19/19 09:03; Start 07/19/19 at 09:00 Al Hydroxide/Mg Hydroxide (Mylanta Plus Xs) 15 ml PRN AFTMEALHC PRN PO DYSPEPSIA; Start 07/18/19 at 15:30 Magnesium Hydroxide (Milk Of Magnesia) 2,400 mg PRN DAILY PRN PO CONSTIPATION; Start 07/18/19 at 15:30 Risperidone (RisperDAL) 0.75 mg QHS PO Last administered on 07/18/19at 20:35; Start 07/18/19 at 21:00; Stop 07/19/19 at 12:10; Status DC Albuterol/ Ipratropium (Duoneb) 3 ml RTQID NEB Last administered on 07/20/19at 19:34; Start 07/18/19 at 17:00 Daptomycin 520 mg/ Sodium Chloride 50 ml @ 100 mls/hr Q24H IV Last administered on 07/20/19at 08:17; Start 07/19/19 at 08:00 Divalproex Sodium (Depakote Er) 500 mg QHS PO ; Start 07/19/19 at 21:00; Status Cancel Divalproex Sodium (Depakote Sprinkles) 250 mg BID PO Last administered on 07/20/19at 20:48; Start 07/20/19 at 09:00 Methylprednisolone Sodium Succinate (SOLU-Medrol 125MG VIAL) 125 mg Q8HRS IV Last administered on 07/21/19at 05:44; Start 07/20/19 at 14:00 Furosemide (Lasix) 40 mg BID92 IVP Last administered on 07/20/19at 13:06; Start 07/20/19 at 14:00 Potassium Chloride (Klor-Con) 40 meq 1X ONCE PO ; Start 07/21/19 at 06:15; Stop 07/21/19 at 06:16; Status Cancel Potassium Chloride (Klor-Con) 40 meq 1X ONCE PO ; Start 07/21/19 at 08:15; Stop 07/21/19 at 08:16; Status Cancel Potassium Bicarbonate (Potassium Effervescent Tablet) 40 meq Q2H PO Last administered on 07/21/19at 06:28; Start 07/21/19 at 06:30; Stop 07/21/19 at 08:31 Active Scripts Active Culturelle (Lactobacillus Rhamnosus Gg) 1 Each Cap.sprink 1 Cap PO BID 30 Days Zyvox (Linezolid) 600 Mg Tablet 600 Mg PO BID 10 Days Amox Tr-K Clv 875-125 Mg Tab (Amoxicillin/Potassium Clav) 1 Each Tablet 1 Tab PO BIDWMEALS 10 Days Reported Seroquel (Quetiapine Fumarate) 25 Mg Tablet 37.5 Mg PO HS Namenda Xr (Memantine Hcl) 28 Mg Cap.spr.24 28 Mg PO DAILY Men's One Daily (Multivitamin With Minerals) 1 Each Tablet 1 Each PO DAILY Mucinex (Guaifenesin) 600 Mg Tablet.er 1 Tab PO BID 10 Days Meloxicam 7.5 Mg Tablet 1 Tab PO DAILY 30 Days Claritin (Loratadine) 10 Mg Capsule 1 Cap PO DAILY 30 Days Remeron (Mirtazapine) 15 Mg Tablet 1 Tab PO QHS Vitamin E (Vitamin E Mixed) 1,000 Unit Capsule 1,000 Unit PO DAILY NITROGLYCERIN SubLingual (Nitroglycerin) 0.4 Mg Tab.subl 0.4 Mg SL PRN Q5MIN PRN Milk Of Magnesia (Magnesium Hydroxide) 2,400 Mg/10 Ml Oral.susp 2,400 Mg PO DAILY PRN Maalox Advanced Suspension (Mag Hydrox/Aluminum Hyd/Simeth) 355 Ml Oral.susp 15 Ml PO PRN AFTMEALHC PRN EXELON 4.6mg/24hr (Rivastigmine) 1 Each Patch.td24 1 Patch TP DAILY Depakote Er (Divalproex Sodium) 500 Mg Tab.er.24h 1 Tab PO HS Depakote Er (Divalproex Sodium) 250 Mg Tab.er.24h 1 Tab PO QHS Welchol (Colesevelam Hcl) 625 Mg Tablet 2,500 Mg PO BID Zetia (Ezetimibe) 10 Mg Tablet 1 Tab PO HS Vitamin D (Cholecalciferol (Vitamin D3)) 1,000 Unit Capsule 50,000 Units PO QSA Tamsulosin Hcl 0.4 Mg Cap.er.24h 1 Cap PO DAILY Risperidone 0.5 Mg Tablet 1.5 Tab PO QHS Niaspan (Niacin) 500 Mg Tab.er.24h 1 Tab PO QHS Losartan Potassium 100 Mg Tablet 100 Mg PO DAILY Levothyroxine Sodium 75 Mcg Tablet 100 Mcg PO DAILYAC Fluvoxamine Maleate 50 Mg Tablet 1 Tab PO QHS Vitamin B-12 (Cyanocobalamin (Vitamin B-12)) 1,000 Mcg Tablet 1 Tab PO DAILY Aspirin Ec (Aspirin) 81 Mg Tablet.dr 81 Mg PO DAILY08 Amlodipine Besylate 5 Mg Tablet 5 Mg PO DAILY Tylenol (Acetaminophen) 325 Mg Tablet 1-2 Tab PO QID Vitals/I & O Vital Sign - Last 24 Hours 07/20/19 07/20/19 07/20/19 07/20/19 07:53 08:00 08:00 09:00 Temp 99.2 99.2 Pulse 54 58 Resp 16 16 B/P (MAP) 90/50 (63) 109/57 (74) Pulse Ox 95 96 96 O2 Delivery Ventilator Ventilator Mechanical Ventilator Ventilator 07/20/19 07/20/19 07/20/19 07/20/19 10:00 10:56 11:00 12:00 Temp 99.9 99.9 Pulse 62 60 54 Resp 16 16 16 B/P (MAP) 114/67 (83) 126/71 (89) 90/50 (63) Pulse Ox 95 100 98 96 O2 Delivery Ventilator Ventilator Ventilator Ventilator 07/20/19 07/20/19 07/20/19 07/20/19 12:00 13:00 13:52 14:00 Pulse 86 80 Resp 37 40 B/P (MAP) 131/67 (88) 146/75 (98) Pulse Ox 96 100 98 O2 Delivery Mechanical Ventilator Ventilator Ventilator Ventilator 07/20/19 07/20/19 07/20/19 07/20/19 15:00 15:30 16:00 16:00 Temp 99.8 99.8 Pulse 66 68 Resp 16 16 B/P (MAP) 118/56 (76) 115/63 (80) Pulse Ox 92 100 95 O2 Delivery Ventilator Ventilator Mechanical Ventilator Ventilator 07/20/19 07/20/19 07/20/19 07/20/19 17:00 17:46 18:00 19:00 Pulse 60 58 63 Resp 16 16 26 B/P (MAP) 123/67 (85) 124/64 (84) 126/65 (85) Pulse Ox 96 96 96 95 O2 Delivery Ventilator Ventilator Ventilator Ventilator 07/20/19 07/20/19 07/20/19 07/20/19 19:40 19:40 20:00 21:00 Temp 98.8 98.8 Pulse 63 57 Resp 16 26 B/P (MAP) 123/56 (78) 126/60 (82) Pulse Ox 96 96 96 O2 Delivery Ventilator Mechanical Ventilator Ventilator Ventilator 07/20/19 07/20/19 07/20/19 07/20/19 21:20 22:00 23:00 23:00 Pulse 57 58 Resp 22 20 B/P (MAP) 110/48 (68) 100/48 (65) Pulse Ox 96 93 94 92 O2 Delivery Ventilator Ventilator Ventilator Ventilator 07/20/19 07/21/19 07/21/19 07/21/19 23:50 00:00 01:00 01:35 Temp 97.8 97.8 Pulse 56 51 Resp 22 21 B/P (MAP) 103/52 (69) 115/64 (81) Pulse Ox 95 94 94 O2 Delivery Mechanical Ventilator Ventilator Ventilator Ventilator 07/21/19 07/21/19 07/21/19 07/21/19 02:00 03:00 04:00 04:00 Temp 97.8 97.8 Pulse 53 58 63 Resp 22 22 27 B/P (MAP) 120/64 (82) 116/58 (77) 121/60 (80) Pulse Ox 93 93 93 O2 Delivery Ventilator Ventilator Ventilator Mechanical Ventilator 07/21/19 07/21/19 07/21/19 04:30 05:00 06:00 Pulse 52 46 Resp 22 22 B/P (MAP) 119/64 (82) 119/62 (81) Pulse Ox 94 93 95 O2 Delivery Ventilator Ventilator Ventilator Intake and Output 07/20/19 07/20/19 07/21/19 15:00 23:00 07:00 Intake Total 500 ml 1658.0 ml 1470 ml Output Total 514 ml 560 ml 330 ml Balance -14 ml 1098.0 ml 1140 ml LULY GUERIN MD Jul 21, 2019 07:18
[2019-07-21 07:22] LABS: CALCIUM 7.6 mg/dL (8.5-10.1)
[2019-07-21 07:23] LABS: CREATININE 1.1 mg/dL (0.7-1.3)
[2019-07-21 07:24] LABS: POTASSIUM 4.9 mmol/L (3.5-5.1)
--- NOTE | 2019-07-21 07:39 | PDOC ---
Infectious Disease Note Subjective: Subjective Intubated, D/W RN ROS: ROS unable to obtain Vital Signs: Vital Signs Vital Signs Date Time Temp Pulse Resp B/P (MAP) Pulse Ox O2 Delivery O2 Flow Rate FiO2 07/21/19 06:00 46 22 119/62 (81) 95 Ventilator 07/21/19 04:00 97.8 97.8 Physical Exam: PHYSICAL EXAM GENERAL: Intubated, sedated.does not respond to verbal commands HEENT: Normocephalic, atraumatic. ETT in place, OG tube in place. NECK: Supple. LUNGS: Decreased breath sounds HEART S1 S2 no murmurs ABDOMEN: Soft and obese. Bowel sounds present. EXTREMITIES: Trace edema. [employer] intubated, not responding Medications: Inpatient Meds: Current Medications Medications (Trade) Dose Ordered Sig/Lorri Start Time Stop Time Status Last Admin Dose Admin Acetaminophen (Tylenol) 650 mg PRN Q4HRS PRN 07/16/19 18:15 07/16/19 20:52 650 MG Al Hydroxide/Mg Hydroxide (Mylanta Plus Xs) 15 ml PRN AFTMEALHC PRN 07/18/19 15:30 Albuterol Sulfate (Ventolin Neb Soln) 2.5 mg 1X ONCE 07/16/19 09:45 07/16/19 09:46 DC 07/16/19 09:56 2.5 MG Albuterol/ Ipratropium (Duoneb) 3 ml RTQID 07/18/19 17:00 07/20/19 19:34 3 ML Amlodipine Besylate (Norvasc) 5 mg DAILY 07/19/19 09:00 07/19/19 09:03 5 MG Aspirin (Aspirin Rectal Supp) 300 mg 1X STAT 07/16/19 11:27 07/16/19 11:30 DC 07/16/19 12:20 300 MG Aspirin (Children'S Aspirin) 81 mg DAILYWBKFT 07/19/19 08:00 Cancel Aspirin (Ecotrin) 81 mg DAILY08 07/19/19 08:00 07/20/19 08:13 81 MG Atorvastatin Calcium (Lipitor) 20 mg QHS 07/17/19 21:00 07/20/19 20:48 20 MG Bisacodyl (Dulcolax Supp) 10 mg PRN DAILY PRN 07/16/19 11:30 Budesonide (Pulmicort) 0.5 mg 1X ONCE 07/16/19 11:00 07/16/19 11:01 DC 07/16/19 12:19 0.5 MG Ceftriaxone Sodium (Rocephin) 2 gm 1X ONCE 07/16/19 08:00 07/16/19 08:01 DC 07/16/19 08:31 2 GM Chlorhexidine Gluconate (Peridex) 15 ml BID 07/16/19 21:00 07/20/19 20:49 15 ML Clopidogrel Bisulfate (Plavix) 75 mg DAILYWBKFT 07/18/19 08:00 07/20/19 08:13 75 MG Daptomycin 500 mg/ Sodium Chloride 50 ml @ 100 mls/hr Q24H ONCE 07/18/19 10:00 07/18/19 10:29 DC 07/18/19 11:16 100 MLS/HR Daptomycin 520 mg/ Sodium Chloride 50 ml @ 100 mls/hr Q24H 07/19/19 08:00 07/20/19 08:17 100 MLS/HR Divalproex Sodium (Depakote Sprinkles) 250 mg BID 07/20/19 09:00 07/20/19 20:48 250 MG Divalproex Sodium (Depakote Er) 500 mg QHS 07/19/19 21:00 Cancel Doxycycline Hyclate 100 mg/ Dextrose 100 ml @ 50 mls/hr 1X ONCE 07/16/19 08:00 07/16/19 09:59 DC 07/16/19 08:32 50 MLS/HR EZETIMIBE (Zetia) 10 mg HS 07/18/19 21:00 07/20/19 20:48 10 MG Famotidine (Pepcid Vial) 20 mg QHS 07/16/19 21:00 07/20/19 20:49 20 MG Fentanyl Citrate 30 ml @ 0 mls/hr CONT PRN PRN 07/16/19 18:30 07/16/19 18:23 DC Fentanyl Citrate (Fentanyl 2ml Vial) 50 mcg PRN Q1HR PRN 07/16/19 18:30 Fluvoxamine Maleate (Luvox) 50 mg QHS 07/18/19 21:00 07/20/19 20:49 50 MG Furosemide (Lasix) 40 mg BID92 07/20/19 14:00 07/20/19 13:06 40 MG Guaifenesin (Mucinex) 600 mg BID 07/18/19 21:00 07/20/19 08:15 600 MG Heparin Sodium (Porcine) (Heparin Sodium) 5,000 unit Q12HR 07/16/19 21:00 07/20/19 20:51 5,000 UNIT Ketamine HCl (Ketamine) 20 mg 1X ONCE 07/16/19 11:00 07/16/19 11:02 DC Lactobacillus Rhamnosus (Culturelle) 1 cap BID 07/18/19 21:00 07/20/19 20:48 1 CAP Levothyroxine Sodium (Synthroid) 100 mcg DAILY06 07/19/19 07:30 07/21/19 05:44 100 MCG Linezolid/Dextrose 300 ml @ 300 mls/hr Q12HR 07/17/19 09:30 07/20/19 20:49 300 MLS/HR Lorazepam (Ativan Inj) 0.25 mg PRN Q3HRS PRN 07/16/19 16:15 Losartan Potassium (Cozaar) 100 mg DAILY 07/19/19 09:00 07/19/19 09:03 100 MG Magnesium Hydroxide (Milk Of Magnesia) 2,400 mg PRN DAILY PRN 07/18/19 15:30 Meropenem 0.5 gm/ Sodium Chloride 100 ml @ 200 mls/hr Q8HRS 07/16/19 14:00 UNV Meropenem 500 mg/ Sodium Chloride 50 ml @ 100 mls/hr Q8HRS 07/16/19 12:00 07/21/19 05:44 100 MLS/HR Methylprednisolone Sodium Succinate (SOLU-Medrol 125MG VIAL) 125 mg Q8HRS 07/20/19 14:00 07/21/19 05:44 125 MG Midazolam HCl 100 ml @ 5 mls/hr CONT PRN 07/16/19 18:30 07/16/19 18:23 DC Mirtazapine (Remeron) 15 mg QHS 07/18/19 21:00 07/19/19 12:18 DC 07/18/19 20:33 15 MG Morphine Sulfate (Morphine Sulfate) 4 mg PRN Q1HR PRN 07/16/19 18:30 Naloxone HCl (Narcan) 0.4 mg PRN Q2MIN PRN 07/16/19 18:30 Nitroglycerin (Nitrostat) 0.4 mg PRN Q5MIN PRN 07/18/19 14:45 Norepinephrine Bitartrate 250 ml @ 17.006 mls/ hr CONT PRN 07/16/19 11:30 07/17/19 13:14 17.006 MLS/HR Ondansetron HCl (Zofran) 4 mg PRN Q6HRS PRN 07/16/19 11:30 Oseltamivir Phosphate (Tamiflu) 30 mg BID 07/17/19 09:30 07/22/19 09:29 07/20/19 20:48 30 MG Potassium Bicarbonate (Potassium Effervescent Tablet) 40 meq Q2H 07/21/19 06:30 07/21/19 08:31 07/21/19 06:28 40 MEQ Potassium Chloride (Klor-Con) 40 meq 1X ONCE 07/21/19 08:15 07/21/19 08:16 Cancel Propofol 100 ml @ As Directed STK-MED ONCE 07/16/19 17:02 07/16/19 17:03 DC Quetiapine Fumarate (SEROquel) 37.5 mg HS 07/18/19 21:00 07/20/19 20:48 37.5 MG Risperidone (RisperDAL) 0.75 mg QHS 07/18/19 21:00 07/19/19 12:10 DC 07/18/19 20:35 0.75 MG Sodium Chloride 1,000 ml @ 25 mls/hr Q24H 07/16/19 18:18 07/19/19 21:15 25 MLS/HR Sodium Chloride (Normal Saline Flush) 3 ml QSHIFT PRN 07/16/19 11:30 Succinylcholine Chloride (Anectine) 200 mg STK-MED ONCE 07/16/19 17:03 07/16/19 17:03 DC Tamsulosin HCl (Flomax) 0.4 mg DAILY 07/19/19 09:00 07/19/19 09:02 0.4 MG Labs: Lab Laboratory Tests Test 07/20/19 08:15 07/20/19 23:45 07/21/19 06:07 07/21/19 06:25 O2 Saturation 90 % (92-99) Arterial Blood pH 7.45 (7.35-7.45) Arterial Blood pCO2 at Patient Temp 35 mmHg (35-46) Arterial Blood pO2 at Patient Temp 61 mmHg (65-108) Arterial Blood HCO3 24 mmol/L (21-28) Arterial Blood Base Excess 0 mmol/L (-3-3) FiO2 50 Glucose (Fingerstick) 240 mg/dL (70-99) 216 mg/dL (70-99) White Blood Count 6.5 x10^3/uL (4.0-11.0) Red Blood Count 3.10 x10^6/uL (4.30-5.70) Hemoglobin 10.3 g/dL (13.0-17.5) Hematocrit 30.0 % (39.0-53.0) Mean Corpuscular Volume 97 fL (79-100) Mean Corpuscular Hemoglobin 33 pg (25-35) Mean Corpuscular Hemoglobin Concent 34 g/dL (31-37) Red Cell Distribution Width 13.8 % (11.5-14.5) Platelet Count 191 x10^3/uL (140-400) Neutrophils (%) (Auto) 90 % (31-73) Lymphocytes (%) (Auto) 7 % (24-48) Monocytes (%) (Auto) 3 % (0-9) Eosinophils (%) (Auto) 0 % (0-3) Basophils (%) (Auto) 0 % (0-3) Neutrophils # (Auto) 5.9 x10^3/uL (1.8-7.7) Lymphocytes # (Auto) 0.4 x10^3/uL (1.0-4.8) Monocytes # (Auto) 0.2 x10^3/uL (0.0-1.1) Eosinophils # (Auto) 0.0 x10^3/uL (0.0-0.7) Basophils # (Auto) 0.0 x10^3/uL (0.0-0.2) Sodium Level 142 mmol/L (136-145) Potassium Level 4.9 mmol/L (3.5-5.1) Chloride Level 107 mmol/L (98-107) Carbon Dioxide Level 25 mmol/L (21-32) Anion Gap 10 (6-14) Blood Urea Nitrogen 45 mg/dL (8-26) Creatinine 1.1 mg/dL (0.7-1.3) Estimated GFR (Cockcroft-Gault) 63.0 Glucose Level 249 mg/dL (70-99) Calcium Level 7.6 mg/dL (8.5-10.1) Objective: Assessment: 1. Acute respiratory failure secondary to flu and pneumonia. 2. Fever POA,.pattern improving, 3. Influenza B screen positive. 4. Non-ST elevation myocardial infarction. 5. Acute kidney injury. 6. Lactic acidosis. 7. Dementia. 8. History of anxiety and depression. 9. GPC 10/01 BC ,staph, id and izzy pending, could be contaminant Plan: Plan of Care Continue meropenem.zyvox complete Tamiflu renal dosing,(07/17 ) daptomycin pending staph in bc, follow up labs and cultures. Continue supportive care. Discussed with RN. YI HERNANDEZ MD Jul 21, 2019 07:38
[2019-07-21] MEDS: HEPARIN for SUB-Q USE 5,000 UNIT/ML VIAL. SQ SCH (08:21)
[2019-07-21] MEDS: BUDESONIDE 0.5 MG/2 ML NEBU. NEB SCH (08:37)
[2019-07-21] MEDS: IPRATRPIUM/ALBUTEROL 0.5/2.5MG 3 ML NEBU. NEB SCH ×4 (08:37→19:49)
[2019-07-21] MEDS: DAPTOmycin (GENERIC) IVPB 520 MG in IV NORMAL SALINE 50ML 50 ML IV SCH (08:40)
[2019-07-21] MEDS: FUROSEMIDE 40 MG/4 ML VIAL. IVP SCH ×2 (08:41→12:50)
[2019-07-21] MEDS: ASPIRIN ENTERIC COATED 81 MG TABLET.DR. PO SCH (08:41)
[2019-07-21] MEDS: CLOPIDOGREL BISULFATE 75 MG TABLET PO SCH (08:41)
[2019-07-21] MEDS: CHLORHEXIDINE 0.12% 15 ML MOUTHWASH. MM SCH (08:41)
[2019-07-21] MEDS: OSELTAMIVIR 30 MG CAPSULE PO SCH (08:42)
[2019-07-21] MEDS: DIVALPROEX SPRINKLES 125 MG CAPSULE. PO SCH (08:42)
[2019-07-21] MEDS: LACTOBACILLUS RHAMNOSUS GG 1 CAPSULE. PO SCH (08:42)
[2019-07-21] MEDS: amLODIPine BESYLATE 5 MG TABLET PO SCH (08:43)
[2019-07-21] MEDS: TAMSULOSIN 0.4 MG CAP.ER.24H. PO SCH (08:45)
[2019-07-21 09:20] LABS: BASE EXCESS ABG -3 mmol/L (-3-3); HCO3 ABG 18 mmol/L (21-28); PCO2 ABG 23 mmHg (35-46); PO2 ABG 72 mmHg (65-108); SAT O2 ABG 95 % (92-99)
[2019-07-21 09:22] LABS: FIO2 ABG 50
--- NOTE | 2019-07-21 09:23 | PDOC ---
PULMONARY PROGRESS NOTES Subjective intubated 07/16 SEDATED ON VENT ON 7 PEEP Vitals Vital Signs Date Time Temp Pulse Resp B/P (MAP) Pulse Ox O2 Delivery O2 Flow Rate FiO2 07/21/19 08:43 120/63 07/21/19 08:38 93 Ventilator 07/21/19 06:00 46 22 07/21/19 04:00 97.8 97.8 Lungs: Crackles Cardiovascular: S1, S2 Abdomen: Soft, Non-tender, Other Neuro Exam: Alert Extremities: Other (+edems) Skin: Warm Labs Laboratory Tests Test 07/19/19 23:55 07/20/19 06:17 07/20/19 08:15 07/20/19 23:45 Glucose (Fingerstick) 113 mg/dL (70-99) 129 mg/dL (70-99) 240 mg/dL (70-99) O2 Saturation 90 % (92-99) Arterial Blood pH 7.45 (7.35-7.45) Arterial Blood pCO2 at Patient Temp 35 mmHg (35-46) Arterial Blood pO2 at Patient Temp 61 mmHg (65-108) Arterial Blood HCO3 24 mmol/L (21-28) Arterial Blood Base Excess 0 mmol/L (-3-3) FiO2 50 Test 07/21/19 06:07 07/21/19 06:25 07/21/19 08:55 Glucose (Fingerstick) 216 mg/dL (70-99) White Blood Count 6.5 x10^3/uL (4.0-11.0) Red Blood Count 3.10 x10^6/uL (4.30-5.70) Hemoglobin 10.3 g/dL (13.0-17.5) Hematocrit 30.0 % (39.0-53.0) Mean Corpuscular Volume 97 fL (79-100) Mean Corpuscular Hemoglobin 33 pg (25-35) Mean Corpuscular Hemoglobin Concent 34 g/dL (31-37) Red Cell Distribution Width 13.8 % (11.5-14.5) Platelet Count 191 x10^3/uL (140-400) Neutrophils (%) (Auto) 90 % (31-73) Lymphocytes (%) (Auto) 7 % (24-48) Monocytes (%) (Auto) 3 % (0-9) Eosinophils (%) (Auto) 0 % (0-3) Basophils (%) (Auto) 0 % (0-3) Neutrophils # (Auto) 5.9 x10^3/uL (1.8-7.7) Lymphocytes # (Auto) 0.4 x10^3/uL (1.0-4.8) Monocytes # (Auto) 0.2 x10^3/uL (0.0-1.1) Eosinophils # (Auto) 0.0 x10^3/uL (0.0-0.7) Basophils # (Auto) 0.0 x10^3/uL (0.0-0.2) Sodium Level 142 mmol/L (136-145) Potassium Level 4.9 mmol/L (3.5-5.1) Chloride Level 107 mmol/L (98-107) Carbon Dioxide Level 25 mmol/L (21-32) Anion Gap 10 (6-14) Blood Urea Nitrogen 45 mg/dL (8-26) Creatinine 1.1 mg/dL (0.7-1.3) Estimated GFR (Cockcroft-Gault) 63.0 Glucose Level 249 mg/dL (70-99) Calcium Level 7.6 mg/dL (8.5-10.1) O2 Saturation 95 % (92-99) Arterial Blood pH 7.53 (7.35-7.45) Arterial Blood pCO2 at Patient Temp 23 mmHg (35-46) Arterial Blood pO2 at Patient Temp 72 mmHg (65-108) Arterial Blood HCO3 18 mmol/L (21-28) Arterial Blood Base Excess -3 mmol/L (-3-3) FiO2 50 Laboratory Tests Test 07/20/19 23:45 07/21/19 06:07 07/21/19 06:25 07/21/19 08:55 Glucose (Fingerstick) 240 mg/dL (70-99) 216 mg/dL (70-99) White Blood Count 6.5 x10^3/uL (4.0-11.0) Red Blood Count 3.10 x10^6/uL (4.30-5.70) Hemoglobin 10.3 g/dL (13.0-17.5) Hematocrit 30.0 % (39.0-53.0) Mean Corpuscular Volume 97 fL (79-100) Mean Corpuscular Hemoglobin 33 pg (25-35) Mean Corpuscular Hemoglobin Concent 34 g/dL (31-37) Red Cell Distribution Width 13.8 % (11.5-14.5) Platelet Count 191 x10^3/uL (140-400) Neutrophils (%) (Auto) 90 % (31-73) Lymphocytes (%) (Auto) 7 % (24-48) Monocytes (%) (Auto) 3 % (0-9) Eosinophils (%) (Auto) 0 % (0-3) Basophils (%) (Auto) 0 % (0-3) Neutrophils # (Auto) 5.9 x10^3/uL (1.8-7.7) Lymphocytes # (Auto) 0.4 x10^3/uL (1.0-4.8) Monocytes # (Auto) 0.2 x10^3/uL (0.0-1.1) Eosinophils # (Auto) 0.0 x10^3/uL (0.0-0.7) Basophils # (Auto) 0.0 x10^3/uL (0.0-0.2) Sodium Level 142 mmol/L (136-145) Potassium Level 4.9 mmol/L (3.5-5.1) Chloride Level 107 mmol/L (98-107) Carbon Dioxide Level 25 mmol/L (21-32) Anion Gap 10 (6-14) Blood Urea Nitrogen 45 mg/dL (8-26) Creatinine 1.1 mg/dL (0.7-1.3) Estimated GFR (Cockcroft-Gault) 63.0 Glucose Level 249 mg/dL (70-99) Calcium Level 7.6 mg/dL (8.5-10.1) O2 Saturation 95 % (92-99) Arterial Blood pH 7.53 (7.35-7.45) Arterial Blood pCO2 at Patient Temp 23 mmHg (35-46) Arterial Blood pO2 at Patient Temp 72 mmHg (65-108) Arterial Blood HCO3 18 mmol/L (21-28) Arterial Blood Base Excess -3 mmol/L (-3-3) FiO2 50 Medications Active Scripts Medications Dose Route/Sig Max Daily Dose Days Date Category Culturelle (Lactobacillus Rhamnosus Gg) 1 Each Cap.sprink 1 Cap PO BID 30 10/29/18 Rx Zyvox (Linezolid) 600 Mg Tablet 600 Mg PO BID 10 10/29/18 Rx Amox Tr-K Clv 875-125 Mg Tab (Amoxicillin/Potassium Clav) 1 Each Tablet 1 Tab PO BIDWMEALS 10 10/29/18 Rx Vitamin E (Vitamin E Mixed) 1,000 Unit Capsule 1,000 Unit PO DAILY 10/26/18 Reported NITROGLYCERIN SubLingual (Nitroglycerin) 0.4 Mg Tab.subl 0.4 Mg SL PRN Q5MIN PRN 10/26/18 Reported Milk Of Magnesia (Magnesium Hydroxide) 2,400 Mg/10 Ml Oral.susp 2,400 Mg PO DAILY PRN 10/26/18 Reported Maalox Advanced Suspension (Mag Hydrox/Aluminum Hyd/Simeth) 355 Ml Oral.susp 15 Ml PO PRN AFTMEALHC PRN 10/26/18 Reported EXELON 4.6mg/24hr (Rivastigmine) 1 Each Patch.td24 1 Patch TP DAILY 10/26/18 Reported Depakote Er (Divalproex Sodium) 500 Mg Tab.er.24h 1 Tab PO BID 10/26/18 Reported Depakote Er (Divalproex Sodium) 250 Mg Tab.er.24h 1 Tab PO QHS 10/26/18 Reported Welchol (Colesevelam Hcl) 625 Mg Tablet 2,500 Mg PO BID 10/26/18 Reported Zetia (Ezetimibe) 10 Mg Tablet 1 Tab PO HS 08/28/18 Reported Vitamin D (Cholecalciferol (Vitamin D3)) 1,000 Unit Capsule 50,000 Units PO QSA 08/28/18 Reported Tamsulosin Hcl 0.4 Mg Cap.er.24h 1 Cap PO DAILY 08/28/18 Reported Risperidone 0.5 Mg Tablet 1.5 Tab PO QHS 08/28/18 Reported Niaspan (Niacin) 500 Mg Tab.er.24h 1 Tab PO QHS 08/28/18 Reported Mirtazapine 30 Mg Tablet 1 Tab PO QHS 08/28/18 Reported Losartan Potassium 100 Mg Tablet 100 Mg PO DAILY 08/28/18 Reported Levothyroxine Sodium 75 Mcg Tablet 75 Mcg PO DAILYAC 08/28/18 Reported Fluvoxamine Maleate 50 Mg Tablet 1 Tab PO QHS 08/28/18 Reported Vitamin B-12 (Cyanocobalamin (Vitamin B-12)) 1,000 Mcg Tablet 1 Tab PO DAILY 08/28/18 Reported Aspirin Ec (Aspirin) 81 Mg Tablet.dr 81 Mg PO DAILY08 08/28/18 Reported Amlodipine Besylate 5 Mg Tablet 5 Mg PO DAILY 08/28/18 Reported Tylenol (Acetaminophen) 325 Mg Tablet 1-2 Tab PO QID 08/28/18 Reported Impression . IMPRESSION: 1. Acute respiratory failure secondary to influenza/ARDS 2. Abnormal chest x-ray. 3. Acute bronchospasm. 4. Pneumonia, influenza. 5. Acute kidney injury. 6. Elevated troponin, NSTEMI, type 2. 7. Elevated procalcitonin. 8. Sepsis with lactate elevation. 9. ZAHRAA 10. ACUTE DIASTOLIC CHF IMPRESSION: 1. Stable expiratory devices. 2. Stable bilateral basilar predominant opacities. 3. Stable small bilateral effusions. Plan . DIURESED WELL WITH LASIX ADD STEROIDS FOR ARDS LASIX CXR APPEARS WET D/W PAT FROM PALLIATIVE CARE MEETING TOMORROW WITH SON FOLLOW BC RESULTS VENT SUPPORT WILL DECREASE PEEP WHEN PAO2 IS CLOSER TO 90 ANTIBX PER ID FOLLOW ABG AND CXR DVT PROPHAL NUTRITIONAL SUPPORT TMILFLU STEROIDS CCT 30 MINUTES REVIEWING DATA/LABS AND FORMULATING A PLAN KARLENE SANTIAGO MD Jul 21, 2019 09:23
--- NOTE | 2019-07-21 10:20 | RAD ---
EXAM: Chest, single view. HISTORY: Ventilator support. COMPARISON: 07/20/2019. FINDINGS: A single view of the chest obtained. There is stable diffuse interstitial infiltrate with small pleural effusions due to pulmonary congestion. There is a stable prominent cardiac silhouette and evidence of prior median sternotomy. There is an endotracheal tube within the distal trachea. There is a nasogastric tube within the stomach. There is no pneumothorax. IMPRESSION: 1. Stable diffuse interstitial infiltrate and small pleural effusions. 2. Stable enlargement of the cardiac silhouette. 3. Stable support lines and tubes. Electronically signed by: Emily Louis MD (07/21/2019 10:17 AM) [id number]
--- NOTE | 2019-07-21 11:41 | PDOC ---
SUBJECTIVE ROS intubated OBJECTIVE Vital Signs Vital Signs Date Time Temp Pulse Resp B/P (MAP) Pulse Ox O2 Delivery O2 Flow Rate FiO2 07/21/19 10:00 52 12 102/54 (70) 94 Ventilator 07/21/19 08:00 99.6 99.6 I & 0 Intake and Output 07/21/19 07:00 Intake Total 3628.0 ml Output Total 1404 ml Balance 2224.0 ml IV Total 952.0 ml Tube Feeding 2176 ml Other 500 ml Output Urine Total 1404 ml Gastric Drainage Total 0 ml # Bowel Movements 1 PHYSICAL EXAM Physical Exam GENERAL: Intubated HEENT: Intubated NECK: supple CARDIOVASCULAR: rrr LUNGS: CTA ABDOMEN: Soft and obese. EXTREMITIES edema + NEUROLOGIC: Lethargic, Hx of dementia SKIN: No rash Chronic changes Gu Francois + . DIAGNOSIS/ASSESSMENT Assessment & Plan ZAHRAA - Pre-renal /Urinary retention/Sepsis Renal function improved and stable E-Lytes and acid base stable- labs from 07/19 reviewed supportive care, Monitor Acute respiratory failure secondary to influenza, pneumonia, influenza- Influenza B positive On Tamiflu- renal dosing Sepsis with lactate elevation. NSTEMI -Troponin elevated, cardiology following Will sign off COMMENT/RELEVANT DATA Meds Current Medications Medications (Trade) Dose Ordered Sig/Lorri Start Time Stop Time Status Last Admin Dose Admin Acetaminophen (Tylenol) 650 mg PRN Q4HRS PRN 07/16/19 18:15 07/16/19 20:52 650 MG Al Hydroxide/Mg Hydroxide (Mylanta Plus Xs) 15 ml PRN AFTMEALHC PRN 07/18/19 15:30 Albuterol Sulfate (Ventolin Neb Soln) 2.5 mg 1X ONCE 07/16/19 09:45 07/16/19 09:46 DC 07/16/19 09:56 2.5 MG Albuterol/ Ipratropium (Duoneb) 3 ml RTQID 07/18/19 17:00 07/21/19 08:37 3 ML Amlodipine Besylate (Norvasc) 5 mg DAILY 07/19/19 09:00 07/21/19 08:43 5 MG Aspirin (Aspirin Rectal Supp) 300 mg 1X STAT 07/16/19 11:27 07/16/19 11:30 DC 07/16/19 12:20 300 MG Aspirin (Children'S Aspirin) 81 mg DAILYWBKFT 07/19/19 08:00 Cancel Aspirin (Ecotrin) 81 mg DAILY08 07/19/19 08:00 07/21/19 08:41 81 MG Atorvastatin Calcium (Lipitor) 20 mg QHS 07/17/19 21:00 07/20/19 20:48 20 MG Bisacodyl (Dulcolax Supp) 10 mg PRN DAILY PRN 07/16/19 11:30 Budesonide (Pulmicort) 0.5 mg 1X ONCE 07/16/19 11:00 07/16/19 11:01 DC 07/16/19 12:19 0.5 MG Ceftriaxone Sodium (Rocephin) 2 gm 1X ONCE 07/16/19 08:00 07/16/19 08:01 DC 07/16/19 08:31 2 GM Chlorhexidine Gluconate (Peridex) 15 ml BID 07/16/19 21:00 07/21/19 08:41 15 ML Clopidogrel Bisulfate (Plavix) 75 mg DAILYWBKFT 07/18/19 08:00 07/21/19 08:41 75 MG Daptomycin 500 mg/ Sodium Chloride 50 ml @ 100 mls/hr Q24H ONCE 07/18/19 10:00 07/18/19 10:29 DC 07/18/19 11:16 100 MLS/HR Daptomycin 520 mg/ Sodium Chloride 50 ml @ 100 mls/hr Q24H 07/19/19 08:00 07/21/19 08:40 100 MLS/HR Divalproex Sodium (Depakote Sprinkles) 250 mg BID 07/20/19 09:00 07/21/19 08:42 250 MG Divalproex Sodium (Depakote Er) 500 mg QHS 07/19/19 21:00 Cancel Doxycycline Hyclate 100 mg/ Dextrose 100 ml @ 50 mls/hr 1X ONCE 07/16/19 08:00 07/16/19 09:59 DC 07/16/19 08:32 50 MLS/HR EZETIMIBE (Zetia) 10 mg HS 07/18/19 21:00 07/20/19 20:48 10 MG Famotidine (Pepcid Vial) 20 mg QHS 07/16/19 21:00 07/20/19 20:49 20 MG Fentanyl Citrate 30 ml @ 0 mls/hr CONT PRN PRN 07/16/19 18:30 07/16/19 18:23 DC Fentanyl Citrate (Fentanyl 2ml Vial) 50 mcg PRN Q1HR PRN 07/16/19 18:30 Fluvoxamine Maleate (Luvox) 50 mg QHS 07/18/19 21:00 07/20/19 20:49 50 MG Furosemide (Lasix) 40 mg BID92 07/20/19 14:00 07/21/19 08:41 40 MG Guaifenesin (Mucinex) 600 mg BID 07/18/19 21:00 07/21/19 08:43 600 MG Heparin Sodium (Porcine) (Heparin Sodium) 5,000 unit Q12HR 07/16/19 21:00 07/21/19 08:21 5,000 UNIT Ketamine HCl (Ketamine) 20 mg 1X ONCE 07/16/19 11:00 07/16/19 11:02 DC Lactobacillus Rhamnosus (Culturelle) 1 cap BID 07/18/19 21:00 07/21/19 10:50 DC 07/21/19 08:42 1 CAP Levothyroxine Sodium (Synthroid) 100 mcg DAILY06 07/19/19 07:30 07/21/19 05:44 100 MCG Linezolid/Dextrose 300 ml @ 300 mls/hr Q12HR 07/17/19 09:30 07/21/19 08:41 300 MLS/HR Lorazepam (Ativan Inj) 0.25 mg PRN Q3HRS PRN 07/16/19 16:15 Losartan Potassium (Cozaar) 100 mg DAILY 07/19/19 09:00 07/19/19 09:03 100 MG Magnesium Hydroxide (Milk Of Magnesia) 2,400 mg PRN DAILY PRN 07/18/19 15:30 Meropenem 0.5 gm/ Sodium Chloride 100 ml @ 200 mls/hr Q8HRS 07/16/19 14:00 UNV Meropenem 500 mg/ Sodium Chloride 50 ml @ 100 mls/hr Q8HRS 07/16/19 12:00 07/21/19 05:44 100 MLS/HR Methylprednisolone Sodium Succinate (SOLU-Medrol 125MG VIAL) 125 mg Q8HRS 07/20/19 14:00 07/21/19 05:44 125 MG Midazolam HCl 100 ml @ 5 mls/hr CONT PRN 07/16/19 18:30 07/16/19 18:23 DC Mirtazapine (Remeron) 15 mg QHS 07/18/19 21:00 07/19/19 12:18 DC 07/18/19 20:33 15 MG Morphine Sulfate (Morphine Sulfate) 4 mg PRN Q1HR PRN 07/16/19 18:30 Naloxone HCl (Narcan) 0.4 mg PRN Q2MIN PRN 07/16/19 18:30 Nitroglycerin (Nitrostat) 0.4 mg PRN Q5MIN PRN 07/18/19 14:45 Norepinephrine Bitartrate 250 ml @ 17.006 mls/ hr CONT PRN 07/16/19 11:30 07/17/19 13:14 17.006 MLS/HR Ondansetron HCl (Zofran) 4 mg PRN Q6HRS PRN 07/16/19 11:30 Oseltamivir Phosphate (Tamiflu) 30 mg BID 07/17/19 09:30 07/22/19 09:29 07/21/19 08:42 30 MG Potassium Bicarbonate (Potassium Effervescent Tablet) 40 meq Q2H 07/21/19 06:30 07/21/19 08:31 DC 07/21/19 06:28 40 MEQ Potassium Chloride (Klor-Con) 40 meq 1X ONCE 07/21/19 08:15 07/21/19 08:16 Cancel Propofol 100 ml @ As Directed STK-MED ONCE 07/16/19 17:02 07/16/19 17:03 DC Quetiapine Fumarate (SEROquel) 37.5 mg HS 07/18/19 21:00 07/20/19 20:48 37.5 MG Risperidone (RisperDAL) 0.75 mg QHS 07/18/19 21:00 07/19/19 12:10 DC 07/18/19 20:35 0.75 MG Sodium Chloride 1,000 ml @ 25 mls/hr Q24H 07/16/19 18:18 07/19/19 21:15 25 MLS/HR Sodium Chloride (Normal Saline Flush) 3 ml QSHIFT PRN 07/16/19 11:30 Succinylcholine Chloride (Anectine) 200 mg STK-MED ONCE 07/16/19 17:03 07/16/19 17:03 DC Tamsulosin HCl (Flomax) 0.4 mg DAILY 07/19/19 09:00 07/21/19 08:45 0.4 MG Lab Laboratory Tests Test 07/20/19 23:45 07/21/19 06:07 07/21/19 06:25 07/21/19 08:55 Glucose (Fingerstick) 240 mg/dL (70-99) 216 mg/dL (70-99) White Blood Count 6.5 x10^3/uL (4.0-11.0) Red Blood Count 3.10 x10^6/uL (4.30-5.70) Hemoglobin 10.3 g/dL (13.0-17.5) Hematocrit 30.0 % (39.0-53.0) Mean Corpuscular Volume 97 fL (79-100) Mean Corpuscular Hemoglobin 33 pg (25-35) Mean Corpuscular Hemoglobin Concent 34 g/dL (31-37) Red Cell Distribution Width 13.8 % (11.5-14.5) Platelet Count 191 x10^3/uL (140-400) Neutrophils (%) (Auto) 90 % (31-73) Lymphocytes (%) (Auto) 7 % (24-48) Monocytes (%) (Auto) 3 % (0-9) Eosinophils (%) (Auto) 0 % (0-3) Basophils (%) (Auto) 0 % (0-3) Neutrophils # (Auto) 5.9 x10^3/uL (1.8-7.7) Lymphocytes # (Auto) 0.4 x10^3/uL (1.0-4.8) Monocytes # (Auto) 0.2 x10^3/uL (0.0-1.1) Eosinophils # (Auto) 0.0 x10^3/uL (0.0-0.7) Basophils # (Auto) 0.0 x10^3/uL (0.0-0.2) Sodium Level 142 mmol/L (136-145) Potassium Level 4.9 mmol/L (3.5-5.1) Chloride Level 107 mmol/L (98-107) Carbon Dioxide Level 25 mmol/L (21-32) Anion Gap 10 (6-14) Blood Urea Nitrogen 45 mg/dL (8-26) Creatinine 1.1 mg/dL (0.7-1.3) Estimated GFR (Cockcroft-Gault) 63.0 Glucose Level 249 mg/dL (70-99) Calcium Level 7.6 mg/dL (8.5-10.1) O2 Saturation 95 % (92-99) Arterial Blood pH 7.53 (7.35-7.45) Arterial Blood pCO2 at Patient Temp 23 mmHg (35-46) Arterial Blood pO2 at Patient Temp 72 mmHg (65-108) Arterial Blood HCO3 18 mmol/L (21-28) Arterial Blood Base Excess -3 mmol/L (-3-3) FiO2 50 Test 07/21/19 10:10 Potassium Level 4.3 mmol/L (3.5-5.1) Results All relevant outside records, renal labs, imaging studies, telemetry/EKG's were reviewed. JARVIS MCCORMICK MD Jul 21, 2019 11:41
--- NOTE | 2019-07-21 13:41 | PDOC2 ---
PALLIATIVE CARE Palliative Care Note Palliative Care Patient remains on Vent. sedated on Versed and Fentanyl Met with DPOA/Dtr Sofya and her Kirt; son Matty Copy of AD reviewed and placed on record. Reviewed medical condition; 1. Acute respiratory failure secondary to influenza/ARDS 2. Abnormal chest x-ray. 3. Acute bronchospasm. 4. Pneumonia, influenza. 5. Acute kidney injury. 6. Elevated troponin, NSTEMI, type 2. 7. Elevated procalcitonin. 8. Sepsis with lactate elevation. 9. ZAHRAA 10. ACUTE DIASTOLIC CHF Code Status; DNR. Family describes patient as always being active.; in memory care with some decline over time but continued to recognize family. 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 Was clear in his wishes for himself. Son states the decision to place on vent was made knowing that they would not want group home ventilation but possible give him the opportunity to improve. Reviewed support provided if decision was to remove life support. Nicky; not a part of his life. Patient has been accepted at [facility] if decision is to continue current treatment plan. Family asked to have time to consider these options and then will inform staff of their decision. 1400 Family would like to "honor patient's wishes" and focus on comfort. Family will inform staff when they are ready to make changes to comfort. Understand medications/treatments not adding to his comfort will be stopped. Patient will be pre-medicated for comfort. Monitor off in the room. Hospice would be support if needed. Lebron URIOSTEGUI will call physicians for orders. GISSELLE QUINTERO Jul 21, 2019 13:41
[2019-07-21] MEDS ORDERED: MORPHINE SULFATE 2 MG/ML VIAL. IV PRN (14:45)
[2019-07-21] MEDS ORDERED: HALOPERIDOL LACTATE 5 MG/ML VIAL. IVP PRN (14:45)
[2019-07-21] MEDS ORDERED: MORPHINE SULFATE 4 MG/ML VIAL. IV PRN (14:45)
--- NOTE | 2019-07-21 19:12 | NUR ---
Reassessment of Fentanyl CORK SLABS SAWYER not completed by other RN, documented as "not done" by this RN.
--- NOTE | 2019-07-21 21:07 | NUR ---
Patient did not have new orders for comfort medications. Fentanyl COMPLAINT COORDINATOR still running but orders are from Vent bundle. Dr. Valdes paged, updated on patient condition and situation. Orders received to keep Fentanyl COMPLAINT COORDINATOR running for tonight and we can reconsider in the morning.
[2019-07-21] MEDS: IV NORMAL SALINE 1000ML BAG 1,000 ML IV SCH (22:49)
[2019-07-22] VITALS (7 sets, daily range): BP systolic 103–125; BP diastolic 43–63
--- NOTE | 2019-07-22 08:19 | PDOC ---
Infectious Disease Note Subjective: Subjective d/w rn on comfort measures Vital Signs: Vital Signs Vital Signs Date Time Temp Pulse Resp B/P (MAP) Pulse Ox O2 Delivery O2 Flow Rate FiO2 07/22/19 07:00 98.4 75 22 105/58 (74) 91 Nasal Cannula 2.0 98.4 Medications: Inpatient Meds: Current Medications Medications (Trade) Dose Ordered Sig/Lorri Start Time Stop Time Status Last Admin Dose Admin Acetaminophen (Tylenol) 650 mg PRN Q4HRS PRN 07/16/19 18:15 07/21/19 16:21 DC 07/16/19 20:52 650 MG Al Hydroxide/Mg Hydroxide (Mylanta Plus Xs) 15 ml PRN [id number] PRN 07/18/19 15:30 07/21/19 16:22 DC Albuterol Sulfate (Ventolin Neb Soln) 2.5 mg 1X ONCE 07/16/19 09:45 07/16/19 09:46 DC 07/16/19 09:56 2.5 MG Albuterol/ Ipratropium (Duoneb) 3 ml RTQID 07/18/19 17:00 07/21/19 20:27 DC 07/21/19 11:59 3 ML Amlodipine Besylate (Norvasc) 5 mg DAILY 07/19/19 09:00 07/21/19 16:21 DC 07/21/19 08:43 5 MG Aspirin (Aspirin Rectal Supp) 300 mg 1X STAT 07/16/19 11:27 07/16/19 11:30 DC 07/16/19 12:20 300 MG Aspirin (Children'S Aspirin) 81 mg [id number] 07/19/19 08:00 Cancel Aspirin (Ecotrin) 81 mg DAILY08 07/19/19 08:00 07/21/19 16:22 DC 07/21/19 08:41 81 MG Atorvastatin Calcium (Lipitor) 20 mg QHS 07/17/19 21:00 07/21/19 16:21 DC 07/20/19 20:48 20 MG Bisacodyl (Dulcolax Supp) 10 mg PRN DAILY PRN 07/16/19 11:30 07/21/19 16:21 DC Budesonide (Pulmicort) 0.5 mg 1X ONCE 07/16/19 11:00 07/16/19 11:01 DC 07/16/19 12:19 0.5 MG Ceftriaxone Sodium (Rocephin) 2 gm 1X ONCE 07/16/19 08:00 07/16/19 08:01 DC 07/16/19 08:31 2 GM Chlorhexidine Gluconate (Peridex) 15 ml BID 07/16/19 21:00 07/21/19 16:21 DC 07/21/19 08:41 15 ML Clopidogrel Bisulfate (Plavix) 75 mg [id number] 07/18/19 08:00 07/21/19 16:21 DC 07/21/19 08:41 75 MG Daptomycin 500 mg/ Sodium Chloride 50 ml @ 100 mls/hr Q24H ONCE 07/18/19 10:00 07/18/19 10:29 DC 07/18/19 11:16 100 MLS/HR Daptomycin 520 mg/ Sodium Chloride 50 ml @ 100 mls/hr Q24H 07/19/19 08:00 07/21/19 16:22 DC 07/21/19 08:40 100 MLS/HR Divalproex Sodium (Depakote Sprinkles) 250 mg BID 07/20/19 09:00 07/21/19 16:22 DC 07/21/19 08:42 250 MG Divalproex Sodium (Depakote Er) 500 mg QHS 07/19/19 21:00 Cancel Doxycycline Hyclate 100 mg/ Dextrose 100 ml @ 50 mls/hr 1X ONCE 07/16/19 08:00 07/16/19 09:59 DC 07/16/19 08:32 50 MLS/HR EZETIMIBE (Zetia) 10 mg HS 07/18/19 21:00 07/21/19 16:22 DC 07/20/19 20:48 10 MG Famotidine (Pepcid Vial) 20 mg QHS 07/16/19 21:00 07/21/19 16:21 DC 07/20/19 20:49 20 MG Fentanyl Citrate 30 ml @ 0 mls/hr CONT PRN PRN 07/21/19 20:30 07/22/19 04:40 2.5 MLS/HR Fentanyl Citrate (Fentanyl 2ml Vial) 50 mcg PRN Q1HR PRN 07/16/19 18:30 07/21/19 20:27 DC Fluvoxamine Maleate (Luvox) 50 mg QHS 07/18/19 21:00 07/21/19 16:22 DC 07/20/19 20:49 50 MG Furosemide (Lasix) 40 mg [id number] 07/20/19 14:00 07/21/19 16:22 DC 07/21/19 12:50 40 MG Guaifenesin (Mucinex) 600 mg BID 07/18/19 21:00 07/21/19 16:22 DC 07/21/19 08:43 600 MG Haloperidol Lactate (Haldol Inj) 1 mg PRN Q3HRS PRN 07/21/19 14:45 Heparin Sodium (Porcine) (Heparin Sodium) 5,000 unit Q12HR 07/16/19 21:00 07/21/19 16:21 DC 07/21/19 08:21 5,000 UNIT Ketamine HCl (Ketamine) 20 mg 1X ONCE 07/16/19 11:00 07/16/19 11:02 DC Lactobacillus Rhamnosus (Culturelle) 1 cap BID 07/18/19 21:00 07/21/19 10:50 DC 07/21/19 08:42 1 CAP Levothyroxine Sodium (Synthroid) 100 mcg DAILY06 07/19/19 07:30 07/21/19 16:22 DC 07/21/19 05:44 100 MCG Linezolid/Dextrose 300 ml @ 300 mls/hr Q12HR 07/17/19 09:30 07/21/19 16:21 DC 07/21/19 08:41 300 MLS/HR Lorazepam (Ativan Inj) 1 mg PRN Q3HRS PRN 07/21/19 14:45 Losartan Potassium (Cozaar) 100 mg DAILY 07/19/19 09:00 07/21/19 16:22 DC 07/19/19 09:03 100 MG Magnesium Hydroxide (Milk Of Magnesia) 2,400 mg PRN DAILY PRN 07/18/19 15:30 07/21/19 16:22 DC Meropenem 0.5 gm/ Sodium Chloride 100 ml @ 200 mls/hr Q8HRS 07/16/19 14:00 UNV Meropenem 500 mg/ Sodium Chloride 50 ml @ 100 mls/hr Q8HRS 07/16/19 12:00 07/21/19 16:21 DC 07/21/19 12:04 100 MLS/HR Methylprednisolone Sodium Succinate (SOLU-Medrol 125MG VIAL) 125 mg Q8HRS 07/20/19 14:00 07/21/19 16:22 DC 07/21/19 12:51 125 MG Midazolam HCl 100 ml @ 5 mls/hr CONT PRN 07/16/19 18:30 07/16/19 18:23 DC Mirtazapine (Remeron) 15 mg QHS 07/18/19 21:00 07/19/19 12:18 DC 07/18/19 20:33 15 MG Morphine Sulfate (Morphine Sulfate) 3 mg PRN Q2HR PRN 07/21/19 14:45 07/21/19 14:45 DC Naloxone HCl (Narcan) 0.4 mg PRN Q2MIN PRN 07/16/19 18:30 07/21/19 16:21 DC Nitroglycerin (Nitrostat) 0.4 mg PRN Q5MIN PRN 07/18/19 14:45 07/21/19 16:22 DC Norepinephrine Bitartrate 250 ml @ 17.006 mls/ hr CONT PRN 07/16/19 11:30 07/21/19 16:21 DC 07/17/19 13:14 17.006 MLS/HR Ondansetron HCl (Zofran) 4 mg PRN Q6HRS PRN 07/16/19 11:30 07/21/19 16:21 DC Oseltamivir Phosphate (Tamiflu) 30 mg BID 07/17/19 09:30 07/21/19 16:21 DC 07/21/19 08:42 30 MG Potassium Bicarbonate (Potassium Effervescent Tablet) 40 meq Q2H 07/21/19 06:30 07/21/19 08:31 DC 07/21/19 06:28 40 MEQ Potassium Chloride (Klor-Con) 40 meq 1X ONCE 07/21/19 08:15 07/21/19 08:16 Cancel Propofol 100 ml @ As Directed STK-MED ONCE 07/16/19 17:02 07/16/19 17:03 DC Quetiapine Fumarate (SEROquel) 37.5 mg HS 07/18/19 21:00 07/21/19 16:22 DC 07/20/19 20:48 37.5 MG Risperidone (RisperDAL) 0.75 mg QHS 07/18/19 21:00 07/19/19 12:10 DC 07/18/19 20:35 0.75 MG Sodium Chloride 1,000 ml @ 25 mls/hr Q24H 07/21/19 21:00 07/21/19 22:49 25 MLS/HR Sodium Chloride (Normal Saline Flush) 3 ml QSHIFT PRN 07/16/19 11:30 07/21/19 16:21 DC Succinylcholine Chloride (Anectine) 200 mg STK-MED ONCE 07/16/19 17:03 07/16/19 17:03 DC Tamsulosin HCl (Flomax) 0.4 mg DAILY 07/19/19 09:00 07/21/19 16:22 DC 07/21/19 08:45 0.4 MG Labs: Lab Laboratory Tests Test 07/21/19 08:55 07/21/19 10:10 O2 Saturation 95 % (92-99) Arterial Blood pH 7.53 (7.35-7.45) Arterial Blood pCO2 at Patient Temp 23 mmHg (35-46) Arterial Blood pO2 at Patient Temp 72 mmHg (65-108) Arterial Blood HCO3 18 mmol/L (21-28) Arterial Blood Base Excess -3 mmol/L (-3-3) FiO2 50 Potassium Level 4.3 mmol/L (3.5-5.1) Objective: Assessment: 1. Acute respiratory failure secondary to flu and pneumonia. 2. Fever POA 3. Influenza B screen positive. 4. Non-ST elevation myocardial infarction. 5. Acute kidney injury. 6. Lactic acidosis. 7. Dementia. 8. History of anxiety and depression. 9. GPC 1/4 BC ,staph staph epidermidis Plan: Plan of Care d/w rn call us with any questions YI HERNANDEZ MD Jul 22, 2019 08:19
--- NOTE | 2019-07-22 09:11 | PDOC ---
PROGRESS NOTES Chief Complaint Chief Complaint impression severe sepsis on echo , The left ventricular systolic function is low normal. EF 50% Calculated aortic valve area is .72 cm2 with maximum pressure gradient of 58 mmHg and mean pressure gradient of 38 mmHg. Doppler and color-flow analysis revealed severe aortic stenosis. fio2 50%,PEEP 7 acute hypoxic resp failure, on vent, had been DNR, family revoked on admit, still ongoing discussion, consider DNR again when able to extubate when family available pneumonia, Stable bilateral basilar predominant opacities. 07-20 cxr Stable small bilateral effusions. Influenza B pneumonitis, ARDS advanced dementia morbid obesity NSTEMI, med management, HTN - cont meds HLD - cont meds Hypothyroidism Depression - with anxiety - ON mood stabilizers, mult psych meds, History of Present Illness History of Present Illness d/c vent palliative care meds CV and pulm and ID following, iv antibiotics DVT PROPHYLAXIS po roxanol PALLIATIVE CARE MEETING 07-21 ok with palliation of symptoms cc time 34 min Vitals Vitals Vital Signs Date Time Temp Pulse Resp B/P (MAP) Pulse Ox O2 Delivery O2 Flow Rate FiO2 07/22/19 08:00 Room Air 2.0 07/22/19 07:00 98.4 75 22 105/58 (74) 91 98.4 Physical Exam Physical Exam GENERAL: does not respond to verbal commands HEENT: Normocephalic, atraumatic. NECK: Supple. LUNGS: Decreased breath sounds HEART S1 S2 no murmurs ABDOMEN: Soft and obese. Bowel sounds present. EXTREMITIES: Trace edema. MOLD CHIPPER not responding General: No acute distress, mild distress Heart: Other (gr 3/6 ambreen) Lungs: Crackles Abdomen: Normal bowel sounds, Soft, No tenderness Extremities: No cyanosis, Other (2+ Pedal edema) Skin: No breakdown Labs LABS Laboratory Tests Test 07/21/19 10:10 Potassium Level 4.3 mmol/L (3.5-5.1) Assessment and Plan Assessmemt and Plan Problems Medical Problems: (1) Elevated troponin Status: Acute (2) Influenza Status: Acute Comment Review of Relevant I have reviewed the following items en (where applicable) has been applied. Labs Laboratory Tests Test 07/20/19 23:45 07/21/19 06:07 07/21/19 06:07/21/19 08:55 Glucose (Fingerstick) 240 mg/dL (70-99) 216 mg/dL (70-99) White Blood Count 6.5 x10^3/uL (4.0-11.0) Red Blood Count 3.10 x10^6/uL (4.30-5.70) Hemoglobin 10.3 g/dL (13.0-17.5) Hematocrit 30.0 % (39.0-53.0) Mean Corpuscular Volume 97 fL (79-100) Mean Corpuscular Hemoglobin 33 pg (25-35) Mean Corpuscular Hemoglobin Concent 34 g/dL (31-37) Red Cell Distribution Width 13.8 % (11.5-14.5) Platelet Count 191 x10^3/uL (140-400) Neutrophils (%) (Auto) 90 % (31-73) Lymphocytes (%) (Auto) 7 % (24-48) Monocytes (%) (Auto) 3 % (0-9) Eosinophils (%) (Auto) 0 % (0-3) Basophils (%) (Auto) 0 % (0-3) Neutrophils # (Auto) 5.9 x10^3/uL (1.8-7.7) Lymphocytes # (Auto) 0.4 x10^3/uL (1.0-4.8) Monocytes # (Auto) 0.2 x10^3/uL (0.0-1.1) Eosinophils # (Auto) 0.0 x10^3/uL (0.0-0.7) Basophils # (Auto) 0.0 x10^3/uL (0.0-0.2) Sodium Level 142 mmol/L (136-145) Potassium Level 4.9 mmol/L (3.5-5.1) Chloride Level 107 mmol/L (98-107) Carbon Dioxide Level 25 mmol/L (21-32) Anion Gap 10 (6-14) Blood Urea Nitrogen 45 mg/dL (8-26) Creatinine 1.1 mg/dL (0.7-1.3) Estimated GFR (Cockcroft-Gault) 63.0 Glucose Level 249 mg/dL (70-99) Calcium Level 7.6 mg/dL (8.5-10.1) O2 Saturation 95 % (92-99) Arterial Blood pH 7.53 (7.35-7.45) Arterial Blood pCO2 at Patient Temp 23 mmHg (35-46) Arterial Blood pO2 at Patient Temp 72 mmHg (65-108) Arterial Blood HCO3 18 mmol/L (21-28) Arterial Blood Base Excess -3 mmol/L (-3-3) FiO2 50 Test 07/21/19 10:10 Potassium Level 4.3 mmol/L (3.5-5.1) Laboratory Tests Test 07/21/19 10:10 Potassium Level 4.3 mmol/L (3.5-5.1) Microbiology 07/18/19 Blood Culture - Preliminary, Resulted NO GROWTH AFTER 3 DAYS 07/16/19 - Final, Complete 07/16/19 - Final, Complete 07/16/19 - Final, Complete 07/16/19 Gram Stain Evaluation - Final, Complete 07/16/19 Sputum Culture - Final, Complete 07/16/19 Sputum Result 1 - Final, Complete 07/16/19 Sputum Result 2 - Final, Complete 07/16/19 Urine Culture - Final, Complete 07/16/19 Urine Culture Result 1 (CAROLIN) - Final, Complete Medications Current Medications Acetaminophen (Tylenol) 1,000 mg 1X ONCE PO Last administered on 07/16/19 08:09; Start 07/16/19 at 08:00; Stop 07/16/19 at 08:01; Status DC Ceftriaxone Sodium (Rocephin) 2 gm 1X ONCE IVP Last administered on 07/16/19at 08:31; Start 07/16/19 at 08:00; Stop 07/16/19 at 08:01; Status DC Sodium Chloride 1,000 ml @ 2,100 mls/hr Q29M IV Last administered on 07/16/19at 08:21; Start 07/16/19 at 07:53; Stop 07/16/19 at 08:53; Status DC Doxycycline Hyclate 100 mg/ Dextrose 100 ml @ 50 mls/hr 1X ONCE IV Last administered on 07/16/19at 08:32; Start 07/16/19 at 08:00; Stop 07/16/19 at 09:59; Status DC Albuterol/ Ipratropium (Duoneb) 3 ml 1X ONCE NEB Last administered on 07/16/19at 08:04; Start 07/16/19 at 08:00; Stop 07/16/19 at 08:01; Status DC Lorazepam (Ativan Inj) 1 mg 1X ONCE IV Last administered on 07/16/19at 09:28; Start 07/16/19 at 09:30; Stop 07/16/19 at 09:31; Status DC Lorazepam (Ativan Inj) 1 mg 1X ONCE IVP ; Start 07/16/19 at 09:30; Stop 07/16/19 at 09:31; Status DC Oseltamivir Phosphate (Tamiflu) 75 mg 1X STAT PO ; Start 07/16/19 at 09:26; Stop 07/16/19 at 09:28; Status DC Ketamine HCl (Ketamine) 50 mg STK-MED ONCE .ROUTE ; Start 07/16/19 at 09:35; Stop 07/16/19 at 09:35; Status DC Ketamine HCl (Ketamine) 20 mg 1X ONCE IV ; Start 07/16/19 at 09:45; Stop 07/16/19 at 09:46; Status DC Ketamine HCl (Ketamine) 20 mg 1X ONCE IV Last administered on 07/16/19at 09:46; Start 07/16/19 at 09:45; Stop 07/16/19 at 09:46; Status DC Albuterol Sulfate (Ventolin Neb Soln) 2.5 mg 1X ONCE NEB Last administered on 07/16/19at 09:56; Start 07/16/19 at 09:45; Stop 07/16/19 at 09:46; Status DC Morphine Sulfate (Morphine Sulfate) 2 mg PRN Q2HR PRN IV PAIN; Start 07/16/19 at 10:15; Stop 07/17/19 at 10:14; Status DC Albuterol/ Ipratropium (Duoneb) 3 ml RTQID NEB Last administered on 07/17/19at 09:18; Start 07/16/19 at 12:00; Stop 07/17/19 at 11:59; Status DC Ketamine HCl (Ketamine) 20 mg 1X ONCE IV Last administered on 07/16/19at 10:20; Start 07/16/19 at 10:15; Stop 07/16/19 at 10:16; Status DC Budesonide (Pulmicort) 0.5 mg RTBID NEB Last administered on 07/21/19at 08:37; Start 07/16/19 at 20:00; Stop 07/21/19 at 16:21; Status DC Budesonide (Pulmicort) 0.5 mg 1X ONCE NEB Last administered on 07/16/19at 12:19; Start 07/16/19 at 11:00; Stop 07/16/19 at 11:01; Status DC Ketamine HCl (Ketamine) 20 mg 1X ONCE IV ; Start 07/16/19 at 11:00; Stop 07/16/19 at 11:02; Status DC Lorazepam (Ativan Inj) 0.5 mg PRN Q6HRS PRN IV ANXIETY / AGITATION Last administered on 07/16/19at 13:42; Start 07/16/19 at 11:30; Stop 07/16/19 at 16:12; Status DC Ondansetron HCl (Zofran) 4 mg PRN Q6HRS PRN IV NAUSEA/VOMITING; Start 07/16/19 at 11:30; Stop 07/21/19 at 16:21; Status DC Famotidine (Pepcid Vial) 20 mg QHS IVP Last administered on 07/20/19at 20:49; Start 07/16/19 at 21:00; Stop 07/21/19 at 16:21; Status DC Heparin Sodium (Porcine) (Heparin Sodium) 5,000 unit Q12HR SQ Last administered on 07/21/19at 08:21; Start 07/16/19 at 21:00; Stop 07/21/19 at 16:21; Status DC Sodium Chloride (Normal Saline Flush) 3 ml QSHIFT PRN IV AFTER MEDS AND BLOOD DRAWS; Start 07/16/19 at 11:30; Stop 07/21/19 at 16:21; Status DC Bisacodyl (Dulcolax Supp) 10 mg PRN DAILY PRN VT CONSTIPATION; Start 07/16/19 at 11:30; Stop 07/21/19 at 16:21; Status DC Sodium Chloride 1,000 ml @ 2,130 mls/hr Q29M IV ; Start 07/16/19 at 11:24; Stop 07/16/19 at 12:24; Status DC Meropenem 0.5 gm/ Sodium Chloride 100 ml @ 200 mls/hr Q8HRS IV ; Start 07/16/19 at 14:00; Status UNV Norepinephrine Bitartrate 250 ml @ 17.006 mls/ hr CONT PRN IV PER PROTOCOL Last administered on 07/17/19at 13:14; Start 07/16/19 at 11:30; Stop 07/21/19 at 16:21; Status DC Aspirin (Aspirin Rectal Supp) 300 mg 1X STAT VT Last administered on 07/16/19at 12:20; Start 07/16/19 at 11:27; Stop 07/16/19 at 11:30; Status DC Meropenem 500 mg/ Sodium Chloride 50 ml @ 100 mls/hr Q8HRS IV Last administered on 07/21/19at 12:04; Start 07/16/19 at 12:00; Stop 07/21/19 at 16:21; Status DC Lorazepam (Ativan Inj) 0.25 mg PRN 1X PRN IVP ANXIETY / AGITATION Last administered on 07/16/19at 16:32; Start 07/16/19 at 16:15; Stop 07/17/19 at 11:28; Status DC Lorazepam (Ativan Inj) 0.25 mg PRN Q3HRS PRN IVP ANXIETY / AGITATION; Start 07/16/19 at 16:15; Stop 07/21/19 at 20:27; Status DC Propofol 100 ml @ As Directed STK-MED ONCE IV ; Start 07/16/19 at 17:02; Stop 07/16/19 at 17:03; Status DC Succinylcholine Chloride (Anectine) 200 mg STK-MED ONCE .ROUTE ; Start 07/16/19 at 17:03; Stop 07/16/19 at 17:03; Status DC Fentanyl Citrate 30 ml @ 0 mls/hr CONT PRN IV SEE PROTOCOL Last administered on 07/21/19at 17:15; Start 07/16/19 at 17:45; Stop 07/21/19 at 20:27; Status DC Midazolam HCl 100 ml @ 0 mls/hr CONT PRN IV SEE PROTOCOL Last administered on 07/21/19at 05:44; Start 07/16/19 at 17:45; Stop 07/21/19 at 20:27; Status DC Acetaminophen (Tylenol) 650 mg PRN Q4HRS PRN PEG MILD PAIN / TEMP Last administered on 07/16/19at 20:52; Start 07/16/19 at 18:15; Stop 07/21/19 at 16:21; Status DC Fentanyl Citrate (Fentanyl 2ml Vial) 25 mcg PRN Q1HR PRN IV SEE COMMENTS; Start 07/16/19 at 18:30; Stop 07/21/19 at 20:27; Status DC Fentanyl Citrate (Fentanyl 2ml Vial) 50 mcg PRN Q1HR PRN IV SEE COMMENTS; Start 07/16/19 at 18:30; Stop 07/21/19 at 20:27; Status DC Chlorhexidine Gluconate (Peridex) 15 ml BID MM Last administered on 07/21/19at 08:41; Start 07/16/19 at 21:00; Stop 07/21/19 at 16:21; Status DC Morphine Sulfate (Morphine Sulfate) 2 mg PRN Q1HR PRN IV SEE COMMENTS.; Start 07/16/19 at 18:30; Stop 07/21/19 at 20:29; Status DC Morphine Sulfate (Morphine Sulfate) 4 mg PRN Q1HR PRN IV SEE COMMENTS.; Start 07/16/19 at 18:30; Stop 07/21/19 at 20:29; Status DC Midazolam HCl 100 ml @ 5 mls/hr CONT PRN IV SEE I/O RECORD; Start 07/16/19 at 18:30; Stop 07/16/19 at 18:23; Status DC Fentanyl Citrate 30 ml @ 0 mls/hr CONT PRN PRN IV PER PROTOCOL; Start 07/16/19 at 18:30; Stop 07/16/19 at 18:23; Status DC Naloxone HCl (Narcan) 0.4 mg PRN Q2MIN PRN IV SEE INSTRUCTIONS; Start 07/16/19 at 18:30; Stop 07/21/19 at 16:21; Status DC Sodium Chloride 1,000 ml @ 25 mls/hr Q24H IV Last administered on 07/19/19at 21:15; Start 07/16/19 at 18:18; Stop 07/21/19 at 20:27; Status DC Oseltamivir Phosphate (Tamiflu) 30 mg BID PO Last administered on 07/21/19 08:42; Start 07/17/19 at 09:30; Stop 07/21/19 at 16:21; Status DC Linezolid/Dextrose 300 ml @ 300 mls/hr Q12HR IV Last administered on 07/21/19 08:41; Start 07/17/19 at 09:30; Stop 07/21/19 at 16:21; Status DC Atorvastatin Calcium (Lipitor) 20 mg QHS PO Last administered on 07/20/19at 20:48; Start 07/17/19 at 21:00; Stop 07/21/19 at 16:21; Status DC Clopidogrel Bisulfate (Plavix) 300 mg 1X ONCE PO Last administered on 07/17/19at 11:12; Start 07/17/19 at 09:45; Stop 07/17/19 at 09:48; Status DC Clopidogrel Bisulfate (Plavix) 75 mg DAILYWBKFT PO Last administered on 07/21/19at 08:41; Start 07/18/19 at 08:00; Stop 07/21/19 at 16:21; Status DC Daptomycin 500 mg/ Sodium Chloride 50 ml @ 100 mls/hr Q24H ONCE IV Last administered on 07/18/19at 11:16; Start 07/18/19 at 10:00; Stop 07/18/19 at 10:29; Status DC Aspirin (Children'S Aspirin) 81 mg DAILYWBKFT PO ; Start 07/19/19 at 08:00; Status Cancel Amlodipine Besylate (Norvasc) 5 mg DAILY PO Last administered on 07/21/19at 08:43; Start 07/19/19 at 09:00; Stop 07/21/19 at 16:21; Status DC Aspirin (Ecotrin) 81 mg DAILY08 PO Last administered on 07/21/19at 08:41; Start 07/19/19 at 08:00; Stop 07/21/19 at 16:22; Status DC Divalproex Sodium (Depakote Er) 750 mg QHS PO ; Start 07/18/19 at 21:00; Stop 07/19/19 at 12:08; Status DC Divalproex Sodium (Depakote Er) 500 mg HS PO ; Start 07/18/19 at 21:00; Status UNV EZETIMIBE (Zetia) 10 mg HS PO Last administered on 07/20/19at 20:48; Start 07/18/19 at 21:00; Stop 07/21/19 at 16:22; Status DC Guaifenesin (Mucinex) 600 mg BID PO Last administered on 07/21/19at 08:43; Start 07/18/19 at 21:00; Stop 07/21/19 at 16:22; Status DC Lactobacillus Rhamnosus (Culturelle) 1 cap BID PO Last administered on 07/21/19at 08:42; Start 07/18/19 at 21:00; Stop 07/21/19 at 10:50; Status DC Levothyroxine Sodium (Synthroid) 100 mcg DAILY06 PO Last administered on 07/21/19at 05:44; Start 07/19/19 at 07:30; Stop 07/21/19 at 16:22; Status DC Mirtazapine (Remeron) 15 mg QHS PO Last administered on 07/18/19at 20:33; Start 07/18/19 at 21:00; Stop 07/19/19 at 12:18; Status DC Nitroglycerin (Nitrostat) 0.4 mg PRN Q5MIN PRN SL CHEST PAIN; Start 07/18/19 at 14:45; Stop 07/21/19 at 16:22; Status DC Quetiapine Fumarate (SEROquel) 37.5 mg HS PO Last administered on 07/20/19at 20:48; Start 07/18/19 at 21:00; Stop 07/21/19 at 16:22; Status DC Tamsulosin HCl (Flomax) 0.4 mg DAILY PO Last administered on 07/21/19at 08:45; Start 07/19/19 at 09:00; Stop 07/21/19 at 16:22; Status DC Fluvoxamine Maleate (Luvox) 50 mg QHS PO Last administered on 07/20/19at 20:49; Start 07/18/19 at 21:00; Stop 07/21/19 at 16:22; Status DC Losartan Potassium (Cozaar) 100 mg DAILY PO Last administered on 07/19/19at 09: 03; Start 07/19/19 at 09:00; Stop 07/21/19 at 16:22; Status DC Al Hydroxide/Mg Hydroxide (Mylanta Plus Xs) 15 ml PRN AFTMEALHC PRN PO DYSPEPSIA; Start 07/18/19 at 15:30; Stop 07/21/19 at 16:22; Status DC Magnesium Hydroxide (Milk Of Magnesia) 2,400 mg PRN DAILY PRN PO CONSTIPATION; Start 07/18/19 at 15:30; Stop 07/21/19 at 16:22; Status DC Risperidone (RisperDAL) 0.75 mg QHS PO Last administered on 07/18/19at 20:35; Start 07/18/19 at 21:00; Stop 07/19/19 at 12:10; Status DC Albuterol/ Ipratropium (Duoneb) 3 ml RTQID NEB Last administered on 07/21/19at 11:59; Start 07/18/19 at 17:00; Stop 07/21/19 at 20:27; Status DC Daptomycin 520 mg/ Sodium Chloride 50 ml @ 100 mls/hr Q24H IV Last administered on 07/21/19at 08:40; Start 07/19/19 at 08:00; Stop 07/21/19 at 16:22; Status DC Divalproex Sodium (Depakote Er) 500 mg QHS PO ; Start 07/19/19 at 21:00; Status Cancel Divalproex Sodium (Depakote Sprinkles) 250 mg BID PO Last administered on 07/21/19at 08:42; Start 07/20/19 at 09:00; Stop 07/21/19 at 16:22; Status DC Methylprednisolone Sodium Succinate (SOLU-Medrol 125MG VIAL) 125 mg Q8HRS IV Last administered on 07/21/19at 12:51; Start 07/20/19 at 14:00; Stop 07/21/19 at 16:22; Status DC Furosemide (Lasix) 40 mg BID92 IVP Last administered on 07/21/19at 12:50; Start 07/20/19 at 14:00; Stop 07/21/19 at 16:22; Status DC Potassium Chloride (Klor-Con) 40 meq 1X ONCE PO ; Start 07/21/19 at 06:15; Stop 07/21/19 at 06:16; Status Cancel Potassium Chloride (Klor-Con) 40 meq 1X ONCE PO ; Start 07/21/19 at 08:15; Stop 07/21/19 at 08:16; Status Cancel Potassium Bicarbonate (Potassium Effervescent Tablet) 40 meq Q2H PO Last administered on 07/21/19at 06:28; Start 07/21/19 at 06:30; Stop 07/21/19 at 08:31; Status DC Morphine Sulfate (Morphine Sulfate) 2 mg PRN Q2HR PRN IV PAIN; Start 07/21/19 at 14:45; Stop 07/21/19 at 14:45; Status DC Morphine Sulfate (Morphine Sulfate) 3 mg PRN Q2HR PRN IV PAIN; Start 07/21/19 at 14:45; Stop 07/21/19 at 14:45; Status DC Lorazepam (Ativan Inj) 2 mg PRN Q3HRS PRN IVP ANXIETY / AGITATION Last administered on 07/22/19at 02:18; Start 07/21/19 at 14:45 Lorazepam (Ativan Inj) 1 mg PRN Q3HRS PRN IVP ANXIETY / AGITATION; Start 07/21/19 at 14:45 Haloperidol Lactate (Haldol Inj) 1 mg PRN Q3HRS PRN IVP AGITATION; Start 07/21/19 at 14:45 Fentanyl Citrate 30 ml @ 0 mls/hr CONT PRN PRN IV PER PROTOCOL Last administered on 07/22/19at 04:40; Start 07/21/19 at 20:30 Sodium Chloride 1,000 ml @ 25 mls/hr Q24H IV Last administered on 07/21/19at 22:49; Start 07/21/19 at 21:00 Active Scripts Active Culturelle (Lactobacillus Rhamnosus Gg) 1 Each Cap.sprink 1 Cap PO BID 30 Days Zyvox (Linezolid) 600 Mg Tablet 600 Mg PO BID 10 Days Amox Tr-K Clv 875-125 Mg Tab (Amoxicillin/Potassium Clav) 1 Each Tablet 1 Tab PO BIDWMEALS 10 Days Reported Seroquel (Quetiapine Fumarate) 25 Mg Tablet 37.5 Mg PO HS Namenda Xr (Memantine Hcl) 28 Mg Cap.spr.24 28 Mg PO DAILY Men's One Daily (Multivitamin With Minerals) 1 Each Tablet 1 Each PO DAILY Mucinex (Guaifenesin) 600 Mg Tablet.er 1 Tab PO BID 10 Days Meloxicam 7.5 Mg Tablet 1 Tab PO DAILY 30 Days Claritin (Loratadine) 10 Mg Capsule 1 Cap PO DAILY 30 Days Remeron (Mirtazapine) 15 Mg Tablet 1 Tab PO QHS Vitamin E (Vitamin E Mixed) 1,000 Unit Capsule 1,000 Unit PO DAILY NITROGLYCERIN SubLingual (Nitroglycerin) 0.4 Mg Tab.subl 0.4 Mg SL PRN Q5MIN PRN Milk Of Magnesia (Magnesium Hydroxide) 2,400 Mg/10 Ml Oral.susp 2,400 Mg PO DAILY PRN Maalox Advanced Suspension (Mag Hydrox/Aluminum Hyd/Simeth) 355 Ml Oral.susp 15 Ml PO PRN AFTMEALHC PRN EXELON 4.6mg/24hr (Rivastigmine) 1 Each Patch.td24 1 Patch TP DAILY Depakote Er (Divalproex Sodium) 500 Mg Tab.er.24h 1 Tab PO HS Depakote Er (Divalproex Sodium) 250 Mg Tab.er.24h 1 Tab PO QHS Welchol (Colesevelam Hcl) 625 Mg Tablet 2,500 Mg PO BID Zetia (Ezetimibe) 10 Mg Tablet 1 Tab PO HS Vitamin D (Cholecalciferol (Vitamin D3)) 1,000 Unit Capsule 50,000 Units PO QSA Tamsulosin Hcl 0.4 Mg Cap.er.24h 1 Cap PO DAILY Risperidone 0.5 Mg Tablet 1.5 Tab PO QHS Niaspan (Niacin) 500 Mg Tab.er.24h 1 Tab PO QHS Losartan Potassium 100 Mg Tablet 100 Mg PO DAILY Levothyroxine Sodium 75 Mcg Tablet 100 Mcg PO DAILYAC Fluvoxamine Maleate 50 Mg Tablet 1 Tab PO QHS Vitamin B-12 (Cyanocobalamin (Vitamin B-12)) 1,000 Mcg Tablet 1 Tab PO DAILY Aspirin Ec (Aspirin) 81 Mg Tablet.dr 81 Mg PO DAILY08 Amlodipine Besylate 5 Mg Tablet 5 Mg PO DAILY Tylenol (Acetaminophen) 325 Mg Tablet 1-2 Tab PO QID Vitals/I & O Vital Sign - Last 24 Hours 07/21/19 07/21/19 07/21/19 07/21/19 10:00 11:00 12:00 12:00 Temp 99.8 99.8 Pulse 52 48 52 Resp 12 12 12 B/P (MAP) 102/54 (70) 101/43 (62) 108/51 (70) Pulse Ox 94 96 94 O2 Delivery Ventilator Ventilator Ventilator Mechanical Ventilator 07/21/19 07/21/19 07/21/19 07/21/19 12:00 13:00 14:00 15:00 Pulse 56 58 56 Resp 12 12 12 B/P (MAP) 101/55 (70) 83/48 (60) 86/50 (62) Pulse Ox 93 94 95 94 O2 Delivery Ventilator Ventilator Ventilator Ventilator 07/21/19 07/21/19 07/21/19 07/22/19 16:00 20:00 20:00 00:00 Temp 98.2 98.0 98.2 98.0 Pulse 58 55 64 Resp 20 16 18 B/P (MAP) 104/56 (72) 92/53 (66) 114/43 (66) Pulse Ox 93 90 91 O2 Delivery Room Air Room Air Room Air Nasal Cannula O2 Flow Rate 2.0 07/22/19 07/22/19 07/22/19 07/22/19 04:00 04:40 07:00 08:00 Temp 98.5 98.4 98.5 98.4 Pulse 68 75 Resp 18 22 22 B/P (MAP) 120/62 (81) 105/58 (74) Pulse Ox 91 91 91 O2 Delivery Nasal Cannula Room Air Nasal Cannula Room Air O2 Flow Rate 2.0 2.0 2.0 Intake and Output 07/21/19 07/21/19 07/22/19 14:59 22:59 06:59 Intake Total 650 ml 1024.36 ml 315 ml Output Total 0 ml 560 ml 510 ml Balance 650 ml 464.36 ml -195 ml LULY GUERIN MD Jul 22, 2019 09:11
--- NOTE | 2019-07-22 09:20 | NUR ---
SS following up with discharge planning. Per palliative care note, family wishes to focus on comfort at this time. Pt extubated and currently on nasal cannula oxygen. SS will continue to follow for discharge planning.
--- NOTE | 2019-07-22 09:32 | PDOC ---
PULMONARY PROGRESS NOTES Subjective intubated 07/16 SEDATED ON VENT ON 7 PEEP EXTUBATED ON 07/21 PER ADVANCE DIRECTIVE Vitals Vital Signs Date Time Temp Pulse Resp B/P (MAP) Pulse Ox O2 Delivery O2 Flow Rate FiO2 07/22/19 08:00 Room Air 2.0 07/22/19 07:00 98.4 75 22 105/58 (74) 91 98.4 Lungs: Crackles Cardiovascular: S1, S2 Abdomen: Soft, Non-tender, Other Neuro Exam: Alert Extremities: Other (+edems) Skin: Warm Labs Laboratory Tests Test 07/20/19 23:45 07/21/19 06:07 07/21/19 06:25 07/21/19 08:55 Glucose (Fingerstick) 240 mg/dL (70-99) 216 mg/dL (70-99) White Blood Count 6.5 x10^3/uL (4.0-11.0) Red Blood Count 3.10 x10^6/uL (4.30-5.70) Hemoglobin 10.3 g/dL (13.0-17.5) Hematocrit 30.0 % (39.0-53.0) Mean Corpuscular Volume 97 fL (79-100) Mean Corpuscular Hemoglobin 33 pg (25-35) Mean Corpuscular Hemoglobin Concent 34 g/dL (31-37) Red Cell Distribution Width 13.8 % (11.5-14.5) Platelet Count 191 x10^3/uL (140-400) Neutrophils (%) (Auto) 90 % (31-73) Lymphocytes (%) (Auto) 7 % (24-48) Monocytes (%) (Auto) 3 % (0-9) Eosinophils (%) (Auto) 0 % (0-3) Basophils (%) (Auto) 0 % (0-3) Neutrophils # (Auto) 5.9 x10^3/uL (1.8-7.7) Lymphocytes # (Auto) 0.4 x10^3/uL (1.0-4.8) Monocytes # (Auto) 0.2 x10^3/uL (0.0-1.1) Eosinophils # (Auto) 0.0 x10^3/uL (0.0-0.7) Basophils # (Auto) 0.0 x10^3/uL (0.0-0.2) Sodium Level 142 mmol/L (136-145) Potassium Level 4.9 mmol/L (3.5-5.1) Chloride Level 107 mmol/L (98-107) Carbon Dioxide Level 25 mmol/L (21-32) Anion Gap 10 (6-14) Blood Urea Nitrogen 45 mg/dL (8-26) Creatinine 1.1 mg/dL (0.7-1.3) Estimated GFR (Cockcroft-Gault) 63.0 Glucose Level 249 mg/dL (70-99) Calcium Level 7.6 mg/dL (8.5-10.1) O2 Saturation 95 % (92-99) Arterial Blood pH 7.53 (7.35-7.45) Arterial Blood pCO2 at Patient Temp 23 mmHg (35-46) Arterial Blood pO2 at Patient Temp 72 mmHg (65-108) Arterial Blood HCO3 18 mmol/L (21-28) Arterial Blood Base Excess -3 mmol/L (-3-3) FiO2 50 Test 07/21/19 10:10 Potassium Level 4.3 mmol/L (3.5-5.1) Laboratory Tests Test 07/21/19 10:10 Potassium Level 4.3 mmol/L (3.5-5.1) Medications Active Scripts Medications Dose Route/Sig Max Daily Dose Days Date Category Culturelle (Lactobacillus Rhamnosus Gg) 1 Each Cap.sprink 1 Cap PO BID 30 10/29/18 Rx Zyvox (Linezolid) 600 Mg Tablet 600 Mg PO BID 10 10/29/18 Rx Amox Tr-K Clv 875-125 Mg Tab (Amoxicillin/Potassium Clav) 1 Each Tablet 1 Tab PO BIDWMEALS 10 10/29/18 Rx Vitamin E (Vitamin E Mixed) 1,000 Unit Capsule 1,000 Unit PO DAILY 10/26/18 Reported NITROGLYCERIN SubLingual (Nitroglycerin) 0.4 Mg Tab.subl 0.4 Mg SL PRN Q5MIN PRN 10/26/18 Reported Milk Of Magnesia (Magnesium Hydroxide) 2,400 Mg/10 Ml Oral.susp 2,400 Mg PO DAILY PRN 10/26/18 Reported Maalox Advanced Suspension (Mag Hydrox/Aluminum Hyd/Simeth) 355 Ml Oral.susp 15 Ml PO PRN AFTMEALHC PRN 10/26/18 Reported EXELON 4.6mg/24hr (Rivastigmine) 1 Each Patch.td24 1 Patch TP DAILY 10/26/18 Reported Depakote Er (Divalproex Sodium) 500 Mg Tab.er.24h 1 Tab PO BID 10/26/18 Reported Depakote Er (Divalproex Sodium) 250 Mg Tab.er.24h 1 Tab PO QHS 10/26/18 Reported Welchol (Colesevelam Hcl) 625 Mg Tablet 2,500 Mg PO BID 10/26/18 Reported Zetia (Ezetimibe) 10 Mg Tablet 1 Tab PO HS 08/28/18 Reported Vitamin D (Cholecalciferol (Vitamin D3)) 1,000 Unit Capsule 50,000 Units PO QSA 08/28/18 Reported Tamsulosin Hcl 0.4 Mg Cap.er.24h 1 Cap PO DAILY 08/28/18 Reported Risperidone 0.5 Mg Tablet 1.5 Tab PO QHS 08/28/18 Reported Niaspan (Niacin) 500 Mg Tab.er.24h 1 Tab PO QHS 08/28/18 Reported Mirtazapine 30 Mg Tablet 1 Tab PO QHS 08/28/18 Reported Losartan Potassium 100 Mg Tablet 100 Mg PO DAILY 08/28/18 Reported Levothyroxine Sodium 75 Mcg Tablet 75 Mcg PO DAILYAC 08/28/18 Reported Fluvoxamine Maleate 50 Mg Tablet 1 Tab PO QHS 08/28/18 Reported Vitamin B-12 (Cyanocobalamin (Vitamin B-12)) 1,000 Mcg Tablet 1 Tab PO DAILY 08/28/18 Reported Aspirin Ec (Aspirin) 81 Mg Tablet.dr 81 Mg PO DAILY08 08/28/18 Reported Amlodipine Besylate 5 Mg Tablet 5 Mg PO DAILY 08/28/18 Reported Tylenol (Acetaminophen) 325 Mg Tablet 1-2 Tab PO QID 08/28/18 Reported Impression . IMPRESSION: 1. Acute respiratory failure secondary to influenza/ARDS 2. Abnormal chest x-ray. 3. Acute bronchospasm. 4. Pneumonia, influenza. 5. Acute kidney injury. 6. Elevated troponin, NSTEMI, type 2. 7. Elevated procalcitonin. 8. Sepsis with lactate elevation. 9. ZAHRAA 10. ACUTE DIASTOLIC CHF IMPRESSION: 1. Stable expiratory devices. 2. Stable bilateral basilar predominant opacities. 3. Stable small bilateral effusions. Plan . EXTUBATED PER ADVANCE DIRECTIVE COMFORT CARE ONLY D/W SON I WILL SIGN OFF THANKS TRANSFER OUT OF ICU KARLENE SANTIAGO MD Jul 22, 2019 09:32
[2019-07-22] MEDS ORDERED: MORPHINE SULFATE 20 MG/ML CONC SOLUTION. SL PRN ×2 (12:30→23:15)
[2019-07-22] MEDS: MORPHINE SULFATE 20 MG/ML CONC SOLUTION. SL PRN ×2 (17:21→20:42)
[2019-07-23] MEDS: MORPHINE SULFATE 20 MG/ML CONC SOLUTION. SL PRN ×6 (00:29→14:05)
[2019-07-23 03:10] VITALS: BP 102/49
[2019-07-23] MEDS: IV NORMAL SALINE 1000ML BAG 1,000 ML IV SCH (06:33)
[2019-07-23 07:00] VITALS: BP 130/64
[2019-07-23] MEDS ORDERED: LORazepam INTENSOL 2 MG/ML ORAL.CONC SL PRN (08:30)
[2019-07-23] MEDS ORDERED: MORP100S3 SL (08:31)
[2019-07-23] MEDS ORDERED: LORA2ORA7 SL (08:31)
--- NOTE | 2019-07-23 08:31 | SNU/HH DC ---
DISCHARGE ORDERS DISCHARGE INFORMATION: DISCHARGE DATE: Jul 23, 2019 FINAL DIAGNOSIS Problems Medical Problems: (1) Elevated troponin Status: Acute (2) Influenza Status: Acute CONDITION ON DISCHARGE: Stable CODE STATUS: Code Status: DNR/DNI INTERMEDIATE: SNF STAY <30 DAYS: No HOSPICE: HOSPICE: Yes HOSPICE EVAL & TREAT: Yes LTAC: ADMIT TO LTAC: No POST DISCHARGE ORDERS: ACTIVITY ORDERS: Activity as tolerated WEIGHT BEARING STATUS: As tolerated BATHING ORDERS: Shower-keep dressing dry DIET AFTER DISCHARGE: Regular WOUND/INCISION CARE: No wound care needed CHECKS AFTER DISCHARGE: COMMENTS: hospice TREATMENT/EQUIPMENT ORDERS: ADAPTIVE EQUIPMENT NEEDED: None Physical Therapy For: Evalulation/Treatment Occupational Therapy For: Evaluation/Treatment Speech Language Pathology For: Evaluation/Treatment DISCHARGE MEDICATIONS: Home Meds Active Scripts Lorazepam (LORAZEPAM INTENSOL) 2 Mg/1 Ml Oral.conc, 2 MG SL PRN Q6HRS PRN for ANXIETY / AGITATION for 7 Days, MISC Prov:ANDERSON YOU MD 07/23/19 Morphine Sulfate (MORPHINE SULFATE) 100 Mg/5 Ml Solution, 5 MG SL PRN Q2HR PRN for PAIN MILD TO MOD for 7 Days, MISC Prov:ANDERSON YOU MD 07/23/19 Discontinued Reported Medications Quetiapine Fumarate (SEROQUEL) 25 Mg Tablet, 37.5 MG PO HS for anxiety, TAB 07/18/19 Memantine Hcl (NAMENDA XR) 28 Mg Cap.spr.24, 28 MG PO DAILY for anxiety, TAB.SR 07/18/19 Multivitamin With Minerals (MEN'S ONE DAILY) 1 Each Tablet, 1 EACH PO DAILY for health maitenence, TAB 07/18/19 Guaifenesin (MUCINEX) 600 Mg Tablet.er, 1 TAB PO BID for cough for 10 Days, #20 TAB 0 Refills 07/18/19 Meloxicam (MELOXICAM) 7.5 Mg Tablet, 1 TAB PO DAILY for arthritis for 30 Days, #30 TAB 0 Refills 07/18/19 Loratadine (CLARITIN) 10 Mg Capsule, 1 CAP PO DAILY for allergy symptoms for 30 Days, #30 CAP 0 Refills 07/18/19 Mirtazapine (REMERON) 15 Mg Tablet, 1 TAB PO QHS for insomnia, #30 TAB 1 Refill 07/18/19 Vitamin E Mixed (VITAMIN E) 1,000 Unit Capsule, 1000 UNIT PO DAILY for suppl ement, CAP 10/26/18 Nitroglycerin (NITROGLYCERIN SubLingual) 0.4 Mg Tab.subl, 0.4 MG SL PRN Q5MIN PRN for CHEST PAIN, BOTTLE 10/26/18 Magnesium Hydroxide (MILK OF MAGNESIA) 2,400 Mg/10 Ml Oral.susp, 2400 MG PO TIARA Y PRN for CONSTIPATION, MISC 10/26/18 Mag Hydrox/Aluminum Hyd/Simeth (Maalox Advanced Suspension) 355 Ml Oral.susp, 15 ML PO PRN AFTMEALHC PRN for dyspepsia, MISC 10/26/18 Rivastigmine (EXELON 4.6mg/24hr) 1 Each Patch.td24, 1 PATCH TP DAILY for dementia, #30 PATCH 3 Refills 10/26/18 Divalproex Sodium (DEPAKOTE ER) 500 Mg Tab.er.24h, 1 TAB PO HS for dementia, #60 TAB 2 Refills 10/26/18 Divalproex Sodium (DEPAKOTE ER) 250 Mg Tab.er.24h, 1 TAB PO QHS for dementia, #30 TAB 2 Refills 10/26/18 Colesevelam Hcl (WELCHOL) 625 Mg Tablet, 2500 MG PO BID for hld, TAB 10/26/18 Ezetimibe (ZETIA) 10 Mg Tablet, 1 TAB PO HS for HYPERLIPIDEMIA, #30 TAB 5 Refills 08/28/18 Cholecalciferol (Vitamin D3) (VITAMIN D) 1,000 Unit Capsule, 22128 UNITS PO QSA for VIT D INSUFFICIENCY, #30 CAP 3 Refills 08/28/18 Tamsulosin Hcl (TAMSULOSIN HCL) 0.4 Mg Cap.er.24h, 1 CAP PO DAILY for BPH, #30 CAP 5 Refills 08/28/18 Risperidone (RISPERIDONE) 0.5 Mg Tablet, 1.5 TAB PO QHS for AGITATION, #30 TAB 2 Refills 08/28/18 Niacin (NIASPAN) 500 Mg Tab.er.24h, 1 TAB PO QHS for HYPERLIPIDEMIA, #30 TAB 5 Refills 08/28/18 Losartan Potassium (LOSARTAN POTASSIUM) 100 Mg Tablet, 100 MG PO DAILY for HTN, TAB 08/28/18 Levothyroxine Sodium (LEVOTHYROXINE SODIUM) 75 Mcg Tablet, 100 MCG PO DAILYAC for THYROID SUPPLEMENT, #30 TAB 0 Refills 08/28/18 Fluvoxamine Maleate (FLUVOXAMINE MALEATE) 50 Mg Tablet, 1 TAB PO QHS for OCD, # 30 TAB 1 Refill 08/28/18 Cyanocobalamin (Vitamin B-12) (VITAMIN B-12) 1,000 Mcg Tablet, 1 TAB PO DAILY for LOW B12, #30 TAB 2 Refills 08/28/18 Aspirin (ASPIRIN EC) 81 Mg Tablet.dr, 81 MG PO DAILY08 for PPX, TAB.SR 08/28/18 Amlodipine Besylate (AMLODIPINE BESYLATE) 5 Mg Tablet, 5 MG PO DAILY for HTN, TAB 08/28/18 Acetaminophen (TYLENOL) 325 Mg Tablet, 1-2 TAB PO QID for PAIN/TEMP, #60 TAB 2 Refills 08/28/18 Mirtazapine (MIRTAZAPINE) 30 Mg Tablet, 1 TAB PO QHS for INSOMNIA, #30 TAB 1 Refill 08/28/18 Discontinued Scripts Lactobacillus Rhamnosus Gg (CULTURELLE) 1 Each Cap.sprink, 1 CAP PO BID for GI HEALTH for 30 Days, #60 CAP Prov:LULY GUERIN MD 10/29/18 Linezolid (ZYVOX) 600 Mg Tablet, 600 MG PO BID for PNEUMONIA for 10 Days, #20 TAB Prov:LULY GUERIN MD 10/29/18 Amoxicillin/Potassium Clav (AMOX TR-K CLV 875-125 MG TAB) 1 Each Tablet, 1 TAB PO BIDWMEALS for PNEUMONIA/ UTI for 10 Days, #20 TAB Prov:LULY GUERIN MD 10/29/18 ANDERSON YOU MD Jul 23, 2019 08:31
--- NOTE | 2019-07-23 09:01 | PDOC3 ---
Discharge Summary Visit Information Date of Admission: Jul 16, 2019 Date of Discharge: Jul 23, 2019 Admitting Diagnosis Comment: 1. Acute respiratory failure secondary to influenza/ARDS 2. Abnormal chest x-ray. 3. Acute bronchospasm. 4. Pneumonia, influenza. 5. Acute kidney injury. 6. Elevated troponin, NSTEMI, type 2. 7. Elevated procalcitonin. 8. Sepsis with lactate elevation. 9. ZAHRAA 10. ACUTE DIASTOLIC CHF HOSPCIE DNR Final Diagnosis Problems Medical Problems: (1) Elevated troponin Status: Acute (2) Influenza Status: Acute Brief Hospital Course Allergies Allergies Coded Allergies Type Severity Reaction Last Updated Verified Penicillins Allergy Intermediate 07/21/19 Yes bee venom protein (honey bee) Allergy Intermediate 07/16/19 Yes Ossdrjn-Nyf-Hem Reductase Inhibitor Adverse Reaction Intermediate myalgias 07/16/19 Yes Vital Signs Vital Signs Date Time Temp Pulse Resp B/P (MAP) Pulse Ox O2 Delivery O2 Flow Rate FiO2 07/23/19 07:38 Nasal Cannula 2.0 07/23/19 07:00 97.2 58 20 130/64 (86) 94 97.2 Lab Results Laboratory Tests Test 07/21/19 10:10 Potassium Level 4.3 mmol/L (3.5-5.1) Brief Hospital Course Mr. Babcock is a 88 old white male who came from [place] and admitted in aRDS, vented for 7 days, NO meaningful chance of recovery so extubated and comfort care and im arranging for hospice I assume care today on possible day of dc when we get hospice arranged, COnfused, so npo, DNR signed, hospice packet i have initiated and wrote rx dw MOODY Parra consults: pulmonary, palliative Proc intubation x 7 days Discharge Information Condition at Discharge: Comment (hospcie, guarded) Disposition/Orders: D/C to Home w/ Hospice Scheduled PRN Lorazepam (Lorazepam Intensol) 2 Mg/1 Ml Oral.conc, 2 MG SL PRN Q6HRS PRN for ANXIETY / AGITATION for 7 Days Prescribed by: ANDERSON YOU on 07/23/19 0831 Morphine Sulfate (Morphine Sulfate) 100 Mg/5 Ml Solution, 5 MG SL PRN Q2HR PRN for PAIN MILD TO MOD for 7 Days Prescribed by: ANDERSON YOU on 07/23/19 0831 Discontinued Medications Acetaminophen (Tylenol) 325 Mg Tablet, 1-2 TAB PO QID for PAIN/TEMP, #60 Ref 2 (Reported) Entered as Reported by: MELITA NEWMAN on 08/28/181522 Last Action: Reviewed on 07/18/19 1439 by CHACE ARREOLA Amlodipine Besylate (Amlodipine Besylate) 5 Mg Tablet, 5 MG PO DAILY for HTN, (Reported) Entered as Reported by: MELITA NEWMAN on 08/28/181522 Last Action: Continued on 07/18/19 1449 by ANGELES HICKMAN Amoxicillin/Potassium Clav (Amox Tr-K Clv 875-125 Mg Tab) 1 Each Tablet, 1 TAB PO BIDWMEALS for PNEUMONIA/ UTI for 10 Days, #20 Prescribed by: LULY GUERIN MD on 10/29/18 1219 Aspirin (Aspirin Ec) 81 Mg Tablet.dr, 81 MG PO DAILY08 for PPX, (Reported) Entered as Reported by: MELITA NEWMAN on 08/28/181522 Last Action: Continued on 07/18/19 1449 by ANGELES HICKMAN Cholecalciferol (Vitamin D3) (Vitamin D) 1,000 Unit Capsule, 50,000 UNITS PO QSA for VIT D INSUFFICIENCY, #30 Ref 3 (Reported) Entered as Reported by: MELITA NEWMAN on 08/28/181522 Colesevelam Hcl (Welchol) 625 Mg Tablet, 2,500 MG PO BID for hld, (Reported) Entered as Reported by: LISA MERRILL on 10/26/18 151 Cyanocobalamin (Vitamin B-12) (Vitamin B-12) 1,000 Mcg Tablet, 1 TAB PO DAILY for LOW B12, #30 Ref 2 (Reported) Entered as Reported by: MELITA NEWMAN on 08/28/18 152 Divalproex Sodium (Depakote Er) 250 Mg Tab.er.24h, 1 TAB PO QHS for dementia, #30 Ref 2 (Reported) Entered as Reported by: LISA MERRILL on 10/26/18 1510 Last Action: Continued on 07/18/19 1449 by ANGELES HICKMAN Divalproex Sodium (Depakote Er) 500 Mg Tab.er.24h, 1 TAB PO HS for dementia, #60 Ref 2 (Reported) Entered as Reported by: LISA MERRILL on 10/26/18 1510 Last Action: Continued on 07/18/19 144 by ANGELES HICKMAN Ezetimibe (Zetia) 10 Mg Tablet, 1 TAB PO HS for HYPERLIPIDEMIA, #30 Ref 5 (Reported) Entered as Reported by: MELITA NEWMAN on 08/28/181522 Last Action: Continued on 07/18/191448 by ANGELES HICKMAN Fluvoxamine Maleate (Fluvoxamine Maleate) 50 Mg Tablet, 1 TAB PO QHS for OCD, #30 Ref 1 (Reported) Entered as Reported by: MELITA NEWMAN on 08/28/181522 Last Action: Converted on 07/18/191448 by ANGELES HICKMAN Guaifenesin (Mucinex) 600 Mg Tablet.er, 1 TAB PO BID for cough for 10 Days, #20 Ref 0 (Reported) Entered as Reported by: CHACE ARREOLA on 07/18/191438 Last Action: Continued on 07/18/191448 by ANGELES HICKMAN Lactobacillus Rhamnosus Gg (Culturelle) 1 Each Cap.sprink, 1 CAP PO BID for GI HEALTH for 30 Days, #60 Prescribed by: LULY GUERIN MD on 10/29/181218 Last Action: Continued on 07/18/191448 by ANGELES HICKMAN Levothyroxine Sodium (Levothyroxine Sodium) 75 Mcg Tablet, 100 MCG PO DAILYAC for THYROID SUPPLEMENT, #30 Ref 0 (Reported) Entered as Reported by: MELITA NEWMAN on 08/28/181522 Last Action: Continued on 07/18/191448 by ANGELES HICKMAN Linezolid (Zyvox) 600 Mg Tablet, 600 MG PO BID for PNEUMONIA for 10 Days, #20 Prescribed by: LULY GUERIN MD on 10/29/181218 Loratadine (Claritin) 10 Mg Capsule, 1 CAP PO DAILY for allergy symptoms for 30 Days, #30 Ref 0 (Reported) Entered as Reported by: CHACE ARREOLA on 07/18/191438 Last Action: New Order on 07/18/191438 by CHACE ARREOLA Losartan Potassium (Losartan Potassium) 100 Mg Tablet, 100 MG PO DAILY for HTN, (Reported) Entered as Reported by: MELITA NEWMAN on 08/28/181522 Last Action: Converted on 07/18/191448 by ANGELES HICKMAN Mag Hydrox/Aluminum Hyd/Simeth (Maalox Advanced Suspension) 355 Ml Oral.susp, 15 ML PO PRN AFTMEALHC PRN for dyspepsia, (Reported) Entered as Reported by: LISA MERRILL on 10/26/18 151 Last Action: Converted on 07/18/191448 by ANGELES HICKMAN Magnesium Hydroxide (Milk Of Magnesia) 2,400 Mg/10 Ml Oral.susp, 2,400 MG PO DAILY PRN for CONSTIPATION, (Reported) Entered as Reported by: LISA MERRILL on 10/26/181509 Last Action: Converted on 07/18/191448 by ANGELES HICKMAN Meloxicam (Meloxicam) 7.5 Mg Tablet, 1 TAB PO DAILY for arthritis for 30 Days, #30 Ref 0 (Reported) Entered as Reported by: CHACE ARREOLA on 07/18/191438 Last Action: New Order on 07/18/191438 by CHACE ARREOLA Memantine Hcl (Namenda Xr) 28 Mg Cap.spr.24, 28 MG PO DAILY for anxiety, (Reported) Entered as Reported by: CHACE ARREOLA on 07/18/191438 Last Action: New Order on 07/18/191438 by CHACE ARREOLA Mirtazapine (Mirtazapine) 30 Mg Tablet, 1 TAB PO QHS for INSOMNIA, #30 Ref 1 (Reported) Entered as Reported by: MELITA NEWMAN on 08/28/18 1523 Last Action: Discontinued on 07/18/191438 by CHACE ARREOLA Mirtazapine (Remeron) 15 Mg Tablet, 1 TAB PO QHS for insomnia, #30 Ref 1 (Reported) Entered as Reported by: CHACE ARREOLA on 07/18/191438 Last Action: Continued on 07/18/191448 by ANGELES HICKMAN Multivitamin With Minerals (Men's One Daily) 1 Each Tablet, 1 EACH PO DAILY for health maitenence, (Reported) Entered as Reported by: CHACE ARREOLA on 07/18/191438 Last Action: New Order on 07/18/191438 by CHACE ARREOLA Niacin (Niaspan) 500 Mg Tab.er.24h, 1 TAB PO QHS for HYPERLIPIDEMIA, #30 Ref 5 (Reported) Entered as Reported by: MELITA NEWMAN on 08/28/18 152 Nitroglycerin (NITROGLYCERIN SubLingual) 0.4 Mg Tab.subl, 0.4 MG SL PRN Q5MIN PRN for CHEST PAIN, (Reported) Entered as Reported by: LISA MERRILL on 10/26/18 151 Last Action: Continued on 07/18/191448 by ANGELES HICKMAN Quetiapine Fumarate (Seroquel) 25 Mg Tablet, 37.5 MG PO HS for anxiety, ( Reported) Entered as Reported by: CHACE ARREOLA on 07/18/19 1439 Last Action: Continued on 07/18/191448 by ANGELES HICKMAN Risperidone (Risperidone) 0.5 Mg Tablet, 1.5 TAB PO QHS for AGITATION, #30 Ref 2 (Reported) Entered as Reported by: MELITA NEWMAN on 08/28/181522 Last Action: Converted on 07/18/191448 by ANGELES HICKMAN Rivastigmine (EXELON 4.6mg/24hr) 1 Each Patch.td24, 1 PATCH TP DAILY for dementia, #30 Ref 3 (Reported) Entered as Reported by: LISA MERRILL on 10/26/181509 Tamsulosin Hcl (Tamsulosin Hcl) 0.4 Mg Cap.er.24h, 1 CAP PO DAILY for BPH, #30 Ref 5 (Reported) Entered as Reported by: MELITA NEWMAN on 08/28/18 152 Last Action: Continued on 07/18/191448 by ANGELES HICKMAN Vitamin E Mixed (Vitamin E) 1,000 Unit Capsule, 1,000 UNIT PO DAILY for supplement, (Reported) Entered as Reported by: LISA MERRILL on 10/26/181509 ANDERSON YOU MD Jul 23, 2019 09:01
[2019-07-23 11:00] VITALS: BP 118/37
[2019-07-23] MEDS ORDERED: MORPHINE SULFATE 20 MG/ML CONC SOLUTION. SL PRN (14:15)
--- NOTE | 2019-07-23 15:33 | NUR ---
Discharge Note: PT DISCHARGED FROM INPATIENT TO BE RE-ADMITTED UNDER [facility] INPATIENT [facility]OSP[facility] AT [facility]. DISCUSSED WITH DR. YOU ABOUT PATIENT BECOMING INPATIENT HOSPICE. NEW MEDICATION ORDERS HAVE BEEN RECEIVED. TAYLOR EVANS Discharge instructions and discharge home medications reviewed with Patient and a copy given. All questions have been answered and understanding verbalized.
== END 2019-07-23 15:33 | disposition hospice, inpatient (51) | DRG 870 ==
LOC: ER 07:41 → 1 WEST ICU 10:05 → 5 SOUTH 07-22 12:03
PROVIDERS: ADMIT Family Medicine; ATTEND Family Medicine
PROC: 5A1955Z Respiratory Ventilation, Greater than 96 Consecutive Hours (ICD-10-PCS; principal; 2019-07-16)
PROC: 0BH17EZ Insertion of Endotracheal Airway into Trachea, Via Natural or Artificial Opening (ICD-10-PCS; 2019-07-16)
PROC: 5A09357 Assistance with Respiratory Ventilation, Less than 24 Consecutive Hours, Continuous Positive Airway Pressure (ICD-10-PCS; 2019-07-16)
DX: A41.9 Sepsis, unspecified organism (principal); I50.31 Acute diastolic (congestive) heart failure; J18.9 Pneumonia, unspecified organism; J10.08 Influenza due to other identified influenza virus with other specified pneumonia; I21.A1 Myocardial infarction type 2; I50.33 Acute on chronic diastolic (congestive) heart failure; J96.21 Acute and chronic respiratory failure with hypoxia; N17.9 Acute kidney failure, unspecified; F41.9 Anxiety disorder, unspecified; I25.10 Atherosclerotic heart disease of native coronary artery without angina pectoris; F02.80 Dementia in other diseases classified elsewhere, unspecified severity, without behavioral disturbance, psychotic disturbance, mood disturbance, and anxiety; F32.9 Major depressive disorder, single episode, unspecified; E78.00 Pure hypercholesterolemia, unspecified; E03.9 Hypothyroidism, unspecified; G30.9 Alzheimer's disease, unspecified; Z95.1 Presence of aortocoronary bypass graft; Z91.030 Bee allergy status; Z88.0 Allergy status to penicillin; M19.90 Unspecified osteoarthritis, unspecified site; E78.5 Hyperlipidemia, unspecified; Z82.49 Family history of ischemic heart disease and other diseases of the circulatory system; N40.0 Benign prostatic hyperplasia without lower urinary tract symptoms; J98.01 Acute bronchospasm; Z66 Do not resuscitate; Z79.82 Long term (current) use of aspirin; I11.0 Hypertensive heart disease with heart failure; Z51.5 Encounter for palliative care; R65.20 Severe sepsis without septic shock; I35.0 Nonrheumatic aortic (valve) stenosis; E66.01 Morbid (severe) obesity due to excess calories; Z68.35 Body mass index [BMI] 35.0-35.9, adult
CPT/HCPCS: 36415; 36600; 71045; 74018; 80048; 80053; 82805; 82962; 83605; 83880; 84132; 84145; 84443; 84484; 85007; 85025; 85384; 85610; 87040; 87070; 87077; 87086; 87205; 87804; 93005; 93308; 93970; 94002; 94003; 94640; 94660; 96365; 96366; 96375; 96376; J0696; J0878; J1644; J1940; J2020; J2060; J2185; J2250; J2930; J3010; J3490; J7030; J7613; J7620; J7626; 99291-25; G0378

== ENCOUNTER 2019-07-23 15:37 | Inpatient (IN) | payer OTHER ==
[~2019-07-23] VITALS: Ht 175.3 cm; Wt 101.6 kg
[~2019-07-23 15:37] MED LIST changes: +GUAI600T47 PO; +LORA10CA PO; +LORA2ORA7 SL; +MEMA28CA PO; +MIRT15TA PO; +MORP100S3 SL; +MULT-289 PO; +QUET25TA5 PO
[2019-07-23] MEDS ORDERED: MORPHINE SULFATE 20 MG/ML CONC SOLUTION. SL PRN (15:45)
[2019-07-23] MEDS ORDERED: HYOSCYAMINE 0.125 MG TAB.RAPDIS PO PRN (15:45)
[2019-07-23] MEDS ORDERED: LORazepam 1 MG TABLET PO PRN (15:45)
[2019-07-23] MEDS: MORPHINE SULFATE 20 MG/ML CONC SOLUTION. SL SCH ×4 (16:00→22:58)
[2019-07-23] MEDS: LORazepam INTENSOL 2 MG/ML ORAL.CONC PO SCH ×4 (16:00→22:58)
[2019-07-23] MEDS: IPRATRPIUM/ALBUTEROL 0.5/2.5MG 3 ML NEBU. NEB PRN (16:17)
[2019-07-23] MEDS: SCOPOLAMINE 1.5MG PATCH. TD SCH (18:23)
[2019-07-23] MEDS: ATROPINE 1% OPHTH SOLUTION 5ML BOTTLE. SL PRN (18:24)
[2019-07-23 19:00] VITALS: BP 118/62
[2019-07-24] MEDS: MORPHINE SULFATE 20 MG/ML CONC SOLUTION. SL SCH ×12 (01:06→22:12)
[2019-07-24] MEDS: LORazepam INTENSOL 2 MG/ML ORAL.CONC PO SCH ×12 (01:06→22:12)
--- NOTE | 2019-07-24 07:29 | PDOC1 ---
History and Physical Date of Admission Date of Admission DATE: 07/24/19 TIME: 07:26 Identification/Chief Complaint Chief Complaint [facility] hosp[facility] admission Source Source: Caregiver, Chart review History of Present Illness History of Present Illness HE was admitted at [facility] between 07/16-07/23, in respirtaory failure sec to ARDS and was intubated 7 days, HE was not recovering, also encephalopathy, cant swallow, NPO. THese were his dx: 1. Acute respiratory failure secondary to influenza/ARDS 2. Abnormal chest x-ray. 3. Acute bronchospasm. 4. Pneumonia, influenza. 5. Acute kidney injury. 6. Elevated troponin, NSTEMI, type 2. 7. Elevated procalcitonin. 8. Sepsis with lactate elevation. 9. ZAHRAA 10. ACUTE DIASTOLIC CHF PAlliative involved and fam decided DNR and hospice so now INPT hOSPICE Past Medical History Cardiovascular: CAD, HTN, Hyperlipidemia Pulmonary: No pertinent hx CENTRAL NERVOUS SYSTEM: Dementia GI: No pertinent hx Heme/Onc: No pertinent hx Hepatobiliary: No pertinent hx Psych: Anxiety, Depression Musculoskeletal: Osteoarthritis Rheumatologic: No pertinent hx Infectious disease: No pertinent hx Renal/: UTI Endocrine: Hypothyroidism Past Surgical History Past Surgical History: CABG Family History Family History: Hypertension Social History Smoke: No ALCOHOL: none Drugs: None Current Medications Current Medications Current Medications Morphine Sulfate (Roxanol Conc) 20 mg PRN Q2HR PRN SL ; Start 07/23/19 at 15:45; Stop 07/23/19 at 15:49; Status DC Lorazepam (Ativan) 2 mg PRN Q2HR PRN PO ANXIETY / AGITATION; Start 07/23/19 at 15:45; Stop 07/23/19 at 15:49; Status DC Albuterol/ Ipratropium (Duoneb) 3 ml PRN Q4HRS PRN NEB SOA Last administered on 07/23/19at 16:17; Start 07/23/19 at 15:45 Hyoscyamine (Anaspaz) 0.125 mg PRN Q4HRS PRN PO STOMACH CRAMPING; Start 07/23/19 at 15:45 Lorazepam (Ativan Intensol) 2 mg Q2HR PO Last administered on 07/24/19at 07:12; Start 07/23/19 at 16:00 Morphine Sulfate (Roxanol Conc) 20 mg Q2HR SL Last administered on 07/24/19at 07:12; Start 07/23/19 at 16:00 Scopolamine (Transderm-Scop) 1 patch Q3DAYS TD Last administered on 07/23/19at 18:23; Start 07/23/19 at 18:15 Atropine Sulfate (Isopto Atropine) 1 drop PRN Q2HR PRN SL SECRETIONS Last administered on 07/23/19at 18:24; Start 07/23/19 at 18:15 Active Scripts Active Lorazepam Intensol (Lorazepam) 2 Mg/1 Ml Oral.conc 2 Mg SL PRN Q6HRS PRN 7 Days Morphine Sulfate 100 Mg/5 Ml Solution 5 Mg SL PRN Q2HR PRN 7 Days Allergies Allergies: Coded Allergies: Penicillins (Verified Allergy, Intermediate, 07/21/19) bee venom protein (honey bee) (Verified Allergy, Intermediate, 07/16/19) WASP Ujcmwbg-Wmq-Jeo Reductase Inhibitor (Verified Adverse Reaction, Intermediate, myalgias, 07/16/19) ROS Review of System non verbal Physical Exam General: No acute distress HEENT: Atraumatic, PERRLA Lungs: Normal air movement, Other (wheezy, equal air entry) Heart: S1S2, RRR, no thrills, no rubs, no gallops, no murmurs Cardiovascular: S1, S2 Male Genitals Exam: normal genitalia, normal prostate Rectal Exam: not examined PELVIC: Nml ext genitalia Extremities: No clubbing, No cyanosis, No edema, Normal pulses, No tenderness/swelling Skin: No rashes, No breakdown, No significant lesion, Other (seniel skin tu rgor) Vitals Vitals Vital Signs Date Time Temp Pulse Resp B/P (MAP) Pulse Ox O2 Delivery O2 Flow Rate FiO2 07/24/19 07:12 88 4.0 07/23/19 19:00 99.5 59 20 118/62 (80) Venturi Mask 99.5 VTE Prophylaxis Ordered VTE Prophylaxis Devices: No VTE Pharmacological Prophylaxi: No Assessment/Plan Assessment/Plan 1. Acute respiratory failure secondary to influenza/ARDS 2. Abnormal chest x-ray. 3. Acute bronchospasm. 4. Pneumonia, influenza. 5. Acute kidney injury. 6. Elevated troponin, NSTEMI, type 2. 7. Elevated procalcitonin. 8. Sepsis with lactate elevation. 9. ZAHRAA 10. ACUTE DIASTOLIC CHF INPATIENT HOSPICE HOSPICE PACKET DNR ANDERSON YOU MD Jul 24, 2019 07:29
[2019-07-24 07:59] VITALS: BP 118/64
--- NOTE | 2019-07-24 08:45 | NUR ---
Holding 0800 ativan and roxanal to get patient back on schedule of medication, see emar. Patient without restlessness or tachypnea at this time.
[2019-07-24] MEDS: ATROPINE 1% OPHTH SOLUTION 5ML BOTTLE. SL PRN ×5 (10:49→17:48)
[2019-07-24] MEDS: IPRATRPIUM/ALBUTEROL 0.5/2.5MG 3 ML NEBU. NEB PRN ×2 (11:11→19:22)
[2019-07-24] MEDS ORDERED: BISACODYL 10 MG SUPP.RECT. PR PRN (12:45)
[2019-07-24] MEDS: HYOSCYAMINE 0.125 MG TAB.RAPDIS PO SCH ×3 (12:58→19:59)
[2019-07-24 19:00] VITALS: BP 138/60
[2019-07-24] MEDS: ACETAMINOPHEN 650 MG SUPP.RECT. PR PRN (21:31)
[2019-07-25] MEDS: HYOSCYAMINE 0.125 MG TAB.RAPDIS PO SCH ×6 (00:02→20:30)
[2019-07-25] MEDS: MORPHINE SULFATE 20 MG/ML CONC SOLUTION. SL SCH ×14 (00:02→22:00)
[2019-07-25] MEDS: LORazepam INTENSOL 2 MG/ML ORAL.CONC PO SCH ×12 (00:02→22:00)
[2019-07-25 07:00] VITALS: BP 122/54
[2019-07-25] MEDS ORDERED: ACETAMINOPHEN 650 MG SUPP.RECT. PR PRN (07:45)
[2019-07-25] MEDS ORDERED: ALBUTEROL SULFATE 2.5 MG/3 ML NEBU. NEB PRN (09:15)
--- NOTE | 2019-07-25 09:24 | PDOC ---
PROGRESS NOTES Chief Complaint Chief Complaint 1. Acute respiratory failure secondary to influenza/ARDS 2. Abnormal chest x-ray. 3. Acute bronchospasm. 4. Pneumonia, influenza. 5. Acute kidney injury. 6. Elevated troponin, NSTEMI, type 2. 7. Elevated procalcitonin. 8. Sepsis with lactate elevation. 9. ZAHRAA 10. ACUTE DIASTOLIC CHF PAlliative involved and fam decided DNR and hospice so now INPT hOSPICE History of Present Illness History of Present Illness Febrile T 102 pt non verbal On [facility] hosp[facility] here PLAN: Hospice TYlenol supp as fever can eb uncomfortable Vitals Vitals Vital Signs Date Time Temp Pulse Resp B/P (MAP) Pulse Ox O2 Delivery O2 Flow Rate FiO2 07/25/19 08:39 Nasal Cannula 2.0 07/25/19 07:00 99.1 61 20 122/54 (76) 98 99.1 Physical Exam General: moderate distress Heart: Regular rate, Normal S1, Normal S2 Lungs: Wheezing, Crackles Abdomen: Normal bowel sounds, Soft Extremities: No clubbing, No cyanosis, No edema, Normal pulses, No tenderness/swelling Skin: No rashes, No breakdown, No significant lesion, Other (seniel skin turgor) Review of Systems Review of Systems non verbal Comment Review of Relevant I have reviewed the following items en (where applicable) has been applied. Medications Current Medications Morphine Sulfate (Roxanol Conc) 20 mg PRN Q2HR PRN SL ; Start 07/23/19 at 15:45; Stop 07/23/19 at 15:49; Status DC Lorazepam (Ativan) 2 mg PRN Q2HR PRN PO ANXIETY / AGITATION; Start 07/23/19 at 15:45; Stop 07/23/19 at 15:49; Status DC Albuterol/ Ipratropium (Duoneb) 3 ml PRN Q4HRS PRN NEB SOA Last administered on 07/24/19at 19:22; Start 07/23/19 at 15:45; Stop 07/25/19 at 09:08; Status DC Hyoscyamine (Anaspaz) 0.125 mg PRN Q4HRS PRN PO STOMACH CRAMPING; Start 07/23/19 at 15:45; Stop 07/24/19 at 12:43; Status DC Lorazepam (Ativan Intensol) 2 mg Q2HR PO Last administered on 07/25/19 06:02; Start 07/23/19 at 16:00 Morphine Sulfate (Roxanol Conc) 20 mg Q2HR SL Last administered on 07/25/19 06:02; Start 07/23/19 at 16:00 Scopolamine (Transderm-Scop) 1 patch Q3DAYS TD Last administered on 07/23/19 18:23; Start 07/23/19 at 18:15 Atropine Sulfate (Isopto Atropine) 1 drop PRN Q2HR PRN SL SECRETIONS Last administered on 07/24/19at 17:48; Start 07/23/19 at 18:15 Hyoscyamine (Anaspaz) 0.125 mg Q4HRS PO Last administered on 07/25/19 03:59; Start 07/24/19 at 13:00 Bisacodyl (Dulcolax Supp) 10 mg PRN DAILY PRN GA CONSTIPATION; Start 07/24/19 at 12:45 Acetaminophen (Tylenol Supp) 650 mg PRN Q6HRS PRN GA MILD PAIN / TEMP Last administered on 07/24/19at 21:31; Start 07/24/19 at 21:00 Acetaminophen (Tylenol Supp) 650 mg PRN Q6HRS PRN GA MILD PAIN / TEMP; Start 07/25/19 at 07:45; Status UNV Albuterol Sulfate (Ventolin Neb Soln) 2.5 mg PRN Q4HRS PRN NEB SHORTNESS OF BREATH; Start 07/25/19 at 09:15 Active Scripts Active Lorazepam Intensol (Lorazepam) 2 Mg/1 Ml Oral.conc 2 Mg SL PRN Q6HRS PRN 7 Days Morphine Sulfate 100 Mg/5 Ml Solution 5 Mg SL PRN Q2HR PRN 7 Days Vitals/I & O Vital Sign - Last 24 Hours 07/24/19 07/24/19 07/24/19 07/24/19 09:57 10:55 11:14 11:53 Resp 16 18 16 Pulse Ox 93 O2 Delivery Venturi Mask Venturi Mask Venturi Mask Venturi Mask O2 Flow Rate 12.0 07/24/19 07/24/19 07/24/19 07/24/19 12:53 14:15 15:10 15:52 Resp 18 16 16 16 O2 Delivery Venturi Mask Venturi Mask Venturi Mask Venturi Mask 10/07/24/19 07/24/19 07/24/19 16:52 17:49 18:55 19:00 Temp 102.3 102.3 Pulse 94 Resp 20 24 20 24 B/P (MAP) 138/60 (86) Pulse Ox 100 O2 Delivery Venturi Mask Venturi Mask Venturi Mask Venturi Mask O2 Flow Rate 4.0 07/24/19 07/24/19 07/24/19 07/24/19 19:30 19:59 20:59 22:12 Pulse Ox 100 100 100 100 O2 Delivery Venturi Mask O2 Flow Rate 12.0 12.0 12.0 12.0 07/24/19 07/25/19 07/25/19 07/25/19 23:12 00:02 01:02 01:30 Temp 102.0 102.0 Pulse Ox 100 100 100 O2 Flow Rate 12.0 12.0 12.0 07/25/19 07/25/19 07/25/19 07/25/19 02:01 03:01 03:59 04:59 Pulse Ox 100 100 100 100 O2 Flow Rate 12.0 12.0 12.0 12.0 07/25/19 07/25/19 07/25/19 06:02 07:00 08:39 Temp 99.1 99.1 Pulse 61 Resp 20 B/P (MAP) 122/54 (76) Pulse Ox 100 98 O2 Delivery Nasal Cannula Nasal Cannula O2 Flow Rate 12.0 2.0 2.0 Intake and Output 07/24/19 07/24/19 07/25/19 15:00 23:00 07:00 Output Total 550 ml 1250 ml Balance -550 ml -1250 ml ANDERSON YOU MD Jul 25, 2019 09:24
--- NOTE | 2019-07-25 10:51 | NUR ---
SW following. Discussed with RN, pt is currently inpatient hospice. No SW needs at this time. SW will continue to follow.
[2019-07-25 19:00] VITALS: BP 112/61
[2019-07-26] MEDS: MORPHINE SULFATE 20 MG/ML CONC SOLUTION. SL SCH ×7 (02:22→12:23)
[2019-07-26] MEDS: LORazepam INTENSOL 2 MG/ML ORAL.CONC PO SCH ×7 (02:22→12:23)
[2019-07-26] MEDS: HYOSCYAMINE 0.125 MG TAB.RAPDIS PO SCH ×4 (04:06→12:22)
[2019-07-26 07:00] VITALS: BP 121/61
[2019-07-26] MEDS: SCOPOLAMINE 1.5MG PATCH. TD SCH (07:33)
[2019-07-26] MEDS: ATROPINE 1% OPHTH SOLUTION 5ML BOTTLE. SL PRN ×2 (07:34→09:49)
[2019-07-26] MEDS: GLYCOPYRROLATE 1 MG/5 ML VIAL. IV PRN ×2 (09:48→12:38)
[2019-07-26] MEDS: ACETAMINOPHEN 650 MG SUPP.RECT. PR PRN ×2 (10:08→20:16)
--- NOTE | 2019-07-26 11:07 | PDOC ---
PROGRESS NOTES Chief Complaint Chief Complaint 1. Acute respiratory failure secondary to influenza/ARDS 2. Abnormal chest x-ray. 3. Acute bronchospasm. 4. Pneumonia, influenza. 5. Acute kidney injury. 6. Elevated troponin, NSTEMI, type 2. 7. Elevated procalcitonin. 8. Sepsis with lactate elevation. 9. ZAHRAA 10. ACUTE DIASTOLIC CHF PAlliative involved and fam decided DNR and hospice so now INPT hOSPICE History of Present Illness History of Present Illness Febrile T 100/2 pt non verbal On [facility] here VEry noisy breathing, crackles has scopolamine patch PLAN: Hospice TYlenol supp as fever can be uncomfortable Cont rubinal, intensol., scopolaimne etc Vitals Vitals Vital Signs Date Time Temp Pulse Resp B/P (MAP) Pulse Ox O2 Delivery O2 Flow Rate FiO2 07/26/19 09:48 78 Nasal Cannula 5.0 07/26/19 07:00 100.5 87 20 121/61 (81) 100.5 Physical Exam General: moderate distress Heart: Regular rate, Normal S1, Normal S2 Lungs: Wheezing, Crackles Abdomen: Normal bowel sounds, Soft Extremities: No clubbing, No cyanosis, No edema, Normal pulses, No tenderness/swelling Skin: No rashes, No breakdown, No significant lesion, Other (seniel skin turgor) Review of Systems Review of Systems non verbal - hospice Comment Review of Relevant I have reviewed the following items en (where applicable) has been applied. Medications Current Medications Morphine Sulfate (Roxanol Conc) 20 mg PRN Q2HR PRN SL ; Start 07/23/19 at 15:45; Stop 07/23/19 at 15:49; Status DC Lorazepam (Ativan) 2 mg PRN Q2HR PRN PO ANXIETY / AGITATION; Start 07/23/19 at 15:45; Stop 07/23/19 at 15:49; Status DC Albuterol/ Ipratropium (Duoneb) 3 ml PRN Q4HRS PRN NEB SOA Last administered on 07/24/19at 19:22; Start 07/23/19 at 15:45; Stop 07/25/19 at 09:08; Status DC Hyoscyamine (Anaspaz) 0.125 mg PRN Q4HRS PRN PO STOMACH CRAMPING; Start 07/23/19 at 15:45; Stop 07/24/19 at 12:43; Status DC Lorazepam (Ativan Intensol) 2 mg Q2HR PO Last administered on 07/26/19 09:49; Start 07/23/19 at 16:00 Morphine Sulfate (Roxanol Conc) 20 mg Q2HR SL Last administered on 07/26/19 09:48; Start 07/23/19 at 16:00 Scopolamine (Transderm-Scop) 1 patch Q3DAYS TD Last administered on 07/26/19 07:33; Start 07/23/19 at 18:15 Atropine Sulfate (Isopto Atropine) 1 drop PRN Q2HR PRN SL SECRETIONS Last administered on 07/26/19 09:49; Start 07/23/19 at 18:15 Hyoscyamine (Anaspaz) 0.125 mg Q4HRS PO Last administered on 07/26/19 07:33; Start 07/24/19 at 13:00 Bisacodyl (Dulcolax Supp) 10 mg PRN DAILY PRN [place] CONSTIPATION; Start 07/24/19 at 12:45 Acetaminophen (Tylenol Supp) 650 mg PRN Q6HRS PRN GA MILD PAIN / TEMP Last administered on 07/26/19at 10:08; Start 07/24/19 at 21:00 Acetaminophen (Tylenol Supp) 650 mg PRN Q6HRS PRN GA MILD PAIN / TEMP; Start 07/25/19 at 07:45; Status UNV Albuterol Sulfate (Ventolin Neb Soln) 2.5 mg PRN Q4HRS PRN NEB SHORTNESS OF BREATH; Start 07/25/19 at 09:15 Glycopyrrolate (Robinul) 0.2 mg PRN Q4HRS PRN IV SECRETIONS Last administered on 07/26/19 09:48; Start 07/26/19 at 08:00 Active Scripts Active Lorazepam Intensol (Lorazepam) 2 Mg/1 Ml Oral.conc 2 Mg SL PRN Q6HRS PRN 7 Days Morphine Sulfate 100 Mg/5 Ml Solution 5 Mg SL PRN Q2HR PRN 7 Days Vitals/I & O Vital Sign - Last 24 Hours 07/25/19 07/25/19 07/25/19 07/25/19 12:39 13:40 14:15 19:00 Temp 99.6 99.6 Pulse 82 Resp 21 B/P (MAP) 112/61 (78) Pulse Ox 78 O2 Delivery Nasal Cannula Nasal Cannula Nasal Cannula Nasal Cannula O2 Flow Rate 2.0 2.0 2.0 2.0 07/25/19 07/25/19 07/25/19 07/25/19 19:16 20:00 20:30 21:30 O2 Delivery Nasal Cannula Nasal Cannula Nasal Cannula Nasal Cannula O2 Flow Rate 2.0 2.0 2.0 2.0 07/26/19 07/26/19 07/26/19 07/26/19 02:22 03:22 04:07 05:09 O2 Delivery Nasal Cannula Nasal Cannula Nasal Cannula Nasal Cannula O2 Flow Rate 2.0 2.0 2.0 2.0 07/26/19 07/26/19 07/26/19 07/26/19 05:43 07:00 07:22 07:33 Temp 100.5 100.5 Pulse 87 Resp 20 B/P (MAP) 121/61 (81) Pulse Ox 75 78 78 O2 Delivery Nasal Cannula Nasal Cannula Nasal Cannula Nasal Cannula O2 Flow Rate 2.0 2.0 2.0 2.0 07/26/19 07/26/19 07/26/19 08:00 08:33 09:48 Pulse Ox 78 O2 Delivery Nasal Cannula Nasal Cannula Nasal Cannula O2 Flow Rate 5.0 5.0 5.0 Intake and Output 07/25/19 07/25/19 07/26/19 14:59 22:59 06:59 Output Total 350 ml 800 ml Balance -350 ml -800 ml ANDERSON YOU MD Jul 26, 2019 11:07
[2019-07-26] MEDS ORDERED: IV NORMAL SALINE 1000ML BAG 1,000 ML IV SCH (12:58)
[2019-07-26] MEDS ORDERED: NALOXONE 0.4 MG/ML VIAL. IV PRN (13:00)
[2019-07-26] MEDS ORDERED: LORazepam INTENSOL 2 MG/ML ORAL.CONC PO PRN (13:00)
[2019-07-26] MEDS ORDERED: MORPHINE SULFATE 20 MG/ML CONC SOLUTION. SL PRN (13:00)
[2019-07-26] MEDS: MORPHINE SULFATE/PF 30 ML IV PRN (13:59)
[2019-07-26] MEDS ORDERED: HYOSCYAMINE 0.125 MG TAB.RAPDIS PO PRN (14:00)
[2019-07-26 19:00] VITALS: BP 131/81
[2019-07-27] MEDS: MORPHINE SULFATE/PF 30 ML IV PRN (01:35)
[2019-07-27] MEDS: ACETAMINOPHEN 650 MG SUPP.RECT. PR PRN (05:38)
[2019-07-27 07:00] VITALS: BP 126/62
--- NOTE | 2019-07-27 10:23 | PDOC ---
PROGRESS NOTES Chief Complaint Chief Complaint 1. Acute respiratory failure secondary to influenza/ARDS 2. Abnormal chest x-ray. 3. Acute bronchospasm. 4. Pneumonia, influenza. 5. Acute kidney injury. 6. Elevated troponin, NSTEMI, type 2. 7. Elevated procalcitonin. 8. Sepsis with lactate elevation. 9. ZAHRAA 10. ACUTE DIASTOLIC CHF 11. fever hospice // INPT hOSPICE 27 MIN PT EXAM, CHART REVIEW, > 50% OF TIME SPENT WITH EXAM, CHART REVIEW, PT CARE COORDINATION History of Present Illness History of Present Illness Febrile T 100/2 pt non verbal On [facility] here VEry noisy breathing, crackles has scopolamine patch PLAN: Hospice TYlenol supp as fever can be uncomfortable Cont rubinal, intensol., scopolaimne etc Vitals Vitals Vital Signs Date Time Temp Pulse Resp B/P (MAP) Pulse Ox O2 Delivery O2 Flow Rate FiO2 07/27/19 09:50 40 Room Air 07/27/19 07:00 100.3 122 126/62 (83) 82 5.0 100.3 Physical Exam General: moderate distress Heart: Regular rate, Normal S1, Normal S2 Lungs: Wheezing, Crackles Abdomen: Normal bowel sounds, Soft Extremities: No clubbing, No cyanosis, No edema, Normal pulses, No tenderness/swelling Skin: No rashes, No breakdown, No significant lesion, Other (seniel skin turgor) Comment Review of Relevant I have reviewed the following items en (where applicable) has been applied. Medications Current Medications Morphine Sulfate (Roxanol Conc) 20 mg PRN Q2HR PRN SL ; Start 07/23/19 at 15:45; Stop 07/23/19 at 15:49; Status DC Lorazepam (Ativan) 2 mg PRN Q2HR PRN PO ANXIETY / AGITATION; Start 07/23/19 at 15:45; Stop 07/23/19 at 15:49; Status DC Albuterol/ Ipratropium (Duoneb) 3 ml PRN Q4HRS PRN NEB SOA Last administered on 07/24/19at 19:22; Start 07/23/19 at 15:45; Stop 07/25/19 at 09:08; Status DC Hyoscyamine (Anaspaz) 0.125 mg PRN Q4HRS PRN PO STOMACH CRAMPING; Start 07/23/19 at 15:45; Stop 07/24/19 at 12:43; Status DC Lorazepam (Ativan Intensol) 2 mg Q2HR PO Last administered on 07/26/19 12:23; Start 07/23/19 at 16:00; Stop 07/26/19 at 13:10; Status DC Morphine Sulfate (Roxanol Conc) 20 mg Q2HR SL Last administered on 07/26/19at 12:23; Start 07/23/19 at 16:00; Stop 07/26/19 at 13:10; Status DC Scopolamine (Transderm-Scop) 1 patch Q3DAYS TD Last administered on 07/26/19 07:33; Start 07/23/19 at 18:15 Atropine Sulfate (Isopto Atropine) 1 drop PRN Q2HR PRN SL SECRETIONS Last administered on 07/26/19 09:49; Start 07/23/19 at 18:15 Hyoscyamine (Anaspaz) 0.125 mg Q4HRS PO Last administered on 07/26/19 12:22; Start 07/24/19 at 13:00; Stop 07/26/19 at 13:10; Status DC Bisacodyl (Dulcolax Supp) 10 mg PRN DAILY PRN [place] CONSTIPATION; Start 07/24/19 at 12:45 Acetaminophen (Tylenol Supp) 650 mg PRN Q6HRS PRN MI MILD PAIN / TEMP Last administered on 07/27/19at 05:38; Start 07/24/19 at 21:00 Acetaminophen (Tylenol Supp) 650 mg PRN Q6HRS PRN MI MILD PAIN / TEMP; Start 07/25/19 at 07:45; Status UNV Albuterol Sulfate (Ventolin Neb Soln) 2.5 mg PRN Q4HRS PRN NEB SHORTNESS OF BREATH; Start 07/25/19 at 09:15 Glycopyrrolate (Robinul) 0.2 mg PRN Q4HRS PRN IV SECRETIONS Last administered on 07/26/19at 12:38; Start 07/26/19 at 08:00 Hyoscyamine (Anaspaz) 0.125 mg PRN Q2HR PRN PO SECRETIONS; Start 07/26/19 at 14:00 Lorazepam (Ativan Intensol) 2 mg PRN Q1HR PRN PO ANXIETY / AGITATION; Start 07/26/19 at 13:00 Morphine Sulfate (Roxanol Conc) 20 mg PRN Q1HR PRN SL PAIN/AIR HUNGER Last administered on 07/27/19at 09:50; Start 07/26/19 at 13:00 Naloxone HCl (Narcan) 0.4 mg PRN Q2MIN PRN IV SEE INSTRUCTIONS; Start 07/26/19 at 13:00 Sodium Chloride 1,000 ml @ 25 mls/hr Q24H IV Last administered on 07/26/19at 14:00; Start 07/26/19 at 12:58 Morphine Sulfate 30 ml @ 0 mls/hr CONT PRN PRN IV PER PROTOCOL Last administer ed on 07/27/19at 01:35; Start 07/26/19 at 13:00 Lorazepam (Ativan Inj) 2 mg PRN Q2HR PRN IVP ANXIETY / AGITATION Last administ ered on 07/26/19at 13:45; Start 07/26/19 at 14:00 Active Scripts Active Lorazepam Intensol (Lorazepam) 2 Mg/1 Ml Oral.conc 2 Mg SL PRN Q6HRS PRN 7 Days Morphine Sulfate 100 Mg/5 Ml Solution 5 Mg SL PRN Q2HR PRN 7 Days Vitals/I & O Vital Sign - Last 24 Hours 07/26/19 07/26/19 07/26/19 07/26/19 10:48 12:23 13:23 13:59 Pulse Ox 78 78 78 O2 Delivery Nasal Cannula Nasal Cannula Nasal Cannula Nasal Cannula O2 Flow Rate 5.0 5.0 5.0 5.0 07/26/19 07/26/19 07/26/19 07/27/19 14:29 19:00 20:10 01:35 Temp 103.1 103.1 Pulse 116 Resp 30 26 B/P (MAP) 131/81 (98) Pulse Ox 78 88 O2 Delivery Nasal Cannula Nasal Cannula Nasal Cannula Nasal Cannula O2 Flow Rate 5.0 5.0 5.0 07/27/19 07/27/19 07/27/19 02:05 07:00 09:50 Temp 100.3 100.3 Pulse 122 Resp 28 15 40 B/P (MAP) 126/62 (83) Pulse Ox 88 82 O2 Delivery Nasal Cannula Nasal Cannula Room Air O2 Flow Rate 5.0 5.0 Intake and Output 07/26/19 07/26/19 07/27/19 15:00 23:00 07:00 Intake Total 0 ml 0 ml Output Total 250 ml 100 ml 1000 ml Balance -250 ml -100 ml -1000 ml LULY GUERIN MD Jul 27, 2019 10:22
--- NOTE | 2019-07-27 12:19 | NUR ---
Pt's family notified of pt's status this am. [facility] also notified. Pt's son is at the bedside. Pt is resting with no signs of pain. Will continue to monitor pt.
--- NOTE | 2019-07-27 14:29 | NUR ---
Pt pronounced at 1405. Son and Vitas at bedside. Pt assessed by MOODY Fontenot and Chana RN. Dr. Valdes notified. Georgi will notify home of .
--- NOTE | 2019-07-27 14:34 | NUR ---
Pt belongings sent with pt's son.
== END 2019-07-27 15:50 | disposition expired | DRG 871 ==
LOC: 5 SOUTH 15:37
PROVIDERS: ADMIT Internal Medicine; ATTEND Internal Medicine
DX: A41.9 Sepsis, unspecified organism (principal); I21.A1 Myocardial infarction type 2; I50.31 Acute diastolic (congestive) heart failure; J11.00 Influenza due to unidentified influenza virus with unspecified type of pneumonia; J96.00 Acute respiratory failure, unspecified whether with hypoxia or hypercapnia; N17.9 Acute kidney failure, unspecified; G93.40 Encephalopathy, unspecified; E03.9 Hypothyroidism, unspecified; E78.5 Hyperlipidemia, unspecified; F03.90 Unspecified dementia, unspecified severity, without behavioral disturbance, psychotic disturbance, mood disturbance, and anxiety; I11.0 Hypertensive heart disease with heart failure; I25.10 Atherosclerotic heart disease of native coronary artery without angina pectoris; Z66 Do not resuscitate; Z82.49 Family history of ischemic heart disease and other diseases of the circulatory system; Z95.1 Presence of aortocoronary bypass graft; F32.9 Major depressive disorder, single episode, unspecified; F41.9 Anxiety disorder, unspecified; M19.90 Unspecified osteoarthritis, unspecified site
CPT/HCPCS: 94640; J2060; J2270; J3490; J7030; J7620; G0378